=== PATIENT | female | born 1960 | race Caucasian/White ===

== ENCOUNTER 2018-09-11 18:48 | Emergency (ER) | payer MEDICARE, MEDICAID ==
[2018-09-11] MEDS ORDERED: Diphtheria,Pertussis(Acell),Tetanus Vaccine 0.5 ML Syringe IM ONE (19:03)
[2018-09-11] MEDS ORDERED: Bacitracin Oint 1 GM U/D Packet TOP ONE (19:03)
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
[2018-09-11 23:57] VITALS: BP 154/78
== END 2018-09-11 21:56 | disposition home or self-care (01) ==
LOC: MW.ED 18:48
DX: S61.512A Laceration without foreign body of left wrist, initial encounter (principal); F32.9 Major depressive disorder, single episode, unspecified; E03.9 Hypothyroidism, unspecified; E66.9 Obesity, unspecified; K21.9 Gastro-esophageal reflux disease without esophagitis; F99 Mental disorder, not otherwise specified; Z79.899 Other long term (current) drug therapy; Z88.8 Allergy status to other drugs, medicaments and biological substances; Z99.81 Dependence on supplemental oxygen; X78.0XXA Intentional self-harm by sharp glass, initial encounter; Z23 Encounter for immunization
CPT/HCPCS: 12005; 90471; 90715; 99283; J2001

== ENCOUNTER 2018-09-15 20:16 | Inpatient (IN) | payer MEDICARE, MEDICAID ==
[2018-09-15] MEDS ORDERED: Albuterol/Ipratropium 3.0-0.5 MG/3 ML Neb Soln NEB ONE (20:36)
--- NOTE | 2018-09-15 20:39 | EDM.PDOC ---
ED HPI GENERAL MEDICAL PROBLEM - General Chief Complaint: Respiratory Problem Stated Complaint: TROUBLE BREATHING Time Seen by Provider: 09/15/18 20:25 Source of Information: Reports: Patient, Other (GLOVE CUTTER) History Limitations: Reports: Other (poor historian) - History of Present Illness INITIAL COMMENTS - FREE TEXT/NARRATIVE: HISTORY AND PHYSICAL: History of present illness: Patient is a 58-year-old female presents to the ED today with the GLOVE CUTTER from the [facility] with concern of shortness of breath that it started this morning. Patient was seen in the ED recently after she had cut her wrist following a behavioral outburst. Since then, patient has been placed on Ativan daily and GLOVE CUTTER is worried that the Ativan could be causing her feeling short of breath. GLOVE CUTTER states that starting yesterday and today she has noticed that patient's color seems to be a little bit more pale and she seems more tired than usual. Patient states she started feeling short of breath this morning but she is not really able to explain what she means by this. GLOVE CUTTER states patient vomited last night and today 1 time. Patient states she does not smoke, drink, or use any other substances. Patient denies fever, chills, chest pain, or cough. Denies headache, neck stiff ness, change in vision, syncope, or near syncope. Denies nausea, vomiting, abdominal pain, diarrhea, constipation, or dysuria. Has not noted any blood in urine or stool. Patient has been eating and drinking appropriately. Review of systems: As per history of present illness and below otherwise all systems reviewed and negative. Past medical history: As per history of present illness and as reviewed below otherwise noncontributory. Surgical history: As per history of present illness and as reviewed below otherwise noncontributory. Social history: See social history for further information Family history: As per history of present illness and as reviewed below otherwise noncontributory. Physical exam: General: Patient is alert, oriented, and in no acute distress. Patient sitting comfortably on exam table. HEENT: Atraumatic, normocephalic, pupils equal and reactive bilaterally, negative for conjunctival pallor or scleral icterus, mucous membranes moist, TMs normal bilaterally, throat clear, neck supple, nontender, trachea midline. No drooling or trismus noted. No meningeal signs. No hot potato voice noted. Lungs: Clear to auscultation, breath sounds equal bilaterally, chest nontender. Heart: S1S2, regular rate and rhythm without overt murmur Abdomen: Soft, nondistended, nontender. Negative for masses or hepatosplenomegaly. Negative for costovertebral tenderness. Pelvis: Stable nontender. Genitourinary: Deferred. Rectal: Deferred. Skin: Intact, warm, dry. No lesions or rashes noted. Extremities: Atraumatic, negative for cords or calf pain. Neurovascular unremarkable. Neuro: Awake, alert, oriented. Cranial nerves II through XII unremarkable. Cerebellum unremarkable. Motor and sensory unremarkable throughout. Exam nonfocal. Notes: Dr. Wright directly involved in patient care. Dr. Teixeira consulted on patient and will admit to observation Voices understanding and is agreeable to plan of care. Denies any further questions or concerns at this time. Diagnostics: CBC, CMP, EKG, UA, d-dimer, troponin, lactate, blood cultures x 2, CTA Therapeutics: DuoNeb, Pyridium, Rocephin Impression: Urinary tract infection Dyspnea Plan: 1. Admit to observation to Dr. Teixeira Definitive disposition and diagnosis as appropriate pending reevaluation and review of above. - Related Data Allergies Allergy/AdvReac Type Severity Reaction Status Date / Time divalproex sodium Allergy Lethargy Verified 09/16/18 23:14 [From Depakote] Home Meds: Home Meds Calcium Carbonate/Vitamin D3 [Calcium 250+D] 2 tab PO BID 06/30/13 [History] Gemfibrozil 600 mg PO BID 06/30/13 [History] Levothyroxine 75 mcg PO DAILY 06/30/13 [History] Multivitamin [Multi-Vitamin Daily] 1 each PO DAILY 06/30/13 [History] Venlafaxine [Effexor XR] 150 mg PO DAILY 06/30/13 [History] Cyanocobalamin/Folic Acid [Vitamin P83-Hetzz Acid] 1,000 mg PO DAILY 07/06/14 [ History] Iron Polysaccharide Complex [Poly-Iron] 150 mg PO BID 07/06/14 [History] Aspirin [Halfprin] 81 mg PO DAILY 07/08/15 [History] Dexlansoprazole [Dexilant] 60 mg PO DAILY 07/08/15 [History] Docusate Sodium [Colace] 100 mg PO BID PRN 07/08/15 [History] Haloperidol [Haldol] 10 mg PO BID 07/08/15 [History] Venlafaxine [Effexor XR] 75 mg PO DAILY 07/08/15 [History] Calcium Polycarbophil [Fiber Laxative] 625 mg PO BID 07/15/15 [History] Albuterol Sulfate 2.5 mg INH Q4H PRN 11/04/17 [History] Escitalopram [Lexapro] 20 mg PO DAILY 11/04/17 [History] Estrogens, Conjugated [Premarin Vaginal Crm] 1 applic VAG Q48H 11/04/17 [History ] Lurasidone HCl [Latuda] 120 mg PO WITHDINNER 11/04/17 [History] Diclofenac Sodium [Voltaren] 75 mg PO BID 09/11/18 [History] LORazepam 1 tab PO ASDIRECTED PRN 09/15/18 [History] Ertapenem [INVanz] 1 gm IM DAILY #13 vial 09/19/18 [Rx] Past Medical History HEENT History: Reports: Hard of Hearing, Impaired Vision, Other (See Below) Other HEENT History: Bilateral exotropia Cardiovascular History: Reports: None Respiratory History: Reports: Other (See Below) Other Respiratory History: 3L O2 use at bedtime Gastrointestinal History: Reports: Chronic Constipation, GERD Genitourinary History: Reports: None [employer]AT BRUSHER History: Reports: Musculoskeletal History: Reports: Fracture Neurological History: Reports: None Psychiatric History: Reports: Depression, Psychosis, Other (See Below) Other Psychiatric History: Self Harm Endocrine/Metabolic History: Reports: Hypothyroidism, Obesity/BMI 30+ Hematologic History: Reports: None Immunologic History: Reports: None Oncologic (Cancer) History: Reports: None Dermatologic History: Reports: Other (See Below) Other Dermatologic History: varicose veins with edema - Infectious Disease History Infectious Disease History: Reports: None Other Infectious Disease History: Unable to verify any other illnesses. - Past Surgical History Female Surgical History: Reports: Section, Tubal Ligation Musculoskeletal Surgical History: Reports: Other (See Below) Social & Family History - Family History Family Medical History: Unobtainable - Living Situation & Occupation Living situation: Reports: Assisted Living, Other Occupation: Disabled ED ROS GENERAL - Review of Systems Review Of Systems: ROS reveals no pertinent complaints other than HPI. ED EXAM, GENERAL - Physical Exam Exam: See Below (see dictation) Course - Vital Signs Last Recorded V/S: Last Vital Signs Temp 36.9 C 09/19/18 04:00 Pulse 77 09/19/18 04:00 Resp 20 09/19/18 04:00 BP 141/70 H 09/19/18 04:00 Pulse Ox 91 L 09/19/18 04:00 - Orders/Labs/Meds Orders: Medication Orders Acetaminophen (Tylenol) 650 mg PO Q6H PRN PRN Reason: Pain Albuterol (Proventil Neb Soln) 2.5 mg INH Q4H PRN PRN Reason: Wheezing Albuterol/Ipratropium (Duoneb 3.0-0.5 Mg/3 Ml) 3 ml NEB Q6HRRT [facility] Last Admin: 09/19/18 06:02 Dose: 3 ml Admin: 09/18/18 23:48 Dose: 3 ml Admin: 09/18/18 18:28 Dose: 3 ml Admin: 09/18/18 12:29 Dose: 3 ml Admin: 09/18/18 06:41 Dose: 3 ml Admin: 09/17/18 23:41 Dose: 3 ml Admin: 09/17/18 17:16 Dose: 3 ml Admin: 09/17/18 12:03 Dose: 3 ml Aspirin (Halfprin) 81 mg PO DAILY [facility] Last Admin: 09/19/18 09:56 Dose: 81 mg Admin: 09/18/18 09:03 Dose: 81 mg Admin: 09/17/18 08:13 Dose: 81 mg Admin: 09/16/18 10:47 Dose: 81 mg Diclofenac Sodium (Voltaren) 75 mg PO BID [facility] Last Admin: 09/19/18 09:56 Dose: 75 mg Admin: 09/18/18 20:46 Dose: 75 mg Admin: 09/18/18 09:02 Dose: 75 mg Admin: 09/17/18 23:40 Dose: 75 mg Admin: 09/17/18 08:13 Dose: 75 mg Admin: 09/16/18 21:23 Dose: 75 mg Admin: 09/16/18 10:49 Dose: 75 mg Docusate Sodium (Colace) 100 mg PO BID PRN PRN Reason: Constipation Escitalopram Oxalate (Lexapro) 20 mg PO DAILY [facility] Last Admin: 09/19/18 09:55 Dose: 20 mg Admin: 09/18/18 09:04 Dose: 20 mg Admin: 09/17/18 08:13 Dose: 20 mg Admin: 09/16/18 10:45 Dose: 20 mg Gemfibrozil (Lopid) 600 mg PO BID [facility] Last Admin: 09/19/18 09:55 Dose: 600 mg Admin: 09/18/18 20:46 Dose: 600 mg Admin: 09/18/18 09:04 Dose: 600 mg Admin: 09/17/18 23:40 Dose: 600 mg Admin: 09/17/18 08:13 Dose: 600 mg Admin: 09/16/18 21:22 Dose: 600 mg Admin: 09/16/18 10:48 Dose: 600 mg Haloperidol (Haldol) 10 mg PO BID [facility] Last Admin: 09/19/18 09:56 Dose: 10 mg Admin: 09/18/18 20:46 Dose: 10 mg Admin: 09/18/18 10:01 Dose: 10 mg Admin: 09/17/18 23:40 Dose: 10 mg Admin: 09/17/18 08:14 Dose: 10 mg Admin: 09/16/18 21:23 Dose: 10 mg Admin: 09/16/18 10:48 Dose: 10 mg Heparin Sodium (Porcine) (Heparin Sodium) 5,000 units SUBCUT Q8H [facility] Last Admin: 09/19/18 09:53 Dose: 5,000 units Admin: 09/18/18 23:48 Dose: 5,000 units Admin: 09/18/18 15:48 Dose: 5,000 units Admin: 09/18/18 09:30 Dose: 5,000 units Admin: 09/17/18 23:41 Dose: 5,000 units Admin: 09/17/18 16:39 Dose: 5,000 units Admin: 09/17/18 08:14 Dose: 5,000 units Admin: 09/16/18 23:37 Dose: 5,000 units Admin: 09/16/18 16:07 Dose: 5,000 units Admin: 09/16/18 10:42 Dose: 5,000 units Meropenem 1 gm/ Sodium (Chloride) 100 mls @ 200 mls/hr IV Q12H [facility] Last Admin: 09/19/18 08:37 Dose: 200 mls/hr Infusion: 09/18/18 22:00 Dose: 200 mls/hr Admin: 09/18/18 21:30 Dose: 200 mls/hr Infusion: 09/18/18 09:09 Dose: 200 mls/hr Admin: 09/18/18 08:39 Dose: 200 mls/hr Infusion: 09/18/18 00:10 Dose: 200 mls/hr Admin: 09/17/18 23:40 Dose: 200 mls/hr Infusion: 09/17/18 09:58 Dose: 200 mls/hr Admin: 09/17/18 09:28 Dose: 200 mls/hr Levothyroxine Sodium (Levothyroxine) 75 mcg PO ACBREAKFAST [facility] Last Admin: 09/19/18 08:31 Dose: 75 mcg Admin: 09/18/18 07:49 Dose: 75 mcg Admin: 09/17/18 06:30 Dose: 75 mcg Admin: 09/16/18 10:47 Dose: 75 mcg Lorazepam (Ativan) 2 mg PO DAILY PRN PRN Reason: Anxiety Methylprednisolone Sodium Succinate (Solu-Medrol) 60 mg IVPUSH Q12H [facility] Omeprazole (Omeprazole) 20 mg PO ACBREAKFAST [facility] Last Admin: 09/19/18 08:30 Dose: 20 mg Admin: 09/18/18 07:49 Dose: 20 mg Admin: 09/17/18 06:30 Dose: 20 mg Admin: 09/16/18 10:47 Dose: 20 mg Lurasidone Hcl [ (Latuda] 120 Mg) 1 each PO WITHDINNER [facility] Last Admin: 09/18/18 17:49 Dose: 1 each Admin: 09/17/18 17:32 Dose: 1 each Admin: 09/16/18 18:15 Dose: Not Given Venlafaxine HCl (Effexor Xr) 225 mg PO DAILY [facility] Last Admin: 09/19/18 09:55 Dose: 225 mg Admin: 09/18/18 09:03 Dose: 225 mg Admin: 09/17/18 08:12 Dose: 225 mg Admin: 09/16/18 10:43 Dose: 225 mg Labs: Laboratory Tests 09/15/18 09/15/18 09/15/18 Range/Units 20:40 20:58 20:58 WBC 11.58 H (4.0-11.0) K/uL RBC 3.19 L (4.30-5.90) M/uL Hgb 9.8 L (12.0-16.0) g/dL Hct 29.9 L (36.0-46.0) % MCV 93.7 (80.0-98.0) fL MCH 30.7 (27.0-32.0) pg MCHC 32.8 (31.0-37.0) g/dL RDW Std Deviation 45.6 (28.0-62.0) fl RDW Coeff of Amaris 13 (11.0-15.0) % Plt Count 186 (150-400) K/uL MPV 10.70 (7.40-12.00) fL Neut % (Auto) 80.1 H (48.0-80.0) % Lymph % (Auto) 7.2 L (16.0-40.0) % [place] % (Auto) 12.0 (0.0-15.0) % Eos % (Auto) 0.5 (0.0-7.0) % Baso % (Auto) 0.2 (0.0-1.5) % Neut # (Auto) 9.3 H (1.4-5.7) K/uL Lymph # (Auto) 0.8 (0.6-2.4) K/uL [place] # (Auto) 1.4 H (0.0-0.8) K/uL Eos # (Auto) 0.1 (0.0-0.7) K/uL Baso # (Auto) 0.0 (0.0-0.1) K/uL Nucleated RBC % 0.0 /100WBC Nucleated RBCs # 0 K/uL D-Dimer, Quantitative (0.0-0.50) mg/L FEU Lactate (0.20-2.00) mmol/L Sodium 132 L (136-145) mmol/L Potassium 3.5 (3.5-5.1) mmol/L Chloride 98 (98-107) mmol/L Carbon Dioxide 24.1 (21.0-32.0) mmol/L BUN 37 H (7.0-18.0) mg/dL Creatinine 1.8 H (0.6-1.0) mg/dL Est Cr Clr Drug Dosing TNP Estimated GFR (MDRD) 29.0 ml/min Glucose 148 H (74-106) mg/dL POC Glucose (60-110) mg/dL Calcium 8.4 L (8.5-10.1) mg/dL Total Bilirubin 0.3 (0.2-1.0) mg/dL AST 19 (15-37) IU/L ALT 18 (14-63) IU/L Alkaline Phosphatase 149 H (46-116) U/L Troponin I 0.451 H* (0.000-0.056) ng/mL Total Protein 6.5 (6.4-8.2) g/dL Albumin 2.5 L (3.4-5.0) g/dL Globulin 4.0 (2.6-4.0) g/dL Albumin/Globulin Ratio 0.6 L (0.9-1.6) Urine Color YELLOW Urine Appearance CLEAR Urine pH 5.5 (5.0-8.0) Ur Specific [place] 1.015 (1.001-1.035) Urine Protein 30 H (NEGATIVE) mg/dL Urine Glucose (UA) NEGATIVE (NEGATIVE) mg/dL Urine Ketones NEGATIVE (NEGATIVE) mg/dL Urine Occult Blood MODERATE H (NEGATIVE) Urine Nitrite POSITIVE H (NEGATIVE) Urine Bilirubin NEGATIVE (NEGATIVE) Urine Urobilinogen 0.2 (<2.0) EU/dL Ur Leukocyte Esterase LARGE H (NEGATIVE) Urine RBC 1-3 (0-2/HPF) Urine WBC 20-25 (0-5/HPF) Ur Epithelial Cells FEW (NONE-FEW) Urine Bacteria 3+ H (NEGATIVE) 09/15/18 09/15/18 09/15/18 Range/Units 20:58 21:30 22:44 WBC (4.0-11.0) K/uL RBC (4.30-5.90) M/uL Hgb (12.0-16.0) g/dL Hct (36.0-46.0) % MCV (80.0-98.0) fL MCH (27.0-32.0) pg MCHC (31.0-37.0) g/dL RDW Std Deviation (28.0-62.0) fl RDW Coeff of Amaris (11.0-15.0) % Plt Count (150-400) K/uL MPV (7.40-12.00) fL Neut % (Auto) (48.0-80.0) % Lymph % (Auto) (16.0-40.0) % [place] % (Auto) (0.0-15.0) % Eos % (Auto) (0.0-7.0) % Baso % (Auto) (0.0-1.5) % Neut # (Auto) (1.4-5.7) K/uL Lymph # (Auto) (0.6-2.4) K/uL [place] # (Auto) (0.0-0.8) K/uL Eos # (Auto) (0.0-0.7) K/uL Baso # (Auto) (0.0-0.1) K/uL Nucleated RBC % /100WBC Nucleated RBCs # K/uL D-Dimer, Quantitative 2.13 H (0.0-0.50) mg/L FEU Lactate 1.2 (0.20-2.00) mmol/L Sodium (136-145) mmol/L Potassium (3.5-5.1) mmol/L Chloride (98-107) mmol/L Carbon Dioxide (21.0-32.0) mmol/L BUN (7.0-18.0) mg/dL Creatinine (0.6-1.0) mg/dL Est Cr Clr Drug Dosing Estimated GFR (MDRD) ml/min Glucose (74-106) mg/dL POC Glucose 145 H (60-110) mg/dL Calcium (8.5-10.1) mg/dL Total Bilirubin (0.2-1.0) mg/dL AST (15-37) IU/L ALT (14-63) IU/L Alkaline Phosphatase (46-116) U/L Troponin I (0.000-0.056) ng/mL Total Protein (6.4-8.2) g/dL Albumin (3.4-5.0) g/dL Globulin (2.6-4.0) g/dL Albumin/Globulin Ratio (0.9-1.6) Urine Color Urine Appearance Urine pH (5.0-8.0) Ur Specific [place] (1.001-1.035) Urine Protein (NEGATIVE) mg/dL Urine Glucose (UA) (NEGATIVE) mg/dL Urine Ketones (NEGATIVE) mg/dL Urine Occult Blood (NEGATIVE) Urine Nitrite (NEGATIVE) Urine Bilirubin (NEGATIVE) Urine Urobilinogen (<2.0) EU/dL Ur Leukocyte Esterase (NEGATIVE) Urine RBC (0-2/HPF) Urine WBC (0-5/HPF) Ur Epithelial Cells (NONE-FEW) Urine Bacteria (NEGATIVE) 09/16/18 09/16/18 Range/Units 03:05 03:05 WBC 8.81 (4.0-11.0) K/uL RBC 3.06 L (4.30-5.90) M/uL Hgb 9.4 L (12.0-16.0) g/dL Hct 28.7 L (36.0-46.0) % MCV 93.8 (80.0-98.0) fL MCH 30.7 (27.0-32.0) pg MCHC 32.8 (31.0-37.0) g/dL RDW Std Deviation 45.4 (28.0-62.0) fl RDW Coeff of Amaris 13 (11.0-15.0) % Plt Count 173 (150-400) K/uL MPV 10.30 (7.40-12.00) fL Neut % (Auto) 80.5 H (48.0-80.0) % Lymph % (Auto) 8.9 L (16.0-40.0) % [place] % (Auto) 9.8 (0.0-15.0) % Eos % (Auto) 0.7 (0.0-7.0) % Baso % (Auto) 0.1 (0.0-1.5) % Neut # (Auto) 7.1 H (1.4-5.7) K/uL Lymph # (Auto) 0.8 (0.6-2.4) K/uL [place] # (Auto) 0.9 H (0.0-0.8) K/uL Eos # (Auto) 0.1 (0.0-0.7) K/uL Baso # (Auto) 0.0 (0.0-0.1) K/uL Nucleated RBC % 0.0 /100WBC Nucleated RBCs # 0 K/uL D-Dimer, Quantitative (0.0-0.50) mg/L FEU Lactate (0.20-2.00) mmol/L Sodium 135 L (136-145) mmol/L Potassium 3.4 L (3.5-5.1) mmol/L Chloride 101 (98-107) mmol/L Carbon Dioxide 26.4 (21.0-32.0) mmol/L BUN 35 H (7.0-18.0) mg/dL Creatinine 1.8 H (0.6-1.0) mg/dL Est Cr Clr Drug Dosing TNP Estimated GFR (MDRD) 29.0 ml/min Glucose 111 H (74-106) mg/dL POC Glucose (60-110) mg/dL Calcium 8.1 L (8.5-10.1) mg/dL Total Bilirubin (0.2-1.0) mg/dL AST (15-37) IU/L ALT (14-63) IU/L Alkaline Phosphatase (46-116) U/L Troponin I 0.337 H* (0.000-0.056) ng/mL Total Protein (6.4-8.2) g/dL Albumin (3.4-5.0) g/dL Globulin (2.6-4.0) g/dL Albumin/Globulin Ratio (0.9-1.6) Urine Color Urine Appearance Urine pH (5.0-8.0) Ur Specific [place] (1.001-1.035) Urine Protein (NEGATIVE) mg/dL Urine Glucose (UA) (NEGATIVE) mg/dL Urine Ketones (NEGATIVE) mg/dL Urine Occult Blood (NEGATIVE) Urine Nitrite (NEGATIVE) Urine Bilirubin (NEGATIVE) Urine Urobilinogen (<2.0) EU/dL Ur Leukocyte Esterase (NEGATIVE) Urine RBC (0-2/HPF) Urine WBC (0-5/HPF) Ur Epithelial Cells (NONE-FEW) Urine Bacteria (NEGATIVE) Meds: Medications Generic Name Dose Route Start Last Admin Trade Name Freq PRN Reason Stop Dose Admin Acetaminophen 650 mg 09/15/18 23:12 Tylenol PO Q6H PRN Pain Albuterol 2.5 mg 09/16/18 08:12 Proventil Neb Soln INH Q4H PRN Wheezing Albuterol/Ipratropium 3 ml 09/17/18 12:00 09/19/18 06:02 Duoneb 3.0-0.5 Mg/3 Ml NEB 3 ml Q6HRRT [facility] Administration Aspirin 81 mg 09/16/18 09:00 09/19/18 09:56 Halfprin PO 81 mg DAILY [facility] Administration Diclofenac Sodium 75 mg 09/16/18 09:00 09/19/18 09:56 Voltaren PO 75 mg BID [facility] Administration Docusate Sodium 100 mg 09/16/18 08:12 Colace PO BID PRN Constipation Escitalopram Oxalate 20 mg 09/16/18 09:00 09/19/18 09:55 Lexapro PO 20 mg DAILY [facility] Administration Gemfibrozil 600 mg 09/16/18 09:00 09/19/18 09:55 Lopid PO 600 mg BID [facility] Administration Haloperidol 10 mg 09/16/18 09:00 09/19/18 09:56 Haldol PO 10 mg BID [facility] Administration Heparin Sodium (Porcine) 5,000 units 09/16/18 08:15 09/19/18 09:53 Heparin Sodium SUBCUT 5,000 units Q8H [facility] Administration Meropenem 1 gm/ Sodium 100 mls @ 200 mls/hr 09/17/18 08:30 09/19/18 08:37 Chloride IV 200 mls/hr Q12H [facility] Administration Levothyroxine Sodium 75 mcg 09/16/18 09:00 09/19/18 08:31 Levothyroxine PO 75 mcg ACBREAKFAST [facility] Administration Lorazepam 2 mg 09/16/18 08:12 Ativan PO DAILY PRN Anxiety Methylprednisolone Sodium Succinate 60 mg 09/19/18 09:10 Solu-Medrol IVPUSH Q12H [facility] Omeprazole 20 mg 09/16/18 09:00 09/19/18 08:30 Omeprazole PO 20 mg ACBREAKFAST [facility] Administration Lurasidone Hcl [ 1 each 09/16/18 17:30 09/18/18 17:49 Latuda] 120 Mg PO 1 each WITHDINNER [facility] Administration Venlafaxine HCl 225 mg 09/16/18 09:00 09/19/18 09:55 Effexor Xr PO 225 mg DAILY [facility] Administration Discontinued Medications Generic Name Dose Route Start Last Admin Trade Name Freq PRN Reason Stop Dose Admin Albuterol/Ipratropium 3 ml 09/15/18 20:36 09/15/18 20:54 Duoneb 3.0-0.5 Mg/3 Ml NEB 09/15/18 20:37 3 ml ONETIME ONE Administration Albuterol/Ipratropium 3 ml 09/15/18 23:12 06/18/19 15:52 Duoneb 3.0-0.5 Mg/3 Ml NEB 3 ml Q4HRRT PRN Administration Wheezing Enoxaparin Sodium 120 mg 09/15/18 21:51 09/15/18 22:01 Lovenox SUBCUT 09/15/18 21:52 120 mg ONETIME ONE Administration Ceftriaxone Sodium/Dextrose 1 50 mls @ 100 mls/hr 09/15/18 21:09 09/15/18 21: 39 gm/ Premix IV 09/15/18 21:38 100 mls/hr ONETIME ONE Administration Sodium Chloride 1,000 mls @ 999 mls/hr 09/15/18 21:09 09/15/18 21:39 Normal Saline IV 09/15/18 22:09 999 mls/hr STAT ONE Administration Ceftriaxone Sodium/Dextrose 1 50 mls @ 100 mls/hr 09/16/18 21:00 09/16/18 21: 22 gm/ Premix IV 100 mls/hr Q24H [facility] Administration Sodium Chloride 1,000 mls @ 75 mls/hr 09/15/18 23:15 09/18/18 06:41 Normal Saline IV 75 mls/hr ASDIRECTED [facility] Administration Premarin Vaginal 1 applic 09/16/18 21:00 09/16/18 21:23 Cream VAG Not Given Q2D@2100 [facility] Oxycodone HCl 5 mg 09/15/18 23:13 09/15/18 23:49 Oxycodone PO 5 mg Q4H PRN Administration Pain Phenazopyridine HCl 200 mg 09/15/18 20:55 09/15/18 21:06 Pyridium PO 09/15/18 20:56 200 mg ONETIME ONE Administration Departure - Departure Time of Disposition: 21:33 Disposition: Refer to Observation Clinical Impression: Urinary tract infection Qualifiers: Urinary tract infection type: acute cystitis Hematuria presence: with hematuria Qualified Code(s): N30.01 - Acute cystitis with hematuria Dyspnea Qualifiers: Dyspnea type: unspecified Qualified Code(s): R06.00 - Dyspnea, unspecified - Discharge Information
[2018-09-15] MEDS ORDERED: Phenazopyridine 200 MG Tab PO ONE (20:55)
[2018-09-15] MEDS ORDERED: cefTRIAXone 1 GM in Premix Bag 1 BAG IV ONE (21:09)
[2018-09-15] MEDS ORDERED: Sodium Chloride 0.9% 1,000 ML IV ONE (21:09)
[2018-09-15 21:40] LABS: CHLORIDE,CL 98 mmol/L (98-107); SODIUM,NA 132 mmol/L (136-145)
[2018-09-15] MEDS ORDERED: Enoxaparin 150 MG/1 ML Syringe SUBCUT ONE (21:51)
[2018-09-15] MEDS ORDERED: Acetaminophen 325 MG Tab PO PRN (23:12)
[2018-09-15] MEDS ORDERED: oxyCODONE 5 MG Tab PO PRN (23:13)
[2018-09-15] MEDS: Sodium Chloride 0.9% 1,000 ML IV SCH (23:49)
[2018-09-15] MEDS: Albuterol/Ipratropium 3.0-0.5 MG/3 ML Neb Soln NEB PRN (23:51)
[2018-09-16 03:48] LABS: CHLORIDE,CL 101 mmol/L (98-107); SODIUM,NA 135 mmol/L (136-145)
[2018-09-16] MEDS: Sodium Chloride 0.9% 1,000 ML IV SCH (07:48)
[2018-09-16] MEDS ORDERED: LORazepam 1 MG Tab PO PRN (08:12)
[2018-09-16] MEDS ORDERED: Docusate Sodium 100 MG Cap PO PRN (08:12)
[2018-09-16] MEDS ORDERED: Albuterol 0.083% 2.5 MG/3 ML Neb Soln INH PRN (08:12)
--- NOTE | 2018-09-16 08:18 | PCM.HP ---
H&P History of Present Illness - General Date of Service: 09/16/18 Admit Problem/Dx: Admission Diagnosis/Problem Admission Diagnosis/Problem Urinary tract infection Source of Information: Patient, Old Records History Limitations: Reports: Altered Mental Status - History of Present Illness Initial Comments - Free Text/Narative: The patient is a 58-year-old lady who had presented to the emergency department from [facility] out of concern for shortness of breath. The patient is living in a long-term. The patient is developmentally delayed and is somewhat of a poor historian. Family members are not available. Information has been taken from her previous charting. The patient has been reported to have had nausea and vomiting. The patient also has denied any pain. Onset of Symptoms: Reports: Unknown/Unsure Duration of Symptoms: Reports: Day(s): Location: Reports: Abdomen Severity: Mild Improves with: Reports: None, Medication Associated Symptoms: Reports: No Other Symptoms - Related Data Allergies/Adverse Reactions: Allergies Allergy/AdvReac Type Severity Reaction Status Date / Time divalproex sodium Allergy Lethargy Verified 09/15/18 20:37 [[facility] Home Medications: Home Meds Calcium Carbonate/Vitamin D3 [Calcium 250+D] 2 tab PO BID 06/30/13 [History] Gemfibrozil 600 mg PO BID 06/30/13 [History] Levothyroxine 75 mcg PO DAILY 06/30/13 [History] Multivitamin [Multi-Vitamin Daily] 1 each PO DAILY 06/30/13 [History] Venlafaxine [Effexor XR] 150 mg PO DAILY 06/30/13 [History] Cyanocobalamin/Folic Acid [Vitamin T09-Nkphe Acid] 1,000 mg PO DAILY 07/06/14 [ History] Iron Polysaccharide Complex [Poly-Iron] 150 mg PO BID 07/06/14 [History] Aspirin [Halfprin] 81 mg PO DAILY 07/08/15 [History] Dexlansoprazole [Dexilant] 60 mg PO DAILY 07/08/15 [History] Docusate Sodium [Colace] 100 mg PO BID PRN 07/08/15 [History] Haloperidol [Haldol] 10 mg PO BID 07/08/15 [History] Venlafaxine [Effexor XR] 75 mg PO DAILY 07/08/15 [History] Calcium Polycarbophil [Fiber Laxative] 625 mg PO BID 07/15/15 [History] Albuterol Sulfate 2.5 mg INH Q4H PRN 11/04/17 [History] Escitalopram [Lexapro] 20 mg PO DAILY 11/04/17 [History] Estrogens, Conjugated [Premarin Vaginal Crm] 1 applic VAG Q48H 11/04/17 [History ] Lurasidone HCl [Latuda] 120 mg PO WITHDINNER 11/04/17 [History] Diclofenac Sodium [Voltaren] 75 mg PO BID 09/11/18 [History] Iron Polysaccharide Complex [Poly-Iron] 1 cap PO BID 09/11/18 [History] LORazepam 1 tab PO ASDIRECTED PRN 09/15/18 [History] Past Medical History HEENT History: Reports: Hard of Hearing, Impaired Vision, Other (See Below) Other HEENT History: Bilateral exotropia Cardiovascular History: Reports: None Respiratory History: Reports: Other (See Below) Other Respiratory History: 3L O2 use at bedtime Gastrointestinal History: Reports: Chronic Constipation, GERD Genitourinary History: Reports: Urinary Incontinence [employer] History: Reports: Musculoskeletal History: Reports: Fracture Neurological History: Reports: None Psychiatric History: Reports: Aggressive/Hostile Behaviors, Depression, Developmental Delay, Emotional Problems, Learning Disability, Mood Swings, Psychosis, Suicide Attempt, Other (See Below) Other Psychiatric History: Self Harm Endocrine/Metabolic History: Reports: Hypothyroidism, Obesity/BMI 30+ Hematologic History: Reports: None Immunologic History: Reports: None Oncologic (Cancer) History: Reports: None Dermatologic History: Reports: Other (See Below) Other Dermatologic History: varicose veins with edema - Infectious Disease History Infectious Disease History: Reports: None Other Infectious Disease History: Unable to verify any other illnesses. - Past Surgical History Female Surgical History: Reports: Section, Tubal Ligation Musculoskeletal Surgical History: Reports: Other (See Below) Social & Family History - Family History Family Medical History: Unobtainable - Tobacco Use Smoking Status *Q: Never Smoker Second Hand Smoke Exposure: No - Recreational Drug Use Recreational Drug Use: No - Living Situation & Occupation Living situation: Reports: Single, Assisted Living, Other Occupation: Disabled H&P Review of Systems - Review of Systems: Review Of Systems: Unable To Obtain Exam - Exam Exam: See Below - Vital Signs Vital Signs: Last Vital Signs Temp 36.4 C 09/16/18 08:00 Pulse 84 09/16/18 08:00 Resp 14 09/16/18 08:00 BP 106/60 09/16/18 08:00 Pulse Ox 95 09/16/18 08:00 Weight: 106.957 kg - Exam Quality Assessment: No: Supplemental Oxygen General: Alert, Oriented, Cooperative, Other (Appears older, mask like) HEENT: Conjunctiva Clear, EACs Clear, EOMI, Nares Patent. No: Mucosa Moist & [place] Neck: Supple, Trachea Midline Lungs: Clear to Auscultation, Normal Respiratory Effort Cardiovascular: Regular Rate, Regular Rhythm GI/Abdominal Exam: Normal Bowel Sounds, Soft, Non-Tender, No Distention Back Exam: Normal Inspection, Full Range of Motion Extremities: Normal Inspection Skin: Warm, Dry, Intact Neurological: Cranial Nerves Intact Neuro Extensive - Mental Status: Slow Response to Commands Psychiatric: Alert, Normal Mood. No: Normal Affect (Flat) - Patient Data Lab Results Last 24 hrs: Laboratory Results - last 24 hr 09/15/18 09/15/18 09/15/18 Range/Units 20:40 20:58 20:58 WBC 11.58 H (4.0-11.0) K/uL RBC 3.19 L (4.30-5.90) M/uL Hgb 9.8 L (12.0-16.0) g/dL Hct 29.9 L (36.0-46.0) % MCV 93.7 (80.0-98.0) fL MCH 30.7 (27.0-32.0) pg MCHC 32.8 (31.0-37.0) g/dL RDW Std Deviation 45.6 (28.0-62.0) fl RDW Coeff of [place] 13 (11.0-15.0) % Plt Count 186 (150-400) K/uL MPV 10.70 (7.40-12.00) fL Neut % (Auto) 80.1 H (48.0-80.0) % Lymph % (Auto) 7.2 L (16.0-40.0) % [place] % (Auto) 12.0 (0.0-15.0) % Eos % (Auto) 0.5 (0.0-7.0) % Baso % (Auto) 0.2 (0.0-1.5) % Neut # (Auto) 9.3 H (1.4-5.7) K/uL Lymph # (Auto) 0.8 (0.6-2.4) K/uL [place] # (Auto) 1.4 H (0.0-0.8) K/uL Eos # (Auto) 0.1 (0.0-0.7) K/uL Baso # (Auto) 0.0 (0.0-0.1) K/uL Nucleated RBC % 0.0 /100WBC Nucleated RBCs # 0 K/uL D-Dimer, Quantitative (0.0-0.50) mg/L FEU Lactate (0.20-2.00) mmol/L Sodium 132 L (136-145) mmol/L Potassium 3.5 (3.5-5.1) mmol/L Chloride 98 (98-107) mmol/L Carbon Dioxide 24.1 (21.0-32.0) mmol/L BUN 37 H (7.0-18.0) mg/dL Creatinine 1.8 H (0.6-1.0) mg/dL Est Cr Clr Drug Dosing TNP Estimated GFR (MDRD) 29.0 ml/min Glucose 148 H (74-106) mg/dL POC Glucose (60-110) mg/dL Calcium 8.4 L (8.5-10.1) mg/dL Total Bilirubin 0.3 (0.2-1.0) mg/dL AST 19 (15-37) IU/L ALT 18 (14-63) IU/L Alkaline Phosphatase 149 H (46-116) U/L Troponin I 0.451 H* (0.000-0.056) ng/mL Total Protein 6.5 (6.4-8.2) g/dL Albumin 2.5 L (3.4-5.0) g/dL Globulin 4.0 (2.6-4.0) g/dL Albumin/Globulin Ratio 0.6 L (0.9-1.6) Urine Color YELLOW Urine Appearance CLEAR Urine pH 5.5 (5.0-8.0) Ur Specific [place] 1.015 (1.001-1.035) Urine Protein 30 H (NEGATIVE) mg/dL Urine Glucose (UA) NEGATIVE (NEGATIVE) mg/dL Urine Ketones NEGATIVE (NEGATIVE) mg/dL Urine Occult Blood MODERATE H (NEGATIVE) Urine Nitrite POSITIVE H (NEGATIVE) Urine Bilirubin NEGATIVE (NEGATIVE) Urine Urobilinogen 0.2 (<2.0) EU/dL Ur Leukocyte Esterase LARGE H (NEGATIVE) Urine RBC 1-3 (0-2/HPF) Urine WBC 20-25 (0-5/HPF) Ur Epithelial Cells FEW (NONE-FEW) Urine Bacteria 3+ H (NEGATIVE) 09/15/18 09/15/18 09/15/18 Range/Units 20:58 21:30 22:44 WBC (4.0-11.0) K/uL RBC (4.30-5.90) M/uL Hgb (12.0-16.0) g/dL Hct (36.0-46.0) % MCV (80.0-98.0) fL MCH (27.0-32.0) pg MCHC (31.0-37.0) g/dL RDW Std Deviation (28.0-62.0) fl RDW Coeff of [place]aris (11.0-15.0) % Plt Count (150-400) K/uL MPV (7.40-12.00) fL Neut % (Auto) (48.0-80.0) % Lymph % (Auto) (16.0-40.0) % [place] % (Auto) (0.0-15.0) % Eos % (Auto) (0.0-7.0) % Baso % (Auto) (0.0-1.5) % Neut # (Auto) (1.4-5.7) K/uL Lymph # (Auto) (0.6-2.4) K/uL [place] # (Auto) (0.0-0.8) K/uL Eos # (Auto) (0.0-0.7) K/uL Baso # (Auto) (0.0-0.1) K/uL Nucleated RBC % /100WBC Nucleated RBCs # K/uL D-Dimer, Quantitative 2.13 H (0.0-0.50) mg/L FEU Lactate 1.2 (0.20-2.00) mmol/L Sodium (136-145) mmol/L Potassium (3.5-5.1) mmol/L Chloride (98-107) mmol/L Carbon Dioxide (21.0-32.0) mmol/L BUN (7.0-18.0) mg/dL Creatinine (0.6-1.0) mg/dL Est Cr Clr Drug Dosing Estimated GFR (MDRD) ml/min Glucose (74-106) mg/dL POC Glucose 145 H (60-110) mg/dL Calcium (8.5-10.1) mg/dL Total Bilirubin (0.2-1.0) mg/dL AST (15-37) IU/L ALT (14-63) IU/L Alkaline Phosphatase (46-116) U/L Troponin I (0.000-0.056) ng/mL Total Protein (6.4-8.2) g/dL Albumin (3.4-5.0) g/dL Globulin (2.6-4.0) g/dL Albumin/Globulin Ratio (0.9-1.6) Urine Color Urine Appearance Urine pH (5.0-8.0) Ur Specific [place] (1.001-1.035) Urine Protein (NEGATIVE) mg/dL Urine Glucose (UA) (NEGATIVE) mg/dL Urine Ketones (NEGATIVE) mg/dL Urine Occult Blood (NEGATIVE) Urine Nitrite (NEGATIVE) Urine Bilirubin (NEGATIVE) Urine Urobilinogen (<2.0) EU/dL Ur Leukocyte Esterase (NEGATIVE) Urine RBC (0-2/HPF) Urine WBC (0-5/HPF) Ur Epithelial Cells (NONE-FEW) Urine Bacteria (NEGATIVE) 09/16/18 09/16/18 Range/Units 03:05 03:05 WBC 8.81 (4.0-11.0) K/uL RBC 3.06 L (4.30-5.90) M/uL Hgb 9.4 L (12.0-16.0) g/dL Hct 28.7 L (36.0-46.0) % MCV 93.8 (80.0-98.0) fL MCH 30.7 (27.0-32.0) pg MCHC 32.8 (31.0-37.0) g/dL RDW Std Deviation 45.4 (28.0-62.0) fl RDW Coeff of Amaris 13 (11.0-15.0) % Plt Count 173 (150-400) K/uL MPV 10.30 (7.40-12.00) fL Neut % (Auto) 80.5 H (48.0-80.0) % Lymph % (Auto) 8.9 L (16.0-40.0) % [place] % (Auto) 9.8 (0.0-15.0) % Eos % (Auto) 0.7 (0.0-7.0) % Baso % (Auto) 0.1 (0.0-1.5) % Neut # (Auto) 7.1 H (1.4-5.7) K/uL Lymph # (Auto) 0.8 (0.6-2.4) K/uL [place] # (Auto) 0.9 H (0.0-0.8) K/uL Eos # (Auto) 0.1 (0.0-0.7) K/uL Baso # (Auto) 0.0 (0.0-0.1) K/uL Nucleated RBC % 0.0 /100WBC Nucleated RBCs # 0 K/uL D-Dimer, Quantitative (0.0-0.50) mg/L FEU Lactate (0.20-2.00) mmol/L Sodium 135 L (136-145) mmol/L Potassium 3.4 L (3.5-5.1) mmol/L Chloride 101 (98-107) mmol/L Carbon Dioxide 26.4 (21.0-32.0) mmol/L BUN 35 H (7.0-18.0) mg/dL Creatinine 1.8 H (0.6-1.0) mg/dL Est Cr Clr Drug Dosing TNP Estimated GFR (MDRD) 29.0 ml/min Glucose 111 H (74-106) mg/dL POC Glucose (60-110) mg/dL Calcium 8.1 L (8.5-10.1) mg/dL Total Bilirubin (0.2-1.0) mg/dL AST (15-37) IU/L ALT (14-63) IU/L Alkaline Phosphatase (46-116) U/L Troponin I 0.337 H* (0.000-0.056) ng/mL Total Protein (6.4-8.2) g/dL Albumin (3.4-5.0) g/dL Globulin (2.6-4.0) g/dL Albumin/Globulin Ratio (0.9-1.6) Urine Color Urine Appearance Urine pH (5.0-8.0) Ur Specific [place] (1.001-1.035) Urine Protein (NEGATIVE) mg/dL Urine Glucose (UA) (NEGATIVE) mg/dL Urine Ketones (NEGATIVE) mg/dL Urine Occult Blood (NEGATIVE) Urine Nitrite (NEGATIVE) Urine Bilirubin (NEGATIVE) Urine Urobilinogen (<2.0) EU/dL Ur Leukocyte Esterase (NEGATIVE) Urine RBC (0-2/HPF) Urine WBC (0-5/HPF) Ur Epithelial Cells (NONE-FEW) Urine Bacteria (NEGATIVE) Result Diagrams: 09/16/18 03:05 09/16/18 03:05 - Problem List (1) Urinary tract infection SNOMED Code(s): 00722503 ICD Code: N39.0 - URINARY TRACT INFECTION, SITE NOT SPECIFIED Status: Acute Priority: High Current Visit: Yes Qualifiers: Urinary tract infection type: acute cystitis Hematuria presence: with hematuria Qualified Code(s): N30.01 - Acute cystitis with hematuria (2) Gram-negative bacteremia SNOMED Code(s): 919931401785 ICD Code: R78.81 - BACTEREMIA Status: Acute Priority: High Current Visit: Yes (3) Bipolar disorder SNOMED Code(s): 38963385 ICD Code: F31.9 - BIPOLAR DISORDER, UNSPECIFIED Status: Chronic Priority : High Current Visit: Yes (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) SNOMED Code(s): 71848079 ICD Code: F70 - MILD INTELLECTUAL DISABILITIES Status: Chronic Priority: Medium Current Visit: Yes Problem List Initiated/Reviewed/Updated: Yes Orders Last 24hrs: Active Orders 24 hr Category Date Time Status Admission Status [Patient Status] [ADT] Routine ADT 09/16/18 07:30 Active Oxygen Therapy [RC] PRN Care 09/16/18 08:14 Active RT Aerosol Therapy [RC] ASDIRECTED Care 09/15/18 23:12 Active Up With Assistance [RC] ASDIRECTED Care 09/16/18 08:14 Active VTE/DVT Education [RC] PER UNIT ROUTINE Care 09/16/18 08:14 Active Vital Signs [RC] Q4H Care 09/16/18 08:14 Active Regular Diet [DIET] Diet 09/16/18 Breakfast Active CULTURE BLOOD [BC] Stat Lab 09/15/18 21:18 Received CULTURE BLOOD [BC] Stat Lab 09/15/18 21:30 Received CULTURE URINE [RM] Routine Lab 09/15/18 20:40 Received TROPONIN I [CHEM] Routine Lab 09/16/18 09:00 Ordered Acetaminophen [Tylenol] Med 09/15/18 23:12 Active 650 mg PO Q6H PRN Albuterol [Proventil Neb Soln] Med 09/16/18 08:12 Active 2.5 mg INH Q4H PRN Albuterol/Ipratropium [DuoNeb 3.0-0.5 MG/3 ML] Med 09/15/18 23:12 Active 3 ml NEB Q4HRRT PRN Aspirin [Halfprin] Med 09/16/18 09:00 Active 81 mg PO DAILY Cyanocobalamin/Folic Acid [Vitamin Q22-[place] Acid] Med 09/16/18 09:00 Ordered 1,000 mg PO DAILY Dexlansoprazole [Dexilant] Med 09/16/18 09:00 Ordered 60 mg PO DAILY Diclofenac Sodium [Voltaren] Med 09/16/18 09:00 Active 75 mg PO BID Docusate Sodium [Colace] Med 09/16/18 08:12 Active 100 mg PO BID PRN Escitalopram [Lexapro] Med 09/16/18 09:00 Active 20 mg PO DAILY Estrogens, Conjugated Med 09/16/18 08:15 Ordered 1 applic VAG Q48H Gemfibrozil [Lopid] Med 09/16/18 09:00 Active 600 mg PO BID Haloperidol [Haldol] Med 09/16/18 09:00 Active 10 mg PO BID Heparin Sodium Med 09/16/18 08:15 Active 5,000 units SUBCUT Q8H LORazepam [LORazepam] Med 09/16/18 08:12 Ordered 1 tab PO ASDIRECTED PRN Levothyroxine Med 09/16/18 09:00 Active 75 mcg PO ACBREAKFAST Lurasidone HCl [Latuda] Med 09/16/18 17:30 Ordered 120 mg PO WITHDINNER Sodium Chloride 0.9% [Normal Saline] 1,000 ml Med 09/15/18 23:15 Active IV ASDIRECTED Venlafaxine Med 09/16/18 09:00 Ordered 150 mg PO DAILY Venlafaxine [Effexor XR] Med 09/16/18 09:00 Ordered 75 mg PO DAILY cefTRIAXone [Rocephin in Dextrose,Iso-Osm 1 GM/50 ML] 1 Med 09/16/18 21:00 Active gm Premix Bag 1 bag IV Q24H oxyCODONE Med 09/15/18 23:13 Active 5 mg PO Q4H PRN Blood Culture x2 Reflex Set [OM.PC] Stat Oth 09/15/18 21:12 Ordered Resuscitation Status Routine Resus Stat 09/16/18 08:14 Ordered Medication Orders Acetaminophen (Tylenol) 650 mg PO Q6H PRN PRN Reason: Pain Albuterol (Proventil Neb Soln) 2.5 mg INH Q4H PRN PRN Reason: Wheezing Albuterol/Ipratropium (Duoneb 3.0-0.5 Mg/3 Ml) 3 ml NEB Q4HRRT PRN PRN Reason: Wheezing Last Admin: 09/15/18 23:51 Dose: 3 ml Aspirin (Halfprin) 81 mg PO DAILY [facility] Diclofenac Sodium (Voltaren) 75 mg PO BID [facility] Docusate Sodium (Colace) 100 mg PO BID PRN PRN Reason: Constipation Escitalopram Oxalate (Lexapro) 20 mg PO DAILY [facility] Gemfibrozil (Lopid) 600 mg PO BID [facility] Haloperidol (Haldol) 10 mg PO BID [facility] Heparin Sodium (Porcine) (Heparin Sodium) 5,000 units SUBCUT Q8H [facility] Ceftriaxone Sodium/Dextrose 1 (gm/ Premix) 50 mls @ 100 mls/hr IV Q24H [facility] Sodium Chloride (Normal Saline) 1,000 mls @ 75 mls/hr IV ASDIRECTED [facility] Last Admin: 09/16/18 07:48 Dose: 75 mls/hr Infusion: 09/16/18 07:48 Dose: 75 mls/hr Admin: 09/15/18 23:49 Dose: 75 mls/hr Levothyroxine Sodium (Levothyroxine) 75 mcg PO ACBREAKFAST [facility] Non-Formulary Medication (Cyanocobalamin/Folic Acid [Vitamin E49-Nmtfi Acid]) 1 ,000 mg PO DAILY [facility] Non-Formulary Medication (Dexlansoprazole [Dexilant]) 60 mg PO DAILY [facility] Non-Formulary Medication (Estrogens, Conjugated) 1 applic VAG Q48H [facility] Non-Formulary Medication (Lorazepam [Lorazepam]) 1 tab PO ASDIRECTED PRN PRN Reason: Anxiety Non-Formulary Medication (Lurasidone Hcl [Latuda]) 120 mg PO WITHDINNER [facility] Non-Formulary Medication (Venlafaxine) 150 mg PO DAILY [facility] Oxycodone HCl (Oxycodone) 5 mg PO Q4H PRN PRN Reason: Pain Last Admin: 09/15/18 23:49 Dose: 5 mg Venlafaxine HCl (Effexor Xr) 75 mg PO DAILY [facility] Assessment/Plan Comment:: The patient is a 58-year-old lady who is developmentally delayed and has been admitted out of concern for obligated urinary tract infection. She also has a history of Parkinson's as well. The patient will be kept on ceftriaxone. Received a call from the laboratory with regards to gram-negative rods in blood cultures. We'll also continue the patient on IV fluids. This will be consisting of normal saline at 125 mL per hour. The patient has a history of chronic kidney disease stage III and also elevations of her troponins which are currently trending down. The patient has had a previous EKG which is essentially within normal limits and she has no complaints of chest pain. The patient also be kept on DVT prophylaxis with the use of heparin. She'll be kept on her regular diet as tolerated. Depending upon the results of the cultures patient should be appropriate to return to long-term in 1-2 days. I've also ordered repeat laboratory studies for the morning.
[2018-09-16] MEDS ORDERED: VENLAFAXINE 150 MG PO SCH (09:00)
[2018-09-16] MEDS: Heparin Sodium 5,000 Units/ML Vial SUBCUT SCH ×3 (10:42→23:37)
[2018-09-16] MEDS: Venlafaxine 75 MG Cap.ER PO SCH (10:43)
[2018-09-16] MEDS: Escitalopram 10 MG Tab PO SCH (10:45)
[2018-09-16] MEDS: Aspirin 81 MG Tab.EC PO SCH (10:47)
[2018-09-16] MEDS: Levothyroxine 75 MCG Tab PO SCH (10:47)
[2018-09-16] MEDS: Omeprazole 20 MG Cap.CR PO SCH (10:47)
[2018-09-16] MEDS: Gemfibrozil 600 MG Tab PO SCH ×2 (10:48→21:22)
[2018-09-16] MEDS: Haloperidol 5 MG Tab PO SCH ×2 (10:48→21:23)
[2018-09-16] MEDS: Diclofenac Sodium 75 MG Tab.EC PO SCH ×2 (10:49→21:23)
[2018-09-16] MEDS: Albuterol/Ipratropium 3.0-0.5 MG/3 ML Neb Soln NEB PRN (15:52)
[2018-09-16] MEDS: Lurasidone Hcl [Latuda] 120 MG PO SCH (18:15)
[2018-09-16] MEDS ORDERED: cefTRIAXone 1 GM in Premix Bag 1 BAG IV SCH (21:00)
[2018-09-16] MEDS ORDERED: PREMARIN VAGINAL CREAM VAG SCH (21:00)
[2018-09-17] MEDS: Sodium Chloride 0.9% 1,000 ML IV SCH ×2 (02:06→16:11)
[2018-09-17 05:55] LABS: CHLORIDE,CL 102 mmol/L (98-107); SODIUM,NA 137 mmol/L (136-145)
[2018-09-17] MEDS: Omeprazole 20 MG Cap.CR PO SCH (06:30)
[2018-09-17] MEDS: Levothyroxine 75 MCG Tab PO SCH (06:30)
[2018-09-17] MEDS: Venlafaxine 75 MG Cap.ER PO SCH (08:12)
[2018-09-17] MEDS: Aspirin 81 MG Tab.EC PO SCH (08:13)
[2018-09-17] MEDS: Gemfibrozil 600 MG Tab PO SCH ×2 (08:13→23:40)
[2018-09-17] MEDS: Escitalopram 10 MG Tab PO SCH (08:13)
[2018-09-17] MEDS: Diclofenac Sodium 75 MG Tab.EC PO SCH ×2 (08:13→23:40)
[2018-09-17] MEDS: Haloperidol 5 MG Tab PO SCH ×2 (08:14→23:40)
[2018-09-17] MEDS: Heparin Sodium 5,000 Units/ML Vial SUBCUT SCH ×3 (08:14→23:41)
--- NOTE | 2018-09-17 08:23 | PCM.PN ---
<Nicci Martin M - Last Filed: 09/17/18 10:05> - General Info Date of Service: 09/17/18 Admission Dx/Problem (Free Text): Admission Diagnosis/Problem Admission Diagnosis/Problem Urinary tract infection Subjective Update: Unable to have conversation, appears slightly lethargic this morning. When asked about pain, she says no. - Patient Data Vitals - Most Recent: Last Vital Signs Temp 97.9 F 09/17/18 07:55 Pulse 75 09/17/18 07:55 Resp 15 09/17/18 07:55 BP 150/67 H 09/17/18 07:55 Pulse Ox 94 L 09/17/18 07:55 Weight - Most Recent: 106.957 kg I&O - Last 24 Hours: Intake & Output 09/16/18 09/17/18 09/17/18 22:59 06:59 14:59 Intake Total 1755 1228 Output Total 880 Balance 1755 348 Lab Results Last 24 Hours: Laboratory Results - last 24 hr 09/16/18 09/17/18 09/17/18 Range/Units 09:05 05:05 05:05 WBC 6.17 (4.0-11.0) K/uL RBC 3.00 L (4.30-5.90) M/uL Hgb 9.3 L (12.0-16.0) g/dL Hct 28.6 L (36.0-46.0) % MCV 95.3 (80.0-98.0) fL MCH 31.0 (27.0-32.0) pg MCHC 32.5 (31.0-37.0) g/dL RDW Std Deviation 47.1 (28.0-62.0) fl RDW Coeff of Amaris 14 (11.0-15.0) % Plt Count 184 (150-400) K/uL MPV 10.60 (7.40-12.00) fL Add Manual Diff YES Neutrophils % (Manual) 44 L (48.0-80.0) % Band Neutrophils % 33 % Lymphocytes % (Manual) 13 L (16.0-40.0) % Monocytes % (Manual) 8 (0.0-15.0) % Eosinophils % (Manual) 2 (0.0-7.0) % Nucleated RBC % 0.0 /100WBC Absolute Seg Neuts 2.7 (1.4-5.7) Band Neutrophils # 2.0 Lymphocytes # (Manual) 0.8 (0.6-2.4) Monocytes # (Manual) 0.5 (0.0-0.8) Eosinophils # (Manual) 0.1 (0.0-0.7) Nucleated RBCs # 0 K/uL Sodium 137 (136-145) mmol/L Potassium 3.6 (3.5-5.1) mmol/L Chloride 102 (98-107) mmol/L Carbon Dioxide 25.2 (21.0-32.0) mmol/L BUN 23 H (7.0-18.0) mg/dL Creatinine 1.3 H (0.6-1.0) mg/dL Est Cr Clr Drug Dosing TNP Estimated GFR (MDRD) 42.2 ml/min Glucose 98 (74-106) mg/dL Calcium 8.5 (8.5-10.1) mg/dL Troponin I 0.262 H* (0.000-0.056) ng/mL Jus Results Last 24 Hours: Microbiology 09/15/18 20:40 Urine Culture - Final Urine, Clean Catch Escherichia Coli 09/15/18 21:30 Aerobic Blood Culture - Preliminary Blood - Venous - Lab Draw NO GROWTH AFTER 1 DAY Anaerobic Blood Culture - Preliminary 09/15/18 21:18 Aerobic Blood Culture - Preliminary Blood - Venous NO GROWTH AFTER 1 DAY Anaerobic Blood Culture - Preliminary Med Orders - Current: Current Medications Acetaminophen (Tylenol) 650 mg PO Q6H PRN PRN Reason: Pain Albuterol (Proventil Neb Soln) 2.5 mg INH Q4H PRN PRN Reason: Wheezing Albuterol/Ipratropium (Duoneb 3.0-0.5 Mg/3 Ml) 3 ml NEB Q4HRRT PRN PRN Reason: Wheezing Last Admin: 09/16/18 15:52 Dose: 3 ml Aspirin (Halfprin) 81 mg PO DAILY [facility] Last Admin: 09/17/18 08:13 Dose: 81 mg Diclofenac Sodium (Voltaren) 75 mg PO BID [facility] Last Admin: 09/17/18 08:13 Dose: 75 mg Docusate Sodium (Colace) 100 mg PO BID PRN PRN Reason: Constipation Escitalopram Oxalate (Lexapro) 20 mg PO DAILY [facility] Last Admin: 09/17/18 08:13 Dose: 20 mg Gemfibrozil (Lopid) 600 mg PO BID [facility] Last Admin: 09/17/18 08:13 Dose: 600 mg Haloperidol (Haldol) 10 mg PO BID [facility] Last Admin: 09/17/18 08:14 Dose: 10 mg Heparin Sodium (Porcine) (Heparin Sodium) 5,000 units SUBCUT Q8H [facility] Last Admin: 09/17/18 08:14 Dose: 5,000 units Sodium Chloride (Normal Saline) 1,000 mls @ 75 mls/hr IV ASDIRECTED [facility] Last Admin: 09/17/18 02:06 Dose: 75 mls/hr Meropenem 1 gm/ Sodium (Chloride) 100 mls @ 200 mls/hr IV Q12H [facility] Levothyroxine Sodium (Levothyroxine) 75 mcg PO ACBREAKFAST [facility] Last Admin: 09/17/18 06:30 Dose: 75 mcg Premarin Vaginal (Cream) 1 applic VAG Q2D@2100 [facility] Last Admin: 09/16/18 21:23 Dose: Not Given Non-Formulary Medication (Lorazepam [Lorazepam]) 1 tab PO ASDIRECTED PRN PRN Reason: Anxiety Omeprazole (Omeprazole) 20 mg PO ACBREAKFAST [facility] Last Admin: 09/17/18 06:30 Dose: 20 mg Oxycodone HCl (Oxycodone) 5 mg PO Q4H PRN PRN Reason: Pain Last Admin: 09/15/18 23:49 Dose: 5 mg Lurasidone Hcl [ (Latuda] 120 Mg) 1 each PO WITHDINNER [facility] Last Admin: 09/16/18 18:15 Dose: Not Given Venlafaxine HCl (Effexor Xr) 225 mg PO DAILY [facility] Last Admin: 09/17/18 08:12 Dose: 225 mg Discontinued Medications Albuterol/Ipratropium (Duoneb 3.0-0.5 Mg/3 Ml) 3 ml NEB ONETIME ONE Stop: 09/15/18 20:37 Last Admin: 09/15/18 20:54 Dose: 3 ml Enoxaparin Sodium (Lovenox) 120 mg SUBCUT ONETIME ONE Stop: 09/15/18 21:52 Last Admin: 09/15/18 22:01 Dose: 120 mg Ceftriaxone Sodium/Dextrose 1 (gm/ Premix) 50 mls @ 100 mls/hr IV ONETIME ONE Stop: 09/15/18 21:38 Last Admin: 09/15/18 21:39 Dose: 100 mls/hr Sodium Chloride (Normal Saline) 1,000 mls @ 999 mls/hr IV STAT ONE Stop: 09/15/18 22:09 Last Admin: 09/15/18 21:39 Dose: 999 mls/hr Ceftriaxone Sodium/Dextrose 1 (gm/ Premix) 50 mls @ 100 mls/hr IV Q24H [facility] Last Admin: 09/16/18 21:22 Dose: 100 mls/hr Phenazopyridine HCl (Pyridium) 200 mg PO ONETIME ONE Stop: 09/15/18 20:56 Last Admin: 09/15/18 21:06 Dose: 200 mg - Exam General: Alert, Cooperative, No Acute Distress, Lethargic (easily falls asleep.) . No: Oriented Lungs: Decreased Breath Sounds (bibasilar), Wheezing Cardiovascular: Regular Rate, Regular Rhythm GI/Abdominal Exam: Normal Bowel Sounds, Soft, Non-Tender, Other (obese abdomen makes assessment difficult.) Extremities: Normal Inspection, Normal Range of Motion, Non-Tender, Pedal Edema (+1 non pitting edema) Neurological: No New Focal Deficit Psy/Mental Status: Alert - Problem List & Annotations (1) ESBL (extended spectrum beta-lactamase) producing bacteria infection SNOMED Code(s): 746581657 Code(s): A49.9 - BACTERIAL INFECTION, UNSPECIFIED; Z16.12 - EXTENDED SPECTRUM BETA LACTAMASE (ESBL) RESISTANCE Status: Acute Current Visit: Yes (2) Gram-negative bacteremia SNOMED Code(s): 386578272513 Code(s): R78.81 - BACTEREMIA Status: Acute Priority: High Current Visit : Yes (3) Urinary tract infection SNOMED Code(s): 65206494 Code(s): N39.0 - URINARY TRACT INFECTION, SITE NOT SPECIFIED Status: Acute Priority: High Current Visit: Yes Qualifiers: Urinary tract infection type: acute cystitis Hematuria presence: with hematuria Qualified Code(s): N30.01 - Acute cystitis with hematuria (4) Dyspnea SNOMED Code(s): 995179995 Code(s): R06.00 - DYSPNEA, UNSPECIFIED Status: Acute Current Visit: Yes Qualifiers: Dyspnea type: unspecified Qualified Code(s): R06.00 - Dyspnea, unspecified (5) RAUL (acute kidney injury) SNOMED Code(s): 15879291, 15658954 Code(s): N17.9 - ACUTE KIDNEY FAILURE, UNSPECIFIED Status: Acute Current Visit: Yes (6) Bipolar disorder SNOMED Code(s): 10475983 Code(s): F31.9 - BIPOLAR DISORDER, UNSPECIFIED Status: Chronic Priority: High Current Visit: Yes (7) History of mental disorder SNOMED Code(s): 788288767 Code(s): Z86.59 - PERSONAL HISTORY OF OTHER MENTAL AND BEHAVIORAL DISORDERS Status: Chronic Current Visit: No (8) Parkinsonism SNOMED Code(s): 34380084 Code(s): G20 - PARKINSON'S DISEASE Status: Chronic Current Visit: No (9) GERD (gastroesophageal reflux disease) SNOMED Code(s): 390973933 Code(s): K21.9 - GASTRO-ESOPHAGEAL REFLUX DISEASE WITHOUT ESOPHAGITIS Status: Chronic Current Visit: No Qualifiers: Esophagitis presence: esophagitis presence not specified Qualified Code(s) : K21.9 - Gastro-esophageal reflux disease without esophagitis (10) Hypothyroidism SNOMED Code(s): 94608814 Code(s): E03.9 - HYPOTHYROIDISM, UNSPECIFIED Status: Chronic Current Visit: No Qualifiers: Hypothyroidism type: unspecified Qualified Code(s): E03.9 - Hypothyroidism , unspecified (11) RAMESH (obstructive sleep apnea) SNOMED Code(s): 73630142 Code(s): G47.33 - OBSTRUCTIVE SLEEP APNEA (ADULT) (PEDIATRIC) Status: Chronic Current Visit: No - Problem List Review Problem List Initiated/Reviewed/Updated: Yes - My Orders Last 24 Hours: My Active Orders 09/17/18 08:30 Meropenem [Merrem] 1 gm Sodium Chloride 0.9% [Normal Saline] 100 ml IV Q12H - Plan Plan:: This 58 year old female admitted with UTI and dyspnea 1. Gram negative bacteremia: Suspect ESBL E coli, which was revealed in UC today. Start Meropenem 1 g every 12 hrs IV. Monitor. Will repeat BC tomorrow morning, after 24 hours of Meropenem treatment to ensure clearing. 2. UTI: ESBL E coli. Place on precautions. Stop Rocephin. Start Meropenem. 3. Dyspnea: Improved with antibiotic therapy. on 2 L NC for now. mild Wheezing noted, will schedule duonebs and monitor improvement. 4. RAUL: Renal function continues to improved with hydration. Continue gentle IVF. some CKD noted, likely cause of elevated troponins. 5. Bipolar: Continue Effexor, Haldol and Zyprexa. 6. RAMESH: Uses oxygen for sleep at night. VTE prophylaxis: Heparin. Dispo: 2-3 days pending improvement and clearing of BC. <Jonathan Teixeira - Last Filed: 09/17/18 10:24> - General Info Admission Dx/Problem (Free Text): I have seen and examined to patient independently of Nicci Martin CNP. I have discussed the case for care of this patient with her. I have reviewed and approve of the plan of care as outlined by her. Please see orders. Noted with EBSL E coli. - Patient Data Vitals - Most Recent: Last Vital Signs Temp 36.6 C 09/17/18 07:55 Pulse 75 09/17/18 07:55 Resp 15 09/17/18 07:55 BP 150/67 H 09/17/18 07:55 Pulse Ox 94 L 09/17/18 08:14 I&O - Last 24 Hours: Intake & Output 09/16/18 09/17/18 09/17/18 22:59 06:59 14:59 Intake Total 1755 1228 Output Total 880 Balance 1755 348 Lab Results Last 24 Hours: Laboratory Results - last 24 hr 09/17/18 09/17/18 Range/Units 05:05 05:05 WBC 6.17 (4.0-11.0) K/uL RBC 3.00 L (4.30-5.90) M/uL Hgb 9.3 L (12.0-16.0) g/dL Hct 28.6 L (36.0-46.0) % MCV 95.3 (80.0-98.0) fL MCH 31.0 (27.0-32.0) pg MCHC 32.5 (31.0-37.0) g/dL RDW Std Deviation 47.1 (28.0-62.0) fl RDW Coeff of Amaris 14 (11.0-15.0) % Plt Count 184 (150-400) K/uL MPV 10.60 (7.40-12.00) fL Add Manual Diff YES Neutrophils % (Manual) 44 L (48.0-80.0) % Band Neutrophils % 33 % Lymphocytes % (Manual) 13 L (16.0-40.0) % Monocytes % (Manual) 8 (0.0-15.0) % Eosinophils % (Manual) 2 (0.0-7.0) % Nucleated RBC % 0.0 /100WBC Absolute Seg Neuts 2.7 (1.4-5.7) Band Neutrophils # 2.0 Lymphocytes # (Manual) 0.8 (0.6-2.4) Monocytes # (Manual) 0.5 (0.0-0.8) Eosinophils # (Manual) 0.1 (0.0-0.7) Nucleated RBCs # 0 K/uL Sodium 137 (136-145) mmol/L Potassium 3.6 (3.5-5.1) mmol/L Chloride 102 (98-107) mmol/L Carbon Dioxide 25.2 (21.0-32.0) mmol/L BUN 23 H (7.0-18.0) mg/dL Creatinine 1.3 H (0.6-1.0) mg/dL Est Cr Clr Drug Dosing TNP Estimated GFR (MDRD) 42.2 ml/min Glucose 98 (74-106) mg/dL Calcium 8.5 (8.5-10.1) mg/dL Jus Results Last 24 Hours: Microbiology 09/15/18 21:30 Aerobic Blood Culture - Preliminary Blood - Venous - Lab Draw Anaerobic Blood Culture - Preliminary 09/15/18 21:18 Aerobic Blood Culture - Preliminary Blood - Venous NO GROWTH AFTER 1 DAY Anaerobic Blood Culture - Preliminary 09/15/18 20:40 Urine Culture - Final Urine, Clean Catch Escherichia Coli Med Orders - Current: Current Medications Acetaminophen (Tylenol) 650 mg PO Q6H PRN PRN Reason: Pain Albuterol (Proventil Neb Soln) 2.5 mg INH Q4H PRN PRN Reason: Wheezing Albuterol/Ipratropium (Duoneb 3.0-0.5 Mg/3 Ml) 3 ml NEB Q6HRRT [facility] Aspirin (Halfprin) 81 mg PO DAILY [facility] Last Admin: 09/17/18 08:13 Dose: 81 mg Diclofenac Sodium (Voltaren) 75 mg PO BID [facility] Last Admin: 09/17/18 08:13 Dose: 75 mg Docusate Sodium (Colace) 100 mg PO BID PRN PRN Reason: Constipation Escitalopram Oxalate (Lexapro) 20 mg PO DAILY [facility] Last Admin: 09/17/18 08:13 Dose: 20 mg Gemfibrozil (Lopid) 600 mg PO BID [facility] Last Admin: 09/17/18 08:13 Dose: 600 mg Haloperidol (Haldol) 10 mg PO BID [facility] Last Admin: 09/17/18 08:14 Dose: 10 mg Heparin Sodium (Porcine) (Heparin Sodium) 5,000 units SUBCUT Q8H [facility] Last Admin: 09/17/18 08:14 Dose: 5,000 units Sodium Chloride (Normal Saline) 1,000 mls @ 75 mls/hr IV ASDIRECTED [facility] Last Admin: 09/17/18 02:06 Dose: 75 mls/hr Meropenem 1 gm/ Sodium (Chloride) 100 mls @ 200 mls/hr IV Q12H [facility] Last Admin: 09/17/18 09:28 Dose: 200 mls/hr Levothyroxine Sodium (Levothyroxine) 75 mcg PO ACBREAKFAST [facility] Last Admin: 09/17/18 06:30 Dose: 75 mcg Lorazepam (Ativan) 2 mg PO DAILY PRN PRN Reason: Anxiety Omeprazole (Omeprazole) 20 mg PO ACBREAKFAST [facility] Last Admin: 09/17/18 06:30 Dose: 20 mg Lurasidone Hcl [ (Latuda] 120 Mg) 1 each PO WITHDINNER [facility] Last Admin: 09/16/18 18:15 Dose: Not Given Venlafaxine HCl (Effexor Xr) 225 mg PO DAILY [facility] Last Admin: 09/17/18 08:12 Dose: 225 mg Discontinued Medications Albuterol/Ipratropium (Duoneb 3.0-0.5 Mg/3 Ml) 3 ml NEB ONETIME ONE Stop: 09/15/18 20:37 Last Admin: 09/15/18 20:54 Dose: 3 ml Albuterol/Ipratropium (Duoneb 3.0-0.5 Mg/3 Ml) 3 ml NEB Q4HRRT PRN PRN Reason: Wheezing Last Admin: 09/16/18 15:52 Dose: 3 ml Enoxaparin Sodium (Lovenox) 120 mg SUBCUT ONETIME ONE Stop: 09/15/18 21:52 Last Admin: 09/15/18 22:01 Dose: 120 mg Ceftriaxone Sodium/Dextrose 1 (gm/ Premix) 50 mls @ 100 mls/hr IV ONETIME ONE Stop: 09/15/18 21:38 Last Admin: 09/15/18 21:39 Dose: 100 mls/hr Sodium Chloride (Normal Saline) 1,000 mls @ 999 mls/hr IV STAT ONE Stop: 09/15/18 22:09 Last Admin: 09/15/18 21:39 Dose: 999 mls/hr Ceftriaxone Sodium/Dextrose 1 (gm/ Premix) 50 mls @ 100 mls/hr IV Q24H [facility] Last Admin: 09/16/18 21:22 Dose: 100 mls/hr Premarin Vaginal (Cream) 1 applic VAG Q2D@2100 [facility] Last Admin: 09/16/18 21:23 Dose: Not Given Oxycodone HCl (Oxycodone) 5 mg PO Q4H PRN PRN Reason: Pain Last Admin: 09/15/18 23:49 Dose: 5 mg Phenazopyridine HCl (Pyridium) 200 mg PO ONETIME ONE Stop: 09/15/18 20:56 Last Admin: 09/15/18 21:06 Dose: 200 mg - Problem List & Annotations (1) Urinary tract infection SNOMED Code(s): 65595432 Code(s): N39.0 - URINARY TRACT INFECTION, SITE NOT SPECIFIED Status: Acute Priority: High Current Visit: Yes Qualifiers: Urinary tract infection type: acute cystitis Hematuria presence: with hematuria Qualified Code(s): N30.01 - Acute cystitis with hematuria (2) Gram-negative bacteremia SNOMED Code(s): 577834582874 Code(s): R78.81 - BACTEREMIA Status: Acute Priority: High Current Visit : Yes (3) Bipolar disorder SNOMED Code(s): 27850218 Code(s): F31.9 - BIPOLAR DISORDER, UNSPECIFIED Status: Chronic Priority: High Current Visit: Yes (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
[2018-09-17] MEDS: Meropenem 1 GM in Sodium Chloride 0.9% 100 ML IV SCH ×2 (09:28→23:40)
[2018-09-17] MEDS: Albuterol/Ipratropium 3.0-0.5 MG/3 ML Neb Soln NEB SCH ×3 (12:03→23:41)
[2018-09-17] MEDS: Lurasidone Hcl [Latuda] 120 MG PO SCH (17:32)
[2018-09-18] MEDS: Sodium Chloride 0.9% 1,000 ML IV SCH (06:41)
[2018-09-18] MEDS: Albuterol/Ipratropium 3.0-0.5 MG/3 ML Neb Soln NEB SCH ×4 (06:41→23:48)
[2018-09-18 07:01] LABS: CHLORIDE,CL 107 mmol/L (98-107); SODIUM,NA 141 mmol/L (136-145)
[2018-09-18] MEDS: Levothyroxine 75 MCG Tab PO SCH (07:49)
[2018-09-18] MEDS: Omeprazole 20 MG Cap.CR PO SCH (07:49)
[2018-09-18] MEDS: Meropenem 1 GM in Sodium Chloride 0.9% 100 ML IV SCH ×2 (08:39→21:30)
[2018-09-18] MEDS: Diclofenac Sodium 75 MG Tab.EC PO SCH ×2 (09:02→20:46)
[2018-09-18] MEDS: Aspirin 81 MG Tab.EC PO SCH (09:03)
[2018-09-18] MEDS: Venlafaxine 75 MG Cap.ER PO SCH (09:03)
[2018-09-18] MEDS: Gemfibrozil 600 MG Tab PO SCH ×2 (09:04→20:46)
[2018-09-18] MEDS: Escitalopram 10 MG Tab PO SCH (09:04)
[2018-09-18] MEDS: Heparin Sodium 5,000 Units/ML Vial SUBCUT SCH ×3 (09:30→23:48)
--- NOTE | 2018-09-18 09:48 | PCM.PN ---
<Nicci Martin M - Last Filed: 09/18/18 09:45> - General Info Date of Service: 09/18/18 Admission Dx/Problem (Free Text): UTI and bacteremia Subjective Update: Reports she still doesn't feel well today, sleepy in the chair. Ate breakfast. No complaints of abdominal pain, no chest pain or SOB. Functional Status: Reports: Pain Controlled, Tolerating Diet, Ambulating, Urinating - Review of Systems General: Reports: Weakness, Malaise HEENT: Reports: No Symptoms. Denies: Headaches, Visual Changes Pulmonary: Reports: No Symptoms. Denies: Shortness of Breath, Cough, Sputum Cardiovascular: Reports: No Symptoms. Denies: Chest Pain, Edema Gastrointestinal: Reports: No Symptoms. Denies: Abdominal Pain, Nausea, Vomiting Genitourinary: Reports: No Symptoms Neurological: Reports: No Symptoms Psychiatric: Reports: No Symptoms - Patient Data Vitals - Most Recent: Last Vital Signs Temp 98.1 F 09/18/18 07:52 Pulse 78 09/18/18 07:52 Resp 16 09/18/18 07:52 BP 143/84 H 09/18/18 07:52 Pulse Ox 91 L 09/18/18 07:52 Weight - Most Recent: 106.957 kg I&O - Last 24 Hours: Intake & Output 09/17/18 09/18/18 09/18/18 22:59 06:59 14:59 Intake Total 1374 1669 Output Total 800 Balance 574 1669 Lab Results Last 24 Hours: Laboratory Results - last 24 hr 09/15/18 09/18/18 09/18/18 Range/Units 21:30 06:37 06:43 WBC 6.12 (4.0-11.0) K/uL RBC 3.01 L (4.30-5.90) M/uL Hgb 9.2 L (12.0-16.0) g/dL Hct 28.7 L (36.0-46.0) % MCV 95.3 (80.0-98.0) fL MCH 30.6 (27.0-32.0) pg MCHC 32.1 (31.0-37.0) g/dL RDW Std Deviation 47.7 (28.0-62.0) fl RDW Coeff of Amaris 14 (11.0-15.0) % Plt Count 198 (150-400) K/uL MPV 10.00 (7.40-12.00) fL Add Manual Diff YES Neutrophils % (Manual) 40 L (48.0-80.0) % Band Neutrophils % 19 % Lymphocytes % (Manual) 29 (16.0-40.0) % Monocytes % (Manual) 9 (0.0-15.0) % Eosinophils % (Manual) 1 (0.0-7.0) % Metamyelocytes % 2 % Nucleated RBC % 0.0 /100WBC Absolute Seg Neuts 2.4 (1.4-5.7) Band Neutrophils # 1.2 Lymphocytes # (Manual) 1.8 (0.6-2.4) Monocytes # (Manual) 0.6 (0.0-0.8) Eosinophils # (Manual) 0.1 (0.0-0.7) Absolute Metamyelocyte 0.1 Nucleated RBCs # 0 K/uL Lactate 1.2 (0.20-2.00) mmol/L Sodium 141 (136-145) mmol/L Potassium 4.0 (3.5-5.1) mmol/L Chloride 107 (98-107) mmol/L Carbon Dioxide 26.1 (21.0-32.0) mmol/L BUN 19 H (7.0-18.0) mg/dL Creatinine 1.1 H (0.6-1.0) mg/dL Est Cr Clr Drug Dosing TNP Estimated GFR (MDRD) 51.2 ml/min Glucose 97 (74-106) mg/dL Calcium 8.7 (8.5-10.1) mg/dL Jus Results Last 24 Hours: Microbiology 09/15/18 21:30 Aerobic Blood Culture - Final Blood - Venous - Lab Draw Anaerobic Blood Culture - Final 09/15/18 21:18 Aerobic Blood Culture - Preliminary Blood - Venous NO GROWTH AFTER 2 DAYS Anaerobic Blood Culture - Final Escherichia Coli 09/15/18 20:40 Urine Culture - Final Urine, Clean Catch Escherichia Coli Med Orders - Current: Current Medications Acetaminophen (Tylenol) 650 mg PO Q6H PRN PRN Reason: Pain Albuterol (Proventil Neb Soln) 2.5 mg INH Q4H PRN PRN Reason: Wheezing Albuterol/Ipratropium (Duoneb 3.0-0.5 Mg/3 Ml) 3 ml NEB Q6HRRT [facility] Last Admin: 09/18/18 06:41 Dose: 3 ml Aspirin (Halfprin) 81 mg PO DAILY [facility] Last Admin: 09/18/18 09:03 Dose: 81 mg Diclofenac Sodium (Voltaren) 75 mg PO BID [facility] Last Admin: 09/18/18 09:02 Dose: 75 mg Docusate Sodium (Colace) 100 mg PO BID PRN PRN Reason: Constipation Escitalopram Oxalate (Lexapro) 20 mg PO DAILY [facility] Last Admin: 09/18/18 09:04 Dose: 20 mg Gemfibrozil (Lopid) 600 mg PO BID [facility] Last Admin: 09/18/18 09:04 Dose: 600 mg Haloperidol (Haldol) 10 mg PO BID [facility] Last Admin: 09/17/18 23:40 Dose: 10 mg Heparin Sodium (Porcine) (Heparin Sodium) 5,000 units SUBCUT Q8H [facility] Last Admin: 09/17/18 23:41 Dose: 5,000 units Meropenem 1 gm/ Sodium (Chloride) 100 mls @ 200 mls/hr IV Q12H [facility] Last Admin: 09/18/18 08:39 Dose: 200 mls/hr Levothyroxine Sodium (Levothyroxine) 75 mcg PO ACBREAKFAST [facility] Last Admin: 09/18/18 07:49 Dose: 75 mcg Lorazepam (Ativan) 2 mg PO DAILY PRN PRN Reason: Anxiety Omeprazole (Omeprazole) 20 mg PO ACBREAKFAST [facility] Last Admin: 09/18/18 07:49 Dose: 20 mg Lurasidone Hcl [ (Latuda] 120 Mg) 1 each PO WITHDINNER [facility] Last Admin: 09/17/18 17:32 Dose: 1 each Venlafaxine HCl (Effexor Xr) 225 mg PO DAILY [facility] Last Admin: 09/18/18 09:03 Dose: 225 mg Discontinued Medications Albuterol/Ipratropium (Duoneb 3.0-0.5 Mg/3 Ml) 3 ml NEB ONETIME ONE Stop: 09/15/18 20:37 Last Admin: 09/15/18 20:54 Dose: 3 ml Albuterol/Ipratropium (Duoneb 3.0-0.5 Mg/3 Ml) 3 ml NEB Q4HRRT PRN PRN Reason: Wheezing Last Admin: 09/16/18 15:52 Dose: 3 ml Enoxaparin Sodium (Lovenox) 120 mg SUBCUT ONETIME ONE Stop: 09/15/18 21:52 Last Admin: 09/15/18 22:01 Dose: 120 mg Ceftriaxone Sodium/Dextrose 1 (gm/ Premix) 50 mls @ 100 mls/hr IV ONETIME ONE Stop: 09/15/18 21:38 Last Admin: 09/15/18 21:39 Dose: 100 mls/hr Sodium Chloride (Normal Saline) 1,000 mls @ 999 mls/hr IV STAT ONE Stop: 09/15/18 22:09 Last Admin: 09/15/18 21:39 Dose: 999 mls/hr Ceftriaxone Sodium/Dextrose 1 (gm/ Premix) 50 mls @ 100 mls/hr IV Q24H [facility] Last Admin: 09/16/18 21:22 Dose: 100 mls/hr Sodium Chloride (Normal Saline) 1,000 mls @ 75 mls/hr IV ASDIRECTED [facility] Last Admin: 09/18/18 06:41 Dose: 75 mls/hr Premarin Vaginal (Cream) 1 applic VAG Q2D@2100 [facility] Last Admin: 09/16/18 21:23 Dose: Not Given Oxycodone HCl (Oxycodone) 5 mg PO Q4H PRN PRN Reason: Pain Last Admin: 09/15/18 23:49 Dose: 5 mg Phenazopyridine HCl (Pyridium) 200 mg PO ONETIME ONE Stop: 09/15/18 20:56 Last Admin: 09/15/18 21:06 Dose: 200 mg - Exam General: Alert, Oriented, Cooperative (easily falls asleep in chair) Lungs: Normal Respiratory Effort, Decreased Breath Sounds (bibasilar), Wheezing Cardiovascular: Regular Rate, Regular Rhythm GI/Abdominal Exam: Normal Bowel Sounds, Soft, Non-Tender, No Organomegaly Back Exam: Normal Inspection, Full Range of Motion Extremities: Normal Inspection, Normal Range of Motion, Non-Tender, No Pedal Edema Neurological: No New Focal Deficit Psy/Mental Status: Alert, Normal Affect, Normal Mood - Problem List & Annotations (1) ESBL (extended spectrum beta-lactamase) producing bacteria infection SNOMED Code(s): 890472955 Code(s): A49.9 - BACTERIAL INFECTION, UNSPECIFIED; Z16.12 - EXTENDED SPECTRUM BETA LACTAMASE (ESBL) RESISTANCE Status: Acute Current Visit: Yes (2) Gram-negative bacteremia SNOMED Code(s): 613764780996 Code(s): R78.81 - BACTEREMIA Status: Acute Priority: High Current Visit : Yes (3) Urinary tract infection SNOMED Code(s): 47521389 Code(s): N39.0 - URINARY TRACT INFECTION, SITE NOT SPECIFIED Status: Acute Priority: High Current Visit: Yes Qualifiers: Urinary tract infection type: acute cystitis Hematuria presence: with hematuria Qualified Code(s): N30.01 - Acute cystitis with hematuria (4) Dyspnea SNOMED Code(s): 919718035 Code(s): R06.00 - DYSPNEA, UNSPECIFIED Status: Acute Current Visit: Yes Qualifiers: Dyspnea type: unspecified Qualified Code(s): R06.00 - Dyspnea, unspecified (5) RAUL (acute kidney injury) SNOMED Code(s): 15626536, 61438905 Code(s): N17.9 - ACUTE KIDNEY FAILURE, UNSPECIFIED Status: Acute Current Visit: Yes (6) Bipolar disorder SNOMED Code(s): 03416910 Code(s): F31.9 - BIPOLAR DISORDER, UNSPECIFIED Status: Chronic Priority: High Current Visit: Yes (7) History of mental disorder SNOMED Code(s): 205178007 Code(s): Z86.59 - PERSONAL HISTORY OF OTHER MENTAL AND BEHAVIORAL DISORDERS Status: Chronic Current Visit: No (8) Parkinsonism SNOMED Code(s): 02662615 Code(s): G20 - PARKINSON'S DISEASE Status: Chronic Current Visit: No (9) GERD (gastroesophageal reflux disease) SNOMED Code(s): 731958684 Code(s): K21.9 - GASTRO-ESOPHAGEAL REFLUX DISEASE WITHOUT ESOPHAGITIS Status: Chronic Current Visit: No Qualifiers: Esophagitis presence: esophagitis presence not specified Qualified Code(s) : K21.9 - Gastro-esophageal reflux disease without esophagitis (10) Hypothyroidism SNOMED Code(s): 82254162 Code(s): E03.9 - HYPOTHYROIDISM, UNSPECIFIED Status: Chronic Current Visit: No Qualifiers: Hypothyroidism type: unspecified Qualified Code(s): E03.9 - Hypothyroidism , unspecified (11) RAMESH (obstructive sleep apnea) SNOMED Code(s): 41631275 Code(s): G47.33 - OBSTRUCTIVE SLEEP APNEA (ADULT) (PEDIATRIC) Status: Chronic Current Visit: No - Problem List Review Problem List Initiated/Reviewed/Updated: Yes - My Orders Last 24 Hours: My Active Orders 09/17/18 12:00 Albuterol/Ipratropium [DuoNeb 3.0-0.5 MG/3 ML] 3 ml NEB Q6HRRT 09/18/18 05:00 Blood Culture x2 Reflex Set [OM.PC] ONETIME 09/18/18 06:37 CULTURE BLOOD [BC] Routine 09/18/18 06:43 CULTURE BLOOD [BC] Routine 09/19/18 05:11 BASIC METABOLIC PANEL,BMP [CHEM] AM CBC WITH AUTO DIFF [HEME] AM 09/20/18 05:11 BASIC METABOLIC PANEL,BMP [CHEM] AM CBC WITH AUTO DIFF [HEME] AM - Plan Plan:: This 58 year old female admitted with UTI and dyspnea 1. ESBL E coli bacteremia: Continue Meropenem 1 g every 12 hrs IV. Repeat BC this morning. Bandemia improving. 2. UTI: ESBL E coli. Place on precautions. Continue Meropenem. 3. Dyspnea: Improved with antibiotic therapy. on 2 L NC for now. mild Wheezing noted, Continue Duonebs and monitor improvement. 4. RAUL: Renal function continues to improve. DC IVF. some CKD noted, likely cause of elevated troponins. 5. Bipolar: Continue Effexor, Haldol and Zyprexa. 6. RAMESH: Uses oxygen for sleep at night. VTE prophylaxis: Heparin. Dispo: 2-3 days pending improvement and clearing of BC. <Jonathan Teixeira - Last Filed: 09/18/18 12:18> - General Info Admission Dx/Problem (Free Text): I have seen and examined to patient independently of Nicci Martin CNP. I have discussed the case for care of this patient with her. I have reviewed and approve of the plan of care as outlined by her. Please see orders. - Patient Data Vitals - Most Recent: Last Vital Signs Temp 36.5 C 09/18/18 11:38 Pulse 72 09/18/18 11:38 Resp 16 09/18/18 11:38 BP 140/80 09/18/18 11:38 Pulse Ox 91 L 09/18/18 07:52 I&O - Last 24 Hours: Intake & Output 09/17/18 09/18/18 09/18/18 22:59 06:59 14:59 Intake Total 1374 1669 Output Total 800 Balance 574 1669 Lab Results Last 24 Hours: Laboratory Results - last 24 hr 09/15/18 09/18/18 09/18/18 Range/Units 21:30 06:37 06:43 WBC 6.12 (4.0-11.0) K/uL RBC 3.01 L (4.30-5.90) M/uL Hgb 9.2 L (12.0-16.0) g/dL Hct 28.7 L (36.0-46.0) % MCV 95.3 (80.0-98.0) fL MCH 30.6 (27.0-32.0) pg MCHC 32.1 (31.0-37.0) g/dL RDW Std Deviation 47.7 (28.0-62.0) fl RDW Coeff of Amaris 14 (11.0-15.0) % Plt Count 198 (150-400) K/uL MPV 10.00 (7.40-12.00) fL Add Manual Diff YES Neutrophils % (Manual) 40 L (48.0-80.0) % Band Neutrophils % 19 % Lymphocytes % (Manual) 29 (16.0-40.0) % Monocytes % (Manual) 9 (0.0-15.0) % Eosinophils % (Manual) 1 (0.0-7.0) % Metamyelocytes % 2 % Nucleated RBC % 0.0 /100WBC Absolute Seg Neuts 2.4 (1.4-5.7) Band Neutrophils # 1.2 Lymphocytes # (Manual) 1.8 (0.6-2.4) Monocytes # (Manual) 0.6 (0.0-0.8) Eosinophils # (Manual) 0.1 (0.0-0.7) Absolute Metamyelocyte 0.1 Nucleated RBCs # 0 K/uL Lactate 1.2 (0.20-2.00) mmol/L Sodium 141 (136-145) mmol/L Potassium 4.0 (3.5-5.1) mmol/L Chloride 107 (98-107) mmol/L Carbon Dioxide 26.1 (21.0-32.0) mmol/L BUN 19 H (7.0-18.0) mg/dL Creatinine 1.1 H (0.6-1.0) mg/dL Est Cr Clr Drug Dosing TNP Estimated GFR (MDRD) 51.2 ml/min Glucose 97 (74-106) mg/dL Calcium 8.7 (8.5-10.1) mg/dL Jus Results Last 24 Hours: Microbiology 09/15/18 21:30 Aerobic Blood Culture - Final Blood - Venous - Lab Draw Anaerobic Blood Culture - Final 09/15/18 21:18 Aerobic Blood Culture - Preliminary Blood - Venous NO GROWTH AFTER 2 DAYS Anaerobic Blood Culture - Final Escherichia Coli 09/15/18 20:40 Urine Culture - Final Urine, Clean Catch Escherichia Coli Med Orders - Current: Current Medications Acetaminophen (Tylenol) 650 mg PO Q6H PRN PRN Reason: Pain Albuterol (Proventil Neb Soln) 2.5 mg INH Q4H PRN PRN Reason: Wheezing Albuterol/Ipratropium (Duoneb 3.0-0.5 Mg/3 Ml) 3 ml NEB Q6HRRT [facility] Last Admin: 09/18/18 06:41 Dose: 3 ml Aspirin (Halfprin) 81 mg PO DAILY [facility] Last Admin: 09/18/18 09:03 Dose: 81 mg Diclofenac Sodium (Voltaren) 75 mg PO BID [facility] Last Admin: 09/18/18 09:02 Dose: 75 mg Docusate Sodium (Colace) 100 mg PO BID PRN PRN Reason: Constipation Escitalopram Oxalate (Lexapro) 20 mg PO DAILY [facility] Last Admin: 09/18/18 09:04 Dose: 20 mg Gemfibrozil (Lopid) 600 mg PO BID [facility] Last Admin: 09/18/18 09:04 Dose: 600 mg Haloperidol (Haldol) 10 mg PO BID [facility] Last Admin: 09/18/18 10:01 Dose: 10 mg Heparin Sodium (Porcine) (Heparin Sodium) 5,000 units SUBCUT Q8H [facility] Last Admin: 09/18/18 09:30 Dose: 5,000 units Meropenem 1 gm/ Sodium (Chloride) 100 mls @ 200 mls/hr IV Q12H [facility] Last Admin: 09/18/18 08:39 Dose: 200 mls/hr Levothyroxine Sodium (Levothyroxine) 75 mcg PO ACBREAKFAST [facility] Last Admin: 09/18/18 07:49 Dose: 75 mcg Lorazepam (Ativan) 2 mg PO DAILY PRN PRN Reason: Anxiety Omeprazole (Omeprazole) 20 mg PO ACBREAKFAST [facility] Last Admin: 09/18/18 07:49 Dose: 20 mg Lurasidone Hcl [ (Latuda] 120 Mg) 1 each PO WITHDINNER [facility] Last Admin: 09/17/18 17:32 Dose: 1 each Venlafaxine HCl (Effexor Xr) 225 mg PO DAILY [facility] Last Admin: 09/18/18 09:03 Dose: 225 mg Discontinued Medications Albuterol/Ipratropium (Duoneb 3.0-0.5 Mg/3 Ml) 3 ml NEB ONETIME ONE Stop: 09/15/18 20:37 Last Admin: 09/15/18 20:54 Dose: 3 ml Albuterol/Ipratropium (Duoneb 3.0-0.5 Mg/3 Ml) 3 ml NEB Q4HRRT PRN PRN Reason: Wheezing Last Admin: 09/16/18 15:52 Dose: 3 ml Enoxaparin Sodium (Lovenox) 120 mg SUBCUT ONETIME ONE Stop: 09/15/18 21:52 Last Admin: 09/15/18 22:01 Dose: 120 mg Ceftriaxone Sodium/Dextrose 1 (gm/ Premix) 50 mls @ 100 mls/hr IV ONETIME ONE Stop: 09/15/18 21:38 Last Admin: 09/15/18 21:39 Dose: 100 mls/hr Sodium Chloride (Normal Saline) 1,000 mls @ 999 mls/hr IV STAT ONE Stop: 09/15/18 22:09 Last Admin: 09/15/18 21:39 Dose: 999 mls/hr Ceftriaxone Sodium/Dextrose 1 (gm/ Premix) 50 mls @ 100 mls/hr IV Q24H [facility] Last Admin: 09/16/18 21:22 Dose: 100 mls/hr Sodium Chloride (Normal Saline) 1,000 mls @ 75 mls/hr IV ASDIRECTED [facility] Last Admin: 09/18/18 06:41 Dose: 75 mls/hr Premarin Vaginal (Cream) 1 applic VAG Q2D@2100 [facility] Last Admin: 09/16/18 21:23 Dose: Not Given Oxycodone HCl (Oxycodone) 5 mg PO Q4H PRN PRN Reason: Pain Last Admin: 09/15/18 23:49 Dose: 5 mg Phenazopyridine HCl (Pyridium) 200 mg PO ONETIME ONE Stop: 09/15/18 20:56 Last Admin: 09/15/18 21:06 Dose: 200 mg - Problem List & Annotations (1) Urinary tract infection SNOMED Code(s): 56767405 Code(s): N39.0 - URINARY TRACT INFECTION, SITE NOT SPECIFIED Status: Acute Priority: High Current Visit: Yes Qualifiers: Urinary tract infection type: acute cystitis Hematuria presence: with hematuria Qualified Code(s): N30.01 - Acute cystitis with hematuria (2) Gram-negative bacteremia SNOMED Code(s): 045117434544 Code(s): R78.81 - BACTEREMIA Status: Acute Priority: High Current Visit : Yes (3) Bipolar disorder SNOMED Code(s): 73211776 Code(s): F31.9 - BIPOLAR DISORDER, UNSPECIFIED Status: Chronic Priority: High Current Visit: Yes (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
[2018-09-18] MEDS: Haloperidol 5 MG Tab PO SCH ×2 (10:01→20:46)
[2018-09-18] MEDS: Lurasidone Hcl [Latuda] 120 MG PO SCH (17:49)
[2018-09-19] MEDS: Albuterol/Ipratropium 3.0-0.5 MG/3 ML Neb Soln NEB SCH ×3 (06:02→17:59)
[2018-09-19 06:25] LABS: CHLORIDE,CL 105 mmol/L (98-107); SODIUM,NA 139 mmol/L (136-145)
[2018-09-19] MEDS: Omeprazole 20 MG Cap.CR PO SCH (08:30)
[2018-09-19] MEDS: Levothyroxine 75 MCG Tab PO SCH (08:31)
[2018-09-19] MEDS: Meropenem 1 GM in Sodium Chloride 0.9% 100 ML IV SCH (08:37)
--- NOTE | 2018-09-19 08:49 | PCM.PN ---
<Nicci Martin M - Last Filed: 09/19/18 08:42> - General Info Date of Service: 09/19/18 Admission Dx/Problem (Free Text): ESBL E coli UTI and bacteremia Subjective Update: Reports still not feeling well today. Shortness of breath is better. mild abdominal pain. No other complaints at this time. Spoke with Yordan, director at [facility]. [place] maybe one more day then discharge in am. We discussed the need for IM/IV antibiotic upon discharge and she feels they would be able to get her to the Hospital daily to have medication administered. Functional Status: Reports: Pain Controlled, Tolerating Diet, Ambulating, Urinating - Review of Systems HEENT: Reports: No Symptoms. Denies: Headaches, Visual Changes Pulmonary: Reports: Shortness of Breath (improving). Denies: Cough, Sputum Cardiovascular: Reports: No Symptoms. Denies: Chest Pain, Palpitations, Edema Gastrointestinal: Reports: Abdominal Pain (discomfort). Denies: Nausea, Vomiting Genitourinary: Reports: No Symptoms. Denies: Dysuria, Frequency, Burning Musculoskeletal: Reports: No Symptoms Neurological: Reports: No Symptoms Psychiatric: Reports: No Symptoms - Patient Data Vitals - Most Recent: Last Vital Signs Temp 98.4 F 09/19/18 04:00 Pulse 77 09/19/18 04:00 Resp 20 09/19/18 04:00 BP 141/70 H 09/19/18 04:00 Pulse Ox 91 L 09/19/18 04:00 Weight - Most Recent: 106.957 kg I&O - Last 24 Hours: Intake & Output 09/18/18 09/19/18 09/19/18 22:59 06:59 14:59 Intake Total 1592 1300 Output Total 642 900 Balance 950 400 Lab Results Last 24 Hours: Laboratory Results - last 24 hr 09/19/18 09/19/18 Range/Units 05:50 05:50 WBC 8.23 (4.0-11.0) K/uL RBC 3.27 L (4.30-5.90) M/uL Hgb 9.8 L (12.0-16.0) g/dL Hct 31.0 L (36.0-46.0) % MCV 94.8 (80.0-98.0) fL MCH 30.0 (27.0-32.0) pg MCHC 31.6 (31.0-37.0) g/dL RDW Std Deviation 47.3 (28.0-62.0) fl RDW Coeff of Amaris 14 (11.0-15.0) % Plt Count 226 (150-400) K/uL MPV 9.90 (7.40-12.00) fL Add Manual Diff YES Neutrophils % (Manual) 39 L (48.0-80.0) % Band Neutrophils % 19 % Lymphocytes % (Manual) 23 (16.0-40.0) % Monocytes % (Manual) 14 (0.0-15.0) % Eosinophils % (Manual) 4 (0.0-7.0) % Metamyelocytes % 1 % Nucleated RBC % 0.0 /100WBC Absolute Seg Neuts 3.2 (1.4-5.7) Band Neutrophils # 1.6 Lymphocytes # (Manual) 1.9 (0.6-2.4) Monocytes # (Manual) 1.2 H (0.0-0.8) Eosinophils # (Manual) 0.3 (0.0-0.7) Absolute Metamyelocyte 0.1 Nucleated RBCs # 0 K/uL Sodium 139 (136-145) mmol/L Potassium 4.0 (3.5-5.1) mmol/L Chloride 105 (98-107) mmol/L Carbon Dioxide 27.2 (21.0-32.0) mmol/L BUN 15 (7.0-18.0) mg/dL Creatinine 0.9 (0.6-1.0) mg/dL Est Cr Clr Drug Dosing TNP Estimated GFR (MDRD) > 60.0 ml/min Glucose 92 (74-106) mg/dL Calcium 9.2 (8.5-10.1) mg/dL Jus Results Last 24 Hours: Microbiology 09/18/18 06:43 Aerobic Blood Culture - Preliminary Blood - Venous - Lab Draw NO GROWTH AFTER 1 DAY Anaerobic Blood Culture - Preliminary NO GROWTH AFTER 1 DAY 09/18/18 06:37 Aerobic Blood Culture - Preliminary Blood - Venous NO GROWTH AFTER 1 DAY Anaerobic Blood Culture - Preliminary NO GROWTH AFTER 1 DAY 09/15/18 21:18 Aerobic Blood Culture - Preliminary Blood - Venous Anaerobic Blood Culture - Final Escherichia Coli 09/15/18 21:30 Aerobic Blood Culture - Final Blood - Venous - Lab Draw Anaerobic Blood Culture - Final Med Orders - Current: Current Medications Acetaminophen (Tylenol) 650 mg PO Q6H PRN PRN Reason: Pain Albuterol (Proventil Neb Soln) 2.5 mg INH Q4H PRN PRN Reason: Wheezing Albuterol/Ipratropium (Duoneb 3.0-0.5 Mg/3 Ml) 3 ml NEB Q6HRRT [facility] Last Admin: 09/19/18 06:02 Dose: 3 ml Aspirin (Halfprin) 81 mg PO DAILY [facility] Last Admin: 09/18/18 09:03 Dose: 81 mg Diclofenac Sodium (Voltaren) 75 mg PO BID [facility] Last Admin: 09/18/18 20:46 Dose: 75 mg Docusate Sodium (Colace) 100 mg PO BID PRN PRN Reason: Constipation Escitalopram Oxalate (Lexapro) 20 mg PO DAILY [facility] Last Admin: 09/18/18 09:04 Dose: 20 mg Gemfibrozil (Lopid) 600 mg PO BID [facility] Last Admin: 09/18/18 20:46 Dose: 600 mg Haloperidol (Haldol) 10 mg PO BID [facility] Last Admin: 09/18/18 20:46 Dose: 10 mg Heparin Sodium (Porcine) (Heparin Sodium) 5,000 units SUBCUT Q8H [facility] Last Admin: 09/18/18 23:48 Dose: 5,000 units Meropenem 1 gm/ Sodium (Chloride) 100 mls @ 200 mls/hr IV Q12H [facility] Last Admin: 09/19/18 08:37 Dose: 200 mls/hr Levothyroxine Sodium (Levothyroxine) 75 mcg PO ACBREAKFAST [facility] Last Admin: 09/19/18 08:31 Dose: 75 mcg Lorazepam (Ativan) 2 mg PO DAILY PRN PRN Reason: Anxiety Omeprazole (Omeprazole) 20 mg PO ACBREAKFAST [facility] Last Admin: 09/19/18 08:30 Dose: 20 mg Lurasidone Hcl [ (Latuda] 120 Mg) 1 each PO WITHDINNER [facility] Last Admin: 09/18/18 17:49 Dose: 1 each Venlafaxine HCl (Effexor Xr) 225 mg PO DAILY [facility] Last Admin: 09/18/18 09:03 Dose: 225 mg Discontinued Medications Albuterol/Ipratropium (Duoneb 3.0-0.5 Mg/3 Ml) 3 ml NEB ONETIME ONE Stop: 09/15/18 20:37 Last Admin: 09/15/18 20:54 Dose: 3 ml Albuterol/Ipratropium (Duoneb 3.0-0.5 Mg/3 Ml) 3 ml NEB Q4HRRT PRN PRN Reason: Wheezing Last Admin: 09/16/18 15:52 Dose: 3 ml Enoxaparin Sodium (Lovenox) 120 mg SUBCUT ONETIME ONE Stop: 09/15/18 21:52 Last Admin: 09/15/18 22:01 Dose: 120 mg Ceftriaxone Sodium/Dextrose 1 (gm/ Premix) 50 mls @ 100 mls/hr IV ONETIME ONE Stop: 09/15/18 21:38 Last Admin: 09/15/18 21:39 Dose: 100 mls/hr Sodium Chloride (Normal Saline) 1,000 mls @ 999 mls/hr IV STAT ONE Stop: 09/15/18 22:09 Last Admin: 09/15/18 21:39 Dose: 999 mls/hr Ceftriaxone Sodium/Dextrose 1 (gm/ Premix) 50 mls @ 100 mls/hr IV Q24H [facility] Last Admin: 09/16/18 21:22 Dose: 100 mls/hr Sodium Chloride (Normal Saline) 1,000 mls @ 75 mls/hr IV ASDIRECTED [facility] Last Admin: 09/18/18 06:41 Dose: 75 mls/hr Premarin Vaginal (Cream) 1 applic VAG Q2D@2100 [facility] Last Admin: 09/16/18 21:23 Dose: Not Given Oxycodone HCl (Oxycodone) 5 mg PO Q4H PRN PRN Reason: Pain Last Admin: 09/15/18 23:49 Dose: 5 mg Phenazopyridine HCl (Pyridium) 200 mg PO ONETIME ONE Stop: 09/15/18 20:56 Last Admin: 09/15/18 21:06 Dose: 200 mg - Exam General: Alert, Oriented, Cooperative, No Acute Distress Lungs: Normal Respiratory Effort, Wheezing Cardiovascular: Regular Rate, Regular Rhythm Extremities: Normal Inspection, Normal Range of Motion, Non-Tender Wound/Incisions: Healing Well Neurological: No New Focal Deficit Psy/Mental Status: Alert, Normal Affect, Normal Mood - Problem List & Annotations (1) ESBL (extended spectrum beta-lactamase) producing bacteria infection SNOMED Code(s): 405643937 Code(s): A49.9 - BACTERIAL INFECTION, UNSPECIFIED; Z16.12 - EXTENDED SPECTRUM BETA LACTAMASE (ESBL) RESISTANCE Status: Acute Current Visit: Yes (2) Gram-negative bacteremia SNOMED Code(s): 354787559413 Code(s): R78.81 - BACTEREMIA Status: Acute Priority: High Current Visit : Yes (3) Urinary tract infection SNOMED Code(s): 47935154 Code(s): N39.0 - URINARY TRACT INFECTION, SITE NOT SPECIFIED Status: Acute Priority: High Current Visit: Yes Qualifiers: Urinary tract infection type: acute cystitis Hematuria presence: with hematuria Qualified Code(s): N30.01 - Acute cystitis with hematuria (4) Dyspnea SNOMED Code(s): 901033941 Code(s): R06.00 - DYSPNEA, UNSPECIFIED Status: Acute Current Visit: Yes Qualifiers: Dyspnea type: unspecified Qualified Code(s): R06.00 - Dyspnea, unspecified (5) RAUL (acute kidney injury) SNOMED Code(s): 83354839, 15366945 Code(s): N17.9 - ACUTE KIDNEY FAILURE, UNSPECIFIED Status: Acute Current Visit: Yes (6) Bipolar disorder SNOMED Code(s): 35630378 Code(s): F31.9 - BIPOLAR DISORDER, UNSPECIFIED Status: Chronic Priority: High Current Visit: Yes (7) History of mental disorder SNOMED Code(s): 745370611 Code(s): Z86.59 - PERSONAL HISTORY OF OTHER MENTAL AND BEHAVIORAL DISORDERS Status: Chronic Current Visit: No (8) Parkinsonism SNOMED Code(s): 36670334 Code(s): G20 - PARKINSON'S DISEASE Status: Chronic Current Visit: No (9) GERD (gastroesophageal reflux disease) SNOMED Code(s): 938553693 Code(s): K21.9 - GASTRO-ESOPHAGEAL REFLUX DISEASE WITHOUT ESOPHAGITIS Status: Chronic Current Visit: No Qualifiers: Esophagitis presence: esophagitis presence not specified Qualified Code(s) : K21.9 - Gastro-esophageal reflux disease without esophagitis (10) Hypothyroidism SNOMED Code(s): 17209272 Code(s): E03.9 - HYPOTHYROIDISM, UNSPECIFIED Status: Chronic Current Visit: No Qualifiers: Hypothyroidism type: unspecified Qualified Code(s): E03.9 - Hypothyroidism , unspecified (11) RAMESH (obstructive sleep apnea) SNOMED Code(s): 73195695 Code(s): G47.33 - OBSTRUCTIVE SLEEP APNEA (ADULT) (PEDIATRIC) Status: Chronic Current Visit: No - Problem List Review Problem List Initiated/Reviewed/Updated: Yes - My Orders Last 24 Hours: My Active Orders 09/20/18 05:11 BASIC METABOLIC PANEL,BMP [CHEM] AM CBC WITH AUTO DIFF [HEME] AM - Plan Plan:: This 58 year old female admitted with UTI and dyspnea 1. ESBL E coli bacteremia: Repeat BC negative. No radiology available to place PICC line. Will change to Ertapenem, she will need to have daily IM injections of this for 13 more days to complete treatment course. 2. UTI: ESBL E coli. Place on precautions. Continue Ertapenem. 3. Dyspnea: Improved and oxygen demand decreasing. Wheezing still noted, Continue Duonebs add low dose Solumedrol and monitor. 4. RAUL:resolved. 5. Bipolar: Continue Effexor, Haldol and Zyprexa. 6. RAMESH: Uses oxygen for sleep at night. VTE prophylaxis: Heparin. Dispo: likely discharge in am. Will get outpatient IM antibiotics set up. <Jonathan Teixeira - Last Filed: 09/19/18 09:08> - General Info Admission Dx/Problem (Free Text): I have seen and examined to patient independently of Nicci Martin CNP. I have discussed the case for care of this patient with her. I have reviewed and approve of the plan of care as outlined by her. Please see orders. - Patient Data Vitals - Most Recent: Last Vital Signs Temp 36.9 C 09/19/18 04:00 Pulse 77 09/19/18 04:00 Resp 20 09/19/18 04:00 BP 141/70 H 09/19/18 04:00 Pulse Ox 91 L 09/19/18 04:00 I&O - Last 24 Hours: Intake & Output 09/18/18 09/19/18 09/19/18 22:59 06:59 14:59 Intake Total 1592 1300 Output Total 642 900 Balance 950 400 Lab Results Last 24 Hours: Laboratory Results - last 24 hr 09/19/18 09/19/18 Range/Units 05:50 05:50 WBC 8.23 (4.0-11.0) K/uL RBC 3.27 L (4.30-5.90) M/uL Hgb 9.8 L (12.0-16.0) g/dL Hct 31.0 L (36.0-46.0) % MCV 94.8 (80.0-98.0) fL MCH 30.0 (27.0-32.0) pg MCHC 31.6 (31.0-37.0) g/dL RDW Std Deviation 47.3 (28.0-62.0) fl RDW Coeff of Amaris 14 (11.0-15.0) % Plt Count 226 (150-400) K/uL MPV 9.90 (7.40-12.00) fL Add Manual Diff YES Neutrophils % (Manual) 39 L (48.0-80.0) % Band Neutrophils % 19 % Lymphocytes % (Manual) 23 (16.0-40.0) % Monocytes % (Manual) 14 (0.0-15.0) % Eosinophils % (Manual) 4 (0.0-7.0) % Metamyelocytes % 1 % Nucleated RBC % 0.0 /100WBC Absolute Seg Neuts 3.2 (1.4-5.7) Band Neutrophils # 1.6 Lymphocytes # (Manual) 1.9 (0.6-2.4) Monocytes # (Manual) 1.2 H (0.0-0.8) Eosinophils # (Manual) 0.3 (0.0-0.7) Absolute Metamyelocyte 0.1 Nucleated RBCs # 0 K/uL Sodium 139 (136-145) mmol/L Potassium 4.0 (3.5-5.1) mmol/L Chloride 105 (98-107) mmol/L Carbon Dioxide 27.2 (21.0-32.0) mmol/L BUN 15 (7.0-18.0) mg/dL Creatinine 0.9 (0.6-1.0) mg/dL Est Cr Clr Drug Dosing TNP Estimated GFR (MDRD) > 60.0 ml/min Glucose 92 (74-106) mg/dL Calcium 9.2 (8.5-10.1) mg/dL Jus Results Last 24 Hours: Microbiology 09/15/18 21:18 Aerobic Blood Culture - Final Blood - Venous Anaerobic Blood Culture - Final Escherichia Coli 09/18/18 06:43 Aerobic Blood Culture - Preliminary Blood - Venous - Lab Draw NO GROWTH AFTER 1 DAY Anaerobic Blood Culture - Preliminary NO GROWTH AFTER 1 DAY 09/18/18 06:37 Aerobic Blood Culture - Preliminary Blood - Venous NO GROWTH AFTER 1 DAY Anaerobic Blood Culture - Preliminary NO GROWTH AFTER 1 DAY 09/15/18 21:30 Aerobic Blood Culture - Final Blood - Venous - Lab Draw Anaerobic Blood Culture - Final Med Orders - Current: Current Medications Acetaminophen (Tylenol) 650 mg PO Q6H PRN PRN Reason: Pain Albuterol (Proventil Neb Soln) 2.5 mg INH Q4H PRN PRN Reason: Wheezing Albuterol/Ipratropium (Duoneb 3.0-0.5 Mg/3 Ml) 3 ml NEB Q6HRRT [facility] Last Admin: 09/19/18 06:02 Dose: 3 ml Aspirin (Halfprin) 81 mg PO DAILY [facility] Last Admin: 09/18/18 09:03 Dose: 81 mg Diclofenac Sodium (Voltaren) 75 mg PO BID [facility] Last Admin: 09/18/18 20:46 Dose: 75 mg Docusate Sodium (Colace) 100 mg PO BID PRN PRN Reason: Constipation Escitalopram Oxalate (Lexapro) 20 mg PO DAILY [facility] Last Admin: 09/18/18 09:04 Dose: 20 mg Gemfibrozil (Lopid) 600 mg PO BID [facility] Last Admin: 09/18/18 20:46 Dose: 600 mg Haloperidol (Haldol) 10 mg PO BID [facility] Last Admin: 09/18/18 20:46 Dose: 10 mg Heparin Sodium (Porcine) (Heparin Sodium) 5,000 units SUBCUT Q8H [facility] Last Admin: 09/18/18 23:48 Dose: 5,000 units Meropenem 1 gm/ Sodium (Chloride) 100 mls @ 200 mls/hr IV Q12H [facility] Last Admin: 09/19/18 08:37 Dose: 200 mls/hr Levothyroxine Sodium (Levothyroxine) 75 mcg PO ACBREAKFAST [facility] Last Admin: 09/19/18 08:31 Dose: 75 mcg Lorazepam (Ativan) 2 mg PO DAILY PRN PRN Reason: Anxiety Methylprednisolone Sodium Succinate (Solu-Medrol) 60 mg IVPUSH Q12H [facility] Omeprazole (Omeprazole) 20 mg PO ACBREAKFAST [facility] Last Admin: 09/19/18 08:30 Dose: 20 mg Lurasidone Hcl [ (Latuda] 120 Mg) 1 each PO WITHDINNER [facility] Last Admin: 09/18/18 17:49 Dose: 1 each Venlafaxine HCl (Effexor Xr) 225 mg PO DAILY [facility] Last Admin: 09/18/18 09:03 Dose: 225 mg Discontinued Medications Albuterol/Ipratropium (Duoneb 3.0-0.5 Mg/3 Ml) 3 ml NEB ONETIME ONE Stop: 09/15/18 20:37 Last Admin: 09/15/18 20:54 Dose: 3 ml Albuterol/Ipratropium (Duoneb 3.0-0.5 Mg/3 Ml) 3 ml NEB Q4HRRT PRN PRN Reason: Wheezing Last Admin: 09/16/18 15:52 Dose: 3 ml Enoxaparin Sodium (Lovenox) 120 mg SUBCUT ONETIME ONE Stop: 09/15/18 21:52 Last Admin: 09/15/18 22:01 Dose: 120 mg Ceftriaxone Sodium/Dextrose 1 (gm/ Premix) 50 mls @ 100 mls/hr IV ONETIME ONE Stop: 09/15/18 21:38 Last Admin: 09/15/18 21:39 Dose: 100 mls/hr Sodium Chloride (Normal Saline) 1,000 mls @ 999 mls/hr IV STAT ONE Stop: 09/15/18 22:09 Last Admin: 09/15/18 21:39 Dose: 999 mls/hr Ceftriaxone Sodium/Dextrose 1 (gm/ Premix) 50 mls @ 100 mls/hr IV Q24H [facility] Last Admin: 09/16/18 21:22 Dose: 100 mls/hr Sodium Chloride (Normal Saline) 1,000 mls @ 75 mls/hr IV ASDIRECTED [facility] Last Admin: 09/18/18 06:41 Dose: 75 mls/hr Premarin Vaginal (Cream) 1 applic VAG Q2D@2100 [facility] Last Admin: 09/16/18 21:23 Dose: Not Given Oxycodone HCl (Oxycodone) 5 mg PO Q4H PRN PRN Reason: Pain Last Admin: 09/15/18 23:49 Dose: 5 mg Phenazopyridine HCl (Pyridium) 200 mg PO ONETIME ONE Stop: 09/15/18 20:56 Last Admin: 09/15/18 21:06 Dose: 200 mg - Problem List & Annotations (1) Urinary tract infection SNOMED Code(s): 57829179 Code(s): N39.0 - URINARY TRACT INFECTION, SITE NOT SPECIFIED Status: Acute Priority: High Current Visit: Yes Qualifiers: Urinary tract infection type: acute cystitis Hematuria presence: with hematuria Qualified Code(s): N30.01 - Acute cystitis with hematuria (2) Gram-negative bacteremia SNOMED Code(s): 299908268011 Code(s): R78.81 - BACTEREMIA Status: Acute Priority: High Current Visit : Yes (3) Bipolar disorder SNOMED Code(s): 75027865 Code(s): F31.9 - BIPOLAR DISORDER, UNSPECIFIED Status: Chronic Priority: High Current Visit: Yes (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
[2018-09-19] MEDS: Heparin Sodium 5,000 Units/ML Vial SUBCUT SCH ×2 (09:53→16:55)
[2018-09-19] MEDS: Escitalopram 10 MG Tab PO SCH (09:55)
[2018-09-19] MEDS: Venlafaxine 75 MG Cap.ER PO SCH (09:55)
[2018-09-19] MEDS: Gemfibrozil 600 MG Tab PO SCH ×2 (09:55→22:00)
[2018-09-19] MEDS: Haloperidol 5 MG Tab PO SCH ×2 (09:56→22:00)
[2018-09-19] MEDS: Aspirin 81 MG Tab.EC PO SCH (09:56)
[2018-09-19] MEDS: Diclofenac Sodium 75 MG Tab.EC PO SCH ×2 (09:56→22:00)
[2018-09-19] MEDS: methylPREDNISolone Sodium Succinate 40 MG/1 ML SDV IVPUSH SCH ×2 (10:31→22:00)
[2018-09-19] MEDS: Mupirocin Oint 22 GM Tube TOP SCH (11:00)
--- NOTE | 2018-09-19 11:27 | PCM.SN ---
<Nicci Martin M - Last Filed: 09/19/18 11:26> - Free Text/Narrative Note: Suture removal preformed to L forearm laceration. Patient tolerated well. Steri strips placed. Nursing to change dressing daily with application of bacitracin. <Jonathan Teixeira M - Last Filed: 09/20/18 13:00> - Free Text/Narrative Note: I have seen and examined to patient independently of Nicci Martin CNP. I have discussed the case for care of this patient with her. I have reviewed and approve of the plan of care as outlined by her. Please see orders.
[2018-09-19] MEDS ORDERED: Ertapenem 1 GM in Sodium Chloride 0.9% 50 ML IV SCH (13:00)
[2018-09-19] MEDS: Lurasidone Hcl [Latuda] 120 MG PO SCH (16:52)
[2018-09-20] MEDS: Heparin Sodium 5,000 Units/ML Vial SUBCUT SCH ×2 (00:30→09:38)
[2018-09-20] MEDS: Albuterol/Ipratropium 3.0-0.5 MG/3 ML Neb Soln NEB SCH ×3 (00:30→11:36)
[2018-09-20] MEDS: Levothyroxine 75 MCG Tab PO SCH (06:31)
[2018-09-20] MEDS: Omeprazole 20 MG Cap.CR PO SCH (06:32)
[2018-09-20 06:35] LABS: CHLORIDE,CL 103 mmol/L (98-107); SODIUM,NA 139 mmol/L (136-145)
--- NOTE | 2018-09-20 07:26 | PCM.PN ---
- Patient Data Vitals - Most Recent: Last Vital Signs Temp 36.4 C 09/20/18 04:26 Pulse 80 09/20/18 04:26 Resp 20 09/20/18 04:26 BP 152/96 H 09/20/18 04:26 Pulse Ox 92 L 09/20/18 04:26 Weight - Most Recent: 106.957 kg I&O - Last 24 Hours: Intake & Output 09/19/18 09/20/18 09/20/18 22:59 06:59 14:59 Intake Total 1050 400 Output Total 500 552 Balance 550 -152 Lab Results Last 24 Hours: Laboratory Results - last 24 hr 09/20/18 09/20/18 Range/Units 06:05 06:05 WBC 8.56 (4.0-11.0) K/uL RBC 3.59 L (4.30-5.90) M/uL Hgb 10.8 L (12.0-16.0) g/dL Hct 34.2 L (36.0-46.0) % MCV 95.3 (80.0-98.0) fL MCH 30.1 (27.0-32.0) pg MCHC 31.6 (31.0-37.0) g/dL RDW Std Deviation 46.2 (28.0-62.0) fl RDW Coeff of Amaris 13 (11.0-15.0) % Plt Count 288 (150-400) K/uL MPV 10.20 (7.40-12.00) fL Add Manual Diff YES Neutrophils % (Manual) 61 (48.0-80.0) % Band Neutrophils % 7 % Lymphocytes % (Manual) 20 (16.0-40.0) % Monocytes % (Manual) 10 (0.0-15.0) % Metamyelocytes % 2 % Nucleated RBC % 0.0 /100WBC Absolute Seg Neuts 5.2 (1.4-5.7) Band Neutrophils # 0.6 Lymphocytes # (Manual) 1.7 (0.6-2.4) Monocytes # (Manual) 0.9 H (0.0-0.8) Absolute Metamyelocyte 0.2 Nucleated RBCs # 0 K/uL Sodium 139 (136-145) mmol/L Potassium 4.5 (3.5-5.1) mmol/L Chloride 103 (98-107) mmol/L Carbon Dioxide 31.7 (21.0-32.0) mmol/L BUN 21 H (7.0-18.0) mg/dL Creatinine 0.9 (0.6-1.0) mg/dL Est Cr Clr Drug Dosing TNP Estimated GFR (MDRD) > 60.0 ml/min Glucose 202 H (74-106) mg/dL Calcium 9.4 (8.5-10.1) mg/dL Jus Results Last 24 Hours: Microbiology 09/18/18 06:43 Aerobic Blood Culture - Preliminary Blood - Venous - Lab Draw NO GROWTH AFTER 2 DAYS Anaerobic Blood Culture - Preliminary NO GROWTH AFTER 2 DAYS 09/18/18 06:37 Aerobic Blood Culture - Preliminary Blood - Venous NO GROWTH AFTER 2 DAYS Anaerobic Blood Culture - Preliminary NO GROWTH AFTER 2 DAYS 09/15/18 21:18 Aerobic Blood Culture - Final Blood - Venous Anaerobic Blood Culture - Final Escherichia Coli Med Orders - Current: Current Medications Acetaminophen (Tylenol) 650 mg PO Q6H PRN PRN Reason: Pain Albuterol (Proventil Neb Soln) 2.5 mg INH Q4H PRN PRN Reason: Wheezing Albuterol/Ipratropium (Duoneb 3.0-0.5 Mg/3 Ml) 3 ml NEB Q6HRRT [facility] Last Admin: 09/20/18 06:32 Dose: 3 ml Aspirin (Halfprin) 81 mg PO DAILY [facility] Last Admin: 09/19/18 09:56 Dose: 81 mg Diclofenac Sodium (Voltaren) 75 mg PO BID [facility] Last Admin: 09/19/18 22:00 Dose: 75 mg Docusate Sodium (Colace) 100 mg PO BID PRN PRN Reason: Constipation Escitalopram Oxalate (Lexapro) 20 mg PO DAILY [facility] Last Admin: 09/19/18 09:55 Dose: 20 mg Gemfibrozil (Lopid) 600 mg PO BID [facility] Last Admin: 09/19/18 22:00 Dose: 600 mg Haloperidol (Haldol) 10 mg PO BID [facility] Last Admin: 09/19/18 22:00 Dose: 10 mg Heparin Sodium (Porcine) (Heparin Sodium) 5,000 units SUBCUT Q8H [facility] Last Admin: 09/20/18 00:30 Dose: 5,000 units Ertapenem 1 gm/ Sodium (Chloride) 50 mls @ 100 mls/hr IV Q24H [facility] Last Admin: 09/19/18 14:27 Dose: 100 mls/hr Levothyroxine Sodium (Levothyroxine) 75 mcg PO ACBREAKFAST [facility] Last Admin: 09/20/18 06:31 Dose: 75 mcg Lorazepam (Ativan) 2 mg PO DAILY PRN PRN Reason: Anxiety Methylprednisolone Sodium Succinate (Solu-Medrol) 60 mg IVPUSH Q12H [facility] Last Admin: 09/19/18 22:00 Dose: 60 mg Mupirocin (Bactroban Oint) 1 gm TOP DAILY [facility] Last Admin: 09/19/18 11:00 Dose: 1 applic Omeprazole (Omeprazole) 20 mg PO ACBREAKFAST [facility] Last Admin: 09/20/18 06:32 Dose: 20 mg Lurasidone Hcl [ (Latuda] 120 Mg) 1 each PO WITHDINNER [facility] Last Admin: 09/19/18 16:52 Dose: 1 each Venlafaxine HCl (Effexor Xr) 225 mg PO DAILY [facility] Last Admin: 09/19/18 09:55 Dose: 225 mg Discontinued Medications Albuterol/Ipratropium (Duoneb 3.0-0.5 Mg/3 Ml) 3 ml NEB ONETIME ONE Stop: 09/15/18 20:37 Last Admin: 09/15/18 20:54 Dose: 3 ml Albuterol/Ipratropium (Duoneb 3.0-0.5 Mg/3 Ml) 3 ml NEB Q4HRRT PRN PRN Reason: Wheezing Last Admin: 09/16/18 15:52 Dose: 3 ml Enoxaparin Sodium (Lovenox) 120 mg SUBCUT ONETIME ONE Stop: 09/15/18 21:52 Last Admin: 09/15/18 22:01 Dose: 120 mg Ceftriaxone Sodium/Dextrose 1 (gm/ Premix) 50 mls @ 100 mls/hr IV ONETIME ONE Stop: 09/15/18 21:38 Last Admin: 09/15/18 21:39 Dose: 100 mls/hr Sodium Chloride (Normal Saline) 1,000 mls @ 999 mls/hr IV STAT ONE Stop: 09/15/18 22:09 Last Admin: 09/15/18 21:39 Dose: 999 mls/hr Ceftriaxone Sodium/Dextrose 1 (gm/ Premix) 50 mls @ 100 mls/hr IV Q24H [facility] Last Admin: 09/16/18 21:22 Dose: 100 mls/hr Sodium Chloride (Normal Saline) 1,000 mls @ 75 mls/hr IV ASDIRECTED [facility] Last Admin: 09/18/18 06:41 Dose: 75 mls/hr Meropenem 1 gm/ Sodium (Chloride) 100 mls @ 200 mls/hr IV Q12H [facility] Last Admin: 09/19/18 08:37 Dose: 200 mls/hr Premarin Vaginal (Cream) 1 applic VAG Q2D@2100 [facility] Last Admin: 09/16/18 21:23 Dose: Not Given Oxycodone HCl (Oxycodone) 5 mg PO Q4H PRN PRN Reason: Pain Last Admin: 09/15/18 23:49 Dose: 5 mg Phenazopyridine HCl (Pyridium) 200 mg PO ONETIME ONE Stop: 09/15/18 20:56 Last Admin: 09/15/18 21:06 Dose: 200 mg - Problem List & Annotations (1) Urinary tract infection SNOMED Code(s): 52887886 Code(s): N39.0 - URINARY TRACT INFECTION, SITE NOT SPECIFIED Status: Acute Priority: High Current Visit: Yes Qualifiers: Urinary tract infection type: acute cystitis Hematuria presence: with hematuria Qualified Code(s): N30.01 - Acute cystitis with hematuria (2) Gram-negative bacteremia SNOMED Code(s): 900787834061 Code(s): R78.81 - BACTEREMIA Status: Acute Priority: High Current Visit : Yes (3) Bipolar disorder SNOMED Code(s): 02516997 Code(s): F31.9 - BIPOLAR DISORDER, UNSPECIFIED Status: Chronic Priority: High Current Visit: Yes (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 ESBL E coli bacteremia: Repeat BC negative. No radiology available to place PICC line. Will change to Ertapenem, she will need to have daily IM injections of this for 13 more days to complete treatment course. 2. UTI: ESBL E coli. Place on precautions. Continue Ertapenem. 3. Dyspnea: Improved and oxygen demand decreasing. Wheezing still noted, Continue Duonebs add low dose Solumedrol and monitor. 4. RAUL:resolved. 5. Bipolar: Continue Effexor, Haldol and Zyprexa. 6. RAMESH: Uses oxygen for sleep at night. VTE prophylaxis: Heparin. Dispo: likely discharge in am. Will get outpatient IM antibiotics set up.
--- NOTE | 2018-09-20 09:33 | PCM.DCSUM1 ---
Discharge Summary - Hospital Course HPI Initial Comments: Admitted secondary to urinary tract infection Diagnosis: Stroke: No - Discharge Data Discharge Date: 09/20/18 Discharge Disposition: DC/Tfer to [facility] Condition: Fair - Discharge Diagnosis/Problem(s) (1) Urinary tract infection SNOMED Code(s): 07692610 ICD Code: N39.0 - URINARY TRACT INFECTION, SITE NOT SPECIFIED Status: Resolved Priority: High Current Visit: Yes Qualifiers: Urinary tract infection type: acute cystitis Hematuria presence: with hematuria Qualified Code(s): N30.01 - Acute cystitis with hematuria (2) Gram-negative bacteremia SNOMED Code(s): 788736090924 ICD Code: R78.81 - BACTEREMIA Status: Acute Priority: High Current Visit: Yes (3) Bipolar disorder SNOMED Code(s): 49364323 ICD Code: F31.9 - BIPOLAR DISORDER, UNSPECIFIED Status: Chronic Priority : High Current Visit: Yes (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 The patient is living in a jail associated with [facility]. She is developmentally delay and her history was somewhat confused. The patient was noted to have a urinary tract infection. The patient had been positive for blood cultures for Escherichia coli ESBL. The patient initially had been placed on ceftriaxone and she had tolerated this well. With the results of cultures the patient was placed on IV ertapenem for the treatment of her UTI and subsequent bacteremia. Upon initial admission the patient was noted to have an elevated white blood cell count at 11 ,000 and this had improved over time. The patient's temperature over time had never been febrile. The patient today says that she is feeling better. Her shortness of breath had improved. By day of discharge the patient's vital signs have been stable. She had been started on all of her home medications. The patient did have some nonspecific anemia with a hemoglobin of 10.8 g/dL however this had remained stable during her hospitalization. The patient's initial troponins had been elevated at 0.262, 0.337 and 0.45. The patient also had been noted to have chronic kidney disease and this was thought to be contributing to this. The patient did not have any symptoms that would be associated with coronary artery disease and EKG was obtained on September 15, 2018 which did not show any signs of ischemia and was otherwise interpreted as a normal EKG. The patient should follow up with her primary care physician with regards to this. After fluid hydration the patient's EGFR improved as her BUN/creatinine were 21 and 0.9. Cultures obtained did show ESBL Escherichia coli that was sensitive to ertapenem. Arrangements were made for the patient to have IM ertapenem 1 g daily. This was done as the patient has in the past had a tendency to pull out IV access and PICC line would not be appropriate for her in this case. The patient has been recommended to continue with her diet as tolerated. The patient is also to have activity as tolerated. The patient otherwise has been hemodynamically stable and she has been recommended for discharge with the above recommendations. Also, the patient had sutures removed from her previously self-inflicted wound to her left forearm. - Patient Instructions Diet: Regular Diet as Tolerated Activity: As Tolerated Showering/Bathing: May Shower Notify Provider of: Fever, Increased Pain, Swelling and Redness, Drainage, Nausea and/or Vomiting Other/Special Instructions: Will need to come to hospital daily at the same time to receive antibiotic, last day of therapy to be September 30. - Discharge Plan *PRESCRIPTION DRUG MONITORING PROGRAM REVIEWED*: Not Applicable *COPY OF PRESCRIPTION DRUG MONITORING REPORT IN PATIENT RAYSA: Not Applicable Prescriptions/Med Rec: Ertapenem [INVanz] 1 gm IM DAILY #13 vial Home Medications: Home Meds Calcium Carbonate/Vitamin D3 [Calcium 250+D] 2 tab PO BID 06/30/13 [History] Gemfibrozil 600 mg PO BID 06/30/13 [History] Levothyroxine 75 mcg PO DAILY 06/30/13 [History] Multivitamin [Multi-Vitamin Daily] 1 each PO DAILY 06/30/13 [History] Venlafaxine [Effexor XR] 150 mg PO DAILY 06/30/13 [History] Cyanocobalamin/Folic Acid [Vitamin B99-Vqdvl Acid] 1,000 mg PO DAILY 07/06/14 [ History] Iron Polysaccharide Complex [Poly-Iron] 150 mg PO BID 07/06/14 [History] Aspirin [Halfprin] 81 mg PO DAILY 07/08/15 [History] Dexlansoprazole [Dexilant] 60 mg PO DAILY 07/08/15 [History] Docusate Sodium [Colace] 100 mg PO BID PRN 07/08/15 [History] Haloperidol [Haldol] 10 mg PO BID 07/08/15 [History] Venlafaxine [Effexor XR] 75 mg PO DAILY 07/08/15 [History] Calcium Polycarbophil [Fiber Laxative] 625 mg PO BID 07/15/15 [History] Albuterol Sulfate 2.5 mg INH Q4H PRN 11/04/17 [History] Escitalopram [Lexapro] 20 mg PO DAILY 11/04/17 [History] Estrogens, Conjugated [Premarin Vaginal Crm] 1 applic VAG Q48H 11/04/17 [History ] Lurasidone HCl [Latuda] 120 mg PO WITHDINNER 11/04/17 [History] Diclofenac Sodium [Voltaren] 75 mg PO BID 09/11/18 [History] LORazepam 1 tab PO ASDIRECTED PRN 09/15/18 [History] Ertapenem [INVanz] 1 gm IM DAILY #13 vial 09/19/18 [Rx] Oxygen Therapy Mode: Room Air Patient Handouts: Ertapenem injection, Urinary Tract Infection, Adult, Easy-to- Read Referrals: [facility] [Outside] Kemi Mead MD [Ordering Only Provider] - 10/01/18 10:15 am - Discharge Summary/Plan Comment DC Time >30 min.: Yes - General Info Date of Service: 09/20/18 Admission Dx/Problem (Free Text: The patient was admitted secondary to urinary tract infection and has proven ESBL Escherichia coli bacteremia. Subjective Update: Doing better today. Denies any pain. No nausea or vomiting. She wants to go home. Functional Status: Reports: Pain Controlled - Review of Systems General: Reports: No Symptoms HEENT: Reports: No Symptoms Pulmonary: Reports: No Symptoms Cardiovascular: Reports: No Symptoms Gastrointestinal: Reports: No Symptoms Genitourinary: Reports: No Symptoms Musculoskeletal: Reports: No Symptoms Skin: Reports: No Symptoms Neurological: Reports: No Symptoms Psychiatric: Reports: No Symptoms - Patient Data Vitals - Most Recent: Last Vital Signs Temp 36.4 C 09/20/18 04:26 Pulse 80 09/20/18 04:26 Resp 20 09/20/18 04:26 BP 152/96 H 09/20/18 04:26 Pulse Ox 92 L 09/20/18 04:26 Weight - Most Recent: 106.957 kg I&O - Last 24 hours: Intake & Output 09/19/18 09/20/18 09/20/18 22:59 06:59 14:59 Intake Total 1050 400 Output Total 500 552 Balance 550 -152 Lab Results - Last 24 hrs: Laboratory Results - last 24 hr 09/20/18 09/20/18 Range/Units 06:05 06:05 WBC 8.56 (4.0-11.0) K/uL RBC 3.59 L (4.30-5.90) M/uL Hgb 10.8 L (12.0-16.0) g/dL Hct 34.2 L (36.0-46.0) % MCV 95.3 (80.0-98.0) fL MCH 30.1 (27.0-32.0) pg MCHC 31.6 (31.0-37.0) g/dL RDW Std Deviation 46.2 (28.0-62.0) fl RDW Coeff of Amaris 13 (11.0-15.0) % Plt Count 288 (150-400) K/uL MPV 10.20 (7.40-12.00) fL Add Manual Diff YES Neutrophils % (Manual) 61 (48.0-80.0) % Band Neutrophils % 7 % Lymphocytes % (Manual) 20 (16.0-40.0) % Monocytes % (Manual) 10 (0.0-15.0) % Metamyelocytes % 2 % Nucleated RBC % 0.0 /100WBC Absolute Seg Neuts 5.2 (1.4-5.7) Band Neutrophils # 0.6 Lymphocytes # (Manual) 1.7 (0.6-2.4) Monocytes # (Manual) 0.9 H (0.0-0.8) Absolute Metamyelocyte 0.2 Nucleated RBCs # 0 K/uL Sodium 139 (136-145) mmol/L Potassium 4.5 (3.5-5.1) mmol/L Chloride 103 (98-107) mmol/L Carbon Dioxide 31.7 (21.0-32.0) mmol/L BUN 21 H (7.0-18.0) mg/dL Creatinine 0.9 (0.6-1.0) mg/dL Est Cr Clr Drug Dosing TNP Estimated GFR (MDRD) > 60.0 ml/min Glucose 202 H (74-106) mg/dL Calcium 9.4 (8.5-10.1) mg/dL MARY Results - Last 24 hrs: Microbiology 09/18/18 06:43 Aerobic Blood Culture - Preliminary Blood - Venous - Lab Draw NO GROWTH AFTER 2 DAYS Anaerobic Blood Culture - Preliminary NO GROWTH AFTER 2 DAYS 09/18/18 06:37 Aerobic Blood Culture - Preliminary Blood - Venous NO GROWTH AFTER 2 DAYS Anaerobic Blood Culture - Preliminary NO GROWTH AFTER 2 DAYS 09/15/18 21:18 Aerobic Blood Culture - Final Blood - Venous Anaerobic Blood Culture - Final Escherichia Coli Med Orders - Current: Current Medications Acetaminophen (Tylenol) 650 mg PO Q6H PRN PRN Reason: Pain Albuterol (Proventil Neb Soln) 2.5 mg INH Q4H PRN PRN Reason: Wheezing Albuterol/Ipratropium (Duoneb 3.0-0.5 Mg/3 Ml) 3 ml NEB Q6HRRT [facility] Last Admin: 09/20/18 06:32 Dose: 3 ml Aspirin (Halfprin) 81 mg PO DAILY [facility] Last Admin: 09/19/18 09:56 Dose: 81 mg Diclofenac Sodium (Voltaren) 75 mg PO BID [facility] Last Admin: 09/19/18 22:00 Dose: 75 mg Docusate Sodium (Colace) 100 mg PO BID PRN PRN Reason: Constipation Escitalopram Oxalate (Lexapro) 20 mg PO DAILY [facility] Last Admin: 09/19/18 09:55 Dose: 20 mg Gemfibrozil (Lopid) 600 mg PO BID [facility] Last Admin: 09/19/18 22:00 Dose: 600 mg Haloperidol (Haldol) 10 mg PO BID [facility] Last Admin: 09/19/18 22:00 Dose: 10 mg Heparin Sodium (Porcine) (Heparin Sodium) 5,000 units SUBCUT Q8H [facility] Last Admin: 09/20/18 00:30 Dose: 5,000 units Ertapenem 1 gm/ Sodium (Chloride) 50 mls @ 100 mls/hr IV Q24H [facility] Last Admin: 09/19/18 14:27 Dose: 100 mls/hr Levothyroxine Sodium (Levothyroxine) 75 mcg PO ACBREAKFAST [facility] Last Admin: 09/20/18 06:31 Dose: 75 mcg Lorazepam (Ativan) 2 mg PO DAILY PRN PRN Reason: Anxiety Methylprednisolone Sodium Succinate (Solu-Medrol) 60 mg IVPUSH Q12H [facility] Last Admin: 09/19/18 22:00 Dose: 60 mg Mupirocin (Bactroban Oint) 1 gm TOP DAILY [facility] Last Admin: 09/19/18 11:00 Dose: 1 applic Omeprazole (Omeprazole) 20 mg PO ACBREAKFAST [facility] Last Admin: 09/20/18 06:32 Dose: 20 mg Lurasidone Hcl [ (Latuda] 120 Mg) 1 each PO WITHDINNER [facility] Last Admin: 09/19/18 16:52 Dose: 1 each Venlafaxine HCl (Effexor Xr) 225 mg PO DAILY [facility] Last Admin: 09/19/18 09:55 Dose: 225 mg Discontinued Medications Albuterol/Ipratropium (Duoneb 3.0-0.5 Mg/3 Ml) 3 ml NEB ONETIME ONE Stop: 09/15/18 20:37 Last Admin: 09/15/18 20:54 Dose: 3 ml Albuterol/Ipratropium (Duoneb 3.0-0.5 Mg/3 Ml) 3 ml NEB Q4HRRT PRN PRN Reason: Wheezing Last Admin: 09/16/18 15:52 Dose: 3 ml Enoxaparin Sodium (Lovenox) 120 mg SUBCUT ONETIME ONE Stop: 09/15/18 21:52 Last Admin: 09/15/18 22:01 Dose: 120 mg Ceftriaxone Sodium/Dextrose 1 (gm/ Premix) 50 mls @ 100 mls/hr IV ONETIME ONE Stop: 09/15/18 21:38 Last Admin: 09/15/18 21:39 Dose: 100 mls/hr Sodium Chloride (Normal Saline) 1,000 mls @ 999 mls/hr IV STAT ONE Stop: 09/15/18 22:09 Last Admin: 09/15/18 21:39 Dose: 999 mls/hr Ceftriaxone Sodium/Dextrose 1 (gm/ Premix) 50 mls @ 100 mls/hr IV Q24H [facility] Last Admin: 09/16/18 21:22 Dose: 100 mls/hr Sodium Chloride (Normal Saline) 1,000 mls @ 75 mls/hr IV ASDIRECTED [facility] Last Admin: 09/18/18 06:41 Dose: 75 mls/hr Meropenem 1 gm/ Sodium (Chloride) 100 mls @ 200 mls/hr IV Q12H [facility] Last Admin: 09/19/18 08:37 Dose: 200 mls/hr Premarin Vaginal (Cream) 1 applic VAG Q2D@2100 [facility] Last Admin: 09/16/18 21:23 Dose: Not Given Oxycodone HCl (Oxycodone) 5 mg PO Q4H PRN PRN Reason: Pain Last Admin: 09/15/18 23:49 Dose: 5 mg Phenazopyridine HCl (Pyridium) 200 mg PO ONETIME ONE Stop: 09/15/18 20:56 Last Admin: 09/15/18 21:06 Dose: 200 mg - Exam Quality Assessment: Denies: Supplemental Oxygen General: Reports: Alert, Oriented, Cooperative, No Acute Distress HEENT: Reports: Pupils Equal, Pupils Reactive, EOMI, Mucous Membr. Moist/[place] Neck: Reports: Supple, Trachea Midline Lungs: Reports: Clear to Auscultation, Normal Respiratory Effort Cardiovascular: Reports: Regular Rate, Regular Rhythm GI/Abdominal Exam: Normal Bowel Sounds, Soft, No Distention Back Exam: Reports: Normal Inspection, Full Range of Motion Extremities: Normal Inspection, No Pedal Edema Skin: Reports: Warm, Dry, Intact Neurological: Reports: No New Focal Deficit Psy/Mental Status: Reports: Alert, Depressed. Denies: Normal Affect (Flat)
[2018-09-20] MEDS: Haloperidol 5 MG Tab PO SCH (09:35)
[2018-09-20] MEDS: Diclofenac Sodium 75 MG Tab.EC PO SCH (09:35)
[2018-09-20] MEDS: Aspirin 81 MG Tab.EC PO SCH (09:35)
[2018-09-20] MEDS: Venlafaxine 75 MG Cap.ER PO SCH (09:36)
[2018-09-20] MEDS: Gemfibrozil 600 MG Tab PO SCH (09:36)
[2018-09-20] MEDS: Escitalopram 10 MG Tab PO SCH (09:37)
[2018-09-20] MEDS: Mupirocin Oint 22 GM Tube TOP SCH (09:40)
[2018-09-20] MEDS: methylPREDNISolone Sodium Succinate 40 MG/1 ML SDV IVPUSH SCH (09:40)
[2018-09-20 11:59] VITALS: BP 143/82
[2018-09-20] MEDS ORDERED: ERTAPENEM IM SCH (12:45)
[2018-09-20] MEDS ORDERED: LIDOCAINE 1% IM SCH (12:45)
[2018-09-20] MEDS ORDERED: Ertapenem 1 GM in Lidocaine 1% 3.2 ML IM SCH (12:45)
== END 2018-09-20 13:00 | DRG 690 ==
LOC: MW.ED 20:16 → MW.MS 21:47 → OBSVTOIN 09-16 07:30
PROVIDERS: ADMIT Internal Medicine; ATTEND Internal Medicine
DX: N30.01 Acute cystitis with hematuria (principal); N17.9 Acute kidney failure, unspecified; R78.81 Bacteremia; B96.20 Unspecified Escherichia coli [E. coli] as the cause of diseases classified elsewhere; R06.00 Dyspnea, unspecified; Z88.8 Allergy status to other drugs, medicaments and biological substances; Z79.82 Long term (current) use of aspirin; K59.09 Other constipation; Z79.890 Hormone replacement therapy; Z79.899 Other long term (current) drug therapy; H54.7 Unspecified visual loss; R62.50 Unspecified lack of expected normal physiological development in childhood; F70 Mild intellectual disabilities; G20 Parkinson's disease; N18.3 Chronic kidney disease, stage 3 (moderate); D64.9 Anemia, unspecified; S51.812D Laceration without foreign body of left forearm, subsequent encounter; Z98.51 Tubal ligation status; H91.90 Unspecified hearing loss, unspecified ear; Z99.81 Dependence on supplemental oxygen; K21.9 Gastro-esophageal reflux disease without esophagitis; K59.00 Constipation, unspecified; F32.9 Major depressive disorder, single episode, unspecified; E03.9 Hypothyroidism, unspecified; E66.9 Obesity, unspecified
CPT/HCPCS: 36415 ×2; 80048; 80053; 81001; 82962; 83605; 84484 ×2; 85025 ×2; 85379; 87040 ×2; 87077; 87086; 87088; 87186 ×2; 93005; 94640; 96365; 96372; 99285; A4217; A9270 ×2; J0696; J1650; J7040 ×2; J1335; J1644; J2001; J2185; J2920; J7030; J7050; J7620-GY

== ENCOUNTER 2019-06-08 15:16 | Emergency (ER) | payer MEDICARE, MEDICAID ==
--- NOTE | 2019-06-08 15:38 | EDM.PDOC ---
ED HPI GENERAL MEDICAL PROBLEM - General Chief Complaint: Lower Extremity Injury/Pain Stated Complaint: ANKLE INJURY Time Seen by Provider: 06/08/19 15:30 Source of Information: Reports: Patient, EMS History Limitations: Reports: Other - History of Present Illness INITIAL COMMENTS - FREE TEXT/NARRATIVE: 59-year-old female presents with right ankle and leg pain status post fall at home. Patient reports being in the shower and suffering a fall from slipping. Did not feel weak when she fell. She denies any head trauma. There is been no nausea or vomiting since the symptom. She says her pain is moderate and worse with movement. She has not bared weight on her right leg since the accident. Patient denies : General: No fevers or chills. No malaise or fatigue. No recent change in weight. No thirst. Heent: No change in vision, no earache, sore throat or sinus congestion. Neck: No pain or stiffness. Cardiovascular: No chest pain or pressure. No palpitations. Pulmonary: No shortness of breath, cough or wheeze. Gastrointestinal: No abdominal pain, nausea, vomiting or diarrhea, melena or bright red blood per rectum. Genitourinary: No urinary frequency, urgency, hesitancy or dysuria. Muskuloskeletal: Other than her complaint today, no joint or muscle pain, no back pain, no recent trauma. Dermatologic: No rash, no itching, no lesions. Neuro: No headache, seizures, numbness, tingling or weakness. Psych: No depressive symptoms. Right Ankle Pain Score (Numeric/FACES): 7 - Related Data Allergies Allergy/AdvReac Type Severity Reaction Status Date / Time divalproex sodium Allergy Lethargy Verified 06/08/19 15:33 [facility] Home Meds: Home Meds Calcium Carbonate/Vitamin D3 [Calcium 250+D] 2 tab PO BID 06/30/13 [History] Gemfibrozil 600 mg PO BID 06/30/13 [History] Levothyroxine 75 mcg PO DAILY 06/30/13 [History] Multivitamin [Multi-Vitamin Daily] 1 each PO DAILY 06/30/13 [History] Venlafaxine [Effexor XR] 150 mg PO DAILY 06/30/13 [History] Cyanocobalamin/Folic Acid [Vitamin M16-Anjog Acid] 1,000 mg PO DAILY 07/06/14 [ History] Iron Polysaccharide Complex [Poly-Iron] 150 mg PO BID 07/06/14 [History] Aspirin [Halfprin] 81 mg PO DAILY 07/08/15 [History] Dexlansoprazole [Dexilant] 60 mg PO DAILY 07/08/15 [History] Docusate Sodium [Colace] 100 mg PO BID PRN 07/08/15 [History] Haloperidol [Haldol] 10 mg PO BID 07/08/15 [History] Venlafaxine [Effexor XR] 75 mg PO DAILY 07/08/15 [History] Calcium Polycarbophil [Fiber Laxative] 625 mg PO BID 07/15/15 [History] Albuterol Sulfate 2.5 mg INH Q4H PRN 11/04/17 [History] Escitalopram [Lexapro] 20 mg PO DAILY 11/04/17 [History] Estrogens, Conjugated [Premarin Vaginal Crm] 1 applic VAG Q48H 11/04/17 [History ] Lurasidone HCl [Latuda] 120 mg PO WITHDINNER 11/04/17 [History] Diclofenac Sodium [Voltaren] 75 mg PO BID 09/11/18 [History] LORazepam 1 tab PO ASDIRECTED PRN 09/15/18 [History] Ertapenem [INVanz] 1 gm IM DAILY #13 vial 09/19/18 [Rx] Past Medical History HEENT History: Reports: Hard of Hearing, Impaired Vision, Other (See Below) Other HEENT History: Bilateral exotropia Cardiovascular History: Reports: None Respiratory History: Reports: Other (See Below) Other Respiratory History: 3L O2 use at bedtime Gastrointestinal History: Reports: Chronic Constipation, GERD Genitourinary History: Reports: None [employer]ER History: Reports: Musculoskeletal History: Reports: Fracture Neurological History: Reports: None Psychiatric History: Reports: Depression, Psychosis, Other (See Below) Other Psychiatric History: Self Harm Endocrine/Metabolic History: Reports: Hypothyroidism, Obesity/BMI 30+ Hematologic History: Reports: None Immunologic History: Reports: None Oncologic (Cancer) History: Reports: None Dermatologic History: Reports: Other (See Below) Other Dermatologic History: varicose veins with edema - Infectious Disease History Infectious Disease History: Reports: None Other Infectious Disease History: Unable to verify any other illnesses. - Past Surgical History Female Surgical History: Reports: Section, Tubal Ligation Musculoskeletal Surgical History: Reports: Other (See Below) Social & Family History - Family History Family Medical History: Unobtainable - Living Situation & Occupation Living situation: Reports: Assisted Living, Other Occupation: Disabled Review of Systems - Review of Systems Review Of Systems: Comprehensive ROS is negative, except as noted in HPI. ED EXAM, GENERAL - Physical Exam Exam: See Below Free Text/Narrative:: Trauma Physical ExamPrimary: Airway: Airway patent. Pt phonating normally. Breathing: Good bilateral chest rise/fall with good air excursion. Normal BSs bilaterally. Circulation: General: No acute distress. Blood pressures not hypotensive. Disability: Pt can move all four extremities. Pupils 3 mm and reactive. Expose/Environment: Exposed giorgi of the body were inspected for injury. Secondary: Skull: Atraumatic. Normocephalic. Eyes: Pupils as above, PERRL. EOMI. Neg proptosis. LEft deviation left eye ( chronic) Face: Midface stable. No abrasions or lacerations. OPA: Normal. Dentition stable, no changes from prior per pt. Uvula midline. No intraoral lacerations appreciated. Neck: Negative JVD. No step-offs. NTTP cervical spine. No lacerations or echymosis. Negative Bruits. Chest: NTTP to AP and lateral compression. No wounds, ecchymosis or contusion. S1/S2 heard. No murmurs appreciated. Lungs: As above under primary. Exam was unchanged. Back: No meaningful contusion, eccymoses or lacderation. Thoracic and lumbar spine NTT hammer percussion. No step-offs. Abdomen: The patient had bowel sounds present, nontender, nondistended, soft. No ecchymosis or laceration. Neuro: Pt alert and oriented. PERRL. EOMI. Upper Extremities: ---Left: Strength maintained in intrinsic hand mms, at shoulder, bicep, tricep, wrist. Good twister doffer strength. ---Right: Strength maintained in intrinsic hand mms, at shoulder, bicep, tricep , wrist. Good twister doffer strength. Normal power hip flexion. Lower Extremities: ---Left: Strength maintained in quads, nl power in dorsi and plantarflexion feet. Normal power hip flexion and AB and ADduction. ---Right: Strength maintained in quads, nl power in dorsi and plantarflexion feet. Normal power hip flexion. Skin (in addition to comments under the 'extremities'): Exposed areas appeared normally perfused, warm, normal color with no meaningful rashes or lesions. Extremities: RUE: No contusions, lacerations or ecchymosis. Shoulders, elbows and wrist range smoothly FROM without pain. LUE: No contusions, lacerations or ecchymosis. Shoulders, elbows and wrist range smoothly FROM without pain. RLE: Tenderness range in the right ankle. Tenderness of the anterior tibial region mid lower leg. Peripheral examination revealed no pedal edema. Pulses were 2+ at the DP and PT sites. Hips, knees and ankles range smoothly FROM without pain. LLE: No contusions, lacerations or ecchymosis. Peripheral examination revealed no pedal edema. Pulses were 2+ at the DP and PT sites. Hips, knees and ankles range smoothly FROM without pain. Course - Vital Signs Text/Narrative:: Patient with mechanical fall in shower. No external signs of trauma anywhere else. The patient is at her baseline neurologically. Her vital signs are normal. There is no clear indication to search for other occult trauma. The patient will be nonweightbearing right lower extremity. We will take advice from her caregiver who is here about whether she can function well with crutches. If not we will make the patient nonweightbearing entirely and be in either the bed chair or wheelchair until seen by orthopedics. She will return with any worsening with any vomiting, change in mental status, vision changes, new confusion, or low blood pressure which might suggest occult trauma. This is highly unlikely given her exam and her mechanism. Last Recorded V/S: Last Vital Signs Temp 36.4 C 06/08/19 15:43 Pulse 78 06/08/19 17:15 Resp 19 06/08/19 17:15 BP 130/68 06/08/19 17:15 Pulse Ox 96 06/08/19 17:15 - Orders/Labs/Meds Orders: Active Orders 24 hr Category Date Time Status Splinting [RC] ASDIRECTED Care 06/08/19 16:56 Active Meds: Medications Discontinued Medications Generic Name Dose Route Start Last Admin Trade Name Freq PRN Reason Stop Dose Admin Acetaminophen 650 mg 06/08/19 15:39 06/08/19 16:33 Tylenol PO 06/08/19 15:40 650 mg NOW ONE Administration - Re-Assessments/Exams Free Text/Narrative Re-Assessment/Exam: Of note, the original blood pressure was likely inaccurate. The patient's arm was very high. Repeat blood pressure was taken frequently which the systolic was in the 120s. The patient feels well is mentating Pritikin is not diaphoretic. She is not at all likely to be hypertensive and in fact her concurrent and subsequent blood pressures taken frequently after the initial low blood pressure were all normal. 06/08/19 17:16 Departure - Departure Time of Disposition: 17:15 Disposition: Home, Self-Care 01 Clinical Impression: Tibia fracture, Metatarsal fracture, Fracture of malleolus of right ankle - Discharge Information Forms: ED Department Discharge Additional Instructions: You have several broken bones. Your ankle is broken. Also your lower leg is broken. There is also a couple of broken bones in your foot. You should not bear weight on your right leg until seen by a bone doctor. Follow up with: [facility] [address], [address] [place] [address] The following information is given to patients seen in the emergency department who are being discharged to home. This information is to outline your options for follow-up care. We provide all patients seen in our emergency department with a follow-up referral. The need for follow-up, as well as the timing and circumstances, are variable depending upon the specifics of your emergency department visit. If you don't have a primary care physician on staff, we will provide you with a referral. We always advise you to contact your personal physician following an emergency department visit to inform them of the circumstance of the visit and for follow-up with them and/or the need for any referrals to a consulting specialist. The emergency department will also refer you to a specialist when appropriate. This referral assures that you have the opportunity for follow-up care with a specialist. All of these measure are taken in an effort to provide you with optimal care, which includes your follow-up. Under all circumstances we always encourage you to contact your private physician who remains a resource for coordinating your care. When calling for follow-up care, please make the office aware that this follow-up is from your recent emergency room visit. If for any reason you are refused follow-up, please contact the [facility] Emergency Department at and asked to speak to the emergency department charge nurse. Sepsis Event Note - Focused Exam Vital Signs: Vital Signs Temp Pulse Resp BP Pulse Ox 06/08/19 17:15 78 19 130/68 96 06/08/19 16:30 74 20 137/77 95 06/08/19 15:43 36.4 C 20 70/34 L 91 L Date Exam was Performed: 06/08/19 Time Exam was Performed: 17:33 - My Orders Last 24 Hours: My Active Orders 06/08/19 16:56 Splinting [RC] ASDIRECTED - Assessment/Plan Last 24 Hours: My Active Orders 06/08/19 16:56 Splinting [RC] ASDIRECTED
[2019-06-08] MEDS ORDERED: Acetaminophen 325 MG Tab PO ONE (15:39)
--- NOTE | 2019-06-08 16:45 | CR ---
Right foot: 3 views of the right foot were obtained. Extra bony density is noted off the anterior tibia felt compatible with a displaced fracture. Prior surgery is noted within the MTP joint of the 2nd digit. Bony structures are osteoporotic. Slight cortical irregularity is seen at the base of the 2nd metatarsal and 4th metatarsal and difficult to exclude additional fracture. No other abnormality is appreciated. Impression: 1. Displaced fracture off the anterior tibia. 2. Equivocal nondisplaced fractures within the base of the 2nd and 4th metatarsals. 3. Osteoporosis. Diagnostic code #3 This report was dictated in [place] Standard Time
--- NOTE | 2019-06-08 16:45 | CR ---
Right tibia and fibula: 2 views of the right tibia and fibula were obtained. Fracture is identified through the medial malleolus and within the tip of the distal fibula. Degenerative change within the knee with joint space narrowing and osteophytes are seen. Bony structures are osteoporotic. Impression: 1. Fractures within the medial and lateral malleoli, degenerative change within the knee. 2. Osteoporosis. 3. No additional abnormality is identified. Diagnostic code #3 This report was dictated in [place] Standard Time
--- NOTE | 2019-06-08 16:45 | CR ---
Right ankle: 3 views of the right ankle were obtained. Comparison: Previous right ankle exam of 06/11/07. Previous surgery is noted within the 1st MTP joint. Fracture is noted off the tip of the distal fibula. This is acute. There is an additional old fracture noted more proximally within the lateral malleolus. Fracture is seen within the base of the medial malleolus as well as slightly displaced fracture involving the anterior aspect of the distal tibia. Deformity of the navicular bone is seen likely relating to old injury. Soft tissue swelling is noted. Impression: 1. Fracture within the tip of the lateral malleolus and at the base of the medial malleolus. 2. Mildly displaced fracture within the anterior tibia. Diagnostic code #3 This report was dictated in [place] Standard Time
[2019-06-08 17:21] VITALS: BP 130/68; PULSE 78
== END 2019-06-08 18:00 | disposition home or self-care (01) ==
LOC: MW.ED 15:16
DX: S82.61XA Displaced fracture of lateral malleolus of right fibula, initial encounter for closed fracture (principal); S82.51XA Displaced fracture of medial malleolus of right tibia, initial encounter for closed fracture; E03.9 Hypothyroidism, unspecified; E66.9 Obesity, unspecified; F32.9 Major depressive disorder, single episode, unspecified; Z99.81 Dependence on supplemental oxygen; Z68.41 Body mass index [BMI] 40.0-44.9, adult; Z88.8 Allergy status to other drugs, medicaments and biological substances; W01.0XXA Fall on same level from slipping, tripping and stumbling without subsequent striking against object, initial encounter; Y92.009 Unspecified place in unspecified non-institutional (private) residence as the place of occurrence of the external cause; Z79.899 Other long term (current) drug therapy
CPT/HCPCS: 29505; 73590; 73610; 73630; 99284; A9270; 29515; 99283

== ENCOUNTER 2019-09-14 11:07 | Emergency (ER) | payer MEDICARE, MEDICAID ==
[2019-09-14] MEDS ORDERED: Sodium Chloride 0.9% 10 ML Syringe FLUSH PRN (11:24)
[2019-09-14] MEDS ORDERED: Acetaminophen 500 MG Tab PO ONE (11:24)
[2019-09-14] MEDS ORDERED: Sodium Chloride 0.9% 2.5 ML Syringe FLUSH PRN (11:24)
--- NOTE | 2019-09-14 11:31 | EDM.PDOC ---
ED HPI GENERAL MEDICAL PROBLEM - General Chief Complaint: Lower Extremity Injury/Pain Stated Complaint: HURT FOOT Time Seen by Provider: 09/14/19 11:09 - History of Present Illness INITIAL COMMENTS - FREE TEXT/NARRATIVE: History of present illness: 59-year-old female brought by caregiver from her custodial for a possible foot injury. The patient has very limited mobility at baseline and had a prior right foot/lower leg injury for which she has a walking boot. Apparently staff members at the facility reported that while they were attempting to assist the patient she fell backwards onto her buttocks yesterday. They did not notice any twisting or injury to the foot or ankle. However this morning the patient had pain and swelling/bruising and redness in the left foot. They were concerned she may have injured it. She takes a daily aspirin. Review of systems: As per history of present illness and below otherwise all systems reviewed and negative. Past medical history: As per history of present illness and as reviewed below otherwise noncontributory. Surgical history: As per history of present illness and as reviewed below otherwise noncontributory. Social history: No reported history of drug or alcohol abuse. Family history: As per history of present illness and as reviewed below otherwise noncontributory. Physical exam: GEN: no acute distress, well appearing HEENT: Atraumatic, normocephalic, mucous membranes moist, Neck: supple, nontender, trachea midline. Lungs: No respiratory distress. Heart: RRR Abdomen: Soft, nondistended, nontender. Back: nontender Extremities: Walking boot on right lower extremity. After boot was removed, the foot appears normal though mildly edematous. It is nontender. Left lower extremity shows edema of the foot, similar in size to the right foot, but there is also ecchymosis and tenderness to touch, maximally over the dorsum of the foot. Distally neurovascularly intact. Neuro: Awake, alert, baseline mental status, very limited mobility, minimal speaking, requires significant assistance to transfer from wheelchair to stretcher, per caregiver this is all baseline. Neuro Exam nonfocal. Skin: warm, dry, ecchymosis and erythema over the dorsum of the left foot. Diagnostics: Foot/tib-fib extremities, ultrasound left leg. Therapeutics: [] MDM: Impression: [] Plan: [] Definitive disposition and diagnosis as appropriate pending reevaluation and review of above. - Related Data Allergies Allergy/AdvReac Type Severity Reaction Status Date / Time divalproex sodium Allergy Lethargy Verified 06/08/19 15:33 [From Depakote] Home Meds: Home Meds Calcium Carbonate/Vitamin D3 [Calcium 250+D] 2 tab PO BID 06/30/13 [History] Gemfibrozil 600 mg PO BIDAC 06/30/13 [History] Levothyroxine 75 mcg PO ACBREAKFAST 06/30/13 [History] Multivitamin [Multi-Vitamin Daily] 1 each PO DAILY 06/30/13 [History] Venlafaxine [Effexor XR] 150 mg PO QAM 06/30/13 [History] Cyanocobalamin/Folic Acid [Vitamin V08-Snbti Acid] 1,000 mg PO DAILY 07/06/14 [ History] Iron Polysaccharide Complex [Poly-Iron] 150 mg PO BID 07/06/14 [History] Aspirin [Halfprin] 81 mg PO DAILY 07/08/15 [History] Dexlansoprazole [Dexilant] 60 mg PO DAILY 07/08/15 [History] Docusate Sodium [Colace] mg PO BID 07/08/15 [History] Calcium Polycarbophil [Fiber Laxative] 625 mg PO BID 07/15/15 [History] Albuterol Sulfate 2.5 mg INH Q4H PRN 11/04/17 [History] Escitalopram [Lexapro] 20 mg PO QAM 11/04/17 [History] Diclofenac Sodium [Voltaren 1% Gel] 1 applic TOP QID PRN 06/09/19 [History] Benztropine [Cogentin] 0.5 mg PO DAILY 09/14/19 [History] LORazepam [Ativan] 1 mg PO ASDIRECTED PRN 09/14/19 [History] Lurasidone HCl [Latuda] 80 mg PO DAILY@17 09/14/19 [History] Magnesium Oxide 200 mg PO BID 09/14/19 [History] cloZAPine 100 mg PO DAILY 09/14/19 [History] cloZAPine 200 mg PO BEDTIME 09/14/19 [History] estradioL [Estrace 0.01% Vaginal Crm] 1 applic VAG ASDIRECTED 09/14/19 [History] Past Medical History HEENT History: Reports: Hard of Hearing, Impaired Vision, Other (See Below) Other HEENT History: Bilateral exotropia Cardiovascular History: Reports: None Respiratory History: Reports: Other (See Below) Other Respiratory History: 3L O2 use at bedtime Gastrointestinal History: Reports: Chronic Constipation, GERD Genitourinary History: Reports: None [employer] 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: Musculoskeletal History: Reports: Fracture Neurological History: Reports: None Psychiatric History: Reports: Depression, Psychosis, Other (See Below) Other Psychiatric History: Self Harm Endocrine/Metabolic History: Reports: Hypothyroidism, Obesity/BMI 30+ Hematologic History: Reports: None Immunologic History: Reports: None Oncologic (Cancer) History: Reports: None Dermatologic History: Reports: Other (See Below) Other Dermatologic History: varicose veins with edema - Infectious Disease History Infectious Disease History: Reports: None Other Infectious Disease History: Unable to verify any other illnesses. - Past Surgical History Female Surgical History: Reports: Section, Tubal Ligation Musculoskeletal Surgical History: Reports: Other (See Below) Social & Family History - Family History Family Medical History: Unobtainable - Caffeine Use Caffeine Use: Reports: Coffee, Soda - Living Situation & Occupation Living situation: Reports: Assisted Living, Other Occupation: Disabled Review of Systems - Review of Systems Review Of Systems: See Below (See dictation) ED EXAM, GENERAL - Physical Exam Exam: See Below (See dictation) Course - Vital Signs Last Recorded V/S: Last Vital Signs Temp 96.2 F L 09/14/19 11:17 Pulse 96 09/14/19 11:17 Resp 19 09/14/19 11:17 BP Pulse Ox 99 09/14/19 11:17 - Orders/Labs/Meds Orders: Active Orders 24 hr Category Date Time Status Sodium Chloride 0.9% [Saline Flush] Med 09/14/19 11:24 Active 10 ml FLUSH ASDIRECTED PRN Sodium Chloride 0.9% [Saline Flush] Med 09/14/19 11:24 Active 2.5 ml FLUSH ASDIRECTED PRN DME for Discharge [COMM] Stat Oth 09/14/19 13:13 Ordered Saline Lock Insert [OM.PC] Stat Oth 09/14/19 11:25 Ordered Medication Orders Sodium Chloride (Saline Flush) 10 ml FLUSH ASDIRECTED PRN PRN Reason: Keep Vein Open Sodium Chloride (Saline Flush) 2.5 ml FLUSH ASDIRECTED PRN PRN Reason: Keep Vein Open Labs: Laboratory Tests 09/14/19 09/14/19 Range/Units 12:32 12:32 WBC 8.62 (4.0-11.0) K/uL RBC 3.46 L (4.30-5.90) M/uL Hgb 10.3 L (12.0-16.0) g/dL Hct 33.8 L (36.0-46.0) % MCV 97.7 (80.0-98.0) fL MCH 29.8 (27.0-32.0) pg MCHC 30.5 L (31.0-37.0) g/dL RDW Std Deviation 50.5 (28.0-62.0) fl RDW Coeff of Amaris 14 (11.0-15.0) % Plt Count 319 (150-400) K/uL MPV 10.80 (7.40-12.00) fL Neut % (Auto) 71.1 (48.0-80.0) % Lymph % (Auto) 16.6 (16.0-40.0) % [place] % (Auto) 11.9 (0.0-15.0) % Eos % (Auto) 0.2 (0.0-7.0) % Baso % (Auto) 0.2 (0.0-1.5) % Neut # (Auto) 6.1 H (1.4-5.7) K/uL Lymph # (Auto) 1.4 (0.6-2.4) K/uL [place] # (Auto) 1.0 H (0.0-0.8) K/uL Eos # (Auto) 0.0 (0.0-0.7) K/uL Baso # (Auto) 0.0 (0.0-0.1) K/uL Nucleated RBC % 0.0 /100WBC Nucleated RBCs # 0 K/uL Sodium 139 (136-145) mmol/L Potassium 4.1 (3.5-5.1) mmol/L Chloride 99 (98-107) mmol/L Carbon Dioxide 31.9 (21.0-32.0) mmol/L BUN 18 (7.0-18.0) mg/dL Creatinine 0.8 (0.6-1.0) mg/dL Est Cr Clr Drug Dosing TNP Estimated GFR (MDRD) > 60.0 ml/min Glucose 119 H (74-106) mg/dL Calcium 9.9 (8.5-10.1) mg/dL Meds: Medications Generic Name Dose Route Start Last Admin Trade Name Freq PRN Reason Stop Dose Admin Sodium Chloride 10 ml 09/14/19 11:24 Saline Flush FLUSH ASDIRECTED PRN Keep Vein Open Sodium Chloride 2.5 ml 09/14/19 11:24 Saline Flush FLUSH ASDIRECTED PRN Keep Vein Open Discontinued Medications Generic Name Dose Route Start Last Admin Trade Name Freq PRN Reason Stop Dose Admin Acetaminophen 1,000 mg 09/14/19 11:24 09/14/19 11:34 Tylenol Extra Strength PO 09/14/19 11:25 1,000 mg ONETIME ONE Administration - Re-Assessments/Exams Free Text/Narrative Re-Assessment/Exam: 09/14/19 13:13 Patient has a Lisfranc injury per x-ray. No DVT seen on ultrasound. The case was discussed with the orthopedic foot and ankle surgeon in [place], as there is no orthopedic doctor alternative medicine practitioner here at this time. Dr. Alicea will review the images, but recommends to place an walking boot and see him in the office in 1 week. Does not need emergent transfer to the hospital in [place] at this time. He does not suspect this will need operative intervention. 09/14/19 13:23 I discussed findings with the patient and caregiver at the bedside. Discussed recommendations made by the orthopedic surgeon for walking boot on the left foot and follow-up in 1 week. They do report that she had previously been seen locally here by Dr. Mackay orthopedic surgeon, who had been seeing her for a fracture in the right foot, for which she has the walking boot on the right foot , and that she had previously been told the fracture was healed and she needed to take the foot boot off, however she felt safer keeping it on and the staff at the custodial allowed her to do so. We discussed plan/options. Given her extremely limited mobility and need for great assistance to even transfer from wheelchair to stretcher, and high risk of falls and as the orthopedic surgeon had advised them that she no longer needed the walking boot on the right foot, we did discuss recommendation for removing the right foot walker boot and using a left foot walker boot only given the acute fracture on the left side(she would likely have a more difficult time transferring /getting around with bilateral walker boots and greater risk of fall). They agree with this plan. Departure - Departure Time of Disposition: 13:25 Disposition: Home, Self-Care 01 Clinical Impression: Lisfranc fracture Lisfranc dislocation Qualifiers: Encounter type: initial encounter Laterality: left Qualified Code(s): S93.325A - Dislocation of tarsometatarsal joint of left foot, initial encounter - Discharge Information Instructions: How to Use a Wheelchair, Lisfranc Injury Referrals: Anila Dodge DO [Primary Care Provider] - Dada Alicea DPM [Ordering Only Provider] - 1 Week Jonathan Mackay DO [Physician] - 1 Week Forms: ED Department Discharge Additional Instructions: The following information is given to patients seen in the emergency department who are being discharged to home. This information is to outline your options for follow-up care. We provide all patients seen in our emergency department with a follow-up referral. The need for follow-up, as well as the timing and circumstances, are variable depending upon the specifics of your emergency department visit. If you don't have a primary care physician on staff, we will provide you with a referral. We always advise you to contact your personal physician following an emergency department visit to inform them of the circumstance of the visit and for follow-up with them and/or the need for any referrals to a consulting specialist. The emergency department will also refer you to a specialist when appropriate. This referral assures that you have the opportunity for follow-up care with a specialist. All of these measure are taken in an effort to provide you with optimal care, which includes your follow-up. Under all circumstances we always encourage you to contact your private physician who remains a resource for coordinating your care. When calling for follow-up care, please make the office aware that this follow-up is from your recent emergency room visit. If for any reason you are refused follow-up, please contact the [facility] Emergency Department at and asked to speak to the emergency department charge nurse. Sepsis Event Note (ED) - Evaluation Sepsis Screening Result: No Definite Risk - Focused Exam Vital Signs: Vital Signs Temp Pulse Resp Pulse Ox 09/14/19 11:17 96.2 F L 96 19 99 - My Orders Last 24 Hours: My Active Orders 09/14/19 11:24 Sodium Chloride 0.9% [Saline Flush] 10 ml FLUSH ASDIRECTED PRN Sodium Chloride 0.9% [Saline Flush] 2.5 ml FLUSH ASDIRECTED PRN 09/14/19 11:25 Saline Lock Insert [OM.PC] Stat 09/14/19 13:13 DME for Discharge [COMM] Stat - Assessment/Plan Last 24 Hours: My Active Orders 09/14/19 11:24 Sodium Chloride 0.9% [Saline Flush] 10 ml FLUSH ASDIRECTED PRN Sodium Chloride 0.9% [Saline Flush] 2.5 ml FLUSH ASDIRECTED PRN 09/14/19 11:25 Saline Lock Insert [OM.PC] Stat 09/14/19 13:13 DME for Discharge [COMM] Stat
--- NOTE | 2019-09-14 12:05 | CR ---
Left foot: 2 views of left foot were obtained. Comparison: No prior left foot exam is available. Findings: Fractures are noted at the base of the third through fifth metatarsals. Mild shifting of the tarsometatarsal joint of the first digit. This finding is felt compatible with Lisfranc injury. Soft tissue swelling is noted. Collapse of the navicular bone is seen which appears chronic. Degenerative change is noted within the midfoot. Plantar spur is noted. Impression: 1. Fractures as well as Lisfranc injury as noted above. 2. Soft tissue swelling and degenerative change. 3. Collapse of the navicular bone which appears chronic. Diagnostic code #3 This report was dictated in MDT
--- NOTE | 2019-09-14 12:06 | CR ---
Left tibia and fibula: AP and lateral views left tibia and fibula were obtained. Foot fractures are partially visualized as described on foot exam. Vascular calcification is seen. Severe joint space narrowing is noted within the medial joint with medial osteophytes. No discrete fracture within the tibia or fibula is seen. Impression: 1. Foot fractures as described on foot exam. 2. Degenerative change within the medial left knee. 3. No acute abnormality is appreciated within the left tibia or fibula. Diagnostic code #3 This report was dictated in MDT
--- NOTE | 2019-09-14 12:46 | US ---
Left lower extremity deep venous ultrasound: Duplex and color Doppler evaluation was obtained of the left common femoral, superficial femoral, popliteal and posterior tibial vein. Peroneal vein was not seen. Findings: Normal compression and Doppler blood flow is seen. Impression: 1. Left peroneal vein not visualized. 2. No evidence of deep venous thrombosis is otherwise seen within the left lower extremity. Diagnostic code #2 This report was dictated in MDT
[2019-09-14 12:54] LABS: BLOOD UREA NITROGEN,BUN 18 mg/dL (7.0-18.0); CARBON DIOXIDE,CO2 31.9 mmol/L (21.0-32.0); CHLORIDE,CL 99 mmol/L (98-107); GLUCOSE RANDOM 119 mg/dL (74-106); POTASSIUM,K 4.1 mmol/L (3.5-5.1); SODIUM,NA 139 mmol/L (136-145)
[2019-09-14 15:59] VITALS: BP 126/84; PULSE 84
== END 2019-09-14 13:41 | disposition home or self-care (01) ==
LOC: MW.ED 11:07
DX: S92.332A Displaced fracture of third metatarsal bone, left foot, initial encounter for closed fracture (principal); S92.342A Displaced fracture of fourth metatarsal bone, left foot, initial encounter for closed fracture; S92.352A Displaced fracture of fifth metatarsal bone, left foot, initial encounter for closed fracture; S90.31XA Contusion of right foot, initial encounter; F32.9 Major depressive disorder, single episode, unspecified; E03.9 Hypothyroidism, unspecified; E66.9 Obesity, unspecified; Z88.8 Allergy status to other drugs, medicaments and biological substances; Z79.899 Other long term (current) drug therapy; Z79.82 Long term (current) use of aspirin; W19.XXXA Unspecified fall, initial encounter
CPT/HCPCS: 36415; 73590; 73620; 80048; 85025; 93971; 99283; A9270

== ENCOUNTER 2019-09-19 21:43 | Observation (INO) | payer MEDICARE, MEDICAID ==
[2019-09-19] MEDS ORDERED: Lactated Ringers 1,000 ML IV ONE (22:26)
[2019-09-19] MEDS ORDERED: Sodium Chloride 0.9% 2.5 ML Syringe FLUSH PRN (22:26)
[2019-09-19] MEDS ORDERED: Pantoprazole 40 MG in Sodium Chloride 0.9% 10 ML IV ONE (22:26)
--- NOTE | 2019-09-19 22:31 | EDM.PDOC ---
ED HPI GENERAL MEDICAL PROBLEM - General Chief Complaint: Lower Extremity Injury/Pain Stated Complaint: lower extremity Time Seen by Provider: 09/19/19 21:50 Source of Information: Reports: Patient History Limitations: Reports: No Limitations - History of Present Illness INITIAL COMMENTS - FREE TEXT/NARRATIVE: 59-year-old female [facility] left foot redness and swelling. She was seen here on 09/14/19 and was diagnosed with Lisfranc fracture and was placed in a walking boot, Dr. Jonathan Mackay was consulted during her last ER visit and recommended follow-up in 1 week. Ultrasound was also performed to rule out DVT. Today the staff members at the jail noted increased redness, swelling, warmth to the left foot. When the staff was changing her, they also found that she had trace rectal bleeding with clots. History and review of systems limited secondary to clinical presentation. PHYSICAL EXAM General: No distress HEENT: dry mucous membrane Neck: supple, no meningismus, no Kernig or Brudzinski Cardiac: S1S2 RRR Respiratory: CTAB, no crackles or rales, no wheezing Abdomen: Soft, nontender, no rebound or guarding, nondistended, no pulsatile mass. Back: nontender Musculoskeletal: NVI distally, left foot and ankle erythematous, swollen, indurated, tender. Neuro: No focal deficits MEDICAL DECISION MAKING: I reviewed the patients past medical records, lab and radiographic findings. I discussed the case with family members. My differential diagnosis included: Cellulitis, osteomyelitis, septic arthritis, abscess. Onset: Today - Related Data Allergies Allergy/AdvReac Type Severity Reaction Status Date / Time divalproex sodium Allergy Lethargy Verified 09/19/19 22:07 [From Depakote] Home Meds: Home Meds Calcium Carbonate/Vitamin D3 [Calcium 250+D] 2 tab PO BID 06/30/13 [History] Gemfibrozil 600 mg PO BIDAC 06/30/13 [History] Levothyroxine 75 mcg PO ACBREAKFAST 06/30/13 [History] Multivitamin [Multi-Vitamin Daily] 1 each PO DAILY 06/30/13 [History] Venlafaxine [Effexor XR] 150 mg PO QAM 06/30/13 [History] Cyanocobalamin/Folic Acid [Vitamin R60-Ztals Acid] 1,000 mg PO DAILY 07/06/14 [History] Iron Polysaccharide Complex [Poly-Iron] 150 mg PO BID 07/06/14 [History] Aspirin [Halfprin] 81 mg PO DAILY 07/08/15 [History] Dexlansoprazole [Dexilant] 60 mg PO DAILY 07/08/15 [History] Docusate Sodium [Colace] 100 mg PO BID 07/08/15 [History] Calcium Polycarbophil [Fiber Laxative] 625 mg PO BID 07/15/15 [History] Albuterol Sulfate 2.5 mg INH Q4H PRN 11/04/17 [History] Escitalopram [Lexapro] 20 mg PO QAM 11/04/17 [History] Diclofenac Sodium [Voltaren 1% Gel] 1 applic TOP QID PRN 06/09/19 [History] Benztropine [Cogentin] 0.5 mg PO DAILY 09/14/19 [History] LORazepam [Ativan] 1 mg PO ASDIRECTED PRN 09/14/19 [History] Lurasidone HCl [Latuda] 80 mg PO DAILY@17 09/14/19 [History] Magnesium Oxide 200 mg PO BID 09/14/19 [History] cloZAPine 100 mg PO DAILY 09/14/19 [History] cloZAPine 200 mg PO BEDTIME 09/14/19 [History] estradioL [Estrace 0.01% Vaginal Crm] 1 applic VAG ASDIRECTED 09/14/19 [History] Past Medical History HEENT History: Reports: Hard of Hearing, Impaired Vision, Other (See Below) Other HEENT History: Bilateral exotropia Cardiovascular History: Reports: None Respiratory History: Reports: Other (See Below) Other Respiratory History: 3L O2 use at bedtime Gastrointestinal History: Reports: Chronic Constipation, GERD Genitourinary History: Reports: None [employer]P OPERATIONS History: Reports: Musculoskeletal History: Reports: Fracture Neurological History: Reports: None Psychiatric History: Reports: Depression, Psychosis, Other (See Below) Other Psychiatric History: Self Harm Endocrine/Metabolic History: Reports: Hypothyroidism, Obesity/BMI 30+ Hematologic History: Reports: None Immunologic History: Reports: None Oncologic (Cancer) History: Reports: None Dermatologic History: Reports: Other (See Below) Other Dermatologic History: varicose veins with edema - Infectious Disease History Infectious Disease History: Reports: None Other Infectious Disease History: Unable to verify any other illnesses. - Past Surgical History Female Surgical History: Reports: Section, Tubal Ligation Musculoskeletal Surgical History: Reports: Other (See Below) Social & Family History - Family History Family Medical History: Unobtainable - Tobacco Use Smoking Status *Q: Never Smoker Second Hand Smoke Exposure: No - Caffeine Use Caffeine Use: Reports: None - Recreational Drug Use Recreational Drug Use: No - Living Situation & Occupation Living situation: Reports: Assisted Living, Other Occupation: Disabled Review of Systems - Review of Systems Review Of Systems: Unable To Obtain Reason Not Obtained: mental retardation ED EXAM, GENERAL - Physical Exam Exam: See Below Exam Limited By: Other (mental retardation) Course - Vital Signs Last Recorded V/S: Last Vital Signs Temp 97.3 F 09/19/19 21:57 Pulse 81 09/19/19 21:57 Resp 18 09/19/19 21:57 BP 140/70 09/19/19 21:57 Pulse Ox 92 L 09/19/19 21:57 - Orders/Labs/Meds Orders: Active Orders 24 hr Category Date Time Status CULTURE BLOOD [BC] Stat Lab 09/19/19 22:49 Results CULTURE BLOOD [BC] Stat Lab 09/19/19 22:59 Results Sodium Chloride 0.9% [Saline Flush] Med 09/19/19 22:26 Active 2.5 ml FLUSH ASDIRECTED PRN Vancomycin 1.5 gm Med 09/20/19 00:45 Active Sodium Chloride 0.9% [Normal Saline] 500 ml IV Q24H Blood Culture x2 Reflex Set [OM.PC] Stat Oth 09/19/19 22:27 Ordered Saline Lock Insert [OM.PC] Stat Oth 09/19/19 22:26 Ordered Medication Orders Vancomycin HCl 1.5 gm/ Sodium (Chloride) 500 mls @ 333 mls/hr IV Q24H OSCAR Sodium Chloride (Saline Flush) 2.5 ml FLUSH ASDIRECTED PRN PRN Reason: Keep Vein Open Labs: Laboratory Tests 09/19/19 09/19/19 09/19/19 Range/Units 23:10 23:10 23:10 WBC 7.18 (4.0-11.0) K/uL RBC 3.12 L (4.30-5.90) M/uL Hgb 9.2 L (12.0-16.0) g/dL Hct 30.2 L (36.0-46.0) % MCV 96.8 (80.0-98.0) fL MCH 29.5 (27.0-32.0) pg MCHC 30.5 L (31.0-37.0) g/dL RDW Std Deviation 49.0 (28.0-62.0) fl RDW Coeff of Amaris 14 (11.0-15.0) % Plt Count 332 (150-400) K/uL MPV 10.40 (7.40-12.00) fL Neut % (Auto) 59.3 (48.0-80.0) % Lymph % (Auto) 28.1 (16.0-40.0) % [place] % (Auto) 10.3 (0.0-15.0) % Eos % (Auto) 2.2 (0.0-7.0) % Baso % (Auto) 0.1 (0.0-1.5) % Neut # (Auto) 4.3 (1.4-5.7) K/uL Lymph # (Auto) 2.0 (0.6-2.4) K/uL [place] # (Auto) 0.7 (0.0-0.8) K/uL Eos # (Auto) 0.2 (0.0-0.7) K/uL Baso # (Auto) 0.0 (0.0-0.1) K/uL Nucleated RBC % 0.0 /100WBC Nucleated RBCs # 0 K/uL INR 1.00 APTT 32.9 H (18.6-31.3) SEC Lactate (0.20-2.00) mmol/L Sodium 143 (136-145) mmol/L Potassium 3.4 L (3.5-5.1) mmol/L Chloride 103 (98-107) mmol/L Carbon Dioxide 31.3 (21.0-32.0) mmol/L BUN 14 (7.0-18.0) mg/dL Creatinine 0.8 (0.6-1.0) mg/dL Est Cr Clr Drug Dosing 82.89 mL/min Estimated GFR (MDRD) > 60.0 ml/min Glucose 116 H (74-106) mg/dL Calcium 8.4 L (8.5-10.1) mg/dL Total Bilirubin 0.3 (0.2-1.0) mg/dL AST 13 L (15-37) IU/L ALT 13 L (14-63) IU/L Alkaline Phosphatase 134 H (46-116) U/L C-Reactive Protein 5.80 H (0.00-0.90) mg/dL Total Protein 6.8 (6.4-8.2) g/dL Albumin 2.9 L (3.4-5.0) g/dL Globulin 3.9 (2.6-4.0) g/dL Albumin/Globulin Ratio 0.7 L (0.9-1.6) Lipase 74 (73-393) U/L 09/19/19 Range/Units 23:10 WBC (4.0-11.0) K/uL RBC (4.30-5.90) M/uL Hgb (12.0-16.0) g/dL Hct (36.0-46.0) % MCV (80.0-98.0) fL MCH (27.0-32.0) pg MCHC (31.0-37.0) g/dL RDW Std Deviation (28.0-62.0) fl RDW Coeff of Amaris (11.0-15.0) % Plt Count (150-400) K/uL MPV (7.40-12.00) fL Neut % (Auto) (48.0-80.0) % Lymph % (Auto) (16.0-40.0) % [place] % (Auto) (0.0-15.0) % Eos % (Auto) (0.0-7.0) % Baso % (Auto) (0.0-1.5) % Neut # (Auto) (1.4-5.7) K/uL Lymph # (Auto) (0.6-2.4) K/uL [place] # (Auto) (0.0-0.8) K/uL Eos # (Auto) (0.0-0.7) K/uL Baso # (Auto) (0.0-0.1) K/uL Nucleated RBC % /100WBC Nucleated RBCs # K/uL INR APTT (18.6-31.3) SEC Lactate 0.9 (0.20-2.00) mmol/L Sodium (136-145) mmol/L Potassium (3.5-5.1) mmol/L Chloride (98-107) mmol/L Carbon Dioxide (21.0-32.0) mmol/L BUN (7.0-18.0) mg/dL Creatinine (0.6-1.0) mg/dL Est Cr Clr Drug Dosing mL/min Estimated GFR (MDRD) ml/min Glucose (74-106) mg/dL Calcium (8.5-10.1) mg/dL Total Bilirubin (0.2-1.0) mg/dL AST (15-37) IU/L ALT (14-63) IU/L Alkaline Phosphatase (46-116) U/L C-Reactive Protein (0.00-0.90) mg/dL Total Protein (6.4-8.2) g/dL Albumin (3.4-5.0) g/dL Globulin (2.6-4.0) g/dL Albumin/Globulin Ratio (0.9-1.6) Lipase (73-393) U/L Meds: Medications Generic Name Dose Route Start Last Admin Trade Name Freq PRN Reason Stop Dose Admin Vancomycin HCl 1.5 gm/ Sodium 500 mls @ 333 mls/hr 09/20/19 00:45 Chloride IV Q24H OSCAR Sodium Chloride 2.5 ml 09/19/19 22:26 Saline Flush FLUSH ASDIRECTED PRN Keep Vein Open Discontinued Medications Generic Name Dose Route Start Last Admin Trade Name Freq PRN Reason Stop Dose Admin Lactated Ringer's 1,000 mls @ 999 mls/hr 09/19/19 22:26 09/19/19 23:08 Ringers, Lactated IV 09/19/19 23:26 999 mls/hr .BOLUS ONE Administration Pantoprazole Sodium 40 mg/ 10 mls @ 300 mls/hr 09/19/19 22:26 09/19/19 23:15 Sodium Chloride IV 09/19/19 22:27 300 mls/hr NOW ONE Administration - Re-Assessments/Exams Free Text/Narrative Re-Assessment/Exam: 09/20/19 01:[address] Miller, who agrees to assume care at this point. The hospitalist's documentation supersedes all other documentation on this patient with regard to any conflicts or discrepancies from this point forward. Any emergency conditions have been treated to the ability of the ED prior to admission. Departure - Departure Time of Disposition: 01:08 Disposition: Refer to Observation Condition: Good Clinical Impression: Cellulitis, Lisfranc fracture - Discharge Information *PRESCRIPTION DRUG MONITORING PROGRAM REVIEWED*: Not Applicable *COPY OF PRESCRIPTION DRUG MONITORING REPORT IN PATIENT RAYSA: Not Applicable Referrals: Anila Dodge DO [Primary Care Provider] - Forms: ED Department Discharge Sepsis Event Note (ED) - Evaluation Sepsis Screening Result: No Definite Risk - Focused Exam Vital Signs: Vital Signs Temp Pulse Resp BP Pulse Ox 09/19/19 21:57 97.3 F 81 18 140/70 92 L - My Orders Last 24 Hours: My Active Orders 09/19/19 22:26 Sodium Chloride 0.9% [Saline Flush] 2.5 ml FLUSH ASDIRECTED PRN Saline Lock Insert [OM.PC] Stat 09/19/19 22:27 Blood Culture x2 Reflex Set [OM.PC] Stat 09/19/19 22:49 CULTURE BLOOD [BC] Stat 09/19/19 22:59 CULTURE BLOOD [BC] Stat 09/20/19 00:45 Vancomycin 1.5 gm Sodium Chloride 0.9% [Normal Saline] 500 ml IV Q24H - Assessment/Plan Last 24 Hours: My Active Orders 09/19/19 22:26 Sodium Chloride 0.9% [Saline Flush] 2.5 ml FLUSH ASDIRECTED PRN Saline Lock Insert [OM.PC] Stat 09/19/19 22:27 Blood Culture x2 Reflex Set [OM.PC] Stat 09/19/19 22:49 CULTURE BLOOD [BC] Stat 09/19/19 22:59 CULTURE BLOOD [BC] Stat 09/20/19 00:45 Vancomycin 1.5 gm Sodium Chloride 0.9% [Normal Saline] 500 ml IV Q24H
--- NOTE | 2019-09-19 22:53 | CR ---
Chest: Portable view of the chest was obtained. Comparison: Prior chest x-ray of 07/16/15. Heart size and mediastinum are normal. Lungs are clear with no acute parenchymal change. Bony structures are grossly intact. Impression: 1. Nothing acute is seen on portable chest x-ray. Diagnostic code #1 Study was dictated in MDT
[2019-09-19 23:42] LABS: BLOOD UREA NITROGEN,BUN 14 mg/dL (7.0-18.0); CARBON DIOXIDE,CO2 31.3 mmol/L (21.0-32.0); CHLORIDE,CL 103 mmol/L (98-107); GLUCOSE RANDOM 116 mg/dL (74-106); LIPASE 74 U/L (73-393); POTASSIUM,K 3.4 mmol/L (3.5-5.1); SODIUM,NA 143 mmol/L (136-145)
[2019-09-20] MEDS ORDERED: Vancomycin 1.5 GM in Sodium Chloride 0.9% 500 ML IV SCH (00:45)
[2019-09-20] MEDS ORDERED: Albuterol/Ipratropium 3.0-0.5 MG/3 ML Neb Soln NEB PRN (02:37)
[2019-09-20] MEDS ORDERED: Acetaminophen 325 MG Tab PO PRN (02:38)
[2019-09-20] MEDS: Lactated Ringers 1,000 ML IV SCH ×3 (02:59→22:53)
[2019-09-20 06:37] LABS: BLOOD UREA NITROGEN,BUN 14 mg/dL (7.0-18.0); CARBON DIOXIDE,CO2 30.4 mmol/L (21.0-32.0); CHLORIDE,CL 106 mmol/L (98-107); GLUCOSE RANDOM 110 mg/dL (74-106); POTASSIUM,K 3.2 mmol/L (3.5-5.1); SODIUM,NA 143 mmol/L (136-145)
--- NOTE | 2019-09-20 09:43 | PCM.HP.2 ---
H&P History of Present Illness - General Date of Service: 09/20/19 Admit Problem/Dx: Admission Diagnosis/Problem Admission Diagnosis/Problem Cellulitis - History of Present Illness Initial Comments - Free Text/Narative: 59-year-old female with PMH of MR, behavioral problems, was brought in by caregivers from her half-way due to concern of left foot redness and swelling. Patient was seen in the ER on 09/14/19 and was diagnosed with Lisfranc fracture and was placed in a walking boot, ortho surgeon in [place] was consulted during her last ER visit and recommended follow-up in 1 week. Ultrasound was also performed to rule out DVT. Reportedly today the staff members at the half-way noted increased redness, swelling, warmth to the left foot when they were adjusting her walking boot. They also noticed she had trace rectal bleeding with clots. Patient received IV vancomycin in ER for cellulites. Rest of the labs were unremarkable, Hb was stable, no active bleeding. Vitals were stable. Blood cultures were obtained. Patient was admitted for further management of cellulitis. During my encounter patient was sleepy, opned her eyes upon prompting, but wasnt keen on talking and went back to sleep.stock taker at bedside states thats her baseline, she usually is sleepy unless forced to be up and do some activities. Partially due to the medications she is on for agitation. - Related Data Allergies/Adverse Reactions: Allergies Allergy/AdvReac Type Severity Reaction Status Date / Time divalproex sodium Allergy Lethargy Verified 09/20/19 02:29 [From Depakote] Home Medications: Home Meds Calcium Carbonate/Vitamin D3 [Calcium 250+D] 2 tab PO BID 06/30/13 [History] Gemfibrozil 600 mg PO BIDAC 06/30/13 [History] Levothyroxine 75 mcg PO ACBREAKFAST 06/30/13 [History] Multivitamin [Multi-Vitamin Daily] 1 each PO DAILY 06/30/13 [History] Venlafaxine [Effexor XR] 150 mg PO QAM 06/30/13 [History] Iron Polysaccharide Complex [Poly-Iron] 150 mg PO BID 07/06/14 [History] Aspirin [Halfprin] 81 mg PO DAILY 07/08/15 [History] Dexlansoprazole [Dexilant] 60 mg PO DAILY 07/08/15 [History] Docusate Sodium [Colace] 100 mg PO BID 07/08/15 [History] Calcium Polycarbophil [Fiber Laxative] 625 mg PO BID 07/15/15 [History] Albuterol Sulfate 2.5 mg INH Q4H PRN 11/04/17 [History] Escitalopram [Lexapro] 20 mg PO QAM 11/04/17 [History] Diclofenac Sodium [Voltaren 1% Gel] 1 applic TOP QID PRN 06/09/19 [History] Benztropine [Cogentin] 0.5 mg PO DAILY 09/14/19 [History] LORazepam [Ativan] 1 mg PO DAILY PRN 09/14/19 [History] Lurasidone HCl [Latuda] 80 mg PO DAILY@17 09/14/19 [History] Magnesium Oxide 200 mg PO BID 09/14/19 [History] cloZAPine 100 mg PO DAILY 09/14/19 [History] cloZAPine 200 mg PO BEDTIME 09/14/19 [History] estradioL [Estrace 0.01% Vaginal Crm] 1 applic VAG ASDIRECTED 09/14/19 [History] Cyanocobalamin (Vitamin B-12) [Vitamin B-12] 1,000 mcg PO DAILY 09/20/19 [History] Past Medical History HEENT History: Reports: Hard of Hearing, Impaired Vision, Other (See Below) Other HEENT History: Bilateral exotropia Cardiovascular History: Reports: None Respiratory History: Reports: Other (See Below) Other Respiratory History: 2L O2 use at bedtime Gastrointestinal History: Reports: Chronic Constipation, GERD Genitourinary History: Reports: None BELL PERSON History: Reports: Musculoskeletal History: Reports: Fracture Neurological History: Reports: None Psychiatric History: Reports: Depression, Psychosis, Other (See Below) Other Psychiatric History: Self Harm Endocrine/Metabolic History: Reports: Hypothyroidism, Obesity/BMI 30+ Hematologic History: Reports: None Immunologic History: Reports: None Oncologic (Cancer) History: Reports: None Dermatologic History: Reports: Other (See Below) Other Dermatologic History: varicose veins with edema - Infectious Disease History Infectious Disease History: Reports: None Other Infectious Disease History: Unable to verify any other illnesses. - Past Surgical History Female Surgical History: Reports: Section, Tubal Ligation Musculoskeletal Surgical History: Reports: Other (See Below) Social & Family History - Family History Family Medical History: Unobtainable - Tobacco Use Smoking Status *Q: Never Smoker Tobacco Use Comment: Unable to assess Second Hand Smoke Exposure: No - Caffeine Use Caffeine Use: Reports: None Caffeine Use Comment: unable to assess - Recreational Drug Use Recreational Drug Use: No - Living Situation & Occupation Living situation: Reports: Assisted Living, Other Occupation: Disabled H&P Review of Systems - Review of Systems: Review Of Systems: Unable To Obtain Reason Not Obtained: clinical condition, Exam - Exam Exam: See Below - Vital Signs Vital Signs: Last Vital Signs Temp 36.1 C 09/20/19 07:10 Pulse 75 09/20/19 07:10 Resp 17 09/20/19 07:10 BP 131/67 09/20/19 07:10 Pulse Ox 95 09/20/19 07:10 Weight: 111.992 kg - Exam Quality Assessment: Supplemental Oxygen General: Lethargic HEENT: Conjunctiva Clear Neck: Supple Lungs: Clear to Auscultation, Normal Respiratory Effort Cardiovascular: Regular Rate, Regular Rhythm, Normal S1, Normal S2 GI/Abdominal Exam: Normal Bowel Sounds, Soft, Non-Tender Extremities: Normal Inspection, Normal Range of Motion, Joint Swelling, Increased Warmth, Redness Peripheral Pulses: 3+: Dorsalis Pedis (L), Dorsalis Pedis (R) Skin: Warm - Patient Data Lab Results Last 24 hrs: Laboratory Results - last 24 hr 09/19/19 09/19/19 09/19/19 Range/Units 23:10 23:10 23:10 WBC 7.18 (4.0-11.0) K/uL RBC 3.12 L (4.30-5.90) M/uL Hgb 9.2 L (12.0-16.0) g/dL Hct 30.2 L (36.0-46.0) % MCV 96.8 (80.0-98.0) fL MCH 29.5 (27.0-32.0) pg MCHC 30.5 L (31.0-37.0) g/dL RDW Std Deviation 49.0 (28.0-62.0) fl RDW Coeff of Amaris 14 (11.0-15.0) % Plt Count 332 (150-400) K/uL MPV 10.40 (7.40-12.00) fL Neut % (Auto) 59.3 (48.0-80.0) % Lymph % (Auto) 28.1 (16.0-40.0) % [place] % (Auto) 10.3 (0.0-15.0) % Eos % (Auto) 2.2 (0.0-7.0) % Baso % (Auto) 0.1 (0.0-1.5) % Neut # (Auto) 4.3 (1.4-5.7) K/uL Lymph # (Auto) 2.0 (0.6-2.4) K/uL [place] # (Auto) 0.7 (0.0-0.8) K/uL Eos # (Auto) 0.2 (0.0-0.7) K/uL Baso # (Auto) 0.0 (0.0-0.1) K/uL Nucleated RBC % 0.0 /100WBC Nucleated RBCs # 0 K/uL INR 1.00 APTT 32.9 H (18.6-31.3) SEC Lactate (0.20-2.00) mmol/L Sodium 143 (136-145) mmol/L Potassium 3.4 L (3.5-5.1) mmol/L Chloride 103 (98-107) mmol/L Carbon Dioxide 31.3 (21.0-32.0) mmol/L BUN 14 (7.0-18.0) mg/dL Creatinine 0.8 (0.6-1.0) mg/dL Est Cr Clr Drug Dosing 82.89 mL/min Estimated GFR (MDRD) > 60.0 ml/min Glucose 116 H (74-106) mg/dL Calcium 8.4 L (8.5-10.1) mg/dL Total Bilirubin 0.3 (0.2-1.0) mg/dL AST 13 L (15-37) IU/L ALT 13 L (14-63) IU/L Alkaline Phosphatase 134 H (46-116) U/L C-Reactive Protein 5.80 H (0.00-0.90) mg/dL Total Protein 6.8 (6.4-8.2) g/dL Albumin 2.9 L (3.4-5.0) g/dL Globulin 3.9 (2.6-4.0) g/dL Albumin/Globulin Ratio 0.7 L (0.9-1.6) Lipase 74 (73-393) U/L 09/19/19 09/20/19 09/20/19 Range/Units 23:10 06:00 06:00 WBC 5.60 (4.0-11.0) K/uL RBC 2.84 L (4.30-5.90) M/uL Hgb 8.4 L (12.0-16.0) g/dL Hct 27.5 L (36.0-46.0) % MCV 96.8 (80.0-98.0) fL MCH 29.6 (27.0-32.0) pg MCHC 30.5 L (31.0-37.0) g/dL RDW Std Deviation 48.9 (28.0-62.0) fl RDW Coeff of Amaris 14 (11.0-15.0) % Plt Count 291 (150-400) K/uL MPV 10.10 (7.40-12.00) fL Neut % (Auto) 48.3 (48.0-80.0) % Lymph % (Auto) 37.1 (16.0-40.0) % [place] % (Auto) 10.7 (0.0-15.0) % Eos % (Auto) 3.4 (0.0-7.0) % Baso % (Auto) 0.5 (0.0-1.5) % Neut # (Auto) 2.7 (1.4-5.7) K/uL Lymph # (Auto) 2.1 (0.6-2.4) K/uL [place] # (Auto) 0.6 (0.0-0.8) K/uL Eos # (Auto) 0.2 (0.0-0.7) K/uL Baso # (Auto) 0.0 (0.0-0.1) K/uL Nucleated RBC % 0.0 /100WBC Nucleated RBCs # 0 K/uL INR APTT (18.6-31.3) SEC Lactate 0.9 (0.20-2.00) mmol/L Sodium 143 (136-145) mmol/L Potassium 3.2 L (3.5-5.1) mmol/L Chloride 106 (98-107) mmol/L Carbon Dioxide 30.4 (21.0-32.0) mmol/L BUN 14 (7.0-18.0) mg/dL Creatinine 0.8 (0.6-1.0) mg/dL Est Cr Clr Drug Dosing 82.89 mL/min Estimated GFR (MDRD) > 60.0 ml/min Glucose 110 H (74-106) mg/dL Calcium 8.0 L (8.5-10.1) mg/dL Total Bilirubin (0.2-1.0) mg/dL AST (15-37) IU/L ALT (14-63) IU/L Alkaline Phosphatase (46-116) U/L C-Reactive Protein (0.00-0.90) mg/dL Total Protein (6.4-8.2) g/dL Albumin (3.4-5.0) g/dL Globulin (2.6-4.0) g/dL Albumin/Globulin Ratio (0.9-1.6) Lipase (73-393) U/L Result Diagrams: 09/20/19 06:00 09/20/19 06:00 Jus Results Last 24 hrs: Microbiology 09/19/19 22:59 Anaerobic Blood Culture - Final Blood - Venous - Lab Draw 09/19/19 22:49 Anaerobic Blood Culture - Final Blood - Venous Sepsis Event Note - Evaluation Sepsis Screening Result: No Definite Risk - Focused Exam Vital Signs: Vital Signs Temp Pulse Resp BP BP Pulse Ox 09/20/19 07:10 36.1 C 75 17 131/67 95 09/20/19 04:00 36.9 C 79 17 106/57 L 94 L 09/20/19 01:45 36.9 C 74 18 118/68 98 09/20/19 01:30 80 116/74 09/20/19 00:30 74 18 117/75 97 09/19/19 21:57 36.3 C 81 18 140/70 92 L Date Exam was Performed: 09/20/19 Time Exam was Performed: 14:50 - Problem List (1) Cellulitis SNOMED Code(s): 339795318 ICD Code: L03.90 - CELLULITIS, UNSPECIFIED Status: Acute Current Visit: Yes (2) Lisfranc fracture SNOMED Code(s): 15858552, 869097193 ICD Code: KON0672 - Status: Acute Current Visit: Yes Problem List Initiated/Reviewed/Updated: Yes Orders Last 24hrs: Active Orders 24 hr Category Date Time Status Admission Status [Patient Status] [ADT] Stat ADT 09/20/19 01:03 Active Ambulate [RC] ASDIRECTED Care 09/20/19 02:39 Active Antiembolic Devices [RC] PER UNIT ROUTINE Care 09/20/19 02:39 Active RT Aerosol Therapy [RC] ASDIRECTED Care 09/20/19 02:38 Active Vital Signs [RC] Q4H Care 09/20/19 04:00 Active GI Soft Low Fiber [Soft Diet] [DIET] Diet 09/20/19 Breakfast Active CULTURE BLOOD [BC] Stat Lab 09/19/19 22:49 Results CULTURE BLOOD [BC] Stat Lab 09/19/19 22:59 Results VANCOMYCIN TROUGH [CHEM] Timed Lab 09/22/19 11:30 Ordered Acetaminophen [Tylenol] Med 09/20/19 02:38 Active 650 mg PO Q6H PRN Albuterol/Ipratropium [DuoNeb 3.0-0.5 MG/3 ML] Med 09/20/19 02:37 Active 3 ml NEB Q4HRRT PRN Lactated Ringers [Ringers, Lactated] 1,000 ml Med 09/20/19 02:45 Active IV ASDIRECTED Pharmacy to Dose - Vancomycin Med 09/20/19 02:45 Active 1 dose .XX ASDIRECTED Sodium Chloride 0.9% [Saline Flush] Med 09/19/19 22:26 Active 2.5 ml FLUSH ASDIRECTED PRN VANCOmycin/Water for INJ (PEG) [VANCOmycin 1.5 GM/300 Med 09/20/19 13:00 Active ML Premix] 300 ml IV Q12H Blood Culture x2 Reflex Set [OM.PC] Stat Oth 09/19/19 22:27 Ordered SCD [Sequential Compression Device] [OM.PC] Routine Oth 09/20/19 02:39 Ordered Saline Lock Insert [OM.PC] Stat Oth 09/19/19 22:26 Ordered Medication Orders Acetaminophen (Tylenol) 650 mg PO Q6H PRN PRN Reason: Pain Albuterol/Ipratropium (Duoneb 3.0-0.5 Mg/3 Ml) 3 ml NEB Q4HRRT PRN PRN Reason: Shortness of Breath Lactated Ringer's (Ringers, Lactated) 1,000 mls @ 100 mls/hr IV ASDIRECTED COUNT INCLUDES THE [facility] Last Admin: 09/20/19 02:59 Dose: 100 mls/hr Documented by: TRUDY Vancomycin HCl (Vancomycin 1.5 Gm/300 Ml Premix) 300 mls @ 200 mls/hr IV Q12H COUNT INCLUDES THE [facility] Sodium Chloride (Saline Flush) 2.5 ml FLUSH ASDIRECTED PRN PRN Reason: Keep Vein Open Vancomycin HCl (Pharmacy To Dose - Vancomycin) 1 dose .XX ASDIRECTED COUNT INCLUDES THE [facility] Assessment/Plan Comment:: 59 y/o F admitted for left foot cellulitis cont IV vancomycin, swelling has improved cont IV fluids start soft diet IV PPI BID due to concern of GI Bleed Hold ASA due to concern of bleeding Repeat Hb in evening, if further drop will transfuse cont home meds DuoNebs as needed Oxygen PRN Will contact ortho in AM to further recommendations about the fracture management SCD for DVT ppx
[2019-09-20] MEDS ORDERED: Diclofenac Sodium [Voltaren 1% Gel] TOP PRN (09:55)
[2019-09-20] MEDS ORDERED: Potassium Chloride Riders 40 MEQ in Premix Bag 1 BAG IV ONE (09:58)
[2019-09-20] MEDS ORDERED: cloZAPine 100 MG Tab PO SCH (10:30)
[2019-09-20] MEDS ORDERED: Dexlansoprazole [Dexilant] 60 MG PO SCH (10:30)
[2019-09-20] MEDS: Calcium Carbonate/Vitamin D3 1500 MG-400 Units Tab PO SCH ×2 (10:52→20:27)
[2019-09-20] MEDS: Calcium Polycarbophil 625 MG Tab PO SCH ×2 (10:52→20:31)
[2019-09-20] MEDS: Iron Polysaccharides Complex 150 MG Cap PO SCH ×2 (10:53→20:27)
[2019-09-20] MEDS: Docusate Sodium 100 MG Cap PO SCH ×2 (10:53→20:27)
[2019-09-20] MEDS: Escitalopram 10 MG Tab PO SCH (10:53)
[2019-09-20] MEDS: Benztropine 1 MG Tab PO SCH (10:55)
[2019-09-20] MEDS: Magnesium Oxide 400 MG Tab PO SCH ×2 (10:55→20:27)
[2019-09-20] MEDS: cloZAPine 100 MG Tab PO SCH ×2 (11:28→21:27)
[2019-09-20] MEDS: Pantoprazole 40 MG in Sodium Chloride 0.9% 10 ML IV SCH ×2 (15:22→20:26)
[2019-09-20] MEDS ORDERED: Lurasidone Hcl [Latuda] 80 MG PO SCH (17:00)
[2019-09-20] MEDS ORDERED: LURASIDONE HCL 80 MG PO SCH (17:00)
[2019-09-20] MEDS ORDERED: Gemfibrozil 600 MG Tab PO SCH (17:00)
[2019-09-20] MEDS ORDERED: LORazepam 1 MG Tab PO PRN (18:15)
[2019-09-21 07:18] LABS: BLOOD UREA NITROGEN,BUN 16 mg/dL (7.0-18.0); CARBON DIOXIDE,CO2 31.5 mmol/L (21.0-32.0); CHLORIDE,CL 105 mmol/L (98-107); GLUCOSE RANDOM 100 mg/dL (74-106); POTASSIUM,K 3.8 mmol/L (3.5-5.1); SODIUM,NA 145 mmol/L (136-145)
[2019-09-21] MEDS: Levothyroxine 75 MCG Tab PO SCH (07:35)
[2019-09-21] MEDS ORDERED: DEXLANSOPRAZOLE 60 MG PO SCH ×2 (09:00→21:00)
[2019-09-21] MEDS ORDERED: ESTRADIOL VAG SCH (09:00)
[2019-09-21] MEDS ORDERED: Cyanocobalamin (Vitamin B12) 500 MCG Tab PO SCH (09:00)
[2019-09-21] MEDS: Pantoprazole 40 MG in Sodium Chloride 0.9% 10 ML IV SCH ×2 (09:31→20:27)
[2019-09-21] MEDS: Multivitamin Tab PO SCH (09:33)
[2019-09-21] MEDS: Cyanocobalamin (Vitamin B12) 500 MCG Tab PO SCH (09:34)
[2019-09-21] MEDS: Iron Polysaccharides Complex 150 MG Cap PO SCH ×2 (09:34→20:34)
[2019-09-21] MEDS: Magnesium Oxide 400 MG Tab PO SCH (09:35)
[2019-09-21] MEDS: Escitalopram 10 MG Tab PO SCH (09:36)
[2019-09-21] MEDS: Venlafaxine 75 MG Cap.ER PO SCH (09:37)
[2019-09-21] MEDS: Benztropine 1 MG Tab PO SCH (09:37)
[2019-09-21] MEDS: Docusate Sodium 100 MG Cap PO SCH ×2 (09:37→20:33)
[2019-09-21] MEDS: Calcium Carbonate/Vitamin D3 1500 MG-400 Units Tab PO SCH ×2 (09:38→20:34)
[2019-09-21] MEDS: Calcium Polycarbophil 625 MG Tab PO SCH ×2 (09:40→20:37)
[2019-09-21] MEDS: cloZAPine 100 MG Tab PO SCH ×2 (09:41→20:38)
[2019-09-21] MEDS: GEMFIBROZIL 600 MG PO SCH ×2 (09:41→17:22)
[2019-09-21] MEDS: Lactated Ringers 1,000 ML IV SCH (10:23)
[2019-09-21] MEDS ORDERED: Magnesium Sulfate/Water 4 GM in Premix Bag 1 BAG IV ONE (11:57)
[2019-09-21] MEDS ORDERED: Furosemide 40 MG/4 ML VIAL IVPUSH ONE (12:04)
--- NOTE | 2019-09-21 12:43 | PCM.PN ---
<Wing Mackenzie - Last Filed: 09/21/19 13:20> - General Info Date of Service: 09/21/19 Subjective Update: Bedside: c.o left foot pain; no other acute distress brought up by patient Functional Status: Reports: Tolerating Diet - Review of Systems General: Reports: No Symptoms Pulmonary: Reports: No Symptoms Cardiovascular: Reports: No Symptoms Gastrointestinal: Reports: No Symptoms Genitourinary: Reports: No Symptoms Musculoskeletal: Reports: Foot Pain Neurological: Reports: Pre-Existing Deficit Psychiatric: Reports: Other (pre-existing defecit; behavioral issues ) - Patient Data Vitals - Most Recent: Last Vital Signs Temp 97.8 F 09/21/19 07:52 Pulse 77 09/21/19 07:52 Resp 18 09/21/19 07:52 BP 120/56 L 09/21/19 07:52 Pulse Ox 98 09/21/19 07:52 Weight - Most Recent: 111.992 kg I&O - Last 24 Hours: Intake & Output 09/20/19 09/21/19 09/21/19 22:59 06:59 14:59 Intake Total 1810 1944 Output Total 0 0 Balance [id number] Lab Results Last 24 Hours: Laboratory Results - last 24 hr 09/20/19 09/21/19 09/21/19 Range/Units 17:07 06:45 06:45 WBC 5.94 (4.0-11.0) K/uL RBC 2.82 L (4.30-5.90) M/uL Hgb 8.6 L 8.4 L (12.0-16.0) g/dL Hct 28.2 L 27.2 L (36.0-46.0) % MCV 96.5 (80.0-98.0) fL MCH 29.8 (27.0-32.0) pg MCHC 30.9 L (31.0-37.0) g/dL RDW Std Deviation 47.9 (28.0-62.0) fl RDW Coeff of Amaris 14 (11.0-15.0) % Plt Count 303 (150-400) K/uL MPV 10.00 (7.40-12.00) fL Neut % (Auto) 55.6 (48.0-80.0) % Lymph % (Auto) 30.1 (16.0-40.0) % [place] % (Auto) 10.1 (0.0-15.0) % Eos % (Auto) 3.5 (0.0-7.0) % Baso % (Auto) 0.7 (0.0-1.5) % Neut # (Auto) 3.3 (1.4-5.7) K/uL Lymph # (Auto) 1.8 (0.6-2.4) K/uL [place] # (Auto) 0.6 (0.0-0.8) K/uL Eos # (Auto) 0.2 (0.0-0.7) K/uL Baso # (Auto) 0.0 (0.0-0.1) K/uL Nucleated RBC % 0.0 /100WBC Nucleated RBCs # 0 K/uL Sodium 145 (136-145) mmol/L Potassium 3.8 (3.5-5.1) mmol/L Chloride 105 (98-107) mmol/L Carbon Dioxide 31.5 (21.0-32.0) mmol/L BUN 16 (7.0-18.0) mg/dL Creatinine 0.8 (0.6-1.0) mg/dL Est Cr Clr Drug Dosing 82.89 mL/min Estimated GFR (MDRD) > 60.0 ml/min Glucose 100 (74-106) mg/dL Calcium 8.7 (8.5-10.1) mg/dL Phosphorus 3.9 (2.6-4.7) mg/dL Magnesium 1.2 L (1.8-2.4) mg/dL Urine Color Urine Appearance Urine pH (5.0-8.0) Ur Specific [place] (1.001-1.035) Urine Protein (NEGATIVE) mg/dL Urine Glucose (UA) (NEGATIVE) mg/dL Urine Ketones (NEGATIVE) mg/dL Urine Occult Blood (NEGATIVE) Urine Nitrite (NEGATIVE) Urine Bilirubin (NEGATIVE) Urine Urobilinogen (<2.0) EU/dL Ur Leukocyte Esterase (NEGATIVE) Urine RBC (0-2/HPF) Urine WBC (0-5/HPF) Ur Epithelial Cells (NONE-FEW) Urine Bacteria (NEGATIVE) Urine Mucus (NONE-MOD) 09/21/19 Range/Units 09:13 WBC (4.0-11.0) K/uL RBC (4.30-5.90) M/uL Hgb (12.0-16.0) g/dL Hct (36.0-46.0) % MCV (80.0-98.0) fL MCH (27.0-32.0) pg MCHC (31.0-37.0) g/dL RDW Std Deviation (28.0-62.0) fl RDW Coeff of Amaris (11.0-15.0) % Plt Count (150-400) K/uL MPV (7.40-12.00) fL Neut % (Auto) (48.0-80.0) % Lymph % (Auto) (16.0-40.0) % [place] % (Auto) (0.0-15.0) % Eos % (Auto) (0.0-7.0) % Baso % (Auto) (0.0-1.5) % Neut # (Auto) (1.4-5.7) K/uL Lymph # (Auto) (0.6-2.4) K/uL [place] # (Auto) (0.0-0.8) K/uL Eos # (Auto) (0.0-0.7) K/uL Baso # (Auto) (0.0-0.1) K/uL Nucleated RBC % /100WBC Nucleated RBCs # K/uL Sodium (136-145) mmol/L Potassium (3.5-5.1) mmol/L Chloride (98-107) mmol/L Carbon Dioxide (21.0-32.0) mmol/L BUN (7.0-18.0) mg/dL Creatinine (0.6-1.0) mg/dL Est Cr Clr Drug Dosing mL/min Estimated GFR (MDRD) ml/min Glucose (74-106) mg/dL Calcium (8.5-10.1) mg/dL Phosphorus (2.6-4.7) mg/dL Magnesium (1.8-2.4) mg/dL Urine Color YELLOW Urine Appearance CLEAR Urine pH 5.5 (5.0-8.0) Ur Specific [place] 1.015 (1.001-1.035) Urine Protein NEGATIVE (NEGATIVE) mg/dL Urine Glucose (UA) NEGATIVE (NEGATIVE) mg/dL Urine Ketones NEGATIVE (NEGATIVE) mg/dL Urine Occult Blood NEGATIVE (NEGATIVE) Urine Nitrite NEGATIVE (NEGATIVE) Urine Bilirubin NEGATIVE (NEGATIVE) Urine Urobilinogen 0.2 (<2.0) EU/dL Ur Leukocyte Esterase NEGATIVE (NEGATIVE) Urine RBC NONE SEEN (0-2/HPF) Urine WBC 0-1 (0-5/HPF) Ur Epithelial Cells FEW (NONE-FEW) Urine Bacteria FEW (NEGATIVE) Urine Mucus LIGHT (NONE-MOD) Jus Results Last 24 Hours: Microbiology 09/19/19 22:59 Aerobic Blood Culture - Preliminary Blood - Venous - Lab Draw NO GROWTH AFTER 1 DAY Anaerobic Blood Culture - Final 09/19/19 22:49 Aerobic Blood Culture - Preliminary Blood - Venous NO GROWTH AFTER 1 DAY Anaerobic Blood Culture - Final 09/20/19 18:30 Stool Occult Blood (JUS) - Final Stool / Feces Med Orders - Current: Current Medications Acetaminophen (Tylenol) 650 mg PO Q6H PRN PRN Reason: Pain Albuterol/Ipratropium (Duoneb 3.0-0.5 Mg/3 Ml) 3 ml NEB Q4HRRT PRN PRN Reason: Shortness of Breath Benztropine Mesylate (Cogentin) 0.5 mg PO DAILY [facility] Last Admin: 09/21/19 09:37 Dose: 0.5 mg Documented by: Calcium Carbonate (Caltrate 600+D 1500 Mg-400 Units) 1 tab PO BID [facility] Last Admin: 09/21/19 09:38 Dose: 1 tab Documented by: Calcium Polycarbophil (Fibercon) 625 mg PO BID [facility] Last Admin: 09/21/19 09:40 Dose: 625 mg Documented by: Cyanocobalamin (Vitamin B12) 1,000 mcg PO DAILY [facility] Last Admin: 09/21/19 09:34 Dose: 1,000 mcg Documented by: Docusate Sodium (Colace) 100 mg PO BID [facility] Last Admin: 09/21/19 09:37 Dose: 100 mg Documented by: Escitalopram Oxalate (Lexapro) 20 mg PO QAM [facility] Last Admin: 09/21/19 09:36 Dose: 20 mg Documented by: Gemfibrozil (Lopid) 600 mg PO BIDAC [facility] Last Admin: 09/21/19 09:41 Dose: 600 mg Documented by: Lactated Ringer's (Ringers, Lactated) 1,000 mls @ 100 mls/hr IV ASDIRECTED [facility] Last Admin: 09/21/19 10:23 Dose: 100 mls/hr Documented by: Vancomycin HCl (Vancomycin 1.5 Gm/300 Ml Premix) 300 mls @ 200 mls/hr IV Q12H [facility] Last Admin: 09/21/19 00:23 Dose: 200 mls/hr Documented by: Pantoprazole Sodium 40 mg/ (Sodium Chloride) 10 mls @ 300 mls/hr IV BID [facility] Last Admin: 09/21/19 09:31 Dose: 300 mls/hr Documented by: Magnesium Sulfate 4 gm/ Premix 100 mls @ 50 mls/hr IV ONETIME ONE Stop: 09/21/19 13:56 Levothyroxine Sodium (Levothyroxine) 75 mcg PO ACBREAKFAST [facility] Last Admin: 09/21/19 07:35 Dose: 75 mcg Documented by: Lorazepam (Ativan) 1 mg PO DAILY PRN PRN Reason: aggression Multivitamins/Minerals/Vitamin C (Tab-A-Hermann) 1 tab PO DAILY [facility] Last Admin: 09/21/19 09:33 Dose: 1 tab Documented by: Clozapine 100 Mg Tab 2 each PO BEDTIME [facility] Last Admin: 09/20/19 21:27 Dose: 2 each Documented by: Diclofenac Sodium [ (Voltaren 1% Gel]) 1 each TOP QID PRN PRN Reason: Pain Estradiol [Estrace 0 (.01% Vaginal Crm]) 1 each VAG MoFr@0900 [facility] Last Admin: 09/21/19 09:43 Dose: Not Given Documented by: Clozapine 100 Mg Tab 1 each PO DAILY [facility] Last Admin: 09/21/19 09:41 Dose: 1 each Documented by: Lurasidone Hcl [ Latuda] 80 Mg Own Med 0 each PO DAILY@1700 [facility] Dexlansoprazole [ Dexilant] 60 MgOwn Med 1 each PO BEDTIME [facility] Polysaccharide Iron Complex (Ferrex 150) 150 mg PO BID [facility] Last Admin: 09/21/19 09:34 Dose: 150 mg Documented by: Sodium Chloride (Saline Flush) 2.5 ml FLUSH ASDIRECTED PRN PRN Reason: Keep Vein Open Vancomycin HCl (Pharmacy To Dose - Vancomycin) 1 dose .XX ASDIRECTED [facility] Venlafaxine HCl (Effexor Xr) 150 mg PO QAM [facility] Last Admin: 09/21/19 09:37 Dose: 150 mg Documented by: Discontinued Medications Clozapine (Clozapine) 100 mg PO DAILY [facility] Cyanocobalamin (Vitamin B12) 1,000 mcg PO DAILY [facility] Furosemide (Lasix) 40 mg IVPUSH NOW ONE Stop: 09/21/19 12:05 Gemfibrozil (Lopid) 600 mg PO BIDAC [facility] Last Admin: 09/20/19 17:48 Dose: 600 mg Documented by: Lactated Ringer's (Ringers, Lactated) 1,000 mls @ 999 mls/hr IV .BOLUS ONE Stop: 09/19/19 23:26 Last Admin: 09/19/19 23:08 Dose: 999 mls/hr Documented by: Pantoprazole Sodium 40 mg/ (Sodium Chloride) 10 mls @ 300 mls/hr IV NOW ONE Stop: 09/19/19 22:27 Last Admin: 09/19/19 23:15 Dose: 300 mls/hr Documented by: Vancomycin HCl 1.5 gm/ Sodium (Chloride) 500 mls @ 333 mls/hr IV Q24H [facility] Last Admin: 09/20/19 01:06 Dose: 333 mls/hr Documented by: Potassium Chloride 40 meq/ (Premix) 100 mls @ 25 mls/hr IV ONETIME ONE Stop: 09/20/19 13:57 Last Admin: 09/20/19 10:58 Dose: 25 mls/hr Documented by: Magnesium Oxide (Magnesium Oxide) 200 mg PO BID [facility] Last Admin: 09/21/19 09:35 Dose: 200 mg Documented by: Lurasidone Hcl [ Latuda] 80 Mg Own Med 0 each PO DAILY@1700 [facility] Last Admin: 09/20/19 19:45 Dose: 1 each Documented by: Dexlansoprazole [ (Dexilant] 60 Mg) 1 each PO DAILY [facility] Last Admin: 09/20/19 11:29 Dose: Not Given Documented by: Lurasidone Hcl [ (Latuda] 80 Mg) 1 each PO DAILY@1700 [facility] Last Admin: 09/21/19 07:32 Dose: Not Given Documented by: Dexlansoprazole [ Dexilant] 60 MgOwn Med 1 each PO DAILY [facility] Last Admin: 09/21/19 09:42 Dose: 1 each Documented by: - Exam Quality Assessment: No: Supplemental Oxygen General: Alert, No Acute Distress HEENT: EOMI (baseline left eye strabismus ) Neck: Supple Lungs: Other (mild crackles appreciated. minimal expiratory wheeze ) Cardiovascular: Regular Rate, Regular Rhythm GI/Abdominal Exam: Soft Extremities: Other (left foot edema; lymphaedema of left lower extremities; no redness and or point tendrness apprecaited ) Neurological: Other (did not check ambualtion secondary to left foot fracture ) Psy/Mental Status: Alert Sepsis Event Note - Evaluation Sepsis Screening Result: No Definite Risk - Focused Exam Vital Signs: Vital Signs Temp Pulse Resp BP Pulse Ox 09/21/19 07:52 97.8 F 77 18 120/56 L 98 09/21/19 04:00 97.3 F 81 17 132/60 99 Date Exam was Performed: 09/21/19 Time Exam was Performed: 13:20 - Problem List Review Problem List Initiated/Reviewed/Updated: Yes - Plan Plan:: 59 y/o F admitted for left foot cellulitis cont IV vancomycin, redness not appreciated this AM discontinue IV fluids; edema appreciated and with crackles on lung examination and numerous medications; will order a Echocardiogram for HF evaluation; and lower extremity u/s to r.o DVT for repeated falls and swelling will do a onetime dose of IV-lasix start soft diet Continue IV PPI BID due to concern of GI Bleed: will transfuse 1 unit of PRBC to help evaluate patients response. Hold ASA due to concern of bleeding cont home meds DuoNebs as needed Oxygen PRN Will contact ortho in AM to further recommendations about the fracture management: will repeat foot x-ray first before however SCD for DVT ppx Discussed patient status w. Cattle Driver ; Raya; states pt has been falling more recently and despite numerous psych medications has, at times, refused to get out of bed and soiled herself. This has been an ongoing issue. Mentions o2 was started in outpatient setting continuously (pt. is satting well w.o o2 here; still on PRN). Pt. otherwise does have weekly blood draws (possibly for her clozapine); information relayed to me from staff analyst from [facility] [employer]. <Mis Miller - Last Filed: 09/23/19 19:35> - Patient Data Vitals - Most Recent: Last Vital Signs Temp 36.6 C 09/22/19 10:00 Pulse 75 09/22/19 10:00 Resp 18 09/22/19 10:00 BP 115/58 L 09/22/19 10:00 Pulse Ox 90 L 09/22/19 10:00 Jus Results Last 24 Hours: Microbiology 09/19/19 22:59 Aerobic Blood Culture - Preliminary Blood - Venous - Lab Draw NO GROWTH AFTER 3 DAYS Anaerobic Blood Culture - Final 09/19/19 22:49 Aerobic Blood Culture - Preliminary Blood - Venous NO GROWTH AFTER 3 DAYS Anaerobic Blood Culture - Final Med Orders - Current: Current Medications Discontinued Medications Acetaminophen (Tylenol) 650 mg PO Q6H PRN PRN Reason: Pain Albuterol/Ipratropium (Duoneb 3.0-0.5 Mg/3 Ml) 3 ml NEB Q4HRRT PRN PRN Reason: Shortness of Breath Benztropine Mesylate (Cogentin) 0.5 mg PO DAILY [facility] Last Admin: 09/22/19 10:46 Dose: 0.5 mg Documented by: Calcium Carbonate (Caltrate 600+D 1500 Mg-400 Units) 1 tab PO BID [facility] Last Admin: 09/22/19 10:45 Dose: 1 tab Documented by: Calcium Polycarbophil (Fibercon) 625 mg PO BID [facility] Last Admin: 09/22/19 10:48 Dose: 625 mg Documented by: Clozapine (Clozapine) 100 mg PO DAILY [facility] Cyanocobalamin (Vitamin B12) 1,000 mcg PO DAILY [facility] Last Admin: 09/22/19 10:47 Dose: 1,000 mcg Documented by: Cyanocobalamin (Vitamin B12) 1,000 mcg PO DAILY [facility] Docusate Sodium (Colace) 100 mg PO BID [facility] Last Admin: 09/22/19 10:45 Dose: 100 mg Documented by: Escitalopram Oxalate (Lexapro) 20 mg PO QAM [facility] Last Admin: 09/22/19 10:47 Dose: 20 mg Documented by: Furosemide (Lasix) 40 mg IVPUSH NOW ONE Stop: 09/21/19 12:05 Last Admin: 09/21/19 13:04 Dose: 40 mg Documented by: Gemfibrozil (Lopid) 600 mg PO BIDAC [facility] Last Admin: 09/20/19 17:48 Dose: 600 mg Documented by: Gemfibrozil (Lopid) 600 mg PO BIDAC [facility] Last Admin: 09/22/19 10:49 Dose: 600 mg Documented by: Lactated Ringer's (Ringers, Lactated) 1,000 mls @ 999 mls/hr IV .BOLUS ONE Stop: 09/19/19 23:26 Last Admin: 09/19/19 23:08 Dose: 999 mls/hr Documented by: Pantoprazole Sodium 40 mg/ (Sodium Chloride) 10 mls @ 300 mls/hr IV NOW ONE Stop: 09/19/19 22:27 Last Admin: 09/19/19 23:15 Dose: 300 mls/hr Documented by: Vancomycin HCl 1.5 gm/ Sodium (Chloride) 500 mls @ 333 mls/hr IV Q24H [facility] Last Admin: 09/20/19 01:06 Dose: 333 mls/hr Documented by: Lactated Ringer's (Ringers, Lactated) 1,000 mls @ 100 mls/hr IV ASDIRECTED [facility] Last Admin: 09/21/19 10:23 Dose: 100 mls/hr Documented by: Vancomycin HCl (Vancomycin 1.5 Gm/300 Ml Premix) 300 mls @ 200 mls/hr IV Q12H [facility] Last Admin: 09/21/19 13:51 Dose: Not Given Documented by: Potassium Chloride 40 meq/ (Premix) 100 mls @ 25 mls/hr IV ONETIME ONE Stop: 09/20/19 13:57 Last Admin: 09/20/19 10:58 Dose: 25 mls/hr Documented by: Pantoprazole Sodium 40 mg/ (Sodium Chloride) 10 mls @ 300 mls/hr IV BID [facility] Last Admin: 09/22/19 10:43 Dose: 300 mls/hr Documented by: Magnesium Sulfate 4 gm/ Premix 100 mls @ 50 mls/hr IV ONETIME ONE Stop: 09/21/19 13:56 Last Admin: 09/21/19 13:09 Dose: 50 mls/hr Documented by: Vancomycin HCl (Vancomycin 1.5 Gm/300 Ml Premix) 300 mls @ 200 mls/hr IV Q24H [facility] Last Admin: 09/21/19 20:48 Dose: 200 mls/hr Documented by: Levothyroxine Sodium (Levothyroxine) 75 mcg PO ACBREAKFAST [facility] Last Admin: 09/22/19 10:44 Dose: 75 mcg Documented by: Lorazepam (Ativan) 1 mg PO DAILY PRN PRN Reason: aggression Magnesium Oxide (Magnesium Oxide) 200 mg PO BID [facility] Last Admin: 09/21/19 09:35 Dose: 200 mg Documented by: Multivitamins/Minerals/Vitamin C (Tab-A-Hermann) 1 tab PO DAILY [facility] Last Admin: 09/22/19 10:44 Dose: 1 tab Documented by: Lurasidone Hcl [ Latuda] 80 Mg Own Med 0 each PO DAILY@1700 [facility] Last Admin: 09/20/19 19:45 Dose: 1 each Documented by: Clozapine 100 Mg Tab 2 each PO BEDTIME [facility] Last Admin: 09/21/19 20:38 Dose: 2 each Documented by: Dexlansoprazole [ (Dexilant] 60 Mg) 1 each PO DAILY [facility] Last Admin: 09/20/19 11:29 Dose: Not Given Documented by: Diclofenac Sodium [ (Voltaren 1% Gel]) 1 each TOP QID PRN PRN Reason: Pain Estradiol [Estrace 0 (.01% Vaginal Crm]) 1 each VAG MoFr@0900 [facility] Last Admin: 09/21/19 09:43 Dose: Not Given Documented by: Lurasidone Hcl [ (Latuda] 80 Mg) 1 each PO DAILY@1700 [facility] Last Admin: 09/21/19 07:32 Dose: Not Given Documented by: Clozapine 100 Mg Tab 1 each PO DAILY [facility] Last Admin: 09/22/19 10:50 Dose: 1 each Documented by: Dexlansoprazole [ Dexilant] 60 MgOwn Med 1 each PO DAILY [facility] Last Admin: 09/21/19 09:42 Dose: 1 each Documented by: Lurasidone Hcl [ Latuda] 80 Mg Own Med 0 each PO DAILY@1700 [facility] Last Admin: 09/22/19 07:46 Dose: Not Given Documented by: Dexlansoprazole [ Dexilant] 60 MgOwn Med 1 each PO BEDTIME [facility] Last Admin: 09/21/19 20:41 Dose: 1 each Documented by: Polysaccharide Iron Complex (Ferrex 150) 150 mg PO BID [facility] Last Admin: 09/22/19 10:45 Dose: 150 mg Documented by: Sodium Chloride (Saline Flush) 2.5 ml FLUSH ASDIRECTED PRN PRN Reason: Keep Vein Open Vancomycin HCl (Pharmacy To Dose - Vancomycin) 1 dose .XX ASDIRECTED [facility] Venlafaxine HCl (Effexor Xr) 150 mg PO QAM [facility] Last Admin: 09/22/19 10:48 Dose: 150 mg Documented by: Sepsis Event Note - Focused Exam Date Exam was Performed: 09/23/19 Time Exam was Performed: 19:35 - Problem List & Annotations (1) Cellulitis SNOMED Code(s): 766300731 Code(s): L03.90 - CELLULITIS, UNSPECIFIED Status: Acute (2) Lisfranc fracture SNOMED Code(s): 20432949, 698086320 Code(s): OSE3415 - Status: Acute - Plan Plan:: I have seen and evaluated the patient and agree with the residents note unless specified in my note
--- NOTE | 2019-09-21 13:33 | CR ---
Left foot: 2 views of the left foot were obtained. Comparison: Previous left foot exam of 09/14/19. Findings: Lisfranc injury is noted within the 1st tarsometatarsal joint with slight lateral subluxation. Fractures are identified within the base of the 3rd through 5th metatarsals. Alignment is stable from previous exam. Plantar spur is noted. Mild compression deformity within the navicular bone is seen which appears chronic. No bridging callus is seen. Diffuse soft tissue swelling remains. Impression: 1. Stable fractures as noted above. 2. Slight subluxation at the tarsometatarsal joint of the 1st digit compatible with Lisfranc injury. 3. No bridging callus is seen. Diagnostic code #3 This report was dictated in MDT
--- NOTE | 2019-09-21 16:49 | US ---
Bilateral lower extremity deep venous ultrasound: Duplex and color Doppler evaluation of the right and left common femoral, superficial femoral, popliteal and posterior tibial veins. Findings: Normal compression and Doppler blood flow is seen. Impression: 1. No evidence of deep venous thrombosis within the right or left lower extremities. Diagnostic code #1 This report was dictated in MDT
[2019-09-21] MEDS ORDERED: LURASIDONE HCL 80 MG PO SCH (17:00)
[2019-09-22 06:42] LABS: BLOOD UREA NITROGEN,BUN 18 mg/dL (7.0-18.0); CARBON DIOXIDE,CO2 32.9 mmol/L (21.0-32.0); CHLORIDE,CL 103 mmol/L (98-107); GLUCOSE RANDOM 115 mg/dL (74-106); POTASSIUM,K 3.7 mmol/L (3.5-5.1); SODIUM,NA 142 mmol/L (136-145)
[2019-09-22] MEDS: Pantoprazole 40 MG in Sodium Chloride 0.9% 10 ML IV SCH (10:43)
[2019-09-22] MEDS: Multivitamin Tab PO SCH (10:44)
[2019-09-22] MEDS: Levothyroxine 75 MCG Tab PO SCH (10:44)
[2019-09-22] MEDS: Iron Polysaccharides Complex 150 MG Cap PO SCH (10:45)
[2019-09-22] MEDS: Calcium Carbonate/Vitamin D3 1500 MG-400 Units Tab PO SCH (10:45)
[2019-09-22] MEDS: Docusate Sodium 100 MG Cap PO SCH (10:45)
[2019-09-22] MEDS: Benztropine 1 MG Tab PO SCH (10:46)
[2019-09-22] MEDS: Escitalopram 10 MG Tab PO SCH (10:47)
[2019-09-22] MEDS: Cyanocobalamin (Vitamin B12) 500 MCG Tab PO SCH (10:47)
[2019-09-22] MEDS: Calcium Polycarbophil 625 MG Tab PO SCH (10:48)
[2019-09-22] MEDS: Venlafaxine 75 MG Cap.ER PO SCH (10:48)
[2019-09-22] MEDS: GEMFIBROZIL 600 MG PO SCH (10:49)
[2019-09-22] MEDS: cloZAPine 100 MG Tab PO SCH (10:50)
--- NOTE | 2019-09-22 11:07 | PCM.DCSUM1 ---
<Wing Mackenzie - Last Filed: 09/22/19 16:58> Discharge Summary - Hospital Course Free Text/Narrative:: 59-year-old female with PMH of MR, behavioral problems, was brought in by caregivers [facility] due to concern of left foot redness and swelling. Patient was seen in the ER on 09/14/19 and was diagnosed with Lisfranc fracture and was placed in a walking boot, ortho surgeon in [place] was consulted during her last ER visit and recommended follow-up in 1 week. Ultrasound was also performed to rule out DVT. Reportedly the staff members at the prison noted increased redness, swelling, warmth to the left foot when they were adjusting her walking boot. They also noticed she had trace rectal bleeding with clots. Patient received IV vancomycin in ER for cellulites. Rest of the labs were unremarkable, Hb was stable, no active bleeding. Vitals were stable. Blood cultures were obtained. Patient was admitted for further management of cellulitis. Hospital course: pt. continued on Vancomycin for suspicions for cellulitis. Bcx x 1-2 days negative. pt otherwise afebrile. Labs unremarkable. Concerns for GI bleed brought up by prison ; provided 1 unit of PRBC; repeat labs following day appropriate. Negative fecal occult. Vitals stable. Leg swelling concerns for heart failure/DVT ; US of lower extremities negative. one time dose of lasix given; mild response to medication. Echocardiogram results pending. Day of discharge patient was given rx of Bactrim x 5 days. Discussed case w. orthopedics here; recommended follow up with podiatry. Podiatry referral place. ADvised to use walker when ambulating. Advised to return if redness, swelling and or if fevers, chills or body aches develop. pt. discharged in stable condition. - Discharge Data Discharge Date: 09/22/19 Discharge Disposition: Home, Self-Care 01 Condition: Stable - Referral to Home Health Primary Care Physician: Anila Dodge, DO - Patient Instructions Diet: Regular Diet as Tolerated Notify Provider of: Fever, Increased Pain, Swelling and Redness - Discharge Plan *PRESCRIPTION DRUG MONITORING PROGRAM REVIEWED*: Not Applicable *COPY OF PRESCRIPTION DRUG MONITORING REPORT IN PATIENT RAYSA: Not Applicable Prescriptions/Med Rec: Sulfamethoxazole/Trimethoprim [Bactrim Ds Tablet] 1 each PO BID 5 Days #10 tablet Home Medications: Home Meds Calcium Carbonate/Vitamin D3 [Calcium 250+D] 2 tab PO BID 06/30/13 [History] Gemfibrozil 600 mg PO BIDAC 06/30/13 [History] Levothyroxine 75 mcg PO ACBREAKFAST 06/30/13 [History] Multivitamin [Multi-Vitamin Daily] 1 each PO DAILY 06/30/13 [History] Venlafaxine [Effexor XR] 150 mg PO QAM 06/30/13 [History] Iron Polysaccharide Complex [Poly-Iron] 150 mg PO BID 07/06/14 [History] Aspirin [Halfprin] 81 mg PO DAILY 07/08/15 [History] Dexlansoprazole [Dexilant] 60 mg PO DAILY 07/08/15 [History] Docusate Sodium [Colace] 100 mg PO BID 07/08/15 [History] Calcium Polycarbophil [Fiber Laxative] 625 mg PO BID 07/15/15 [History] Albuterol Sulfate 2.5 mg INH Q4H PRN 11/04/17 [History] Escitalopram [Lexapro] 20 mg PO QAM 11/04/17 [History] Diclofenac Sodium [Voltaren 1% Gel] 1 applic TOP QID PRN 06/09/19 [History] Benztropine [Cogentin] 0.5 mg PO DAILY 09/14/19 [History] LORazepam [Ativan] 1 mg PO DAILY PRN 09/14/19 [History] Lurasidone HCl [Latuda] 80 mg PO DAILY@17 09/14/19 [History] Magnesium Oxide 200 mg PO BID 09/14/19 [History] cloZAPine 100 mg PO DAILY 09/14/19 [History] cloZAPine 200 mg PO BEDTIME 09/14/19 [History] estradioL [Estrace 0.01% Vaginal Crm] 1 applic VAG ASDIRECTED 09/14/19 [History] Cyanocobalamin (Vitamin B-12) [Vitamin B-12] 1,000 mcg PO DAILY 09/20/19 [History] Sulfamethoxazole/Trimethoprim [Bactrim Ds Tablet] 1 each PO BID 5 Days #10 tablet 09/22/19 [Rx] Oxygen Therapy Mode: Nasal Cannula Patient Handouts: Cellulitis, Adult, [id number], Sulfamethoxazole; Trimethoprim, [id number] tablets Referrals: [facility] [Outside] Anila Dodge DO [Primary Care Provider] - 09/29/19 10:45 am (Arrive 15 minutes early with a photo ID, insurance card, discharge paperwork, and a mask if you have one. ) Tomas Summers DPM [Physician] - 10/01/19 4:00 pm (Please arrive 15 minutes early with a photo ID, insurance card, and a mask.) - Discharge Summary/Plan Comment DC Time >30 min.: No - Patient Data Vitals - Most Recent: Last Vital Signs Temp 97.0 F 09/22/19 06:32 Pulse 81 09/22/19 06:32 Resp 18 09/22/19 06:32 BP 99/56 L 09/22/19 06:32 Pulse Ox 91 L 09/22/19 06:32 Weight - Most Recent: 111.992 kg I&O - Last 24 hours: Intake & Output 09/21/19 09/22/19 09/22/19 22:59 06:59 14:59 Intake Total 1743 1300 Output Total 1350 Balance 393 1300 Lab Results - Last 24 hrs: Laboratory Results - last 24 hr 09/21/19 09/21/19 09/22/19 Range/Units 12:20 12:20 06:10 WBC 5.78 (4.0-11.0) K/uL RBC 3.27 L (4.30-5.90) M/uL Hgb 9.7 L (12.0-16.0) g/dL Hct 30.9 L (36.0-46.0) % MCV 94.5 (80.0-98.0) fL MCH 29.7 (27.0-32.0) pg MCHC 31.4 (31.0-37.0) g/dL RDW Std Deviation 48.4 (28.0-62.0) fl RDW Coeff of Amaris 14 (11.0-15.0) % Plt Count 320 (150-400) K/uL MPV 9.60 (7.40-12.00) fL Neut % (Auto) 49.9 (48.0-80.0) % Lymph % (Auto) 35.6 (16.0-40.0) % [place] % (Auto) 10.4 (0.0-15.0) % Eos % (Auto) 3.8 (0.0-7.0) % Baso % (Auto) 0.3 (0.0-1.5) % Neut # (Auto) 2.9 (1.4-5.7) K/uL Lymph # (Auto) 2.1 (0.6-2.4) K/uL [place] # (Auto) 0.6 (0.0-0.8) K/uL Eos # (Auto) 0.2 (0.0-0.7) K/uL Baso # (Auto) 0.0 (0.0-0.1) K/uL Nucleated RBC % 0.0 /100WBC Nucleated RBCs # 0 K/uL Sodium (136-145) mmol/L Potassium (3.5-5.1) mmol/L Chloride (98-107) mmol/L Carbon Dioxide (21.0-32.0) mmol/L BUN (7.0-18.0) mg/dL Creatinine (0.6-1.0) mg/dL Est Cr Clr Drug Dosing mL/min Estimated GFR (MDRD) ml/min Glucose (74-106) mg/dL Calcium (8.5-10.1) mg/dL Total Bilirubin (0.2-1.0) mg/dL AST (15-37) IU/L ALT (14-63) IU/L Alkaline Phosphatase (46-116) U/L Total Protein (6.4-8.2) g/dL Albumin (3.4-5.0) g/dL Globulin (2.6-4.0) g/dL Albumin/Globulin Ratio (0.9-1.6) Vancomycin Trough 19.8 H (5.0-10.0) ug/mL Blood Type A POSITIVE Antibody Screen NEGATIVE Crossmatch See Detail 09/22/19 Range/Units 06:10 WBC (4.0-11.0) K/uL RBC (4.30-5.90) M/uL Hgb (12.0-16.0) g/dL Hct (36.0-46.0) % MCV (80.0-98.0) fL MCH (27.0-32.0) pg MCHC (31.0-37.0) g/dL RDW Std Deviation (28.0-62.0) fl RDW Coeff of Amaris (11.0-15.0) % Plt Count (150-400) K/uL MPV (7.40-12.00) fL Neut % (Auto) (48.0-80.0) % Lymph % (Auto) (16.0-40.0) % [place] % (Auto) (0.0-15.0) % Eos % (Auto) (0.0-7.0) % Baso % (Auto) (0.0-1.5) % Neut # (Auto) (1.4-5.7) K/uL Lymph # (Auto) (0.6-2.4) K/uL P[place] # (Auto) (0.0-0.8) K/uL Eos # (Auto) (0.0-0.7) K/uL Baso # (Auto) (0.0-0.1) K/uL Nucleated RBC % /100WBC Nucleated RBCs # K/uL Sodium 142 (136-145) mmol/L Potassium 3.7 (3.5-5.1) mmol/L Chloride 103 (98-107) mmol/L Carbon Dioxide 32.9 H (21.0-32.0) mmol/L BUN 18 (7.0-18.0) mg/dL Creatinine 0.9 (0.6-1.0) mg/dL Est Cr Clr Drug Dosing 73.68 mL/min Estimated GFR (MDRD) > 60.0 ml/min Glucose 115 H (74-106) mg/dL Calcium 8.6 (8.5-10.1) mg/dL Total Bilirubin 0.3 (0.2-1.0) mg/dL AST 13 L (15-37) IU/L ALT 14 (14-63) IU/L Alkaline Phosphatase 118 H (46-116) U/L Total Protein 6.1 L (6.4-8.2) g/dL Albumin 2.7 L (3.4-5.0) g/dL Globulin 3.4 (2.6-4.0) g/dL Albumin/Globulin Ratio 0.8 L (0.9-1.6) Vancomycin Trough (5.0-10.0) ug/mL Blood Type Antibody Screen Crossmatch MARY Results - Last 24 hrs: Microbiology 09/19/19 22:59 Aerobic Blood Culture - Preliminary Blood - Venous - Lab Draw NO GROWTH AFTER 2 DAYS Anaerobic Blood Culture - Final 09/19/19 22:49 Aerobic Blood Culture - Preliminary Blood - Venous NO GROWTH AFTER 2 DAYS Anaerobic Blood Culture - Final Med Orders - Current: Current Medications Acetaminophen (Tylenol) 650 mg PO Q6H PRN PRN Reason: Pain Albuterol/Ipratropium (Duoneb 3.0-0.5 Mg/3 Ml) 3 ml NEB Q4HRRT PRN PRN Reason: Shortness of Breath Benztropine Mesylate (Cogentin) 0.5 mg PO DAILY [facility] Last Admin: 09/22/19 10:46 Dose: 0.5 mg Documented by: Calcium Carbonate (Caltrate 600+D 1500 Mg-400 Units) 1 tab PO BID [facility] Last Admin: 09/22/19 10:45 Dose: 1 tab Documented by: Calcium Polycarbophil (Fibercon) 625 mg PO BID [facility] Last Admin: 09/22/19 10:48 Dose: 625 mg Documented by: Cyanocobalamin (Vitamin B12) 1,000 mcg PO DAILY [facility] Last Admin: 09/22/19 10:47 Dose: 1,000 mcg Documented by: Docusate Sodium (Colace) 100 mg PO BID [facility] Last Admin: 09/22/19 10:45 Dose: 100 mg Documented by: Escitalopram Oxalate (Lexapro) 20 mg PO QAM [facility] Last Admin: 09/22/19 10:47 Dose: 20 mg Documented by: Gemfibrozil (Lopid) 600 mg PO BIDAC [facility] Last Admin: 09/22/19 10:49 Dose: 600 mg Documented by: Pantoprazole Sodium 40 mg/ (Sodium Chloride) 10 mls @ 300 mls/hr IV BID [facility] Last Admin: 09/22/19 10:43 Dose: 300 mls/hr Documented by: Vancomycin HCl (Vancomycin 1.5 Gm/300 Ml Premix) 300 mls @ 200 mls/hr IV Q24H [facility] Last Admin: 09/21/19 20:48 Dose: 200 mls/hr Documented by: Levothyroxine Sodium (Levothyroxine) 75 mcg PO ACBREAKFAST [facility] Last Admin: 09/22/19 10:44 Dose: 75 mcg Documented by: Lorazepam (Ativan) 1 mg PO DAILY PRN PRN Reason: aggression Multivitamins/Minerals/Vitamin C (Tab-A-Hermann) 1 tab PO DAILY [facility] Last Admin: 09/22/19 10:44 Dose: 1 tab Documented by: Clozapine 100 Mg Tab 2 each PO BEDTIME [facility] Last Admin: 09/21/19 20:38 Dose: 2 each Documented by: Diclofenac Sodium [ (Voltaren 1% Gel]) 1 each TOP QID PRN PRN Reason: Pain Estradiol [Estrace 0 (.01% Vaginal Crm]) 1 each VAG MoFr@0900 [facility] Last Admin: 09/21/19 09:43 Dose: Not Given Documented by: Clozapine 100 Mg Tab 1 each PO DAILY [facility] Last Admin: 09/22/19 10:50 Dose: 1 each Documented by: Lurasidone Hcl [ Latuda] 80 Mg Own Med 0 each PO DAILY@1700 [facility] Last Admin: 09/22/19 07:46 Dose: Not Given Documented by: Dexlansoprazole [ Dexilant] 60 MgOwn Med 1 each PO BEDTIME [facility] Last Admin: 09/21/19 20:41 Dose: 1 each Documented by: Polysaccharide Iron Complex (Ferrex 150) 150 mg PO BID [facility] Last Admin: 09/22/19 10:45 Dose: 150 mg Documented by: Sodium Chloride (Saline Flush) 2.5 ml FLUSH ASDIRECTED PRN PRN Reason: Keep Vein Open Vancomycin HCl (Pharmacy To Dose - Vancomycin) 1 dose .XX ASDIRECTED [facility] Venlafaxine HCl (Effexor Xr) 150 mg PO QAM [facility] Last Admin: 09/22/19 10:48 Dose: 150 mg Documented by: Discontinued Medications Clozapine (Clozapine) 100 mg PO DAILY [facility] Cyanocobalamin (Vitamin B12) 1,000 mcg PO DAILY [facility] Furosemide (Lasix) 40 mg IVPUSH NOW ONE Stop: 09/21/19 12:05 Last Admin: 09/21/19 13:04 Dose: 40 mg Documented by: Gemfibrozil (Lopid) 600 mg PO BIDAC [facility] Last Admin: 09/20/19 17:48 Dose: 600 mg Documented by: Lactated Ringer's (Ringers, Lactated) 1,000 mls @ 999 mls/hr IV .BOLUS ONE Stop: 09/19/19 23:26 Last Admin: 09/19/19 23:08 Dose: 999 mls/hr Documented by: Pantoprazole Sodium 40 mg/ (Sodium Chloride) 10 mls @ 300 mls/hr IV NOW ONE Stop: 09/19/19 22:27 Last Admin: 09/19/19 23:15 Dose: 300 mls/hr Documented by: Vancomycin HCl 1.5 gm/ Sodium (Chloride) 500 mls @ 333 mls/hr IV Q24H [facility] Last Admin: 09/20/19 01:06 Dose: 333 mls/hr Documented by: Lactated Ringer's (Ringers, Lactated) 1,000 mls @ 100 mls/hr IV ASDIRECTED [facility] Last Admin: 09/21/19 10:23 Dose: 100 mls/hr Documented by: Vancomycin HCl (Vancomycin 1.5 Gm/300 Ml Premix) 300 mls @ 200 mls/hr IV Q12H [facility] Last Admin: 09/21/19 13:51 Dose: Not Given Documented by: Potassium Chloride 40 meq/ (Premix) 100 mls @ 25 mls/hr IV ONETIME ONE Stop: 09/20/19 13:57 Last Admin: 09/20/19 10:58 Dose: 25 mls/hr Documented by: Magnesium Sulfate 4 gm/ Premix 100 mls @ 50 mls/hr IV ONETIME ONE Stop: 09/21/19 13:56 Last Admin: 09/21/19 13:09 Dose: 50 mls/hr Documented by: Magnesium Oxide (Magnesium Oxide) 200 mg PO BID [facility] Last Admin: 09/21/19 09:35 Dose: 200 mg Documented by: Lurasidone Hcl [ Latuda] 80 Mg Own Med 0 each PO DAILY@1700 [facility] Last Admin: 09/20/19 19:45 Dose: 1 each Documented by: Dexlansoprazole [ (Dexilant] 60 Mg) 1 each PO DAILY [facility] Last Admin: 09/20/19 11:29 Dose: Not Given Documented by: Lurasidone Hcl [ (Latuda] 80 Mg) 1 each PO DAILY@1700 [facility] Last Admin: 09/21/19 07:32 Dose: Not Given Documented by: Dexlansoprazole [ Dexilant] 60 MgOwn Med 1 each PO DAILY [facility] Last Admin: 09/21/19 09:42 Dose: 1 each Documented by: <Tan Valencia J - Last Filed: 09/25/19 21:31> Discharge Summary - Referral to Home Health Primary Care Physician: Anila Dodge DO - Patient Data Vitals - Most Recent: Last Vital Signs Temp 36.6 C 09/22/19 10:00 Pulse 75 09/22/19 10:00 Resp 18 09/22/19 10:00 BP 115/58 L 09/22/19 10:00 Pulse Ox 90 L 09/22/19 10:00 MARY Results - Last 24 hrs: Microbiology 09/19/19 22:59 Aerobic Blood Culture - Final Blood - Venous - Lab Draw NO GROWTH AFTER 5 DAYS Anaerobic Blood Culture - Final 09/19/19 22:49 Aerobic Blood Culture - Final Blood - Venous NO GROWTH AFTER 5 DAYS Anaerobic Blood Culture - Final Med Orders - Current: Current Medications Discontinued Medications Acetaminophen (Tylenol) 650 mg PO Q6H PRN PRN Reason: Pain Albuterol/Ipratropium (Duoneb 3.0-0.5 Mg/3 Ml) 3 ml NEB Q4HRRT PRN PRN Reason: Shortness of Breath Benztropine Mesylate (Cogentin) 0.5 mg PO DAILY [facility] Last Admin: 09/22/19 10:46 Dose: 0.5 mg Documented by: Calcium Carbonate (Caltrate 600+D 1500 Mg-400 Units) 1 tab PO BID [facility] Last Admin: 09/22/19 10:45 Dose: 1 tab Documented by: Calcium Polycarbophil (Fibercon) 625 mg PO BID [facility] Last Admin: 09/22/19 10:48 Dose: 625 mg Documented by: Clozapine (Clozapine) 100 mg PO DAILY [facility] Cyanocobalamin (Vitamin B12) 1,000 mcg PO DAILY [facility] Last Admin: 09/22/19 10:47 Dose: 1,000 mcg Documented by: Cyanocobalamin (Vitamin B12) 1,000 mcg PO DAILY [facility] Docusate Sodium (Colace) 100 mg PO BID [facility] Last Admin: 09/22/19 10:45 Dose: 100 mg Documented by: Escitalopram Oxalate (Lexapro) 20 mg PO QAM [facility] Last Admin: 09/22/19 10:47 Dose: 20 mg Documented by: Furosemide (Lasix) 40 mg IVPUSH NOW ONE Stop: 09/21/19 12:05 Last Admin: 09/21/19 13:04 Dose: 40 mg Documented by: Gemfibrozil (Lopid) 600 mg PO BIDAC [facility] Last Admin: 09/20/19 17:48 Dose: 600 mg Documented by: Gemfibrozil (Lopid) 600 mg PO BIDAC [facility] Last Admin: 09/22/19 10:49 Dose: 600 mg Documented by: Lactated Ringer's (Ringers, Lactated) 1,000 mls @ 999 mls/hr IV .BOLUS ONE Stop: 09/19/19 23:26 Last Admin: 09/19/19 23:08 Dose: 999 mls/hr Documented by: Pantoprazole Sodium 40 mg/ (Sodium Chloride) 10 mls @ 300 mls/hr IV NOW ONE Stop: 09/19/19 22:27 Last Admin: 09/19/19 23:15 Dose: 300 mls/hr Documented by: Vancomycin HCl 1.5 gm/ Sodium (Chloride) 500 mls @ 333 mls/hr IV Q24H [facility] Last Admin: 09/20/19 01:06 Dose: 333 mls/hr Documented by: Lactated Ringer's (Ringers, Lactated) 1,000 mls @ 100 mls/hr IV ASDIRECTED [facility] Last Admin: 09/21/19 10:23 Dose: 100 mls/hr Documented by: Vancomycin HCl (Vancomycin 1.5 Gm/300 Ml Premix) 300 mls @ 200 mls/hr IV Q12H [facility] Last Admin: 09/21/19 13:51 Dose: Not Given Documented by: Potassium Chloride 40 meq/ (Premix) 100 mls @ 25 mls/hr IV ONETIME ONE Stop: 09/20/19 13:57 Last Admin: 09/20/19 10:58 Dose: 25 mls/hr Documented by: Pantoprazole Sodium 40 mg/ (Sodium Chloride) 10 mls @ 300 mls/hr IV BID [facility] Last Admin: 09/22/19 10:43 Dose: 300 mls/hr Documented by: Magnesium Sulfate 4 gm/ Premix 100 mls @ 50 mls/hr IV ONETIME ONE Stop: 09/21/19 13:56 Last Admin: 09/21/19 13:09 Dose: 50 mls/hr Documented by: Vancomycin HCl (Vancomycin 1.5 Gm/300 Ml Premix) 300 mls @ 200 mls/hr IV Q24H [facility] Last Admin: 09/21/19 20:48 Dose: 200 mls/hr Documented by: Levothyroxine Sodium (Levothyroxine) 75 mcg PO ACBREAKFAST [facility] Last Admin: 09/22/19 10:44 Dose: 75 mcg Documented by: Lorazepam (Ativan) 1 mg PO DAILY PRN PRN Reason: aggression Magnesium Oxide (Magnesium Oxide) 200 mg PO BID [facility] Last Admin: 09/21/19 09:35 Dose: 200 mg Documented by: Multivitamins/Minerals/Vitamin C (Tab-A-Hermann) 1 tab PO DAILY [facility] Last Admin: 09/22/19 10:44 Dose: 1 tab Documented by: Lurasidone Hcl [ Latuda] 80 Mg Own Med 0 each PO DAILY@1700 [facility] Last Admin: 09/20/19 19:45 Dose: 1 each Documented by: Clozapine 100 Mg Tab 2 each PO BEDTIME [facility] Last Admin: 09/21/19 20:38 Dose: 2 each Documented by: Dexlansoprazole [ (Dexilant] 60 Mg) 1 each PO DAILY [facility] Last Admin: 09/20/19 11:29 Dose: Not Given Documented by: Diclofenac Sodium [ (Voltaren 1% Gel]) 1 each TOP QID PRN PRN Reason: Pain Estradiol [Estrace 0 (.01% Vaginal Crm]) 1 each VAG MoFr@0900 [facility] Last Admin: 09/21/19 09:43 Dose: Not Given Documented by: Lurasidone Hcl [ (Latuda] 80 Mg) 1 each PO DAILY@1700 [facility] Last Admin: 09/21/19 07:32 Dose: Not Given Documented by: Clozapine 100 Mg Tab 1 each PO DAILY [facility] Last Admin: 09/22/19 10:50 Dose: 1 each Documented by: Dexlansoprazole [ Dexilant] 60 MgOwn Med 1 each PO DAILY [facility] Last Admin: 09/21/19 09:42 Dose: 1 each Documented by: Lurasidone Hcl [ Latuda] 80 Mg Own Med 0 each PO DAILY@1700 [facility] Last Admin: 09/22/19 07:46 Dose: Not Given Documented by: Dexlansoprazole [ Dexilant] 60 MgOwn Med 1 each PO BEDTIME [facility] Last Admin: 09/21/19 20:41 Dose: 1 each Documented by: Polysaccharide Iron Complex (Ferrex 150) 150 mg PO BID [facility] Last Admin: 09/22/19 10:45 Dose: 150 mg Documented by: Sodium Chloride (Saline Flush) 2.5 ml FLUSH ASDIRECTED PRN PRN Reason: Keep Vein Open Vancomycin HCl (Pharmacy To Dose - Vancomycin) 1 dose .XX ASDIRECTED [facility] Venlafaxine HCl (Effexor Xr) 150 mg PO QAM [facility] Last Admin: 09/22/19 10:48 Dose: 150 mg Documented by: - Free Text/Narrative Note: I have seen and evaluated the patient with the resident. I have discussed findings and treatment plan with resident. I agree with the assessment and plan as outlined in the following note.
[2019-09-22 11:08] VITALS: BP 115/58; PULSE 75
--- NOTE | 2019-09-28 12:50 | ECHO ---
EXAM DATE: 09/20/19 PATIENT'S AGE: 59 The ECHO report has been scanned into [employer] and can be seen in this patient's EMR (Electronic Medical Record) under the REPORTS section. The report has also been scanned into PACS. [facility]
== END 2019-09-22 12:45 | disposition home or self-care (01) ==
LOC: MW.ED 21:43 → MW.MS 09-20 01:03
PROVIDERS: ADMIT Student in an Organized Health Care Education/Training Program; ATTEND Student in an Organized Health Care Education/Training Program
DX: L03.116 Cellulitis of left lower limb (principal); S92.812D Other fracture of left foot, subsequent encounter for fracture with routine healing; K21.9 Gastro-esophageal reflux disease without esophagitis; E03.9 Hypothyroidism, unspecified; E66.9 Obesity, unspecified; F32.9 Major depressive disorder, single episode, unspecified; Z88.8 Allergy status to other drugs, medicaments and biological substances; Z79.890 Hormone replacement therapy; Z79.899 Other long term (current) drug therapy; Z68.33 Body mass index [BMI] 33.0-33.9, adult
CPT/HCPCS: 36415; 36430; 71045; 73620; 80048; 80053; 80202; 81001; 82272; 83605; 83690; 83735; 84100; 85014; 85018; 85025; 85610; 85730; 86140; 86850; 86900; 86901; 86920; 86921; 86922; 87040; 93306; 93970; 96361; 96365; 96366; 96367; 96375; 96376; 99284; A9270; C9113; G0378; J1940; J3370; J3475; J3480; J7040; J7050; J7120; P9016; 99283

== ENCOUNTER 2019-10-13 15:02 | Emergency (ER) | payer MEDICARE, MEDICAID ==
--- NOTE | 2019-10-13 15:51 | EDM.PDOC ---
ED HPI GENERAL MEDICAL PROBLEM - General Chief Complaint: Cardiovascular Problem Stated Complaint: HIGH BP Time Seen by Provider: 10/13/19 15:10 - History of Present Illness INITIAL COMMENTS - FREE TEXT/NARRATIVE: 59-year-old female with known Lisfranc fracture and a history of developmental delay who is presenting with no symptoms after an initial visit by home health and yielded a measured high blood pressure of 200s over 100s. Patient's caregiver at bedside reports that she was in a significant amount of pain in her left foot at that time. She was given 1 g of Tylenol. However the home health nurse waited only 20 minutes prior to repeating the blood pressure and it was still elevated and so they were referred to the emergency room. The patient feels well at this time no chest pain shortness of breath nausea vomiting dizziness back pain headache or neck pain. She did not have any of these symptoms earlier in the day either. No exacerbating or alleviating factors radiation or other associated symptoms. - Related Data Allergies Allergy/AdvReac Type Severity Reaction Status Date / Time divalproex sodium Allergy Lethargy Verified 10/13/19 15:14 [[facility] Home Meds: Home Meds Calcium Carbonate/Vitamin D3 [Calcium 250+D] 2 tab PO BID 06/30/13 [History] Gemfibrozil 600 mg PO BIDAC 06/30/13 [History] Levothyroxine 75 mcg PO ACBREAKFAST 06/30/13 [History] Multivitamin [Multi-Vitamin Daily] 1 each PO DAILY 06/30/13 [History] Venlafaxine [Effexor XR] 150 mg PO QAM 06/30/13 [History] Iron Polysaccharide Complex [Poly-Iron] 150 mg PO BID 07/06/14 [History] Aspirin [Halfprin] 81 mg PO DAILY 07/08/15 [History] Dexlansoprazole [Dexilant] 60 mg PO DAILY 07/08/15 [History] Docusate Sodium [Colace] 100 mg PO BID 07/08/15 [History] Calcium Polycarbophil [Fiber Laxative] 625 mg PO BID 07/15/15 [History] Albuterol Sulfate 2.5 mg INH Q4H PRN 11/04/17 [History] Escitalopram [Lexapro] 20 mg PO QAM 11/04/17 [History] Diclofenac Sodium [Voltaren 1% Gel] 1 applic TOP QID PRN 06/09/19 [History] Benztropine [Cogentin] 0.5 mg PO DAILY 09/14/19 [History] LORazepam [Ativan] 1 mg PO DAILY PRN 09/14/19 [History] Lurasidone HCl [Latuda] 80 mg PO DAILY@17 09/14/19 [History] Magnesium Oxide 200 mg PO BID 09/14/19 [History] cloZAPine 100 mg PO DAILY 09/14/19 [History] cloZAPine 200 mg PO BEDTIME 09/14/19 [History] estradioL [Estrace 0.01% Vaginal Crm] 1 applic VAG ASDIRECTED 09/14/19 [History] Cyanocobalamin (Vitamin B-12) [Vitamin B-12] 1,000 mcg PO DAILY 09/20/19 [History] Sulfamethoxazole/Trimethoprim [Bactrim Ds Tablet] 1 each PO BID 5 Days #10 tablet 09/22/19 [Rx] Past Medical History HEENT History: Reports: Hard of Hearing, Impaired Vision, Other (See Below) Other HEENT History: Bilateral exotropia Cardiovascular History: Reports: None Respiratory History: Reports: Other (See Below) Other Respiratory History: 2L O2 use at bedtime Gastrointestinal History: Reports: Chronic Constipation, GERD Genitourinary History: Reports: None 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: Musculoskeletal History: Reports: Fracture Neurological History: Reports: None Psychiatric History: Reports: Depression, Psychosis, Other (See Below) Other Psychiatric History: Self Harm Endocrine/Metabolic History: Reports: Hypothyroidism, Obesity/BMI 30+ Hematologic History: Reports: None Immunologic History: Reports: None Oncologic (Cancer) History: Reports: None Dermatologic History: Reports: Other (See Below) Other Dermatologic History: varicose veins with edema - Infectious Disease History Infectious Disease History: Reports: None Other Infectious Disease History: Unable to verify any other illnesses. - Past Surgical History Female Surgical History: Reports: Section, Tubal Ligation Musculoskeletal Surgical History: Reports: Other (See Below) Social & Family History - Family History Family Medical History: Unobtainable - Tobacco Use Smoking Status *Q: Never Smoker - Caffeine Use Caffeine Use: Reports: None Caffeine Use Comment: unable to assess - Recreational Drug Use Recreational Drug Use: No - Living Situation & Occupation Living situation: Reports: Assisted Living, Other Occupation: Disabled ED ROS GENERAL - Review of Systems Review Of Systems: See Below Free Text/Narrative/Comment: General: No fever. Skin: No rash. Eyes: No vision problems. ENT: No sore throat. Neck: No neck stiffness. Respiratory: No shortness of breath. Cardiac: No chest pain. Gastrointestinal: No nausea, vomiting or abdominal pain. Urinary: No dysuria. Musculoskeletal: Left foot pain secondary to known foot fracture Neurologic: No headache. ED EXAM, GENERAL - Physical Exam Exam: See Below Free Text/Narrative:: General Appearance: No acute distress, appears comfortable Skin: No rash HEENT: Normocephalic/atraumatic, sclera anicteric, mucous membranes moist Neck: Normal range of motion Chest and Lungs: Bilateral breath sounds, clear to auscultation Cardiovascular: Regular rate and rhythm, no murmur Abdomen: Soft, non-tender Back: Normal Musculoskeletal: No edema or tenderness, left foot in walking boot Neurologic: Awake, alert, no obvious deficits, moving all extremities Psychiatric: Appropriate, cooperative Course - Vital Signs Last Recorded V/S: Last Vital Signs Temp 97.2 F 10/13/19 15:10 Pulse 92 10/13/19 15:10 Resp 22 H 10/13/19 15:10 BP 128/68 10/13/19 15:10 Pulse Ox 95 10/13/19 15:10 Departure - Departure Time of Disposition: 15:49 Disposition: Home, Self-Care 01 Condition: Good Clinical Impression: Normal blood pressure Instructions: Hypertension, Adult, [id number] Forms: ED Department Discharge Additional Instructions: Your blood pressure today was normal and did not show any signs of hypertension. For the next few days I recommend that you take your blood pressure once a day. You can do this in the morning or in the afternoon but it is important that you pick a consistent time each day. It is also important that you have been sitting or laying down and that you are not in any pain and completely relaxed for 20 to 30 minutes prior to taking your blood pressure. Keep a record of the numbers you obtain and discuss these with your primary care doctor to see if you need any type of blood pressure medication. The following information is given to patients seen in the emergency department who are being discharged to home. This information is to outline your options for follow-up care. We provide all patients seen in our emergency department with a follow-up referral. The need for follow-up, as well as the timing and circumstances, are variable depending upon the specifics of your emergency department visit. If you don't have a primary care physician on staff, we will provide you with a referral. We always advise you to contact your personal physician following an emergency department visit to inform them of the circumstance of the visit and for follow-up with them and/or the need for any referrals to a consulting specialist. The emergency department will also refer you to a specialist when appropriate. This referral assures that you have the opportunity for follow-up care with a specialist. All of these measure are taken in an effort to provide you with optimal care, which includes your follow-up. Under all circumstances we always encourage you to contact your private physician who remains a resource for coordinating your care. When calling for follow-up care, please make the office aware that this follow-up is from your recent emergency room visit. If for any reason you are refused follow-up, please contact the [facility] Emergency Department at and asked to speak to the emergency department charge nurse. Sepsis Event Note (ED) - Evaluation Sepsis Screening Result: No Definite Risk - Focused Exam Vital Signs: Vital Signs Temp Pulse Resp BP Pulse Ox 10/13/19 15:10 97.2 F 92 22 H 128/68 95 - Assessment/Plan Assessment:: 59-year-old female presenting with normal blood pressure and no symptoms. Patient's measured elevated blood pressure earlier was likely secondary to pain the pain is now resolved and her blood pressure has normalized. We discussed that they will take her blood pressure once daily while she is relaxed for the next few days record the numbers and discuss with her primary care provider. No symptoms and again normal vital signs here. No signs of acute medical process.
[2019-10-13 15:56] VITALS: BP 115/88; PULSE 91
== END 2019-10-13 15:57 | disposition home or self-care (01) ==
LOC: MW.ED 15:02
DX: Z01.30 Encounter for examination of blood pressure without abnormal findings (principal); E66.9 Obesity, unspecified; K21.9 Gastro-esophageal reflux disease without esophagitis; F32.9 Major depressive disorder, single episode, unspecified; Z68.41 Body mass index [BMI] 40.0-44.9, adult; Z88.8 Allergy status to other drugs, medicaments and biological substances; Z79.82 Long term (current) use of aspirin; Z79.899 Other long term (current) drug therapy
CPT/HCPCS: 99283

== ENCOUNTER 2019-11-28 20:18 | Emergency (ER) | payer MEDICARE, MEDICAID, OTHER ==
--- NOTE | 2019-11-28 20:50 | EDM.PDOC ---
ED HPI GENERAL MEDICAL PROBLEM - General Chief Complaint: Fever Stated Complaint: COVID EXPOSURE FEVER OVER 100 Time Seen by Provider: 11/28/19 20:33 Source of Information: Reports: Patient History Limitations: Reports: No Limitations - History of Present Illness INITIAL COMMENTS - FREE TEXT/NARRATIVE: 59-year-old female with history of mental retardation, aggressive behavior, bipolar disorder, parkinsonian, obstructive sleep apnea, pneumonia, was brought here from [facility] after being tested positive for COVID-19. She wears 2L oxygen normally. Caregivers states that she has been having fever, 3 episodes of nonbloody vomiting, dry cough, sore throat, diffuse myalgia, generalized malaise for 3 days. She also notes epigastric abdominal pain for 1 day. She has had decreased appetite since noon. HPI and review of systems limited secondary to mental retardation. Past medical history: No additional pertinent history Past Surgical history: No additional pertinent history Social history: No additional pertinent history Family history: No additional pertinent history PHYSICAL EXAM 97% on 2L NC; interpretation = normal General: AOx2, GCS = 15, No distress HEENT: dry mucous membrane Neck: supple, no meningismus, no Kernig or Brudzinski Cardiac: S1S2 RRR Respiratory: CTAB, no crackles or rales, no wheezing Abdomen: Soft, epigastric tender, no rebound or guarding, nondistended, no pulsatile mass. Back: nontender Musculoskeletal: NVI distally, no deformity, left lower extremity postop shoe in place. Neuro: No focal deficits - Related Data Allergies Allergy/AdvReac Type Severity Reaction Status Date / Time divalproex sodium Allergy Lethargy Verified 11/28/19 20:49 [From Depakote] Home Meds: Home Meds Calcium Carbonate/Vitamin D3 [Calcium 250+D] 2 tab PO BID 06/30/13 [History] Gemfibrozil 600 mg PO BIDAC 06/30/13 [History] Levothyroxine 75 mcg PO ACBREAKFAST 06/30/13 [History] Multivitamin [Multi-Vitamin Daily] 1 each PO DAILY 06/30/13 [History] Venlafaxine [Effexor XR] 150 mg PO QAM 06/30/13 [History] Iron Polysaccharide Complex [Poly-Iron] 150 mg PO BID 07/06/14 [History] Aspirin [Halfprin] 81 mg PO DAILY 07/08/15 [History] Dexlansoprazole [Dexilant] 60 mg PO DAILY 07/08/15 [History] Docusate Sodium [Colace] 100 mg PO BID 07/08/15 [History] Calcium Polycarbophil [Fiber Laxative] 625 mg PO BID 07/15/15 [History] Escitalopram [Lexapro] 20 mg PO QAM 11/04/17 [History] Diclofenac Sodium [Voltaren 1% Gel] 1 applic TOP QID PRN 06/09/19 [History] Benztropine [Cogentin] 0.5 mg PO DAILY 09/14/19 [History] LORazepam [Ativan] 1 mg PO DAILY PRN 09/14/19 [History] Lurasidone HCl [Latuda] 80 mg PO DAILY@17 09/14/19 [History] Magnesium Oxide 200 mg PO BID 09/14/19 [History] cloZAPine 100 mg PO DAILY 09/14/19 [History] cloZAPine 200 mg PO BEDTIME 09/14/19 [History] estradioL [Estrace 0.01% Vaginal Crm] 1 applic VAG ASDIRECTED 09/14/19 [History] Cyanocobalamin (Vitamin B-12) [Vitamin B-12] 1,000 mcg PO DAILY 09/20/19 [History] Past Medical History HEENT History: Reports: Hard of Hearing, Impaired Vision, Other (See Below) Other HEENT History: Bilateral exotropia Cardiovascular History: Reports: None Respiratory History: Reports: Other (See Below) Other Respiratory History: 2L O2 use at bedtime Gastrointestinal History: Reports: Chronic Constipation, GERD Genitourinary History: Reports: None 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: Musculoskeletal History: Reports: Fracture Neurological History: Reports: None Psychiatric History: Reports: Depression, Psychosis, Other (See Below) Other Psychiatric History: Self Harm Endocrine/Metabolic History: Reports: Hypothyroidism, Obesity/BMI 30+ Hematologic History: Reports: None Immunologic History: Reports: None Oncologic (Cancer) History: Reports: None Dermatologic History: Reports: Other (See Below) Other Dermatologic History: varicose veins with edema - Infectious Disease History Infectious Disease History: Reports: None Other Infectious Disease History: Unable to verify any other illnesses. - Past Surgical History Female Surgical History: Reports: Section, Tubal Ligation Musculoskeletal Surgical History: Reports: Other (See Below) Social & Family History - Family History Family Medical History: Unobtainable - Caffeine Use Caffeine Use: Reports: None Caffeine Use Comment: unable to assess - Living Situation & Occupation Living situation: Reports: Assisted Living, Other Occupation: Disabled ED ROS GENERAL - Review of Systems Review Of Systems: Comprehensive ROS is negative, except as noted in HPI. ED EXAM, GENERAL - Physical Exam Exam: See Below (see dictation) EKG INTERPRETATION EKG Interpretation Comments: [] bpm, NSR, normal QRS interval, no STEMI. EKG and rhythm strip interpreted by me at [] Course - Vital Signs Last Recorded V/S: Last Vital Signs Temp 98.1 F 11/28/19 20:41 Pulse 86 11/28/19 22:58 Resp 20 11/28/19 20:41 BP 113/60 11/28/19 22:58 Pulse Ox 95 11/28/19 22:58 - Orders/Labs/Meds Orders: Active Orders 24 hr Category Date Time Status Cardiac Monitoring [RC] . DIRECTED Care 11/28/19 20:50 Active EKG Documentation Completion [RC] STAT Care 11/28/19 20:52 Active PROCALCITONIN [REF] Stat Lab 11/28/19 21:46 Received Isolation [COMM] Stat Oth 11/28/19 20:51 Active Labs: Laboratory Tests 11/28/19 11/28/19 11/28/19 Range/Units 20:50 21:46 21:46 WBC (4.0-11.0) K/uL RBC (4.30-5.90) M/uL Hgb (12.0-16.0) g/dL Hct (36.0-46.0) % MCV (80.0-98.0) fL MCH (27.0-32.0) pg MCHC (31.0-37.0) g/dL RDW Std Deviation (28.0-62.0) fl RDW Coeff of Amaris (11.0-15.0) % Plt Count (150-400) K/uL MPV (7.40-12.00) fL Neut % (Auto) (48.0-80.0) % Lymph % (Auto) (16.0-40.0) % [place] % (Auto) (0.0-15.0) % Eos % (Auto) (0.0-7.0) % Baso % (Auto) (0.0-1.5) % Neut # (Auto) (1.4-5.7) K/uL Lymph # (Auto) (0.6-2.4) K/uL [place] # (Auto) (0.0-0.8) K/uL Eos # (Auto) (0.0-0.7) K/uL Baso # (Auto) (0.0-0.1) K/uL Nucleated RBC % /100WBC Nucleated RBCs # K/uL INR 1.06 D-Dimer, Quantitative (0.0-0.50) mg/L FEU Lactate (0.20-2.00) mmol/L Ferritin (8-252) ng/mL Lactate Dehydrogenase 228 (81-234) U/L Troponin I (0.000-0.056) ng/mL C-Reactive Protein 5.10 H (0.00-0.90) mg/dL Lipase (73-393) U/L COVID-19 (ANALILIA) POSITIVE H (NEGATIVE) 11/28/19 11/28/19 11/28/19 Range/Units 21:46 21:46 21:46 WBC 9.49 (4.0-11.0) K/uL RBC 4.03 L (4.30-5.90) M/uL Hgb 11.5 L (12.0-16.0) g/dL Hct 37.5 (36.0-46.0) % MCV 93.1 (80.0-98.0) fL MCH 28.5 (27.0-32.0) pg MCHC 30.7 L (31.0-37.0) g/dL RDW Std Deviation 49.5 (28.0-62.0) fl RDW Coeff of Amaris 15 (11.0-15.0) % Plt Count 257 (150-400) K/uL MPV 11.00 (7.40-12.00) fL Neut % (Auto) 76.9 (48.0-80.0) % Lymph % (Auto) 15.4 L (16.0-40.0) % [place] % (Auto) 6.1 (0.0-15.0) % Eos % (Auto) 1.4 (0.0-7.0) % Baso % (Auto) 0.2 (0.0-1.5) % Neut # (Auto) 7.3 H (1.4-5.7) K/uL Lymph # (Auto) 1.5 (0.6-2.4) K/uL [place] # (Auto) 0.6 (0.0-0.8) K/uL Eos # (Auto) 0.1 (0.0-0.7) K/uL Baso # (Auto) 0.0 (0.0-0.1) K/uL Nucleated RBC % 0.0 /100WBC Nucleated RBCs # 0 K/uL INR D-Dimer, Quantitative 0.48 (0.0-0.50) mg/L FEU Lactate (0.20-2.00) mmol/L Ferritin 74 (8-252) ng/mL Lactate Dehydrogenase (81-234) U/L Troponin I (0.000-0.056) ng/mL C-Reactive Protein (0.00-0.90) mg/dL Lipase (73-393) U/L COVID-19 (ANALILIA) (NEGATIVE) 11/28/19 11/28/19 Range/Units 21:46 21:46 WBC (4.0-11.0) K/uL RBC (4.30-5.90) M/uL Hgb (12.0-16.0) g/dL Hct (36.0-46.0) % MCV (80.0-98.0) fL MCH (27.0-32.0) pg MCHC (31.0-37.0) g/dL RDW Std Deviation (28.0-62.0) fl RDW Coeff of Amaris (11.0-15.0) % Plt Count (150-400) K/uL MPV (7.40-12.00) fL Neut % (Auto) (48.0-80.0) % Lymph % (Auto) (16.0-40.0) % [place] % (Auto) (0.0-15.0) % Eos % (Auto) (0.0-7.0) % Baso % (Auto) (0.0-1.5) % Neut # (Auto) (1.4-5.7) K/uL Lymph # (Auto) (0.6-2.4) K/uL [place] # (Auto) (0.0-0.8) K/uL Eos # (Auto) (0.0-0.7) K/uL Baso # (Auto) (0.0-0.1) K/uL Nucleated RBC % /100WBC Nucleated RBCs # K/uL INR D-Dimer, Quantitative (0.0-0.50) mg/L FEU Lactate 1.9 (0.20-2.00) mmol/L Ferritin (8-252) ng/mL Lactate Dehydrogenase (81-234) U/L Troponin I < 0.050 (0.000-0.056) ng/mL C-Reactive Protein (0.00-0.90) mg/dL Lipase 69 L (73-393) U/L COVID-19 (ANALILIA) (NEGATIVE) - Re-Assessments/Exams Free Text/Narrative Re-Assessment/Exam: 11/28/19 23:26 After prolong observation in the ER, the patient is currently stable for discharge. I performed a repeat exam and did not appreciate new abnormal findings. Patient exhibits normal vital signs, he is satting 94% on 2L NC, which she is normally on 2L. I advised the patient to return to the ER for reevaluation if symptoms worsened, including fever, worsening pain, or any other worrisome symptoms. I instructed the patient to follow up with their PCP within 2-3 days. MEDICAL DECISION MAKING: I reviewed the patients past medical records, lab and radiographic findings. I discussed the case with the patient. My differential diagnosis included: COVID, pneumonia, constipation. Chest x-ray did not reveal pneumonia, oxygen saturation was normal on room air, patient was not in respiratory distress. Patient's EKG and troponin were unremarkable, I do not suspect atypical chest pain. Patient demonstrates no leukocytosis, her abdominal exam is soft and only minimally tender to epigastrium, I do not suspect need for CT imaging studies. I personally reviewed KUB x-ray. I do not suspect SBO or LBO or volvulus. This patient was evaluated for the symptoms described in the history of present illness. They were evaluated in the context of the global COVID-19 pandemic, which necessitated consideration that the patie nt might be at risk for infection with the SARS-CoV-2 virus that causes COVID- 19. Institutional protocols and algorithms that pertain to the evaluation of patients at risk for COVID-19 are in a state of rapid change based on information released by regulatory bodies including the CDC and federal and state organizations. These policies and algorithms were followed during the patient's care. I wore full PPE, N95, face shield, gown and gloves throughout my evaluation and care of this patient. She normally uses 2 L nasal cannula, and she is satting 97% on 2 L nasal cannula. Departure - Departure Time of Disposition: 23:29 Disposition: Home, Self-Care 01 Condition: Good Clinical Impression: COVID-19 - Discharge Information *PRESCRIPTION DRUG MONITORING PROGRAM REVIEWED*: Not Applicable *COPY OF PRESCRIPTION DRUG MONITORING REPORT IN PATIENT RAYSA: Not Applicable Instructions: COVID-19 Frequently Asked Questions, COVID-19, COVID-19: How to Protect Yourself and Others - CDC, Prevent the Spread of COVID-19 if You Are Sick - CDC Referrals: PCP,None [Primary Care Provider] - 2 Days Forms: ED Department Discharge Additional Instructions: The need for follow-up, as well as the timing and circumstances, are variable depending upon the specifics of your emergency department visit. If you don't have a primary care physician on staff, we will provide you with a referral. We always advise you to contact your personal physician following an emergency department visit to inform them of the circumstance of the visit and for follow-up with them and/or the need for any referrals to a consulting specialist. The emergency department will also refer you to a specialist when appropriate. This referral assures that you have the opportunity for follow-up care with a specialist. All of these measure are taken in an effort to provide you with optimal care, which includes your follow-up. Under all circumstances we always encourage you to contact your private physician who remains a resource for coordinating your care. When calling for follow-up care, please make the office aware that this follow-up is from your recent emergency room visit. If for any reason you are refused follow-up, please contact the [facility] Emergency Department at and asked to speak to the emergency department charge nurse. If you do not have a primary care doctor, please follow up with the clinics below within 3-5 days. [facility] - Primary Care [address] [place] [id number] [facility] [address] [place] [id number] Sepsis Event Note (ED) - Evaluation Sepsis Screening Result: No Definite Risk - Focused Exam Vital Signs: Vital Signs Temp Pulse Resp BP Pulse Ox 11/28/19 22:58 86 113/60 95 11/28/19 21:08 97 11/28/19 20:41 98.1 F 78 20 135/78 87 L - My Orders Last 24 Hours: My Active Orders 11/28/19 20:50 Cardiac Monitoring [RC] . DIRECTED 11/28/19 20:51 Isolation [COMM] Stat 11/28/19 20:52 EKG Documentation Completion [RC] STAT 11/28/19 21:46 PROCALCITONIN [REF] Stat - Assessment/Plan Last 24 Hours: My Active Orders 11/28/19 20:50 Cardiac Monitoring [RC] . DIRECTED 11/28/19 20:51 Isolation [COMM] Stat 11/28/19 20:52 EKG Documentation Completion [RC] STAT 11/28/19 21:46 PROCALCITONIN [REF] Stat
[2019-11-28 22:35] LABS: LIPASE 69 U/L (73-393)
--- NOTE | 2019-11-28 22:39 | CR ---
HISTORY: Respiratory failure. Positive COVID. COMPARISON: 09/19/2019 FINDINGS: A portable erect AP view of the chest was obtained at 21 52 hours. The lungs remain clear despite shallow inspiration. No focal or diffuse infiltrates are present. The heart remains normal in size. The mediastinum is normal in appearance. The osseous structures are normal in appearance for the patient`s age. IMPRESSION: Normal portable chest single view. No infiltrate suggestive of COVID-19 infection. Dictated by Lopez Griffin MD @ Nov 28 2019 10:35PM Signed by Dr. Lopez Griffin @ Nov 28 2019 10:37PM
--- NOTE | 2019-11-28 22:49 | CR ---
INDICATION: Epigastric pain TECHNIQUE: Abdomen 1 view. COMPARISON: None FINDINGS: Bowel: Air distended small bowel loops in the upper abdomen. Soft tissues: No sign of free air. No sign of soft tissue mass. No suspicious calcifications. Bones: Unremarkable for age. IMPRESSION: Nonspecific air distended small bowel loops in the upper abdomen. Dictated by Travis Horn MD @ 11/28/2019 10:48:19 PM Dictated by: Travis Horn MD @ 11/28/2019 22:48:55 (Electronically Signed)
[2019-11-29 07:42] VITALS: BP 124/64; PULSE 79
== END 2019-11-28 23:40 | disposition home or self-care (01) ==
LOC: MW.ED 20:18
DX: U07.1 COVID-19 (principal); K21.9 Gastro-esophageal reflux disease without esophagitis; F79 Unspecified intellectual disabilities; G20 Parkinson's disease; F32.9 Major depressive disorder, single episode, unspecified; E03.9 Hypothyroidism, unspecified; E66.9 Obesity, unspecified; Z79.899 Other long term (current) drug therapy; Z68.35 Body mass index [BMI] 35.0-35.9, adult; Z88.8 Allergy status to other drugs, medicaments and biological substances
CPT/HCPCS: 36415; 71045; 74018; 82728; 83605; 83615; 83690; 84145; 84484; 85025; 85379; 85610; 86140; 93005; 99284; U0002

== ENCOUNTER 2019-12-01 16:19 | Emergency (ER) | payer MEDICARE, MEDICAID, OTHER ==
--- NOTE | 2019-12-01 16:30 | EDM.PDOC ---
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 Presents from the [facility]. Normally is on 2 L of oxygen at all times. She [facility] to the emergency department with [facility] caregiver staff. Staff states that she was diagnosed with COVID-19 on 11/28/2019. Since then she has intermittently had body aches and chills and fatigue. Apparently the patient is on oxygen at the [facility] and her oxygen was taken off at some point. Staff members took her pulse oximetry readings off of oxygen and it was 85%, so they brought her to the emergency department but did not attempt to take a pulse oximetry reading back on her oxygen. Here, the [facility] staff member states that she seems to be at her baseline. Does not seem to be complaining of any shortness of breath but is essentially limited to simple one-word answers at baseline. Staff member denies any complaints of shortness of breath at any point earlier today. Accompanying staff member has no concerns at this time. Past medical history: Reviewed, no additional pertinent history. Surgical history: Reviewed in system, no additional pertinent history. Social history: Reviewed in system, no additional pertinent history. Family history: Reviewed in system, no additional pertinent history. Limited physical examination was performed due to COVID pandemic, distanced physical examination to prevent physician exposure and to preserve PPE. Vital signs reviewed. Nursing notes reviewed. Constitutional: Awake, alert, non-distressed. Head: Normocephalic, atraumatic. Eyes: No scleral icterus. Pulmonary: normal work of breathing, no accessory muscle use. Speaking in one- word sentences (which is baseline), handling secretions well. Symmetric chest rise. Abdomen/GI: nondistended Musculoskeletal: No deformities. Integumentary: Appropriate color for ethnicity, warm, dry, no pallor or jaundice, no rash. Neurologic: Alert, no facial droop, moving all extremities well. One word responses. Psychiatric: Withdrawn. This patient was seen and evaluated during the 2019 SARS-CoV-2 novel coronavirus pandemic period. - Related Data Allergies Allergy/AdvReac Type Severity Reaction Status Date / Time divalproex sodium Allergy Lethargy Verified 12/01/19 17:02 [From Depakote] Home Meds: Home Meds Calcium Carbonate/Vitamin D3 [Calcium 250+D] 2 tab PO BID 06/30/13 [History] Gemfibrozil 600 mg PO BIDAC 06/30/13 [History] Levothyroxine 75 mcg PO ACBREAKFAST 06/30/13 [History] Multivitamin [Multi-Vitamin Daily] 1 each PO DAILY 06/30/13 [History] Venlafaxine [Effexor XR] 150 mg PO QAM 06/30/13 [History] Iron Polysaccharide Complex [Poly-Iron] 150 mg PO BID 07/06/14 [History] Aspirin [Halfprin] 81 mg PO DAILY 07/08/15 [History] Dexlansoprazole [Dexilant] 60 mg PO DAILY 07/08/15 [History] Docusate Sodium [Colace] 100 mg PO BID 07/08/15 [History] Calcium Polycarbophil [Fiber Laxative] 625 mg PO BID 07/15/15 [History] Escitalopram [Lexapro] 20 mg PO QAM 11/04/17 [History] Diclofenac Sodium [Voltaren 1% Gel] 1 applic TOP QID PRN 06/09/19 [History] Benztropine [Cogentin] 0.5 mg PO DAILY 09/14/19 [History] LORazepam [Ativan] 1 mg PO DAILY PRN 09/14/19 [History] Lurasidone HCl [Latuda] 80 mg PO DAILY@17 09/14/19 [History] Magnesium Oxide 200 mg PO BID 09/14/19 [History] cloZAPine 100 mg PO DAILY 09/14/19 [History] cloZAPine 200 mg PO BEDTIME 09/14/19 [History] estradioL [Estrace 0.01% Vaginal Crm] 1 applic VAG ASDIRECTED 09/14/19 [History] Cyanocobalamin (Vitamin B-12) [Vitamin B-12] 1,000 mcg PO DAILY 09/20/19 [History] Past Medical History HEENT History: Reports: Hard of Hearing, Impaired Vision, Other (See Below) Other HEENT History: Bilateral exotropia Cardiovascular History: Reports: None Respiratory History: Reports: Other (See Below) Other Respiratory History: 2L O2 use at bedtime Gastrointestinal History: Reports: Chronic Constipation, GERD Genitourinary History: Reports: None ANESTHESIOLOGIST PHYSICIAN History: Reports: Musculoskeletal History: Reports: Fracture Neurological History: Reports: None Psychiatric History: Reports: Depression, Psychosis, Other (See Below) Other Psychiatric History: Self Harm Endocrine/Metabolic History: Reports: Hypothyroidism, Obesity/BMI 30+ Hematologic History: Reports: None Immunologic History: Reports: None Oncologic (Cancer) History: Reports: None Dermatologic History: Reports: Other (See Below) Other Dermatologic History: varicose veins with edema - Infectious Disease History Infectious Disease History: Reports: None Other Infectious Disease History: Unable to verify any other illnesses. - Past Surgical History Female Surgical History: Reports: Section, Tubal Ligation Musculoskeletal Surgical History: Reports: Other (See Below) Social & Family History - Family History Family Medical History: Unobtainable - Caffeine Use Caffeine Use: Reports: None Caffeine Use Comment: unable to assess - Living Situation & Occupation Living situation: Reports: Assisted Living, Other Occupation: Disabled ED ROS GENERAL - Review of Systems Review Of Systems: See Below ED EXAM, GENERAL - Physical Exam Exam: See Below Course - Vital Signs Text/Narrative:: 59-year-old female sent to the ER due to hypoxia off of her normal oxygen by nasal cannula. She was placed back on her usual oxygen settings here with low flow nasal cannula and oximetry readings are 95 to 96%. Caregiver has no complaints and states that she seems to be at her baseline. At no point did the patient seem to exhibit respiratory distress or complaints of any trouble breathing. Caregiver has no other complaints or concerns at this time. Patient appears nondistressed and is resting in her wheelchair. No evidence of tachypnea, accessory muscle use, etc. to suggest respiratory compromise. No increase in oxygen requirements. Given the patient is back to baseline since being placed back on her oxygen, I did not feel that additional work-up such as x-rays or laboratory studies are warranted. She appears as expected given her previously diagnosed COVID-19 infection. Stable to [facility] to [facility]. Recommended primary care follow-up as needed if not doing better in the next 5 to 7 days. Plan: Patient is stable to discharge home with outpatient primary care clinic follow-up. Strict emergency department return precautions were provided, [facility] staff indicated understanding. All questions were answered prior to departure. Discharged in good condition. Last Recorded V/S: Last Vital Signs Temp 36.2 C 12/01/19 17:02 Pulse 80 12/01/19 17:02 Resp 18 12/01/19 17:02 BP 104/54 L 12/01/19 17:02 Pulse Ox 96 12/01/19 17:02 Departure - Departure Time of Disposition: 17:04 Disposition: Home, [facility] 06 Condition: Good Clinical Impression: COVID-19 virus infection, Oxygen dependent - Discharge Information *PRESCRIPTION DRUG MONITORING PROGRAM REVIEWED*: Not Applicable *COPY OF PRESCRIPTION DRUG MONITORING REPORT IN PATIENT RAYSA: Not Applicable Instructions: COVID-19 Frequently Asked Questions, COVID-19, COVID-19: How to Protect Yourself and Others - CDC Referrals: PCP,None [Primary Care Provider] - Forms: ED Department Discharge Additional Instructions: The patient seems to be back at her baseline after talking with [facility] staff. Please maintain her normal oxygen treatment guidelines as prescribed by her primary doctor. Warning signs to come back to the ER include oxygen levels lower than 94% while on oxygen, complaints of trouble breathing, repeated vomiting or diarrhea, severe weakness, or any other new or concerning symptoms. I do recommend that she follow-up with her primary doctor in the next 5 to 7 days for reevaluation if she is not doing better. Thank you for choosing the [facility] emergency department in [facility] for your medical needs today. It was a pleasure caring for you. The following information is given to patients seen in the emergency department who are being discharged. This information is to outline your options for follow-up care. We provide all patients seen in our emergency department with a follow-up referral. The need for follow-up, as well as the timing and circumstances, are variable depending upon the specifics of your emergency department visit. If you don't have a primary care physician on staff, we will provide you with a referral. We always advise you to contact your personal physician following an emergency department visit to inform them of the circumstance of the visit and for follow-up with them and/or the need for any referrals to a consulting specialist. The emergency department will also refer you to a specialist when appropriate. This referral assures that you have the opportunity for follow-up care with a specialist. All of these measure are taken in an effort to provide you with optimal care, which includes your follow-up. Under all circumstances we always encourage you to contact your private physician who remains a resource for coordinating your care. When calling for follow-up care, please make the office aware that this follow-up is from your recent emergency room visit. If for any reason you are refused follow-up, please contact the [facility] Emergency Department at and asked to speak to the emergency department charge nurse. If you do not have a primary care physician that is caring for you, you can contact these clinics below to set up an appointment to establish care: [facility] - Primary Care [address] [place] [id number] [facility] [address] [place] [id number] Sepsis Event Note (ED) - Focused Exam Vital Signs: Vital Signs Temp Pulse Resp BP Pulse Ox 12/01/19 17:02 36.2 C 80 18 104/54 L 96
[2019-12-01 17:06] VITALS: BP 104/54
[2019-12-01 17:51] VITALS: PULSE 76
== END 2019-12-01 17:20 | disposition home health service (06) ==
LOC: MW.ED 16:19
DX: U07.1 COVID-19 (principal); G20 Parkinson's disease; E03.9 Hypothyroidism, unspecified; K21.9 Gastro-esophageal reflux disease without esophagitis; F31.9 Bipolar disorder, unspecified; E66.9 Obesity, unspecified; Z99.81 Dependence on supplemental oxygen; Z88.8 Allergy status to other drugs, medicaments and biological substances; Z79.899 Other long term (current) drug therapy; Z68.35 Body mass index [BMI] 35.0-35.9, adult; Z79.82 Long term (current) use of aspirin
CPT/HCPCS: 99282; 99283

== ENCOUNTER 2019-12-10 09:02 | Inpatient (IN) | payer MEDICARE, MEDICAID, OTHER ==
--- NOTE | 2019-12-10 09:29 | EDM.PDOC ---
ED HPI GENERAL MEDICAL PROBLEM - General Stated Complaint: LETHARGIC COVID Time Seen by Provider: 12/10/19 09:27 - History of Present Illness INITIAL COMMENTS - FREE TEXT/NARRATIVE: History of present illness: []HPI -the patient is sent from an extended care facility because of lethargy this morning. She is documented COVID-19 positive. She does not have any cough. The patient herself does not offer any complaint making a review of systems impossible. Diagnosed COVID-19 positive on 11/28/2019 and was seen here 12/01/2019 for possible deterioration but considered safe to return to her group living facility. Review of systems: As per history of present illness and below otherwise all systems reviewed and negative. Past medical history: As per history of present illness and as reviewed below otherwise noncontributory. Surgical history: As per history of present illness and as reviewed below otherwise noncontributory. Social history: No reported history of drug or alcohol abuse. Family history: As per history of present illness and as reviewed below otherwise noncontributory. Physical exam: Constitutional - well developed, well-nourished and in no acute distress HEENT - normocephalic, no evidence of trauma - external nose and mouth normal - no mass in neck and no JVD - mucosae moist EYES - full EOM, PERRL, no icterus - no evidence of inflammation, injection, or drainage Respiratory - no respiratory distress, equal bilateral expansion, lungs clear to auscultation except for rales in the right base Cardiovascular - Regular Rhythm with S1 and S2 appreciated and no murmur, gallop or rub. GI - abdomen soft without distension or organomegaly - normal bowel sounds - no guard or rebound Musculoskeletal no gross deformity of long bones or joints - no tenderness, swelling or edema Neurologic - Alert and opens her eyes and follows commands but does not speak. - CN II-XII grossly intact - motor sensory and coordination symmetrically weak and the patient is slow to respond. Psychiatric -unable to assess. Patient is cooperative. Hematologic - No petechiae or purpura - mucosa appropriate color and sclera not pale - normal nail bed color and refill Integument - no rash or evidence of trauma - normal turgor Diagnostics: [] Therapeutics: [] Impression: [] Plan: [] Definitive disposition and diagnosis as appropriate pending reevaluation and review of above. - Related Data Allergies Allergy/AdvReac Type Severity Reaction Status Date / Time divalproex sodium Allergy Lethargy Verified 12/10/19 09:37 [From Depakote] Home Meds: Home Meds Calcium Carbonate/Vitamin D3 [Calcium 250+D] 2 tab PO BID 06/30/13 [History] Gemfibrozil 600 mg PO BIDAC 06/30/13 [History] Levothyroxine 75 mcg PO ACBREAKFAST 06/30/13 [History] Multivitamin [Multi-Vitamin Daily] 1 each PO DAILY 06/30/13 [History] Venlafaxine [Effexor XR] 150 mg PO QAM 06/30/13 [History] Iron Polysaccharide Complex [Poly-Iron] 150 mg PO BID 07/06/14 [History] Aspirin [Halfprin] 81 mg PO DAILY 07/08/15 [History] Dexlansoprazole [Dexilant] 60 mg PO DAILY 07/08/15 [History] Docusate Sodium [Colace] 100 mg PO BID 07/08/15 [History] Calcium Polycarbophil [Fiber Laxative] 625 mg PO BID 07/15/15 [History] Escitalopram [Lexapro] 20 mg PO QAM 11/04/17 [History] Diclofenac Sodium [Voltaren 1% Gel] 1 applic TOP QID PRN 06/09/19 [History] Benztropine [Cogentin] 0.5 mg PO DAILY 09/14/19 [History] LORazepam [Ativan] 1 mg PO DAILY PRN 09/14/19 [History] Lurasidone HCl [Latuda] 80 mg PO DAILY@17 09/14/19 [History] Magnesium Oxide 200 mg PO BID 09/14/19 [History] cloZAPine 100 mg PO DAILY 09/14/19 [History] cloZAPine 200 mg PO BEDTIME 09/14/19 [History] estradioL [Estrace 0.01% Vaginal Crm] 1 applic VAG ASDIRECTED 09/14/19 [History] Cyanocobalamin (Vitamin B-12) [Vitamin B-12] 1,000 mcg PO DAILY 09/20/19 [History] Albuterol [Proventil Neb Soln] 2.5 mg INH Q4H PRN 12/10/19 [History] Past Medical History HEENT History: Reports: Hard of Hearing, Impaired Vision, Other (See Below) Other HEENT History: Bilateral exotropia Cardiovascular History: Reports: None Respiratory History: Reports: Other (See Below) Other Respiratory History: 2L O2 use at bedtime Gastrointestinal History: Reports: Chronic Constipation, GERD Genitourinary History: Reports: None TARIFF CLERK History: Reports: Musculoskeletal History: Reports: Fracture Neurological History: Reports: None Psychiatric History: Reports: Depression, Psychosis, Other (See Below) Other Psychiatric History: Self Harm Endocrine/Metabolic History: Reports: Hypothyroidism, Obesity/BMI 30+ Hematologic History: Reports: None Immunologic History: Reports: None Oncologic (Cancer) History: Reports: None Dermatologic History: Reports: Other (See Below) Other Dermatologic History: varicose veins with edema - Infectious Disease History Infectious Disease History: Reports: None Other Infectious Disease History: Unable to verify any other illnesses. - Past Surgical History Female Surgical History: Reports: Section, Tubal Ligation Musculoskeletal Surgical History: Reports: Other (See Below) Social & Family History - Family History Family Medical History: Unobtainable - Caffeine Use Caffeine Use: Reports: None Caffeine Use Comment: unable to assess - Living Situation & Occupation Living situation: Reports: Assisted Living, Other Occupation: Disabled ED ROS GENERAL - Review of Systems Review Of Systems: Unable To Obtain Reason Not Obtained: Nonverbal ED EXAM, GENERAL - Physical Exam Exam: See Below Free Text/Narrative:: Physical exam as in the [facility] EKG INTERPRETATION EKG Date: 12/10/19 Rhythm: NSR Rate (Beats/Min): 85 QRS: Other (After prominent R wave in V2 the rest of the precordium goes back to prominent S.) Comparison: No Change (Compared to 11/28/2019) Course - Vital Signs Text/Narrative:: The patient was stable and essentially unchanged in the emergency department. Case was discussed with her machinist linotype who said she is usually verbal but wheelchair-bound. The patient is a full code and has a machinist linotype who is legally responsible for decision making. She also has unable minded brother who would be the next of kin and second in line for decision-making. Case discussed with Dr. Merchant's resident and the patient admitted. Last Recorded V/S: Last Vital Signs Temp 97.5 F 12/10/19 09:33 Pulse 76 12/10/19 11:30 Resp 16 12/10/19 11:30 BP 101/50 L 12/10/19 11:30 Pulse Ox 97 12/10/19 11:30 - Orders/Labs/Meds Orders: Active Orders 24 hr Category Date Time Status Admission Status [Patient Status] [ADT] Stat ADT 12/10/19 12:22 Ordered Cardiac Monitoring [RC] . DIRECTED Care 12/10/19 09:33 Active EKG Documentation Completion [RC] AM Care 12/10/19 09:33 Active Pulse Oximetry [RC] ASDIRECTED Care 12/10/19 09:33 Active CULTURE BLOOD [BC] Stat Lab 12/10/19 09:15 Received CULTURE BLOOD [BC] Stat Lab 12/10/19 09:30 Received Potassium Chloride Riders [KCL 40 MEQ in Water 100 ML] Med 12/10/19 12:21 Ordered 40 meq Premix Bag 1 bag IV ONETIME Sodium Chloride 0.9% [Saline Flush] Med 12/10/19 09:33 Active 10 ml FLUSH ASDIRECTED PRN Sodium Chloride 0.9% [Saline Flush] Med 12/10/19 09:33 Active 2.5 ml FLUSH ASDIRECTED PRN Blood Culture x2 Reflex Set [OM.PC] Stat Oth 12/10/19 09:34 Ordered Saline Lock Insert [OM.PC] Stat Oth 12/10/19 09:33 Ordered Medication Orders Potassium Chloride 40 meq/ (Premix) 100 mls @ 25 mls/hr IV ONETIME ONE Stop: 12/10/19 16:20 Sodium Chloride (Saline Flush) 10 ml FLUSH ASDIRECTED PRN PRN Reason: Keep Vein Open Last Admin: 12/10/19 10:15 Dose: 10 ml Documented by: [id number] Sodium Chloride (Saline Flush) 2.5 ml FLUSH ASDIRECTED PRN PRN Reason: Keep Vein Open Last Admin: 12/10/19 10:15 Dose: 2.5 ml Documented by: [id number] Labs: Laboratory Tests 12/10/19 12/10/19 12/10/19 Range/Units 09:15 09:15 09:15 WBC 11.07 H (4.0-11.0) K/uL RBC 4.26 L (4.30-5.90) M/uL Hgb 12.0 (12.0-16.0) g/dL Hct 38.5 (36.0-46.0) % MCV 90.4 (80.0-98.0) fL MCH 28.2 (27.0-32.0) pg MCHC 31.2 (31.0-37.0) g/dL RDW Std Deviation 48.7 (28.0-62.0) fl RDW Coeff of Amaris 15 (11.0-15.0) % Plt Count 350 (150-400) K/uL MPV 10.60 (7.40-12.00) fL Neut % (Auto) 68.5 (48.0-80.0) % Lymph % (Auto) 18.7 (16.0-40.0) % Gray % (Auto) 11.3 (0.0-15.0) % Eos % (Auto) 1.3 (0.0-7.0) % Baso % (Auto) 0.2 (0.0-1.5) % Neut # (Auto) 7.6 H (1.4-5.7) K/uL Lymph # (Auto) 2.1 (0.6-2.4) K/uL Gray # (Auto) 1.3 H (0.0-0.8) K/uL Eos # (Auto) 0.1 (0.0-0.7) K/uL Baso # (Auto) 0.0 (0.0-0.1) K/uL Nucleated RBC % 0.0 /100WBC Nucleated RBCs # 0 K/uL INR 1.21 ABG pH (7.35-7.45) ABG pCO2 (35-45) mmHG ABG pO2 (75-100) mmHG ABG HCO3 (22-26) mEq/L ABG Total CO2 ABG Base Excess (-2.0-2.0) Lactate (0.20-2.00) mmol/L Sodium 142 (136-145) mmol/L Potassium 2.7 L (3.5-5.1) mmol/L Chloride 98 (98-107) mmol/L Carbon Dioxide 33.8 H (21.0-32.0) mmol/L BUN 18 (7.0-18.0) mg/dL Creatinine 0.9 (0.6-1.0) mg/dL Est Cr Clr Drug Dosing 68.73 mL/min Estimated GFR (MDRD) > 60.0 ml/min Glucose 97 (74-106) mg/dL Calcium 8.0 L (8.5-10.1) mg/dL Total Bilirubin 0.9 (0.2-1.0) mg/dL AST 21 (15-37) IU/L ALT 17 (14-63) IU/L Alkaline Phosphatase 101 (46-116) U/L Troponin I < 0.050 (0.000-0.056) ng/mL Total Protein 7.3 (6.4-8.2) g/dL Albumin 3.1 L (3.4-5.0) g/dL Globulin 4.2 H (2.6-4.0) g/dL Albumin/Globulin Ratio 0.7 L (0.9-1.6) Lipase 48 L (73-393) U/L Urine Color Urine Appearance Urine pH (5.0-8.0) Ur Specific [place] (1.001-1.035) Urine Protein (NEGATIVE) mg/dL Urine Glucose (UA) (NEGATIVE) mg/dL Urine Ketones (NEGATIVE) mg/dL Urine Occult Blood (NEGATIVE) Urine Nitrite (NEGATIVE) Urine Bilirubin (NEGATIVE) Urine Ictotest Urine Urobilinogen (<2.0) EU/dL Ur Leukocyte Esterase (NEGATIVE) Urine RBC (0-2/HPF) Urine WBC (0-5/HPF) Ur Epithelial Cells (NONE-FEW) Urine Bacteria (NEGATIVE) 12/10/19 12/10/19 12/10/19 Range/Units 09:15 09:20 10:45 WBC (4.0-11.0) K/uL RBC (4.30-5.90) M/uL Hgb (12.0-16.0) g/dL Hct (36.0-46.0) % MCV (80.0-98.0) fL MCH (27.0-32.0) pg MCHC (31.0-37.0) g/dL RDW Std Deviation (28.0-62.0) fl RDW Coeff of [place]aris (11.0-15.0) % Plt Count (150-400) K/uL MPV (7.40-12.00) fL Neut % (Auto) (48.0-80.0) % Lymph % (Auto) (16.0-40.0) % Gray % (Auto) (0.0-15.0) % Eos % (Auto) (0.0-7.0) % Baso % (Auto) (0.0-1.5) % Neut # (Auto) (1.4-5.7) K/uL Lymph # (Auto) (0.6-2.4) K/uL Gray # (Auto) (0.0-0.8) K/uL Eos # (Auto) (0.0-0.7) K/uL Baso # (Auto) (0.0-0.1) K/uL Nucleated RBC % /100WBC Nucleated RBCs # K/uL INR ABG pH 7.449 (7.35-7.45) ABG pCO2 47 H (35-45) mmHG ABG pO2 103 H (75-100) mmHG ABG HCO3 33 H (22-26) mEq/L ABG Total CO2 30.0 ABG Base Excess 7.6 H (-2.0-2.0) Lactate 0.9 (0.20-2.00) mmol/L Sodium (136-145) mmol/L Potassium (3.5-5.1) mmol/L Chloride (98-107) mmol/L Carbon Dioxide (21.0-32.0) mmol/L BUN (7.0-18.0) mg/dL Creatinine (0.6-1.0) mg/dL Est Cr Clr Drug Dosing mL/min Estimated GFR (MDRD) ml/min Glucose (74-106) mg/dL Calcium (8.5-10.1) mg/dL Total Bilirubin (0.2-1.0) mg/dL AST (15-37) IU/L ALT (14-63) IU/L Alkaline Phosphatase (46-116) U/L Troponin I (0.000-0.056) ng/mL Total Protein (6.4-8.2) g/dL Albumin (3.4-5.0) g/dL Globulin (2.6-4.0) g/dL Albumin/Globulin Ratio (0.9-1.6) Lipase (73-393) U/L Urine Color YELLOW Urine Appearance SLT CLOUDY Urine pH 7.0 (5.0-8.0) Ur Specific [place] 1.020 (1.001-1.035) Urine Protein 100 H (NEGATIVE) mg/dL Urine Glucose (UA) NEGATIVE (NEGATIVE) mg/dL Urine Ketones TRACE H (NEGATIVE) mg/dL Urine Occult Blood SMALL H (NEGATIVE) Urine Nitrite NEGATIVE (NEGATIVE) Urine Bilirubin SMALL H (NEGATIVE) Urine Ictotest NEGATIVE Urine Urobilinogen 1.0 (<2.0) EU/dL Ur Leukocyte Esterase LARGE H (NEGATIVE) Urine RBC 3-5 (0-2/HPF) Urine WBC 80-10 (0-5/HPF) Ur Epithelial Cells FEW (NONE-FEW) Urine Bacteria 4+ H (NEGATIVE) Meds: Medications Generic Name Dose Route Start Last Admin Trade Name Freq PRN Reason Stop Dose Admin Potassium Chloride 40 meq/ 100 mls @ 25 mls/hr 12/10/19 12:21 Premix IV 12/10/19 16:20 ONETIME ONE Sodium Chloride 10 ml 12/10/19 09:33 12/10/19 10:15 Saline Flush FLUSH 10 ml ASDIRECTED PRN Administration Keep Vein Open Sodium Chloride 2.5 ml 12/10/19 09:33 12/10/19 10:15 Saline Flush FLUSH 2.5 ml ASDIRECTED PRN Administration Keep Vein Open Discontinued Medications Generic Name Dose Route Start Last Admin Trade Name Freq PRN Reason Stop Dose Admin Piperacillin Sod/Tazobactam 100 mls @ 100 mls/hr 12/10/19 09:33 12/10/19 10:14 Sod 4.5 gm/ Sodium Chloride IV 12/10/19 10:32 100 mls/hr ONETIME ONE Administration Sodium Chloride 1,917 mls @ 999 mls/hr 12/10/19 09:36 12/10/19 10:15 Normal Saline IV 12/10/19 11:31 999 mls/hr NOW STA Administration Ceftriaxone Sodium/Dextrose 1 50 mls @ 100 mls/hr 12/10/19 11:04 12/10/19 11:50 gm/ Premix IV 12/10/19 11:33 100 mls/hr ONETIME ONE Administration Potassium Chloride 40 meq 12/10/19 12:06 Potassium Chloride PO 12/10/19 12:07 ONETIME ONE Departure - Departure Time of Disposition: 12:26 Disposition: Admitted As Inpatient 67 Condition: Fair Clinical Impression: COVID-19, Altered mental status, Urinary tract infection, Hypokalemia - Discharge Information Referrals: Anila Dodge DO [Primary Care Provider] - Sepsis Event Note (ED) - Focused Exam Vital Signs: Vital Signs Temp Pulse Resp BP Pulse Ox 12/10/19 11:30 76 16 101/50 L 97 12/10/19 11:00 78 18 102/53 L 97 12/10/19 10:00 82 21 H 98/60 96 12/10/19 09:33 97.5 F 86 20 96/61 96 12/10/19 09:30 84 21 H 97/61 97 - My Orders Last 24 Hours: My Active Orders 12/10/19 09:15 CULTURE BLOOD [BC] Stat 12/10/19 09:30 CULTURE BLOOD [BC] Stat 12/10/19 09:33 Cardiac Monitoring [RC] . DIRECTED EKG Documentation Completion [RC] AM Pulse Oximetry [RC] ASDIRECTED Sodium Chloride 0.9% [Saline Flush] 10 ml FLUSH ASDIRECTED PRN Sodium Chloride 0.9% [Saline Flush] 2.5 ml FLUSH ASDIRECTED PRN Saline Lock Insert [OM.PC] Stat 12/10/19 09:34 Blood Culture x2 Reflex Set [OM.PC] Stat 12/10/19 12:21 Potassium Chloride Riders [KCL 40 MEQ in Water 100 ML] 40 meq Premix Bag 1 bag IV ONETIME 12/10/19 12:22 Admission Status [Patient Status] [ADT] Stat - Assessment/Plan Last 24 Hours: My Active Orders 12/10/19 09:15 CULTURE BLOOD [BC] Stat 12/10/19 09:30 CULTURE BLOOD [BC] Stat 12/10/19 09:33 Cardiac Monitoring [RC] . DIRECTED EKG Documentation Completion [RC] AM Pulse Oximetry [RC] ASDIRECTED Sodium Chloride 0.9% [Saline Flush] 10 ml FLUSH ASDIRECTED PRN Sodium Chloride 0.9% [Saline Flush] 2.5 ml FLUSH ASDIRECTED PRN Saline Lock Insert [OM.PC] Stat 12/10/19 09:34 Blood Culture x2 Reflex Set [OM.PC] Stat 12/10/19 12:21 Potassium Chloride Riders [KCL 40 MEQ in Water 100 ML] 40 meq Premix Bag 1 bag IV ONETIME 12/10/19 12:22 Admission Status [Patient Status] [ADT] Stat
[2019-12-10] MEDS ORDERED: Sodium Chloride 0.9% 2.5 ML Syringe FLUSH PRN (09:33)
[2019-12-10] MEDS ORDERED: Piperacillin/Tazobactam 4.5 GM in Sodium Chloride 0.9% 100 ML IV ONE (09:33)
[2019-12-10] MEDS ORDERED: Sodium Chloride 0.9% 10 ML Syringe FLUSH PRN (09:33)
[2019-12-10 09:57] LABS: BLOOD UREA NITROGEN,BUN 18 mg/dL (7.0-18.0); CARBON DIOXIDE,CO2 33.8 mmol/L (21.0-32.0); CHLORIDE,CL 98 mmol/L (98-107); GLUCOSE RANDOM 97 mg/dL (74-106); LIPASE 48 U/L (73-393); POTASSIUM,K 2.7 mmol/L (3.5-5.1); SODIUM,NA 142 mmol/L (136-145)
--- NOTE | 2019-12-10 10:55 | CR ---
Chest: Portable view of the chest was obtained. Comparison: Prior chest x-ray of 11/28/19. Heart size and mediastinum are within normal limits. Lungs are clear with no acute parenchymal change. Degenerative change is scattered within the spine with minimal scoliosis. Old fracture appears to be present with the proximal right humerus. Impression: 1. Findings as noted above. 2. Nothing acute is appreciated on portable chest x-ray. Diagnostic code #2 This report was dictated in MDT
[2019-12-10] MEDS ORDERED: cefTRIAXone 1 GM in Premix Bag 1 BAG IV ONE (11:04)
[2019-12-10] MEDS ORDERED: Potassium Chloride 10% 20 MEQ/15 ML Soln 30 ML UD Cup PO ONE (12:06)
[2019-12-10] MEDS ORDERED: Potassium Chloride Riders 40 MEQ in Premix Bag 1 BAG IV ONE ×3 (12:21→19:10)
[2019-12-10] MEDS ORDERED: Sodium Chloride 0.9% 500 ML IV ONE (13:10)
[2019-12-10] MEDS ORDERED: Acetaminophen 325 MG Tab PO PRN (14:21)
[2019-12-10] MEDS ORDERED: Meropenem Premix 1 GM in Premix Bag 1 BAG IV SCH (14:30)
[2019-12-10] MEDS ORDERED: Enoxaparin 40 MG/0.4 ML Syringe SUBCUT SCH ×2 (14:30→17:15)
[2019-12-10] MEDS ORDERED: Lactated Ringers 1,000 ML IV SCH ×2 (14:30→17:45)
[2019-12-10] MEDS ORDERED: Sodium Chloride 0.9% 1,000 ML IV SCH (17:00)
[2019-12-10] MEDS: Gemfibrozil 600 MG Tab PO SCH (17:13)
[2019-12-10] MEDS: Lurasidone Hcl [Latuda] 80 MG PO SCH (17:13)
[2019-12-10] MEDS: Meropenem Premix 1 GM in Premix Bag 1 BAG IV SCH (17:13)
[2019-12-10 17:37] LABS: BLOOD UREA NITROGEN,BUN 16 mg/dL (7.0-18.0); CHLORIDE,CL 103 mmol/L (98-107); GLUCOSE RANDOM 81 mg/dL (74-106); POTASSIUM,K 3.3 mmol/L (3.5-5.1); SODIUM,NA 144 mmol/L (136-145)
[2019-12-10] MEDS ORDERED: Sodium Chloride 0.9% 1,000 ML IV ONE (17:45)
--- NOTE | 2019-12-10 18:21 | PCM.HP.2 ---
<Micheal Blankenship - Last Filed: 12/10/19 18:43> H&P History of Present Illness - General Date of Service: 12/10/19 Admit Problem/Dx: Admission Diagnosis/Problem Admission Diagnosis/Problem Altered mental status - History of Present Illness Initial Comments - Free Text/Narative: 59 year old female admitted to the medical floor for UTI, altered mental status and hypokalemia. Patient has a significant mental history including depression and psychosis. Patient is a resident at the [facility] and was noted to be lethargic this morning per facility staff. Patient has a positive COVID test from 11-28-2019. Patient was seen in the ED on 12-01-2019 but returned back to the facility. Unable to obtain ROS, history from patient as patient does not communicate. Patients UA was positive for Leukocyte esterase and Urine bacteria 4+. On admission patients K+ was 2.7 - Related Data Allergies/Adverse Reactions: Allergies Allergy/AdvReac Type Severity Reaction Status Date / Time divalproex sodium Allergy Lethargy Verified 12/10/19 17:37 [From Depakote] Home Medications: Home Meds Calcium Carbonate/Vitamin D3 [Calcium 250+D] 2 tab PO BID 06/30/13 [History] Gemfibrozil 600 mg PO BIDAC 06/30/13 [History] Levothyroxine 75 mcg PO ACBREAKFAST 06/30/13 [History] Multivitamin [Multi-Vitamin Daily] 1 each PO DAILY 06/30/13 [History] Venlafaxine [Effexor XR] 150 mg PO QAM 06/30/13 [History] Iron Polysaccharide Complex [Poly-Iron] 150 mg PO BID 07/06/14 [History] Aspirin [Halfprin] 81 mg PO DAILY 07/08/15 [History] Dexlansoprazole [Dexilant] 60 mg PO DAILY 07/08/15 [History] Docusate Sodium [Colace] 100 mg PO BID 07/08/15 [History] Calcium Polycarbophil [Fiber Laxative] 625 mg PO BID 07/15/15 [History] Escitalopram [Lexapro] 20 mg PO QAM 11/04/17 [History] Diclofenac Sodium [Voltaren 1% Gel] 1 applic TOP QID PRN 06/09/19 [History] Benztropine [Cogentin] 0.5 mg PO DAILY 09/14/19 [History] LORazepam [Ativan] 1 mg PO DAILY PRN 09/14/19 [History] Lurasidone HCl [Latuda] 80 mg PO DAILY@17 09/14/19 [History] Magnesium Oxide 200 mg PO BID 09/14/19 [History] cloZAPine 100 mg PO DAILY 09/14/19 [History] cloZAPine 200 mg PO BEDTIME 09/14/19 [History] estradioL [Estrace 0.01% Vaginal Crm] 1 applic VAG ASDIRECTED 09/14/19 [History] Cyanocobalamin (Vitamin B-12) [Vitamin B-12] 1,000 mcg PO DAILY 09/20/19 [History] Albuterol [Proventil Neb Soln] 2.5 mg INH Q4H PRN 12/10/19 [History] Nitrofurantoin Monohyd/M-Cryst [Macrobid 100 mg Capsule] 100 mg PO BID 5 Days #10 capsule 12/15/19 [Rx] cephALEXin [Keflex] 500 mg PO BID 5 Days #10 cap 12/15/19 [Rx] dexAMETHasone [Dexamethasone] 6 mg PO DAILY 5 Days #5 tablet 12/15/19 [Rx] Past Medical History HEENT History: Reports: Hard of Hearing, Impaired Vision, Other (See Below) Other HEENT History: Bilateral exotropia Cardiovascular History: Reports: None Respiratory History: Reports: Other (See Below) Other Respiratory History: 2L O2 use at bedtime Gastrointestinal History: Reports: Chronic Constipation, GERD Genitourinary History: Reports: None [employer] History: Reports: Musculoskeletal History: Reports: Fracture Neurological History: Reports: None Psychiatric History: Reports: Depression, Psychosis, Other (See Below) Other Psychiatric History: Self Harm Endocrine/Metabolic History: Reports: Hypothyroidism, Obesity/BMI 30+ Hematologic History: Reports: None Immunologic History: Reports: None Oncologic (Cancer) History: Reports: None Dermatologic History: Reports: Other (See Below) Other Dermatologic History: varicose veins with edema - Infectious Disease History Infectious Disease History: Reports: None Other Infectious Disease History: Unable to verify any other illnesses. - Past Surgical History Female Surgical History: Reports: Section, Tubal Ligation Musculoskeletal Surgical History: Reports: Other (See Below) Social & Family History - Family History Family Medical History: Unobtainable - Tobacco Use Smoking Status *Q: Unknown Ever Smoked Tobacco Use Comment: Unable to assess if patient subject to secondhand smoke Second Hand Smoke Exposure: No - Caffeine Use Caffeine Use: Reports: None Caffeine Use Comment: unable to assess - Living Situation & Occupation Living situation: Reports: Assisted Living, Other Occupation: Disabled H&P Review of Systems - Review of Systems: Review Of Systems: Unable To Obtain Reason Not Obtained: Patient was not verbal General: Denies: Fever Exam - Exam Exam: See Below - Vital Signs Vital Signs: Last Vital Signs Temp 98.4 F 12/10/19 17:26 Pulse 82 12/10/19 17:26 Resp 16 12/10/19 17:26 BP 130/72 12/10/19 17:26 Pulse Ox 98 12/10/19 17:26 Weight: 108.862 kg - Exam General: Alert HEENT: Mucosa Moist & [place] Lungs: Clear to Auscultation, Normal Respiratory Effort. No: Crackles, Wheezing Cardiovascular: Regular Rate, Regular Rhythm GI/Abdominal Exam: Soft, No Distention Extremities: Non-Tender, No Pedal Edema Skin: Warm, Dry Neuro Extensive - Mental Status: Alert, Opens Eyes to Commands. No: Oriented x3 Psychiatric: Agitated - Patient Data Lab Results Last 24 hrs: Laboratory Results - last 24 hr 12/10/19 12/10/19 12/10/19 Range/Units 09:15 09:15 09:15 WBC 11.07 H (4.0-11.0) K/uL RBC 4.26 L (4.30-5.90) M/uL Hgb 12.0 (12.0-16.0) g/dL Hct 38.5 (36.0-46.0) % MCV 90.4 (80.0-98.0) fL MCH 28.2 (27.0-32.0) pg MCHC 31.2 (31.0-37.0) g/dL RDW Std Deviation 48.7 (28.0-62.0) fl RDW Coeff of [place] 15 (11.0-15.0) % Plt Count 350 (150-400) K/uL MPV 10.60 (7.40-12.00) fL Neut % (Auto) 68.5 (48.0-80.0) % Lymph % (Auto) 18.7 (16.0-40.0) % [place] % (Auto) 11.3 (0.0-15.0) % Eos % (Auto) 1.3 (0.0-7.0) % Baso % (Auto) 0.2 (0.0-1.5) % Neut # (Auto) 7.6 H (1.4-5.7) K/uL Lymph # (Auto) 2.1 (0.6-2.4) K/uL [place] # (Auto) 1.3 H (0.0-0.8) K/uL Eos # (Auto) 0.1 (0.0-0.7) K/uL Baso # (Auto) 0.0 (0.0-0.1) K/uL Nucleated RBC % 0.0 /100WBC Nucleated RBCs # 0 K/uL INR 1.21 ABG pH (7.35-7.45) ABG pCO2 (35-45) mmHG ABG pO2 (75-100) mmHG ABG HCO3 (22-26) mEq/L ABG Total CO2 ABG Base Excess (-2.0-2.0) Lactate (0.20-2.00) mmol/L Sodium 142 (136-145) mmol/L Potassium 2.7 L (3.5-5.1) mmol/L Chloride 98 (98-107) mmol/L Carbon Dioxide 33.8 H (21.0-32.0) mmol/L BUN 18 (7.0-18.0) mg/dL Creatinine 0.9 (0.6-1.0) mg/dL Est Cr Clr Drug Dosing 68.73 mL/min Estimated GFR (MDRD) > 60.0 ml/min Glucose 97 (74-106) mg/dL Calcium 8.0 L (8.5-10.1) mg/dL Total Bilirubin 0.9 (0.2-1.0) mg/dL AST 21 (15-37) IU/L ALT 17 (14-63) IU/L Alkaline Phosphatase 101 (46-116) U/L Troponin I < 0.050 (0.000-0.056) ng/mL Total Protein 7.3 (6.4-8.2) g/dL Albumin 3.1 L (3.4-5.0) g/dL Globulin 4.2 H (2.6-4.0) g/dL Albumin/Globulin Ratio 0.7 L (0.9-1.6) Lipase 48 L (73-393) U/L Urine Color Urine Appearance Urine pH (5.0-8.0) Ur Specific [place] (1.001-1.035) Urine Protein (NEGATIVE) mg/dL Urine Glucose (UA) (NEGATIVE) mg/dL Urine Ketones (NEGATIVE) mg/dL Urine Occult Blood (NEGATIVE) Urine Nitrite (NEGATIVE) Urine Bilirubin (NEGATIVE) Urine Ictotest Urine Urobilinogen (<2.0) EU/dL Ur Leukocyte Esterase (NEGATIVE) Urine RBC (0-2/HPF) Urine WBC (0-5/HPF) Ur Epithelial Cells (NONE-FEW) Urine Bacteria (NEGATIVE) SARS Virus RNA (PCR) (NEGATIVE) 12/10/19 12/10/19 12/10/19 Range/Units 09:15 09:20 10:45 WBC (4.0-11.0) K/uL RBC (4.30-5.90) M/uL Hgb (12.0-16.0) g/dL Hct (36.0-46.0) % MCV (80.0-98.0) fL MCH (27.0-32.0) pg MCHC (31.0-37.0) g/dL RDW Std Deviation (28.0-62.0) fl RDW Coeff of [place] (11.0-15.0) % Plt Count (150-400) K/uL MPV (7.40-12.00) fL Neut % (Auto) (48.0-80.0) % Lymph % (Auto) (16.0-40.0) % [place] % (Auto) (0.0-15.0) % Eos % (Auto) (0.0-7.0) % Baso % (Auto) (0.0-1.5) % Neut # (Auto) (1.4-5.7) K/uL Lymph # (Auto) (0.6-2.4) K/uL [place] # (Auto) (0.0-0.8) K/uL Eos # (Auto) (0.0-0.7) K/uL Baso # (Auto) (0.0-0.1) K/uL Nucleated RBC % /100WBC Nucleated RBCs # K/uL INR ABG pH 7.449 (7.35-7.45) ABG pCO2 47 H (35-45) mmHG ABG pO2 103 H (75-100) mmHG ABG HCO3 33 H (22-26) mEq/L ABG Total CO2 30.0 ABG Base Excess 7.6 H (-2.0-2.0) Lactate 0.9 (0.20-2.00) mmol/L Sodium (136-145) mmol/L Potassium (3.5-5.1) mmol/L Chloride (98-107) mmol/L Carbon Dioxide (21.0-32.0) mmol/L BUN (7.0-18.0) mg/dL Creatinine (0.6-1.0) mg/dL Est Cr Clr Drug Dosing mL/min Estimated GFR (MDRD) ml/min Glucose (74-106) mg/dL Calcium (8.5-10.1) mg/dL Total Bilirubin (0.2-1.0) mg/dL AST (15-37) IU/L ALT (14-63) IU/L Alkaline Phosphatase (46-116) U/L Troponin I (0.000-0.056) ng/mL Total Protein (6.4-8.2) g/dL Albumin (3.4-5.0) g/dL Globulin (2.6-4.0) g/dL Albumin/Globulin Ratio (0.9-1.6) Lipase (73-393) U/L Urine Color YELLOW Urine Appearance SLT CLOUDY Urine pH 7.0 (5.0-8.0) Ur Specific [place] 1.020 (1.001-1.035) Urine Protein 100 H (NEGATIVE) mg/dL Urine Glucose (UA) NEGATIVE (NEGATIVE) mg/dL Urine Ketones TRACE H (NEGATIVE) mg/dL Urine Occult Blood SMALL H (NEGATIVE) Urine Nitrite NEGATIVE (NEGATIVE) Urine Bilirubin SMALL H (NEGATIVE) Urine Ictotest NEGATIVE Urine Urobilinogen 1.0 (<2.0) EU/dL Ur Leukocyte Esterase LARGE H (NEGATIVE) Urine RBC 3-5 (0-2/HPF) Urine WBC 80-10 (0-5/HPF) Ur Epithelial Cells FEW (NONE-FEW) Urine Bacteria 4+ H (NEGATIVE) SARS Virus RNA (PCR) (NEGATIVE) 12/10/19 12/10/19 12/10/19 Range/Units 13:02 16:59 16:59 WBC (4.0-11.0) K/uL RBC (4.30-5.90) M/uL Hgb (12.0-16.0) g/dL Hct (36.0-46.0) % MCV (80.0-98.0) fL MCH (27.0-32.0) pg MCHC (31.0-37.0) g/dL RDW Std Deviation (28.0-62.0) fl RDW Coeff of [place] (11.0-15.0) % Plt Count (150-400) K/uL MPV (7.40-12.00) fL Neut % (Auto) (48.0-80.0) % Lymph % (Auto) (16.0-40.0) % [place] % (Auto) (0.0-15.0) % Eos % (Auto) (0.0-7.0) % Baso % (Auto) (0.0-1.5) % Neut # (Auto) (1.4-5.7) K/uL Lymph # (Auto) (0.6-2.4) K/uL [place] # (Auto) (0.0-0.8) K/uL Eos # (Auto) (0.0-0.7) K/uL Baso # (Auto) (0.0-0.1) K/uL Nucleated RBC % /100WBC Nucleated RBCs # K/uL INR ABG pH (7.35-7.45) ABG pCO2 (35-45) mmHG ABG pO2 (75-100) mmHG ABG HCO3 (22-26) mEq/L ABG Total CO2 ABG Base Excess (-2.0-2.0) Lactate 1.1 (0.20-2.00) mmol/L Sodium 144 (136-145) mmol/L Potassium 3.3 L (3.5-5.1) mmol/L Chloride 103 (98-107) mmol/L Carbon Dioxide 27.0 (21.0-32.0) mmol/L BUN 16 (7.0-18.0) mg/dL Creatinine 0.8 (0.6-1.0) mg/dL Est Cr Clr Drug Dosing 77.32 mL/min Estimated GFR (MDRD) > 60.0 ml/min Glucose 81 (74-106) mg/dL Calcium 7.6 L (8.5-10.1) mg/dL Total Bilirubin (0.2-1.0) mg/dL AST (15-37) IU/L ALT (14-63) IU/L Alkaline Phosphatase (46-116) U/L Troponin I (0.000-0.056) ng/mL Total Protein (6.4-8.2) g/dL Albumin (3.4-5.0) g/dL Globulin (2.6-4.0) g/dL Albumin/Globulin Ratio (0.9-1.6) Lipase (73-393) U/L Urine Color Urine Appearance Urine pH (5.0-8.0) Ur Specific [place] (1.001-1.035) Urine Protein (NEGATIVE) mg/dL Urine Glucose (UA) (NEGATIVE) mg/dL Urine Ketones (NEGATIVE) mg/dL Urine Occult Blood (NEGATIVE) Urine Nitrite (NEGATIVE) Urine Bilirubin (NEGATIVE) Urine Ictotest Urine Urobilinogen (<2.0) EU/dL Ur Leukocyte Esterase (NEGATIVE) Urine RBC (0-2/HPF) Urine WBC (0-5/HPF) Ur Epithelial Cells (NONE-FEW) Urine Bacteria (NEGATIVE) SARS Virus RNA (PCR) POSITIVE H (NEGATIVE) Result Diagrams: 12/10/19 09:15 12/10/19 16:59 Sepsis Event Note - Evaluation Sepsis Screening Result: No Definite Risk - Focused Exam Vital Signs: Vital Signs Temp Pulse Resp BP Pulse Ox 12/10/19 17:26 98.4 F 82 16 130/72 98 12/10/19 16:00 96.6 F L 82 21 H 117/63 94 L 12/10/19 15:00 79 21 H 99/56 L 96 12/10/19 14:00 81 21 H 107/58 L 96 12/10/19 13:00 80 21 H 96 12/10/19 12:30 78 19 97/52 L 96 12/10/19 12:09 77 18 100/55 L 97 12/10/19 12:00 81 19 102/56 L 97 12/10/19 11:30 76 16 101/50 L 97 12/10/19 11:00 78 18 102/53 L 97 12/10/19 10:00 82 21 H 98/60 96 12/10/19 09:33 97.5 F 86 20 96/61 96 12/10/19 09:30 84 21 H 97/61 97 Problem List Initiated/Reviewed/Updated: Yes Orders Last 24hrs: Active Orders 24 hr Category Date Time Status Patient Status [ADT] Routine ADT 12/10/19 14:21 Active Cardiac Monitoring [RC] . DIRECTED Care 12/10/19 09:33 Active EKG Documentation Completion [RC] AM Care 12/10/19 09:33 Active Oxygen Therapy [RC] PRN Care 12/10/19 14:21 Active Pulse Oximetry [RC] ASDIRECTED Care 12/10/19 09:33 Active Telemetry Monitoring [Cardiac Monitoring] [RC] Q8H Care 12/10/19 13:53 Active VTE/DVT Education [RC] PER UNIT ROUTINE Care 12/10/19 14:21 Active Vital Signs [RC] Q4H Care 12/10/19 14:21 Active Regular Diet [DIET] Diet 12/10/19 Dinner Active BASIC METABOLIC PANEL,BMP [CHEM] AM Lab 12/11/19 05:11 Ordered CBC WITH AUTO DIFF [HEME] AM Lab 12/11/19 05:11 Ordered CORONAVIRUS COVID-19 PCR PHL Stat Lab 12/10/19 13:26 Ordered CULTURE BLOOD [BC] Stat Lab 12/10/19 09:15 Received CULTURE BLOOD [BC] Stat Lab 12/10/19 09:30 Received CULTURE URINE [RM] Routine Lab 12/10/19 09:20 Received Acetaminophen [TylenoL] Med 12/10/19 14:21 Active 650 mg PO Q4H PRN Aspirin [Halfprin] Med 12/11/19 09:00 Active 81 mg PO DAILY Benztropine [Cogentin] Med 12/11/19 09:00 Active 0.5 mg PO DAILY Docusate Sodium [Colace] Med 12/10/19 21:00 Active 100 mg PO BID Enoxaparin [Lovenox] Med 12/10/19 17:15 Active 40 mg SUBCUT Q24H Escitalopram [Lexapro] Med 12/11/19 09:00 Active 20 mg PO QAM Iron Polysaccharides Complex [Ferrex 150] Med 12/10/19 21:00 Active 150 mg PO BID Lactated Ringers [Ringers, Lactated] 1,000 ml Med 12/10/19 17:45 Active IV ASDIRECTED Levothyroxine Med 12/11/19 07:30 Active 75 mcg PO ACBREAKFAST Meropenem Premix [Meropenem] 1 gm Med 12/10/19 17:15 Active Premix Bag 1 bag IV Q8H Patient's Own Medication [Ptom] Med 12/11/19 09:00 Active 1 each PO DAILY Patient's Own Medication [Ptom] Med 12/11/19 09:00 Active 1 each PO DAILY Patient's Own Medication [Ptom] Med 12/10/19 17:00 Active 1 each PO DAILY@17 Patient's Own Medication [Ptom] Med 12/10/19 15:27 Active 1 each TOP QID PRN Patient's Own Medication [Ptom] Med 12/10/19 21:00 Active 2 each PO BEDTIME Remdesivir (Eua) [Remdesivir (EUA)] 100 mg Med 12/11/19 13:00 Active Sodium Chloride 0.9% [Normal Saline] 100 ml IV Q24H Sodium Chloride 0.9% [Normal Saline] 1,000 ml Med 12/10/19 17:45 Active IV ONETIME Sodium Chloride 0.9% [Saline Flush] Med 12/10/19 09:33 Active 10 ml FLUSH ASDIRECTED PRN Sodium Chloride 0.9% [Saline Flush] Med 12/10/19 09:33 Active 2.5 ml FLUSH ASDIRECTED PRN Venlafaxine [Effexor XR] Med 12/11/19 09:00 Active 150 mg PO QAM dexAMETHasone Med 12/10/19 17:30 Active 6 mg PO DAILY gemfibroziL [Lopid] Med 12/10/19 17:00 Active 600 mg PO BIDAC Blood Culture x2 Reflex Set [OM.PC] Stat Oth 12/10/19 09:34 Ordered Saline Lock Insert [OM.PC] Stat Oth 12/10/19 09:33 Ordered Code Status [Resuscitation Status] Routine Resus Stat 12/10/19 18:09 Ordered Medication Orders Acetaminophen (Tylenol) 650 mg PO Q4H PRN PRN Reason: Pain (Mild 1-3)/fever Aspirin (Halfprin) 81 mg PO DAILY [facility] Benztropine Mesylate (Cogentin) 0.5 mg PO DAILY [facility] Dexamethasone (Dexamethasone) 6 mg PO DAILY [facility] Docusate Sodium (Colace) 100 mg PO BID [facility] Enoxaparin Sodium (Lovenox) 40 mg SUBCUT Q24H [facility] Last Admin: 12/10/19 17:13 Dose: 40 mg Documented by: MAYUR Escitalopram Oxalate (Lexapro) 20 mg PO QAM [facility] Gemfibrozil (Lopid) 600 mg PO BIDAC [facility] Last Admin: 12/10/19 17:13 Dose: 600 mg Documented by: MAYUR Meropenem/Sodium Chloride 1 gm (/ Premix) 50 mls @ 100 mls/hr IV Q8H [facility] Last Admin: 12/10/19 17:13 Dose: 100 mls/hr Documented by: MAYUR Remdesivir 100 mg/ Sodium (Chloride) 100 mls @ 100 mls/hr IV Q24H [facility] Lactated Ringer's (Ringers, Lactated) 1,000 mls @ 125 mls/hr IV ASDIRECTED [facility] Sodium Chloride (Normal Saline) 1,000 mls @ 125 mls/hr IV ONETIME ONE Stop: 12/11/19 01:44 Levothyroxine Sodium (Levothyroxine) 75 mcg PO ACBREAKFAST [facility] Clozapine 100 Mg Tab 1 each PO DAILY [facility] Clozapine 100 Mg Tab 2 each PO BEDTIME [facility] Dexlansoprazole [ (Dexilant] 60 Mg) 1 each PO DAILY [facility] Diclofenac Sodium (Gel) 1 each TOP QID PRN PRN Reason: Pain Lurasidone Hcl [ (Latuda] 80 Mg) 1 each PO DAILY@17 [facility] Last Admin: 12/10/19 17:13 Dose: Not Given Documented by: MAYUR Polysaccharide Iron Complex (Ferrex 150) 150 mg PO BID [facility] Sodium Chloride (Saline Flush) 10 ml FLUSH ASDIRECTED PRN PRN Reason: Keep Vein Open Last Admin: 12/10/19 10:15 Dose: 10 ml Documented by: WILLIAM Sodium Chloride (Saline Flush) 2.5 ml FLUSH ASDIRECTED PRN PRN Reason: Keep Vein Open Last Admin: 12/10/19 10:15 Dose: 2.5 ml Documented by: WILLIAM Venlafaxine HCl (Effexor Xr) 150 mg PO QAM [facility] Assessment/Plan: UTI: IV fluids 125ml/hr LR, 1g Meropenem Q8HR, AM CBC Hypokalemia: 40MEQ IV K+. Repeat BMP, give another 40meq K+ if needed. AM BMP Altered Mental Status: Unable to establish baseline. Patient does have a history of mental health disorder. Patients AMS may be a combination of PMH and UTI infection. Will treat patient UTI and reassess mental status. COVID-19 Infection: Remdesivir 200mg Day 1, 100mg Days 2-5 (5 doses total), Dexamethasone 6mg PO , Combivent INH for dyspnea, Oxygen support (provide oxygen via NC to maintain O2 sats above 90%). Lovenox 40mg BID, Monitor CBC, CMP Patients POA Sasha Wallacedudley spoken to over the phone and permission was given to use remdevisir. Informed of potential side effects, including liver damage. POA understands and agrees to using remdevisir. All questions answered and concerns addressed. <Mis Miller - Last Filed: 12/17/19 13:36> H&P History of Present Illness - General Admit Problem/Dx: Admission Diagnosis/Problem Admission Diagnosis/Problem Altered mental status - History of Present Illness Initial Comments - Free Text/Narative: I performed a history and physical exam of the patient and discussed management with resident. I have reviewed the residents note and agree with documented findings and plan unless otherwise specified in my note. Exam - Vital Signs Vital Signs: Last Vital Signs Temp 36.3 C 12/15/19 11:57 Pulse 78 12/15/19 11:57 Resp 16 12/15/19 11:57 BP 120/56 L 12/15/19 11:57 Pulse Ox 95 12/15/19 11:57 - Patient Data Result Diagrams: 12/15/19 05:25 12/15/19 05:25
[2019-12-10] MEDS ORDERED: Albuterol/Ipratropium 4 GM Inhalation Spray INH PRN (18:37)
[2019-12-10] MEDS: Dexamethasone 4 MG Tab PO SCH (20:01)
[2019-12-10] MEDS: Docusate Sodium 100 MG Cap PO SCH (22:02)
[2019-12-10] MEDS: Iron Polysaccharides Complex 150 MG Cap PO SCH (22:02)
[2019-12-10] MEDS: cloZAPine 100 MG Tab PO SCH (22:03)
[2019-12-11] MEDS: Meropenem Premix 1 GM in Premix Bag 1 BAG IV SCH ×2 (00:15→13:43)
[2019-12-11] MEDS: Enoxaparin 40 MG/0.4 ML Syringe SUBCUT SCH ×2 (04:04→17:35)
[2019-12-11 06:33] LABS: BLOOD UREA NITROGEN,BUN 12 mg/dL (7.0-18.0); CARBON DIOXIDE,CO2 27.7 mmol/L (21.0-32.0); CHLORIDE,CL 108 mmol/L (98-107); GLUCOSE RANDOM 141 mg/dL (74-106); POTASSIUM,K 3.9 mmol/L (3.5-5.1); SODIUM,NA 147 mmol/L (136-145)
[2019-12-11] MEDS ORDERED: Aspirin 81 MG Tab.EC PO SCH (09:00)
[2019-12-11] MEDS: Ertapenem 1 GM in Sodium Chloride 0.9% 50 ML IV SCH (10:04)
--- NOTE | 2019-12-11 11:39 | PCM.PN ---
- General Info Date of Service: 12/11/19 Subjective Update: Per nursing no concerns overnight. This morning patient required sternal rub to awaken but patient was stable. Patient does not communicate. Patient does not appear to be in pain, no grimacing. No fever noted - Review of Systems General: Reports: Other (ROS unable to ascess. Patient does not communicate). Denies: Fever - Patient Data Vitals - Most Recent: Last Vital Signs Temp 97.1 F 12/11/19 09:00 Pulse 80 12/11/19 09:00 Resp 20 12/11/19 09:00 BP 112/64 12/11/19 09:00 Pulse Ox 96 12/11/19 09:00 Weight - Most Recent: 240 lb I&O - Last 24 Hours: Intake & Output 12/10/19 12/11/19 12/11/19 22:59 06:59 14:59 Intake Total 360 Balance 360 Lab Results Last 24 Hours: Laboratory Results - last 24 hr 12/10/19 12/10/19 12/10/19 Range/Units 13:02 16:59 16:59 WBC (4.0-11.0) K/uL RBC (4.30-5.90) M/uL Hgb (12.0-16.0) g/dL Hct (36.0-46.0) % MCV (80.0-98.0) fL MCH (27.0-32.0) pg MCHC (31.0-37.0) g/dL RDW Std Deviation (28.0-62.0) fl RDW Coeff of Amaris (11.0-15.0) % Plt Count (150-400) K/uL MPV (7.40-12.00) fL Neut % (Auto) (48.0-80.0) % Lymph % (Auto) (16.0-40.0) % [place] % (Auto) (0.0-15.0) % Eos % (Auto) (0.0-7.0) % Baso % (Auto) (0.0-1.5) % Neut # (Auto) (1.4-5.7) K/uL Lymph # (Auto) (0.6-2.4) K/uL [place] # (Auto) (0.0-0.8) K/uL Eos # (Auto) (0.0-0.7) K/uL Baso # (Auto) (0.0-0.1) K/uL Nucleated RBC % /100WBC Nucleated RBCs # K/uL Lactate 1.1 (0.20-2.00) mmol/L Sodium 144 (136-145) mmol/L Potassium 3.3 L (3.5-5.1) mmol/L Chloride 103 (98-107) mmol/L Carbon Dioxide 27.0 (21.0-32.0) mmol/L BUN 16 (7.0-18.0) mg/dL Creatinine 0.8 (0.6-1.0) mg/dL Est Cr Clr Drug Dosing 77.32 mL/min Estimated GFR (MDRD) > 60.0 ml/min Glucose 81 (74-106) mg/dL Calcium 7.6 L (8.5-10.1) mg/dL Total Bilirubin (0.2-1.0) mg/dL AST (15-37) IU/L ALT (14-63) IU/L Alkaline Phosphatase (46-116) U/L Total Protein (6.4-8.2) g/dL Albumin (3.4-5.0) g/dL Globulin (2.6-4.0) g/dL Albumin/Globulin Ratio (0.9-1.6) SARS Virus RNA (PCR) POSITIVE H (NEGATIVE) 12/11/19 12/11/19 Range/Units 05:30 05:30 WBC 6.67 (4.0-11.0) K/uL RBC 3.64 L (4.30-5.90) M/uL Hgb 10.2 L (12.0-16.0) g/dL Hct 33.6 L (36.0-46.0) % MCV 92.3 (80.0-98.0) fL MCH 28.0 (27.0-32.0) pg MCHC 30.4 L (31.0-37.0) g/dL RDW Std Deviation 50.8 (28.0-62.0) fl RDW Coeff of Amaris 15 (11.0-15.0) % Plt Count 342 (150-400) K/uL MPV 10.50 (7.40-12.00) fL Neut % (Auto) 84.0 H (48.0-80.0) % Lymph % (Auto) 10.8 L (16.0-40.0) % [place] % (Auto) 4.9 (0.0-15.0) % Eos % (Auto) 0.0 (0.0-7.0) % Baso % (Auto) 0.3 (0.0-1.5) % Neut # (Auto) 5.6 (1.4-5.7) K/uL Lymph # (Auto) 0.7 (0.6-2.4) K/uL [place] # (Auto) 0.3 (0.0-0.8) K/uL Eos # (Auto) 0.0 (0.0-0.7) K/uL Baso # (Auto) 0.0 (0.0-0.1) K/uL Nucleated RBC % 0.0 /100WBC Nucleated RBCs # 0 K/uL Lactate (0.20-2.00) mmol/L Sodium 147 H (136-145) mmol/L Potassium 3.9 (3.5-5.1) mmol/L Chloride 108 H (98-107) mmol/L Carbon Dioxide 27.7 (21.0-32.0) mmol/L BUN 12 (7.0-18.0) mg/dL Creatinine 0.6 (0.6-1.0) mg/dL Est Cr Clr Drug Dosing 103.10 mL/min Estimated GFR (MDRD) > 60.0 ml/min Glucose 141 H (74-106) mg/dL Calcium 7.2 L (8.5-10.1) mg/dL Total Bilirubin 0.4 (0.2-1.0) mg/dL AST 19 (15-37) IU/L ALT 14 (14-63) IU/L Alkaline Phosphatase 90 (46-116) U/L Total Protein 6.1 L (6.4-8.2) g/dL Albumin 2.8 L (3.4-5.0) g/dL Globulin 3.3 (2.6-4.0) g/dL Albumin/Globulin Ratio 0.9 (0.9-1.6) SARS Virus RNA (PCR) (NEGATIVE) Jus Results Last 24 Hours: Microbiology 12/10/19 09:30 Aerobic Blood Culture - Preliminary Blood - Venous - Lab Draw NO GROWTH AFTER 1 DAY Anaerobic Blood Culture - Preliminary NO GROWTH AFTER 1 DAY 12/10/19 09:15 Aerobic Blood Culture - Preliminary Blood - Venous NO GROWTH AFTER 1 DAY Anaerobic Blood Culture - Preliminary NO GROWTH AFTER 1 DAY Med Orders - Current: Current Medications Acetaminophen (Tylenol) 650 mg PO Q4H PRN PRN Reason: Pain (Mild 1-3)/fever Albuterol/Ipratropium (Combivent Respimat) 0 gm INH Q4H PRN PRN Reason: Dyspnea Benztropine Mesylate (Cogentin) 0.5 mg PO DAILY [facility] Dexamethasone (Dexamethasone) 6 mg PO DAILY [facility] Last Admin: 12/10/19 20:01 Dose: 6 mg Documented by: Docusate Sodium (Colace) 100 mg PO BID [facility] Last Admin: 12/10/19 22:02 Dose: 100 mg Documented by: Enoxaparin Sodium (Lovenox) 40 mg SUBCUT Q12H [facility] Last Admin: 12/11/19 04:04 Dose: 40 mg Documented by: Escitalopram Oxalate (Lexapro) 20 mg PO QAM [facility] Gemfibrozil (Lopid) 600 mg PO BIDAC [facility] Last Admin: 12/10/19 17:13 Dose: 600 mg Documented by: Remdesivir 100 mg/ Sodium (Chloride) 100 mls @ 100 mls/hr IV Q24H [facility] Ertapenem 1 gm/ Sodium (Chloride) 50 mls @ 100 mls/hr IV Q24H [facility] Last Admin: 12/11/19 10:04 Dose: 100 mls/hr Documented by: Levothyroxine Sodium (Levothyroxine) 75 mcg PO ACBREAKFAST [facility] Pantoprazole Sodium (Protonix) 40 mg PO ACBREAKFAST [facility] Clozapine 100 Mg Tab 1 each PO DAILY [facility] Clozapine 100 Mg Tab 2 each PO BEDTIME [facility] Last Admin: 12/10/19 22:03 Dose: 2 each Documented by: Dexlansoprazole [ (Dexilant] 60 Mg) 1 each PO DAILY [facility] Diclofenac Sodium (Gel) 1 each TOP QID PRN PRN Reason: Pain Lurasidone Hcl [ (Latuda] 80 Mg) 1 each PO DAILY@17 [facility] Last Admin: 12/10/19 17:13 Dose: Not Given Documented by: Polysaccharide Iron Complex (Ferrex 150) 150 mg PO BID [facility] Last Admin: 12/10/19 22:02 Dose: 150 mg Documented by: Sodium Chloride (Saline Flush) 10 ml FLUSH ASDIRECTED PRN PRN Reason: Keep Vein Open Last Admin: 12/10/19 10:15 Dose: 10 ml Documented by: Sodium Chloride (Saline Flush) 2.5 ml FLUSH ASDIRECTED PRN PRN Reason: Keep Vein Open Last Admin: 12/10/19 10:15 Dose: 2.5 ml Documented by: Venlafaxine HCl (Effexor Xr) 150 mg PO QAM [facility] Discontinued Medications Aspirin (Halfprin) 81 mg PO DAILY [facility] Enoxaparin Sodium (Lovenox) 40 mg SUBCUT Q24H [facility] Last Admin: 12/10/19 19:36 Dose: Not Given Documented by: Enoxaparin Sodium (Lovenox) 40 mg SUBCUT Q24H [facility] Last Admin: 12/10/19 17:13 Dose: 40 mg Documented by: Piperacillin Sod/Tazobactam (Sod 4.5 gm/ Sodium Chloride) 100 mls @ 100 mls/hr IV ONETIME ONE Stop: 12/10/19 10:32 Last Admin: 12/10/19 10:14 Dose: 100 mls/hr Documented by: Sodium Chloride (Normal Saline) 1,917 mls @ 999 mls/hr IV NOW STA Stop: 12/10/19 11:31 Last Admin: 12/10/19 10:15 Dose: 999 mls/hr Documented by: Ceftriaxone Sodium/Dextrose 1 (gm/ Premix) 50 mls @ 100 mls/hr IV ONETIME ONE Stop: 12/10/19 11:33 Last Admin: 12/10/19 11:50 Dose: 100 mls/hr Documented by: Potassium Chloride 40 meq/ (Premix) 100 mls @ 25 mls/hr IV ONETIME ONE Stop: 12/10/19 16:20 Last Admin: 12/10/19 13:30 Dose: 25 mls/hr Documented by: Sodium Chloride (Normal Saline) 500 mls @ 75 mls/hr IV .Bolus ONE Stop: 12/10/19 19:49 Last Admin: 12/10/19 13:30 Dose: 75 mls/hr Documented by: Potassium Chloride 40 meq/ (Premix) 100 mls @ 25 mls/hr IV ONETIME ONE Stop: 12/10/19 18:07 Last Admin: 12/10/19 15:31 Dose: Not Given Documented by: Meropenem/Sodium Chloride 1 gm (/ Premix) 50 mls @ 100 mls/hr IV Q8H [facility] Last Admin: 12/10/19 19:37 Dose: Not Given Documented by: Lactated Ringer's (Ringers, Lactated) 1,000 mls @ 125 mls/hr IV ASDIRECTED [facility] Sodium Chloride (Normal Saline) 1,000 mls @ 125 mls/hr IV ASDIRECTED [facility] Last Admin: 12/10/19 17:14 Dose: 125 mls/hr Documented by: Meropenem/Sodium Chloride 1 gm (/ Premix) 50 mls @ 100 mls/hr IV Q8H [facility] Last Admin: 12/11/19 00:15 Dose: 100 mls/hr Documented by: Remdesivir 200 mg/ Sodium (Chloride) 250 mls @ 250 mls/hr IV ONETIME ONE Stop: 12/10/19 17:28 Last Admin: 12/10/19 17:35 Dose: 250 mls/hr Documented by: Lactated Ringer's (Ringers, Lactated) 1,000 mls @ 125 mls/hr IV ASDIRECTED [facility] Sodium Chloride (Normal Saline) 1,000 mls @ 125 mls/hr IV ONETIME ONE Stop: 12/11/19 01:44 Last Admin: 12/10/19 17:30 Dose: 125 mls/hr Documented by: Potassium Chloride 40 meq/ (Premix) 100 mls @ 25 mls/hr IV ONETIME ONE Stop: 12/10/19 23:09 Last Admin: 12/10/19 20:02 Dose: 25 mls/hr Documented by: Potassium Chloride (Potassium Chloride) 40 meq PO ONETIME ONE Stop: 12/10/19 12:07 Last Admin: 12/10/19 13:31 Dose: Not Given Documented by: - Exam General: Alert Lungs: Clear to Auscultation, Normal Respiratory Effort Cardiovascular: Regular Rate, Regular Rhythm GI/Abdominal Exam: Soft, No Distention Extremities: Normal Inspection, No Pedal Edema Skin: Warm, Dry Neurological: No: Normal Speech Psy/Mental Status: No: Agitated Sepsis Event Note - Evaluation Sepsis Screening Result: No Definite Risk - Focused Exam Vital Signs: Vital Signs Temp Pulse Resp BP Pulse Ox 12/11/19 09:00 97.1 F 80 20 112/64 96 12/11/19 03:37 97.7 F 91 19 121/71 94 L - Problem List Review Problem List Initiated/Reviewed/Updated: Yes - My Orders Last 24 Hours: My Active Orders 12/10/19 14:21 Patient Status [ADT] Routine Oxygen Therapy [RC] PRN VTE/DVT Education [RC] PER UNIT ROUTINE Vital Signs [RC] Q4H Acetaminophen [TylenoL] 650 mg PO Q4H PRN 12/10/19 15:27 Patient's Own Medication [Ptom] 1 each TOP QID PRN 12/10/19 Dinner Regular Diet [DIET] 12/10/19 17:00 Patient's Own Medication [Ptom] 1 each PO DAILY@17 gemfibroziL [Lopid] 600 mg PO BIDAC 12/10/19 17:30 dexAMETHasone 6 mg PO DAILY 12/10/19 18:09 Code Status [Resuscitation Status] Routine 12/10/19 18:37 RT Post Treatment Assessment [RC] Click to Edit RT Pre-Treatment Assessment [RC] Click to Edit Albuterol/Ipratropium [Combivent Respimat] 0 gm INH Q4H PRN 12/10/19 21:00 Docusate Sodium [Colace] 100 mg PO BID Iron Polysaccharides Complex [Ferrex 150] 150 mg PO BID Patient's Own Medication [Ptom] 2 each PO BEDTIME 12/11/19 05:00 Enoxaparin [Lovenox] 40 mg SUBCUT Q12H 12/11/19 07:30 Levothyroxine 75 mcg PO ACBREAKFAST 12/11/19 09:00 Benztropine [Cogentin] 0.5 mg PO DAILY Escitalopram [Lexapro] 20 mg PO QAM Patient's Own Medication [Ptom] 1 each PO DAILY Patient's Own Medication [Ptom] 1 each PO DAILY Venlafaxine [Effexor XR] 150 mg PO QAM 12/11/19 13:00 Remdesivir (Eua) [Remdesivir (EUA)] 100 mg Sodium Chloride 0.9% [Normal Saline] 100 ml IV Q24H 12/12/19 05:11 CBC WITH AUTO DIFF [HEME] AM CMP [COMPREHENSIVE METABOLIC PN,CMP] [CHEM] AM - Plan Plan:: Assessment/Plan: UTI: 1g Ertapenem Q24HR, AM CBC Altered Mental Status: Unable to establish baseline. Patient does have a history of mental health disorder. Patients AMS may be a combination of PMH and UTI infection. Will treat patient UTI and reassess mental status. COVID-19 Infection: 100mg Days 2-5 (5 doses total), Dexamethasone 6mg PO , Combivent INH for dyspnea, Oxygen support (provide oxygen via NC to maintain O2 sats above 90%). Patient is on 3L O2, will attempt to wean to baseline which is 2L. Lovenox 40mg BID, 40mg PPI, Monitor CBC, CMP Patients POA Sasha Maloney spoken to over the phone and permission was given to use remdevisir. Informed of potential side effects, including liver damage. POA understands and agrees to using remdevisir. All questions answered and concerns addressed.
[2019-12-11] MEDS: Gemfibrozil 600 MG Tab PO SCH ×2 (12:17→17:35)
[2019-12-11] MEDS: Levothyroxine 75 MCG Tab PO SCH (12:17)
[2019-12-11] MEDS ORDERED: REMDESIVIR (EUA) 100 MG in Sodium Chloride 0.9% 100 ML IV SCH (13:00)
[2019-12-11] MEDS: REMDESIVIR (EUA) 100 MG in Sodium Chloride 0.9% 100 ML IV SCH (13:03)
[2019-12-11] MEDS: Benztropine 1 MG Tab PO SCH (13:09)
[2019-12-11] MEDS: Dexamethasone 4 MG Tab PO SCH (13:10)
[2019-12-11] MEDS: Venlafaxine 75 MG Cap.ER PO SCH (13:11)
[2019-12-11] MEDS: Escitalopram 10 MG Tab PO SCH (13:13)
[2019-12-11] MEDS: Iron Polysaccharides Complex 150 MG Cap PO SCH ×2 (13:14→20:46)
[2019-12-11] MEDS: cloZAPine 100 MG Tab PO SCH ×2 (13:14→20:50)
[2019-12-11] MEDS: Pantoprazole 40 MG Tab.CR PO SCH (13:15)
[2019-12-11] MEDS: Docusate Sodium 100 MG Cap PO SCH ×2 (13:16→20:46)
[2019-12-11] MEDS: Dexlansoprazole [Dexilant] 60 MG PO SCH (13:42)
[2019-12-11] MEDS: Lurasidone Hcl [Latuda] 80 MG PO SCH (17:36)
[2019-12-12] MEDS: Enoxaparin 40 MG/0.4 ML Syringe SUBCUT SCH ×2 (04:40→16:40)
[2019-12-12 06:52] LABS: BLOOD UREA NITROGEN,BUN 14 mg/dL (7.0-18.0); CARBON DIOXIDE,CO2 31.1 mmol/L (21.0-32.0); CHLORIDE,CL 109 mmol/L (98-107); GLUCOSE RANDOM 107 mg/dL (74-106); SODIUM,NA 147 mmol/L (136-145)
[2019-12-12] MEDS: Gemfibrozil 600 MG Tab PO SCH ×2 (06:54→16:40)
[2019-12-12] MEDS: Pantoprazole 40 MG Tab.CR PO SCH (06:54)
[2019-12-12] MEDS: Levothyroxine 75 MCG Tab PO SCH (06:54)
[2019-12-12] MEDS ORDERED: Potassium Chloride 20 MEQ Tab.ER PO ONE (08:15)
[2019-12-12] MEDS: Dexamethasone 4 MG Tab PO SCH (08:55)
[2019-12-12] MEDS: Docusate Sodium 100 MG Cap PO SCH ×2 (08:55→20:44)
[2019-12-12] MEDS: Escitalopram 10 MG Tab PO SCH (08:55)
[2019-12-12] MEDS: Benztropine 1 MG Tab PO SCH (08:57)
[2019-12-12] MEDS: Iron Polysaccharides Complex 150 MG Cap PO SCH ×2 (08:57→20:44)
[2019-12-12] MEDS: Venlafaxine 75 MG Cap.ER PO SCH (08:57)
[2019-12-12] MEDS: Ertapenem 1 GM in Sodium Chloride 0.9% 50 ML IV SCH (09:00)
[2019-12-12] MEDS: cloZAPine 100 MG Tab PO SCH ×2 (09:08→20:47)
[2019-12-12] MEDS: Dexlansoprazole [Dexilant] 60 MG PO SCH (09:09)
--- NOTE | 2019-12-12 12:27 | PCM.PN ---
- General Info Date of Service: 12/12/19 Subjective Update: Bedside: lethargic but responsive; no acute complaints from pt/ nursing staff Functional Status: Reports: Pain Controlled - Review of Systems General: Reports: Fatigue HEENT: Reports: No Symptoms Pulmonary: Reports: No Symptoms Cardiovascular: Reports: No Symptoms Gastrointestinal: Reports: No Symptoms Genitourinary: Reports: No Symptoms Musculoskeletal: Reports: No Symptoms Skin: Reports: No Symptoms Neurological: Reports: No Symptoms - Patient Data Vitals - Most Recent: Last Vital Signs Temp 96.8 F L 12/12/19 09:01 Pulse 71 12/12/19 09:01 Resp 14 12/12/19 09:01 BP 114/65 12/12/19 09:01 Pulse Ox 94 L 12/12/19 09:01 Weight - Most Recent: 108.862 kg I&O - Last 24 Hours: Intake & Output 12/11/19 12/12/19 12/12/19 22:59 06:59 14:59 Intake Total 550 600 Output Total 473 0 Balance 77 600 Lab Results Last 24 Hours: Laboratory Results - last 24 hr 12/12/19 12/12/19 12/12/19 Range/Units 06:20 06:20 06:20 WBC 6.96 (4.0-11.0) K/uL RBC 3.44 L (4.30-5.90) M/uL Hgb 9.7 L (12.0-16.0) g/dL Hct 31.9 L (36.0-46.0) % MCV 92.7 (80.0-98.0) fL MCH 28.2 (27.0-32.0) pg MCHC 30.4 L (31.0-37.0) g/dL RDW Std Deviation 51.0 (28.0-62.0) fl RDW Coeff of Amaris 15 (11.0-15.0) % Plt Count 338 (150-400) K/uL MPV 10.30 (7.40-12.00) fL Neut % (Auto) 67.8 (48.0-80.0) % Lymph % (Auto) 20.8 (16.0-40.0) % [place] % (Auto) 10.9 (0.0-15.0) % Eos % (Auto) 0.4 (0.0-7.0) % Baso % (Auto) 0.1 (0.0-1.5) % Neut # (Auto) 4.7 (1.4-5.7) K/uL Lymph # (Auto) 1.5 (0.6-2.4) K/uL [place] # (Auto) 0.8 (0.0-0.8) K/uL Eos # (Auto) 0.0 (0.0-0.7) K/uL Baso # (Auto) 0.0 (0.0-0.1) K/uL Nucleated RBC % 0.0 /100WBC Nucleated RBCs # 0 K/uL Sodium 147 H (136-145) mmol/L Potassium 3.0 L (3.5-5.1) mmol/L Chloride 109 H (98-107) mmol/L Carbon Dioxide 31.1 (21.0-32.0) mmol/L BUN 14 (7.0-18.0) mg/dL Creatinine 0.6 (0.6-1.0) mg/dL Est Cr Clr Drug Dosing 103.10 mL/min Estimated GFR (MDRD) > 60.0 ml/min Glucose 107 H (74-106) mg/dL Calcium 8.3 L (8.5-10.1) mg/dL Phosphorus 2.4 L (2.6-4.7) mg/dL Magnesium 2.0 (1.8-2.4) mg/dL Total Bilirubin 0.2 (0.2-1.0) mg/dL AST 14 L (15-37) IU/L ALT 14 (14-63) IU/L Alkaline Phosphatase 75 (46-116) U/L Total Protein 6.0 L (6.4-8.2) g/dL Albumin 2.6 L (3.4-5.0) g/dL Globulin 3.4 (2.6-4.0) g/dL Albumin/Globulin Ratio 0.8 L (0.9-1.6) Jus Results Last 24 Hours: Microbiology 12/10/19 09:30 Aerobic Blood Culture - Preliminary Blood - Venous - Lab Draw NO GROWTH AFTER 2 DAYS Anaerobic Blood Culture - Preliminary NO GROWTH AFTER 2 DAYS 12/10/19 09:15 Aerobic Blood Culture - Preliminary Blood - Venous NO GROWTH AFTER 2 DAYS Anaerobic Blood Culture - Preliminary NO GROWTH AFTER 2 DAYS Med Orders - Current: Current Medications Acetaminophen (Tylenol) 650 mg PO Q4H PRN PRN Reason: Pain (Mild 1-3)/fever Albuterol/Ipratropium (Combivent Respimat) 0 gm INH Q4H PRN PRN Reason: Dyspnea Benztropine Mesylate (Cogentin) 0.5 mg PO DAILY [facility] Last Admin: 12/12/19 08:57 Dose: 0.5 mg Documented by: Dexamethasone (Dexamethasone) 6 mg PO DAILY [facility] Last Admin: 12/12/19 08:55 Dose: 6 mg Documented by: Docusate Sodium (Colace) 100 mg PO BID [facility] Last Admin: 12/12/19 08:55 Dose: 100 mg Documented by: Enoxaparin Sodium (Lovenox) 40 mg SUBCUT Q12H [facility] Last Admin: 12/12/19 04:40 Dose: 40 mg Documented by: Escitalopram Oxalate (Lexapro) 20 mg PO QAM [facility] Last Admin: 12/12/19 08:55 Dose: 20 mg Documented by: Gemfibrozil (Lopid) 600 mg PO BIDAC [facility] Last Admin: 12/12/19 06:54 Dose: 600 mg Documented by: Ertapenem 1 gm/ Sodium (Chloride) 50 mls @ 100 mls/hr IV Q24H [facility] Last Admin: 12/12/19 09:00 Dose: 100 mls/hr Documented by: Remdesivir 100 mg/ Sodium (Chloride) 100 mls @ 100 mls/hr IV Q24H [facility] Stop: 12/14/19 12:59 Last Admin: 12/11/19 13:03 Dose: 100 mls/hr Documented by: Levothyroxine Sodium (Levothyroxine) 75 mcg PO ACBREAKFAST [facility] Last Admin: 12/12/19 06:54 Dose: 75 mcg Documented by: Pantoprazole Sodium (Protonix) 40 mg PO ACBREAKFAST [facility] Last Admin: 12/12/19 06:54 Dose: 40 mg Documented by: Clozapine 100 Mg Tab 1 each PO DAILY [facility] Last Admin: 12/12/19 09:08 Dose: 1 each Documented by: Clozapine 100 Mg Tab 2 each PO BEDTIME [facility] Last Admin: 12/11/19 20:50 Dose: 2 each Documented by: Dexlansoprazole [ (Dexilant] 60 Mg) 1 each PO DAILY [facility] Last Admin: 12/12/19 09:09 Dose: Not Given Documented by: Diclofenac Sodium (Gel) 1 each TOP QID PRN PRN Reason: Pain Lurasidone Hcl [ (Latuda] 80 Mg) 1 each PO DAILY@17 [facility] Last Admin: 12/11/19 17:36 Dose: 1 each Documented by: Polysaccharide Iron Complex (Ferrex 150) 150 mg PO BID [facility] Last Admin: 12/12/19 08:57 Dose: 150 mg Documented by: Sodium Chloride (Saline Flush) 10 ml FLUSH ASDIRECTED PRN PRN Reason: Keep Vein Open Last Admin: 12/10/19 10:15 Dose: 10 ml Documented by: Sodium Chloride (Saline Flush) 2.5 ml FLUSH ASDIRECTED PRN PRN Reason: Keep Vein Open Last Admin: 12/10/19 10:15 Dose: 2.5 ml Documented by: Venlafaxine HCl (Effexor Xr) 150 mg PO QAM [facility] Last Admin: 12/12/19 08:57 Dose: 150 mg Documented by: Discontinued Medications Aspirin (Halfprin) 81 mg PO DAILY [facility] Enoxaparin Sodium (Lovenox) 40 mg SUBCUT Q24H [facility] Last Admin: 12/10/19 19:36 Dose: Not Given Documented by: Enoxaparin Sodium (Lovenox) 40 mg SUBCUT Q24H [facility] Last Admin: 12/10/19 17:13 Dose: 40 mg Documented by: Piperacillin Sod/Tazobactam (Sod 4.5 gm/ Sodium Chloride) 100 mls @ 100 mls/hr IV ONETIME ONE Stop: 12/10/19 10:32 Last Admin: 12/10/19 10:14 Dose: 100 mls/hr Documented by: Sodium Chloride (Normal Saline) 1,917 mls @ 999 mls/hr IV NOW STA Stop: 12/10/19 11:31 Last Admin: 12/10/19 10:15 Dose: 999 mls/hr Documented by: Ceftriaxone Sodium/Dextrose 1 (gm/ Premix) 50 mls @ 100 mls/hr IV ONETIME ONE Stop: 12/10/19 11:33 Last Admin: 12/10/19 11:50 Dose: 100 mls/hr Documented by: Potassium Chloride 40 meq/ (Premix) 100 mls @ 25 mls/hr IV ONETIME ONE Stop: 12/10/19 16:20 Last Admin: 12/10/19 13:30 Dose: 25 mls/hr Documented by: Sodium Chloride (Normal Saline) 500 mls @ 75 mls/hr IV .Bolus ONE Stop: 12/10/19 19:49 Last Admin: 12/10/19 13:30 Dose: 75 mls/hr Documented by: Potassium Chloride 40 meq/ (Premix) 100 mls @ 25 mls/hr IV ONETIME ONE Stop: 12/10/19 18:07 Last Admin: 12/10/19 15:31 Dose: Not Given Documented by: Meropenem/Sodium Chloride 1 gm (/ Premix) 50 mls @ 100 mls/hr IV Q8H [facility] Last Admin: 12/10/19 19:37 Dose: Not Given Documented by: Lactated Ringer's (Ringers, Lactated) 1,000 mls @ 125 mls/hr IV ASDIRECTED [facility] Sodium Chloride (Normal Saline) 1,000 mls @ 125 mls/hr IV ASDIRECTED [facility] Last Admin: 12/10/19 17:14 Dose: 125 mls/hr Documented by: Meropenem/Sodium Chloride 1 gm (/ Premix) 50 mls @ 100 mls/hr IV Q8H [facility] Last Admin: 12/11/19 13:43 Dose: Not Given Documented by: Remdesivir 200 mg/ Sodium (Chloride) 250 mls @ 250 mls/hr IV ONETIME ONE Stop: 12/10/19 17:28 Last Admin: 12/10/19 17:35 Dose: 250 mls/hr Documented by: Remdesivir 100 mg/ Sodium (Chloride) 100 mls @ 100 mls/hr IV Q24H [facility] Lactated Ringer's (Ringers, Lactated) 1,000 mls @ 125 mls/hr IV ASDIRECTED [facility] Sodium Chloride (Normal Saline) 1,000 mls @ 125 mls/hr IV ONETIME ONE Stop: 12/11/19 01:44 Last Admin: 12/10/19 17:30 Dose: 125 mls/hr Documented by: Potassium Chloride 40 meq/ (Premix) 100 mls @ 25 mls/hr IV ONETIME ONE Stop: 12/10/19 23:09 Last Admin: 12/10/19 20:02 Dose: 25 mls/hr Documented by: Potassium Chloride (Potassium Chloride) 40 meq PO ONETIME ONE Stop: 12/10/19 12:07 Last Admin: 12/10/19 13:31 Dose: Not Given Documented by: Potassium Chloride (Klor-Con M20) 60 meq PO ONETIME ONE Stop: 12/12/19 08:16 Last Admin: 12/12/19 08:58 Dose: 60 meq Documented by: Sepsis Event Note - Evaluation Sepsis Screening Result: No Definite Risk - Focused Exam Vital Signs: Vital Signs Temp Pulse Resp BP Pulse Ox 12/12/19 09:01 96.8 F L 71 14 114/65 94 L 12/12/19 03:10 97.7 F 82 18 117/62 93 L - Problem List Review Problem List Initiated/Reviewed/Updated: Yes - Plan Plan:: Assessment/Plan: Continue plan as below UTI: 1g Ertapenem Q24HR, AM CBC Altered Mental Status: Unable to establish baseline. Patient does have a history of mental health disorder. Patients AMS may be a combination of PMH and UTI infection. Will treat patient UTI and reassess mental status. COVID-19 Infection: 100mg Days 2-5 (5 doses total), Dexamethasone 6mg PO , Combivent INH for dyspnea, Oxygen support (provide oxygen via NC to maintain O2 sats above 90%). Patient is on 3L O2, will attempt to wean to baseline which is 2L. Lovenox 40mg BID, 40mg PPI, Monitor CBC, CMP Patients LILLIAM Sasha Maloney spoken to over the phone and permission was given to use remdevisir. Informed of potential side effects, including liver damage. POA understands and agrees to using remdevisir. All questions answered and concerns addressed.
[2019-12-12] MEDS: REMDESIVIR (EUA) 100 MG in Sodium Chloride 0.9% 100 ML IV SCH (12:29)
[2019-12-12] MEDS: Lurasidone Hcl [Latuda] 80 MG PO SCH (16:40)
[2019-12-13] MEDS: Enoxaparin 40 MG/0.4 ML Syringe SUBCUT SCH ×2 (05:56→16:00)
[2019-12-13] MEDS: Gemfibrozil 600 MG Tab PO SCH ×2 (06:43→16:02)
[2019-12-13] MEDS: Levothyroxine 75 MCG Tab PO SCH (06:43)
[2019-12-13] MEDS: Pantoprazole 40 MG Tab.CR PO SCH (06:43)
[2019-12-13 07:16] LABS: BLOOD UREA NITROGEN,BUN 20 mg/dL (7.0-18.0); CARBON DIOXIDE,CO2 30.6 mmol/L (21.0-32.0); CHLORIDE,CL 106 mmol/L (98-107); GLUCOSE RANDOM 107 mg/dL (74-106); POTASSIUM,K 3.9 mmol/L (3.5-5.1); SODIUM,NA 143 mmol/L (136-145)
[2019-12-13] MEDS: Docusate Sodium 100 MG Cap PO SCH ×2 (08:23→20:30)
[2019-12-13] MEDS: Iron Polysaccharides Complex 150 MG Cap PO SCH ×2 (08:23→20:29)
[2019-12-13] MEDS: Venlafaxine 75 MG Cap.ER PO SCH (08:23)
[2019-12-13] MEDS: Dexamethasone 4 MG Tab PO SCH (08:23)
[2019-12-13] MEDS: Benztropine 1 MG Tab PO SCH (08:23)
[2019-12-13] MEDS: Escitalopram 10 MG Tab PO SCH (08:24)
[2019-12-13] MEDS: Ertapenem 1 GM in Sodium Chloride 0.9% 50 ML IV SCH (08:32)
[2019-12-13] MEDS: cloZAPine 100 MG Tab PO SCH ×2 (08:57→20:28)
[2019-12-13] MEDS: Dexlansoprazole [Dexilant] 60 MG PO SCH (08:58)
[2019-12-13] MEDS: REMDESIVIR (EUA) 100 MG in Sodium Chloride 0.9% 100 ML IV SCH (12:02)
--- NOTE | 2019-12-13 12:41 | PCM.PN ---
- General Info Date of Service: 12/13/19 - Review of Systems Systems Review Comment:: patient more awake and talkative today, denies any pain or shortness of breath. - Patient Data Vitals - Most Recent: Last Vital Signs Temp 36.8 C 12/13/19 08:00 Pulse 82 12/13/19 08:00 Resp 18 12/13/19 08:00 BP 110/65 12/13/19 08:00 Pulse Ox 94 L 12/13/19 08:00 Weight - Most Recent: 108.862 kg I&O - Last 24 Hours: Intake & Output 12/12/19 12/13/19 12/13/19 22:59 06:59 14:59 Intake Total 1030 900 Output Total 580 Balance 1030 320 Lab Results Last 24 Hours: Laboratory Results - last 24 hr 12/13/19 12/13/19 Range/Units 06:15 06:15 WBC 7.42 (4.0-11.0) K/uL RBC 3.55 L (4.30-5.90) M/uL Hgb 10.1 L (12.0-16.0) g/dL Hct 33.6 L (36.0-46.0) % MCV 94.6 (80.0-98.0) fL MCH 28.5 (27.0-32.0) pg MCHC 30.1 L (31.0-37.0) g/dL RDW Std Deviation 49.0 (28.0-62.0) fl RDW Coeff of Amaris 15 (11.0-15.0) % Plt Count 357 (150-400) K/uL MPV 10.30 (7.40-12.00) fL Add Manual Diff YES Neutrophils % (Manual) 52 (48.0-80.0) % Band Neutrophils % 4 % Lymphocytes % (Manual) 36 (16.0-40.0) % Monocytes % (Manual) 5 (0.0-15.0) % Eosinophils % (Manual) 2 (0.0-7.0) % Metamyelocytes % 1 % Absolute Seg Neuts 3.9 (1.4-5.7) Band Neutrophils # 0.3 Lymphocytes # (Manual) 2.7 H (0.6-2.4) Monocytes # (Manual) 0.4 (0.0-0.8) Eosinophils # (Manual) 0.1 (0.0-0.7) Absolute Metamyelocyte 0.1 Sodium 143 (136-145) mmol/L Potassium 3.9 (3.5-5.1) mmol/L Chloride 106 (98-107) mmol/L Carbon Dioxide 30.6 (21.0-32.0) mmol/L BUN 20 H (7.0-18.0) mg/dL Creatinine 0.7 (0.6-1.0) mg/dL Est Cr Clr Drug Dosing 88.37 mL/min Estimated GFR (MDRD) > 60.0 ml/min Glucose 107 H (74-106) mg/dL Calcium 8.3 L (8.5-10.1) mg/dL Total Bilirubin 0.2 (0.2-1.0) mg/dL AST 16 (15-37) IU/L ALT 16 (14-63) IU/L Alkaline Phosphatase 74 (46-116) U/L Total Protein 6.3 L (6.4-8.2) g/dL Albumin 2.7 L (3.4-5.0) g/dL Globulin 3.6 (2.6-4.0) g/dL Albumin/Globulin Ratio 0.8 L (0.9-1.6) Jus Results Last 24 Hours: Microbiology 12/10/19 09:30 Aerobic Blood Culture - Preliminary Blood - Venous - Lab Draw NO GROWTH AFTER 3 DAYS Anaerobic Blood Culture - Preliminary NO GROWTH AFTER 3 DAYS 12/10/19 09:15 Aerobic Blood Culture - Preliminary Blood - Venous NO GROWTH AFTER 3 DAYS Anaerobic Blood Culture - Preliminary NO GROWTH AFTER 3 DAYS Med Orders - Current: Current Medications Acetaminophen (Tylenol) 650 mg PO Q4H PRN PRN Reason: Pain (Mild 1-3)/fever Albuterol/Ipratropium (Combivent Respimat) 0 gm INH Q4H PRN PRN Reason: Dyspnea Benztropine Mesylate (Cogentin) 0.5 mg PO DAILY [facility] Last Admin: 12/13/19 08:23 Dose: 0.5 mg Documented by: Dexamethasone (Dexamethasone) 6 mg PO DAILY [facility] Last Admin: 12/13/19 08:23 Dose: 6 mg Documented by: Docusate Sodium (Colace) 100 mg PO BID [facility] Last Admin: 12/13/19 08:23 Dose: 100 mg Documented by: Enoxaparin Sodium (Lovenox) 40 mg SUBCUT Q12H [facility] Last Admin: 12/13/19 05:56 Dose: 40 mg Documented by: Escitalopram Oxalate (Lexapro) 20 mg PO QAM [facility] Last Admin: 12/13/19 08:24 Dose: 20 mg Documented by: Gemfibrozil (Lopid) 600 mg PO BIDAC [facility] Last Admin: 12/13/19 06:43 Dose: 600 mg Documented by: Ertapenem 1 gm/ Sodium (Chloride) 50 mls @ 100 mls/hr IV Q24H [facility] Last Admin: 12/13/19 08:32 Dose: 100 mls/hr Documented by: Remdesivir 100 mg/ Sodium (Chloride) 100 mls @ 100 mls/hr IV Q24H [facility] Stop: 12/14/19 12:59 Last Admin: 12/13/19 12:02 Dose: 100 mls/hr Documented by: Levothyroxine Sodium (Levothyroxine) 75 mcg PO ACBREAKFAST [facility] Last Admin: 12/13/19 06:43 Dose: 75 mcg Documented by: Pantoprazole Sodium (Protonix) 40 mg PO ACBREAKFAST [facility] Last Admin: 12/13/19 06:43 Dose: 40 mg Documented by: Clozapine 100 Mg Tab 1 each PO DAILY [facility] Last Admin: 12/13/19 08:57 Dose: 1 each Documented by: Clozapine 100 Mg Tab 2 each PO BEDTIME [facility] Last Admin: 12/12/19 20:47 Dose: 2 each Documented by: Dexlansoprazole [ (Dexilant] 60 Mg) 1 each PO DAILY [facility] Last Admin: 12/13/19 08:58 Dose: Not Given Documented by: Diclofenac Sodium (Gel) 1 each TOP QID PRN PRN Reason: Pain Lurasidone Hcl [ (Latuda] 80 Mg) 1 each PO DAILY@17 [facility] Last Admin: 12/12/19 16:40 Dose: 1 each Documented by: Polysaccharide Iron Complex (Ferrex 150) 150 mg PO BID [facility] Last Admin: 12/13/19 08:23 Dose: 150 mg Documented by: Sodium Chloride (Saline Flush) 10 ml FLUSH ASDIRECTED PRN PRN Reason: Keep Vein Open Last Admin: 12/10/19 10:15 Dose: 10 ml Documented by: Sodium Chloride (Saline Flush) 2.5 ml FLUSH ASDIRECTED PRN PRN Reason: Keep Vein Open Last Admin: 12/10/19 10:15 Dose: 2.5 ml Documented by: Venlafaxine HCl (Effexor Xr) 150 mg PO QAM [facility] Last Admin: 12/13/19 08:23 Dose: 150 mg Documented by: Discontinued Medications Aspirin (Halfprin) 81 mg PO DAILY [facility] Enoxaparin Sodium (Lovenox) 40 mg SUBCUT Q24H [facility] Last Admin: 12/10/19 19:36 Dose: Not Given Documented by: Enoxaparin Sodium (Lovenox) 40 mg SUBCUT Q24H [facility] Last Admin: 12/10/19 17:13 Dose: 40 mg Documented by: Piperacillin Sod/Tazobactam (Sod 4.5 gm/ Sodium Chloride) 100 mls @ 100 mls/hr IV ONETIME ONE Stop: 12/10/19 10:32 Last Admin: 12/10/19 10:14 Dose: 100 mls/hr Documented by: Sodium Chloride (Normal Saline) 1,917 mls @ 999 mls/hr IV NOW STA Stop: 12/10/19 11:31 Last Admin: 12/10/19 10:15 Dose: 999 mls/hr Documented by: Ceftriaxone Sodium/Dextrose 1 (gm/ Premix) 50 mls @ 100 mls/hr IV ONETIME ONE Stop: 12/10/19 11:33 Last Admin: 12/10/19 11:50 Dose: 100 mls/hr Documented by: Potassium Chloride 40 meq/ (Premix) 100 mls @ 25 mls/hr IV ONETIME ONE Stop: 12/10/19 16:20 Last Admin: 12/10/19 13:30 Dose: 25 mls/hr Documented by: Sodium Chloride (Normal Saline) 500 mls @ 75 mls/hr IV .Bolus ONE Stop: 12/10/19 19:49 Last Admin: 12/10/19 13:30 Dose: 75 mls/hr Documented by: Potassium Chloride 40 meq/ (Premix) 100 mls @ 25 mls/hr IV ONETIME ONE Stop: 12/10/19 18:07 Last Admin: 12/10/19 15:31 Dose: Not Given Documented by: Meropenem/Sodium Chloride 1 gm (/ Premix) 50 mls @ 100 mls/hr IV Q8H [facility] Last Admin: 12/10/19 19:37 Dose: Not Given Documented by: Lactated Ringer's (Ringers, Lactated) 1,000 mls @ 125 mls/hr IV ASDIRECTED OSCAR Sodium Chloride (Normal Saline) 1,000 mls @ 125 mls/hr IV ASDIRECTED [facility] Last Admin: 12/10/19 17:14 Dose: 125 mls/hr Documented by: Meropenem/Sodium Chloride 1 gm (/ Premix) 50 mls @ 100 mls/hr IV Q8H [facility] Last Admin: 12/11/19 13:43 Dose: Not Given Documented by: Remdesivir 200 mg/ Sodium (Chloride) 250 mls @ 250 mls/hr IV ONETIME ONE Stop: 12/10/19 17:28 Last Admin: 12/10/19 17:35 Dose: 250 mls/hr Documented by: Remdesivir 100 mg/ Sodium (Chloride) 100 mls @ 100 mls/hr IV Q24H [facility] Lactated Ringer's (Ringers, Lactated) 1,000 mls @ 125 mls/hr IV ASDIRECTED [facility] Sodium Chloride (Normal Saline) 1,000 mls @ 125 mls/hr IV ONETIME ONE Stop: 12/11/19 01:44 Last Admin: 12/10/19 17:30 Dose: 125 mls/hr Documented by: Potassium Chloride 40 meq/ (Premix) 100 mls @ 25 mls/hr IV ONETIME ONE Stop: 12/10/19 23:09 Last Admin: 12/10/19 20:02 Dose: 25 mls/hr Documented by: Potassium Chloride (Potassium Chloride) 40 meq PO ONETIME ONE Stop: 12/10/19 12:07 Last Admin: 12/10/19 13:31 Dose: Not Given Documented by: Potassium Chloride (Klor-Con M20) 60 meq PO ONETIME ONE Stop: 12/12/19 08:16 Last Admin: 12/12/19 08:58 Dose: 60 meq Documented by: - Exam General: Cooperative, No Acute Distress Neck: Supple Lungs: Clear to Auscultation, Normal Respiratory Effort Cardiovascular: Regular Rate, Regular Rhythm GI/Abdominal Exam: Soft, Non-Tender, No Distention Extremities: Non-Tender Skin: Warm, Dry, Intact Neurological: No New Focal Deficit Sepsis Event Note - Evaluation Sepsis Screening Result: No Definite Risk - Focused Exam Vital Signs: Vital Signs Temp Pulse Resp BP Pulse Ox 12/13/19 08:00 36.8 C 82 18 110/65 94 L 12/13/19 03:49 36.1 C 80 20 116/69 96 - Problem List Review Problem List Initiated/Reviewed/Updated: Yes - Plan Plan:: 59 yo female admitted with COVID pneumonia Covid Pneumonia: treating with dexamethason, Remdesivir, lovenoxn, and supplement oxygen UTI: on ertapenem, cultures pending.
[2019-12-13] MEDS: Lurasidone Hcl [Latuda] 80 MG PO SCH (16:04)
[2019-12-14] MEDS: Enoxaparin 40 MG/0.4 ML Syringe SUBCUT SCH ×2 (04:15→16:55)
[2019-12-14 06:37] LABS: BLOOD UREA NITROGEN,BUN 19 mg/dL (7.0-18.0); CARBON DIOXIDE,CO2 33.4 mmol/L (21.0-32.0); CHLORIDE,CL 106 mmol/L (98-107); GLUCOSE RANDOM 120 mg/dL (74-106); SODIUM,NA 145 mmol/L (136-145)
[2019-12-14] MEDS: Gemfibrozil 600 MG Tab PO SCH ×2 (06:40→16:56)
[2019-12-14] MEDS: Pantoprazole 40 MG Tab.CR PO SCH (06:40)
[2019-12-14] MEDS: Levothyroxine 75 MCG Tab PO SCH (06:40)
[2019-12-14] MEDS: Polyethylene Glycol 3350 Powder 17 GM Packet PO SCH (09:08)
[2019-12-14] MEDS: Venlafaxine 75 MG Cap.ER PO SCH (09:10)
[2019-12-14] MEDS: Docusate Sodium 100 MG Cap PO SCH ×2 (09:10→20:23)
[2019-12-14] MEDS: Iron Polysaccharides Complex 150 MG Cap PO SCH ×2 (09:11→20:23)
[2019-12-14] MEDS: Dexamethasone 4 MG Tab PO SCH (09:11)
[2019-12-14] MEDS: Benztropine 1 MG Tab PO SCH (09:11)
[2019-12-14] MEDS: Escitalopram 10 MG Tab PO SCH (09:12)
[2019-12-14] MEDS: Dexlansoprazole [Dexilant] 60 MG PO SCH (09:13)
[2019-12-14] MEDS: cloZAPine 100 MG Tab PO SCH ×2 (09:13→20:23)
[2019-12-14] MEDS: Ertapenem 1 GM in Sodium Chloride 0.9% 50 ML IV SCH (09:15)
--- NOTE | 2019-12-14 11:07 | PCM.PN ---
- General Info Date of Service: 12/14/19 Subjective Update: Patient states that she has a sore throat and some neck pain. Also states this morning that she would like some more food - Review of Systems General: Denies: Fever, Weakness HEENT: Reports: Sore Throat Pulmonary: Denies: Shortness of Breath, Cough Cardiovascular: Denies: Chest Pain Gastrointestinal: Denies: Abdominal Pain (Patient is alert this morning and able to communicate much better than previous days. ROS still diffcult to fully establish ) Neurological: Denies: Confusion, Headache - Patient Data Vitals - Most Recent: Last Vital Signs Temp 98 F 12/14/19 08:00 Pulse 81 12/14/19 08:00 Resp 18 12/14/19 08:00 BP 103/57 L 12/14/19 08:00 Pulse Ox 97 12/14/19 08:00 Weight - Most Recent: 240 lb I&O - Last 24 Hours: Intake & Output 12/13/19 12/14/19 12/14/19 22:59 06:59 14:59 Intake Total 860 670 Output Total 540 1218 Balance 320 -548 Lab Results Last 24 Hours: Laboratory Results - last 24 hr 12/14/19 12/14/19 Range/Units 06:00 06:00 WBC 6.86 (4.0-11.0) K/uL RBC 3.66 L (4.30-5.90) M/uL Hgb 10.3 L (12.0-16.0) g/dL Hct 34.7 L (36.0-46.0) % MCV 94.8 (80.0-98.0) fL MCH 28.1 (27.0-32.0) pg MCHC 29.7 L (31.0-37.0) g/dL RDW Std Deviation 49.4 (28.0-62.0) fl RDW Coeff of Amaris 15 (11.0-15.0) % Plt Count 345 (150-400) K/uL MPV 10.40 (7.40-12.00) fL Neut % (Auto) 60.9 (48.0-80.0) % Lymph % (Auto) 30.0 (16.0-40.0) % [place] % (Auto) 8.6 (0.0-15.0) % Eos % (Auto) 0.1 (0.0-7.0) % Baso % (Auto) 0.4 (0.0-1.5) % Neut # (Auto) 4.2 (1.4-5.7) K/uL Lymph # (Auto) 2.1 (0.6-2.4) K/uL [place] # (Auto) 0.6 (0.0-0.8) K/uL Eos # (Auto) 0.0 (0.0-0.7) K/uL Baso # (Auto) 0.0 (0.0-0.1) K/uL Add Manual Diff Sodium 145 (136-145) mmol/L Potassium 4.0 (3.5-5.1) mmol/L Chloride 106 (98-107) mmol/L Carbon Dioxide 33.4 H (21.0-32.0) mmol/L BUN 19 H (7.0-18.0) mg/dL Creatinine 0.7 (0.6-1.0) mg/dL Est Cr Clr Drug Dosing 88.37 mL/min Estimated GFR (MDRD) > 60.0 ml/min Glucose 120 H (74-106) mg/dL Calcium 8.9 (8.5-10.1) mg/dL Total Bilirubin 0.2 (0.2-1.0) mg/dL AST 21 (15-37) IU/L ALT 19 (14-63) IU/L Alkaline Phosphatase 74 (46-116) U/L Total Protein 6.2 L (6.4-8.2) g/dL Albumin 2.6 L (3.4-5.0) g/dL Globulin 3.6 (2.6-4.0) g/dL Albumin/Globulin Ratio 0.7 L (0.9-1.6) Jus Results Last 24 Hours: Microbiology 12/10/19 09:30 Aerobic Blood Culture - Preliminary Blood - Venous - Lab Draw NO GROWTH AFTER 4 DAYS Anaerobic Blood Culture - Preliminary NO GROWTH AFTER 4 DAYS 12/10/19 09:15 Aerobic Blood Culture - Preliminary Blood - Venous NO GROWTH AFTER 4 DAYS Anaerobic Blood Culture - Preliminary NO GROWTH AFTER 4 DAYS 12/10/19 09:20 Urine Culture - Final Urine, Quick Cath (In-Out) Escherichia Coli Proteus Mirabilis Med Orders - Current: Current Medications Acetaminophen (Tylenol) 650 mg PO Q4H PRN PRN Reason: Pain (Mild 1-3)/fever Albuterol/Ipratropium (Combivent Respimat) 0 gm INH Q4H PRN PRN Reason: Dyspnea Benztropine Mesylate (Cogentin) 0.5 mg PO DAILY [facility] Last Admin: 12/14/19 09:11 Dose: 0.5 mg Documented by: Dexamethasone (Dexamethasone) 6 mg PO DAILY [facility] Last Admin: 12/14/19 09:11 Dose: 6 mg Documented by: Docusate Sodium (Colace) 100 mg PO BID [facility] Last Admin: 12/14/19 09:10 Dose: 100 mg Documented by: Enoxaparin Sodium (Lovenox) 40 mg SUBCUT Q12H [facility] Last Admin: 12/14/19 04:15 Dose: 40 mg Documented by: Escitalopram Oxalate (Lexapro) 20 mg PO QAM [facility] Last Admin: 12/14/19 09:12 Dose: 20 mg Documented by: Gemfibrozil (Lopid) 600 mg PO BIDAC [facility] Last Admin: 12/14/19 06:40 Dose: 600 mg Documented by: Ertapenem 1 gm/ Sodium (Chloride) 50 mls @ 100 mls/hr IV Q24H [facility] Last Admin: 12/14/19 09:15 Dose: 100 mls/hr Documented by: Remdesivir 100 mg/ Sodium (Chloride) 100 mls @ 100 mls/hr IV Q24H [facility] Stop: 12/14/19 12:59 Last Admin: 12/13/19 12:02 Dose: 100 mls/hr Documented by: Levothyroxine Sodium (Levothyroxine) 75 mcg PO ACBREAKFAST [facility] Last Admin: 12/14/19 06:40 Dose: 75 mcg Documented by: Pantoprazole Sodium (Protonix) 40 mg PO ACBREAKFAST [facility] Last Admin: 12/14/19 06:40 Dose: 40 mg Documented by: Clozapine 100 Mg Tab 1 each PO DAILY [facility] Last Admin: 12/14/19 09:13 Dose: 1 each Documented by: Clozapine 100 Mg Tab 2 each PO BEDTIME [facility] Last Admin: 12/13/19 20:28 Dose: 2 each Documented by: Dexlansoprazole [ (Dexilant] 60 Mg) 1 each PO DAILY [facility] Last Admin: 12/14/19 09:13 Dose: Not Given Documented by: Diclofenac Sodium (Gel) 1 each TOP QID PRN PRN Reason: Pain Lurasidone Hcl [ (Latuda] 80 Mg) 1 each PO DAILY@17 [facility] Last Admin: 12/13/19 16:04 Dose: 1 each Documented by: Polyethylene Glycol (Miralax) 17 gm PO DAILY [facility] Last Admin: 12/14/19 09:08 Dose: 17 gm Documented by: Polysaccharide Iron Complex (Ferrex 150) 150 mg PO BID [facility] Last Admin: 12/14/19 09:11 Dose: 150 mg Documented by: Sodium Chloride (Saline Flush) 10 ml FLUSH ASDIRECTED PRN PRN Reason: Keep Vein Open Last Admin: 12/10/19 10:15 Dose: 10 ml Documented by: Sodium Chloride (Saline Flush) 2.5 ml FLUSH ASDIRECTED PRN PRN Reason: Keep Vein Open Last Admin: 12/10/19 10:15 Dose: 2.5 ml Documented by: Venlafaxine HCl (Effexor Xr) 150 mg PO QAM [facility] Last Admin: 12/14/19 09:10 Dose: 150 mg Documented by: Discontinued Medications Aspirin (Halfprin) 81 mg PO DAILY [facility] Enoxaparin Sodium (Lovenox) 40 mg SUBCUT Q24H [facility] Last Admin: 12/10/19 19:36 Dose: Not Given Documented by: Enoxaparin Sodium (Lovenox) 40 mg SUBCUT Q24H [facility] Last Admin: 12/10/19 17:13 Dose: 40 mg Documented by: Piperacillin Sod/Tazobactam (Sod 4.5 gm/ Sodium Chloride) 100 mls @ 100 mls/hr IV ONETIME ONE Stop: 12/10/19 10:32 Last Admin: 12/10/19 10:14 Dose: 100 mls/hr Documented by: Sodium Chloride (Normal Saline) 1,917 mls @ 999 mls/hr IV NOW STA Stop: 12/10/19 11:31 Last Admin: 12/10/19 10:15 Dose: 999 mls/hr Documented by: Ceftriaxone Sodium/Dextrose 1 (gm/ Premix) 50 mls @ 100 mls/hr IV ONETIME ONE Stop: 12/10/19 11:33 Last Admin: 12/10/19 11:50 Dose: 100 mls/hr Documented by: Potassium Chloride 40 meq/ (Premix) 100 mls @ 25 mls/hr IV ONETIME ONE Stop: 12/10/19 16:20 Last Admin: 12/10/19 13:30 Dose: 25 mls/hr Documented by: Sodium Chloride (Normal Saline) 500 mls @ 75 mls/hr IV .Bolus ONE Stop: 12/10/19 19:49 Last Admin: 12/10/19 13:30 Dose: 75 mls/hr Documented by: Potassium Chloride 40 meq/ (Premix) 100 mls @ 25 mls/hr IV ONETIME ONE Stop: 12/10/19 18:07 Last Admin: 12/10/19 15:31 Dose: Not Given Documented by: Meropenem/Sodium Chloride 1 gm (/ Premix) 50 mls @ 100 mls/hr IV Q8H [facility] Last Admin: 12/10/19 19:37 Dose: Not Given Documented by: Lactated Ringer's (Ringers, Lactated) 1,000 mls @ 125 mls/hr IV ASDIRECTED OSCAR Sodium Chloride (Normal Saline) 1,000 mls @ 125 mls/hr IV ASDIRECTED [facility] Last Admin: 12/10/19 17:14 Dose: 125 mls/hr Documented by: Meropenem/Sodium Chloride 1 gm (/ Premix) 50 mls @ 100 mls/hr IV Q8H [facility] Last Admin: 12/11/19 13:43 Dose: Not Given Documented by: Remdesivir 200 mg/ Sodium (Chloride) 250 mls @ 250 mls/hr IV ONETIME ONE Stop: 12/10/19 17:28 Last Admin: 12/10/19 17:35 Dose: 250 mls/hr Documented by: Remdesivir 100 mg/ Sodium (Chloride) 100 mls @ 100 mls/hr IV Q24H [facility] Lactated Ringer's (Ringers, Lactated) 1,000 mls @ 125 mls/hr IV ASDIRECTED [facility] Sodium Chloride (Normal Saline) 1,000 mls @ 125 mls/hr IV ONETIME ONE Stop: 12/11/19 01:44 Last Admin: 12/10/19 17:30 Dose: 125 mls/hr Documented by: Potassium Chloride 40 meq/ (Premix) 100 mls @ 25 mls/hr IV ONETIME ONE Stop: 12/10/19 23:09 Last Admin: 12/10/19 20:02 Dose: 25 mls/hr Documented by: Potassium Chloride (Potassium Chloride) 40 meq PO ONETIME ONE Stop: 12/10/19 12:07 Last Admin: 12/10/19 13:31 Dose: Not Given Documented by: Potassium Chloride (Klor-Con M20) 60 meq PO ONETIME ONE Stop: 12/12/19 08:16 Last Admin: 12/12/19 08:58 Dose: 60 meq Documented by: - Exam General: Alert, Cooperative, No Acute Distress Lungs: Clear to Auscultation, Normal Respiratory Effort Cardiovascular: Regular Rate, Regular Rhythm GI/Abdominal Exam: Soft, Non-Tender, No Distention Extremities: No Pedal Edema Skin: Warm, Dry Psy/Mental Status: Alert Sepsis Event Note - Evaluation Sepsis Screening Result: No Definite Risk - Focused Exam Vital Signs: Vital Signs Temp Pulse Resp BP Pulse Ox 12/14/19 08:00 98 F 81 18 103/57 L 97 12/14/19 03:21 96.7 F L 72 20 102/57 L 96 12/13/19 23:46 96.3 F L 76 20 115/57 L 96 - Problem List Review Problem List Initiated/Reviewed/Updated: Yes - My Orders Last 24 Hours: My Active Orders 12/14/19 09:00 polyethylene glycoL 3350 [MiraLAX] 17 gm PO DAILY - Plan Plan:: Assessment/Plan: UTI: 1g Ertapenem Q24HR, AM CBC. Patients UC was positive for ESBL. Discussed discharge plan for outpatient antibiotics possibly tomorrow. Will consider nitrofurantoin and cephalexin Altered Mental Status: Patients AMS has significantly improved since admission. Patient is responsive to questioning and communicating COVID-19 Infection: 100mg Days 2-5 (5 doses total), Dexamethasone 6mg PO , Combivent INH for dyspnea, Oxygen support (provide oxygen via NC to maintain O2 sats above 90%). Patient is on 3L O2, will attempt to wean to baseline which is 2L. Lovenox 40mg BID, 40mg PPI, Monitor CBC, CMP Patients POA Sashaliz Maloney spoken to over the phone and permission was given to use remdevisir. Informed of potential side effects, including liver damage. POA understands and agrees to using remdevisir. All questions answered and concerns addressed.
[2019-12-14] MEDS: REMDESIVIR (EUA) 100 MG in Sodium Chloride 0.9% 100 ML IV SCH (11:50)
[2019-12-14] MEDS: Lurasidone Hcl [Latuda] 80 MG PO SCH (16:56)
[2019-12-15] MEDS: Enoxaparin 40 MG/0.4 ML Syringe SUBCUT SCH (04:45)
[2019-12-15 06:00] LABS: BLOOD UREA NITROGEN,BUN 22 mg/dL (7.0-18.0); CARBON DIOXIDE,CO2 30.7 mmol/L (21.0-32.0); CHLORIDE,CL 106 mmol/L (98-107); GLUCOSE RANDOM 108 mg/dL (74-106); POTASSIUM,K 4.4 mmol/L (3.5-5.1); SODIUM,NA 142 mmol/L (136-145)
[2019-12-15] MEDS: Levothyroxine 75 MCG Tab PO SCH (06:44)
[2019-12-15] MEDS: Pantoprazole 40 MG Tab.CR PO SCH (06:44)
[2019-12-15] MEDS: Gemfibrozil 600 MG Tab PO SCH (06:44)
[2019-12-15] MEDS: Ertapenem 1 GM in Sodium Chloride 0.9% 50 ML IV SCH (10:14)
[2019-12-15] MEDS: Dexamethasone 4 MG Tab PO SCH (11:43)
[2019-12-15] MEDS: Polyethylene Glycol 3350 Powder 17 GM Packet PO SCH (11:43)
[2019-12-15] MEDS: Docusate Sodium 100 MG Cap PO SCH (11:44)
[2019-12-15] MEDS: Benztropine 1 MG Tab PO SCH (11:44)
[2019-12-15] MEDS: Iron Polysaccharides Complex 150 MG Cap PO SCH (11:44)
[2019-12-15] MEDS: Venlafaxine 75 MG Cap.ER PO SCH (11:45)
[2019-12-15] MEDS: Escitalopram 10 MG Tab PO SCH (11:45)
[2019-12-15] MEDS: cloZAPine 100 MG Tab PO SCH (11:46)
[2019-12-15 11:58] VITALS: BP 120/56; PULSE 78
[2019-12-15] MEDS: Dexlansoprazole [Dexilant] 60 MG PO SCH (12:08)
--- NOTE | 2019-12-15 19:04 | PCM.DCSUM1 ---
Discharge Summary - Hospital Course Free Text/Narrative:: 59 year old female admitted to the medical floor for UTI, altered mental status and hypokalemia. Patient has a significant mental history including depression and psychosis. Patient is a resident at the [facility] and on admission was noted to be lethargic. Patient had a positive COVID test from 11-28-2019. On admission it was difficult to obtain an ROS due to AMS. Patients UTI was noted to be positive for ESBL bacteria on UC. Patient was treated with Ertapenem. COVID was treated with Remdesivir, Dexamethasone, and oxygen support was provided. Patients mental status was significantly improved upon discharge. Patient was prescribed nitrofurantoin, cephalexin for UTI coverage and dexamethasone for continuation of COVID regimen for 5 days. - Discharge Data Discharge Date: 12/15/19 Discharge Disposition: DC/Tfer to [place] [id number] Condition: Stable - Referral to Home Health Primary Care Physician: Anila Dodge, DO - Discharge Plan *PRESCRIPTION DRUG MONITORING PROGRAM REVIEWED*: Not Applicable *COPY OF PRESCRIPTION DRUG MONITORING REPORT IN PATIENT RAYSA: Not Applicable Prescriptions/Med Rec: dexAMETHasone [Dexamethasone] 6 mg PO DAILY 5 Days #5 tablet cephALEXin [Keflex] 500 mg PO BID 5 Days #10 cap Nitrofurantoin Monohyd/M-Cryst [Macrobid 100 mg Capsule] 100 mg PO BID 5 Days #10 capsule Home Medications: Home Meds Calcium Carbonate/Vitamin D3 [Calcium 250+D] 2 tab PO BID 06/30/13 [History] Gemfibrozil 600 mg PO BIDAC 06/30/13 [History] Levothyroxine 75 mcg PO ACBREAKFAST 06/30/13 [History] Multivitamin [Multi-Vitamin Daily] 1 each PO DAILY 06/30/13 [History] Venlafaxine [Effexor XR] 150 mg PO QAM 06/30/13 [History] Iron Polysaccharide Complex [Poly-Iron] 150 mg PO BID 07/06/14 [History] Aspirin [Halfprin] 81 mg PO DAILY 07/08/15 [History] Dexlansoprazole [Dexilant] 60 mg PO DAILY 07/08/15 [History] Docusate Sodium [Colace] 100 mg PO BID 07/08/15 [History] Calcium Polycarbophil [Fiber Laxative] 625 mg PO BID 07/15/15 [History] Escitalopram [Lexapro] 20 mg PO QAM 11/04/17 [History] Diclofenac Sodium [Voltaren 1% Gel] 1 applic TOP QID PRN 06/09/19 [History] Benztropine [Cogentin] 0.5 mg PO DAILY 09/14/19 [History] LORazepam [Ativan] 1 mg PO DAILY PRN 09/14/19 [History] Lurasidone HCl [Latuda] 80 mg PO DAILY@17 09/14/19 [History] Magnesium Oxide 200 mg PO BID 09/14/19 [History] cloZAPine 100 mg PO DAILY 09/14/19 [History] cloZAPine 200 mg PO BEDTIME 09/14/19 [History] estradioL [Estrace 0.01% Vaginal Crm] 1 applic VAG ASDIRECTED 09/14/19 [History] Cyanocobalamin (Vitamin B-12) [Vitamin B-12] 1,000 mcg PO DAILY 09/20/19 [History] Albuterol [Proventil Neb Soln] 2.5 mg INH Q4H PRN 12/10/19 [History] Nitrofurantoin Monohyd/M-Cryst [Macrobid 100 mg Capsule] 100 mg PO BID 5 Days #10 capsule 12/15/19 [Rx] cephALEXin [Keflex] 500 mg PO BID 5 Days #10 cap 12/15/19 [Rx] dexAMETHasone [Dexamethasone] 6 mg PO DAILY 5 Days #5 tablet 12/15/19 [Rx] Patient Handouts: COVID-19 Frequently Asked Questions, COVID-19, Nitrofurantoin tablets or capsules, Urinary Tract Infection, Adult, [id number], COVID-19: How to Protect Yourself and Others - CDC, Cephalexin tablets or capsules, Coronavirus Information 06/15/19, Dexamethasone tablets Referrals: Anila Dodge DO [Primary Care Provider] - 12/17/19 9:45 am (Please arrive 15 minutes early with your identification, insurance cards and your own facemask .) - Discharge Summary/Plan Comment DC Time >30 min.: No - General Info Subjective Update: Patient was sleeping during examination. Did responsive to stimuli and voice. - Review of Systems General: Denies: Fever (ROS diffcult to obtain. Patients was sleeping) - Patient Data Vitals - Most Recent: Last Vital Signs Temp 97.4 F 12/15/19 11:57 Pulse 78 12/15/19 11:57 Resp 16 12/15/19 11:57 BP 120/56 L 12/15/19 11:57 Pulse Ox 95 12/15/19 11:57 Weight - Most Recent: 240 lb I&O - Last 24 hours: Intake & Output 12/15/19 12/15/19 12/15/19 06:59 14:59 22:59 Intake Total 480 Output Total 200 Balance 280 Lab Results - Last 24 hrs: Laboratory Results - last 24 hr 12/15/19 12/15/19 Range/Units 05:25 05:25 WBC 8.81 (4.0-11.0) K/uL RBC 3.38 L (4.30-5.90) M/uL Hgb 9.7 L (12.0-16.0) g/dL Hct 31.8 L (36.0-46.0) % MCV 94.1 (80.0-98.0) fL MCH 28.7 (27.0-32.0) pg MCHC 30.5 L (31.0-37.0) g/dL RDW Std Deviation 52.7 (28.0-62.0) fl RDW Coeff of Amaris 16 H (11.0-15.0) % Plt Count 362 (150-400) K/uL MPV 10.10 (7.40-12.00) fL Add Manual Diff YES Neutrophils % (Manual) 67 (48.0-80.0) % Lymphocytes % (Manual) 25 (16.0-40.0) % Monocytes % (Manual) 6 (0.0-15.0) % Metamyelocytes % 2 % Nucleated RBC % 0.3 /100WBC Absolute Seg Neuts 5.9 H (1.4-5.7) Lymphocytes # (Manual) 2.2 (0.6-2.4) Monocytes # (Manual) 0.5 (0.0-0.8) Absolute Metamyelocyte 0.2 Nucleated RBCs # 0 K/uL Sodium 142 (136-145) mmol/L Potassium 4.4 (3.5-5.1) mmol/L Chloride 106 (98-107) mmol/L Carbon Dioxide 30.7 (21.0-32.0) mmol/L BUN 22 H (7.0-18.0) mg/dL Creatinine 0.7 (0.6-1.0) mg/dL Est Cr Clr Drug Dosing 88.37 mL/min Estimated GFR (MDRD) > 60.0 ml/min Glucose 108 H (74-106) mg/dL Calcium 8.5 (8.5-10.1) mg/dL Total Bilirubin 0.2 (0.2-1.0) mg/dL AST 30 (15-37) IU/L ALT 27 (14-63) IU/L Alkaline Phosphatase 69 (46-116) U/L Total Protein 5.7 L (6.4-8.2) g/dL Albumin 2.5 L (3.4-5.0) g/dL Globulin 3.2 (2.6-4.0) g/dL Albumin/Globulin Ratio 0.8 L (0.9-1.6) MARY Results - Last 24 hrs: Microbiology 12/10/19 09:30 Aerobic Blood Culture - Final Blood - Venous - Lab Draw NO GROWTH AFTER 5 DAYS Anaerobic Blood Culture - Final NO GROWTH AFTER 5 DAYS 12/10/19 09:15 Aerobic Blood Culture - Final Blood - Venous NO GROWTH AFTER 5 DAYS Anaerobic Blood Culture - Final NO GROWTH AFTER 5 DAYS Med Orders - Current: Current Medications Discontinued Medications Acetaminophen (Tylenol) 650 mg PO Q4H PRN PRN Reason: Pain (Mild 1-3)/fever Albuterol/Ipratropium (Combivent Respimat) 0 gm INH Q4H PRN PRN Reason: Dyspnea Aspirin (Halfprin) 81 mg PO DAILY [facility] Benztropine Mesylate (Cogentin) 0.5 mg PO DAILY [facility] Last Admin: 12/15/19 11:44 Dose: 0.5 mg Documented by: Dexamethasone (Dexamethasone) 6 mg PO DAILY [facility] Last Admin: 12/15/19 11:43 Dose: 6 mg Documented by: Docusate Sodium (Colace) 100 mg PO BID [facility] Last Admin: 12/15/19 11:44 Dose: 100 mg Documented by: Enoxaparin Sodium (Lovenox) 40 mg SUBCUT Q24H [facility] Last Admin: 12/10/19 19:36 Dose: Not Given Documented by: Enoxaparin Sodium (Lovenox) 40 mg SUBCUT Q24H [facility] Last Admin: 12/10/19 17:13 Dose: 40 mg Documented by: Enoxaparin Sodium (Lovenox) 40 mg SUBCUT Q12H [facility] Last Admin: 12/15/19 04:45 Dose: 40 mg Documented by: Escitalopram Oxalate (Lexapro) 20 mg PO QAM [facility] Last Admin: 12/15/19 11:45 Dose: 20 mg Documented by: Gemfibrozil (Lopid) 600 mg PO BIDAC [facility] Last Admin: 12/15/19 06:44 Dose: 600 mg Documented by: Piperacillin Sod/Tazobactam (Sod 4.5 gm/ Sodium Chloride) 100 mls @ 100 mls/hr IV ONETIME ONE Stop: 12/10/19 10:32 Last Admin: 12/10/19 10:14 Dose: 100 mls/hr Documented by: Sodium Chloride (Normal Saline) 1,917 mls @ 999 mls/hr IV NOW STA Stop: 12/10/19 11:31 Last Admin: 12/10/19 10:15 Dose: 999 mls/hr Documented by: Ceftriaxone Sodium/Dextrose 1 (gm/ Premix) 50 mls @ 100 mls/hr IV ONETIME ONE Stop: 12/10/19 11:33 Last Admin: 12/10/19 11:50 Dose: 100 mls/hr Documented by: Potassium Chloride 40 meq/ (Premix) 100 mls @ 25 mls/hr IV ONETIME ONE Stop: 12/10/19 16:20 Last Admin: 12/10/19 13:30 Dose: 25 mls/hr Documented by: Sodium Chloride (Normal Saline) 500 mls @ 75 mls/hr IV .Bolus ONE Stop: 12/10/19 19:49 Last Admin: 12/10/19 13:30 Dose: 75 mls/hr Documented by: Potassium Chloride 40 meq/ (Premix) 100 mls @ 25 mls/hr IV ONETIME ONE Stop: 12/10/19 18:07 Last Admin: 12/10/19 15:31 Dose: Not Given Documented by: Meropenem/Sodium Chloride 1 gm (/ Premix) 50 mls @ 100 mls/hr IV Q8H [facility] Last Admin: 12/10/19 19:37 Dose: Not Given Documented by: Lactated Ringer's (Ringers, Lactated) 1,000 mls @ 125 mls/hr IV ASDIRECTED [facility] Sodium Chloride (Normal Saline) 1,000 mls @ 125 mls/hr IV ASDIRECTED [facility] Last Admin: 12/10/19 17:14 Dose: 125 mls/hr Documented by: Meropenem/Sodium Chloride 1 gm (/ Premix) 50 mls @ 100 mls/hr IV Q8H [facility] Last Admin: 12/11/19 13:43 Dose: Not Given Documented by: Remdesivir 200 mg/ Sodium (Chloride) 250 mls @ 250 mls/hr IV ONETIME ONE Stop: 12/10/19 17:28 Last Admin: 12/10/19 17:35 Dose: 250 mls/hr Documented by: Remdesivir 100 mg/ Sodium (Chloride) 100 mls @ 100 mls/hr IV Q24H [facility] Lactated Ringer's (Ringers, Lactated) 1,000 mls @ 125 mls/hr IV ASDIRECTED [facility] Sodium Chloride (Normal Saline) 1,000 mls @ 125 mls/hr IV ONETIME ONE Stop: 12/11/19 01:44 Last Admin: 12/10/19 17:30 Dose: 125 mls/hr Documented by: Potassium Chloride 40 meq/ (Premix) 100 mls @ 25 mls/hr IV ONETIME ONE Stop: 12/10/19 23:09 Last Admin: 12/10/19 20:02 Dose: 25 mls/hr Documented by: Ertapenem 1 gm/ Sodium (Chloride) 50 mls @ 100 mls/hr IV Q24H [facility] Last Admin: 12/15/19 10:14 Dose: 100 mls/hr Documented by: Remdesivir 100 mg/ Sodium (Chloride) 100 mls @ 100 mls/hr IV Q24H [facility] Stop: 12/14/19 12:59 Last Admin: 12/14/19 11:50 Dose: 100 mls/hr Documented by: Levothyroxine Sodium (Levothyroxine) 75 mcg PO ACBREAKFAST [facility] Last Admin: 12/15/19 06:44 Dose: 75 mcg Documented by: Pantoprazole Sodium (Protonix) 40 mg PO ACBREAKFAST [facility] Last Admin: 12/15/19 06:44 Dose: 40 mg Documented by: Clozapine 100 Mg Tab 1 each PO DAILY [facility] Last Admin: 12/15/19 11:46 Dose: 1 each Documented by: Clozapine 100 Mg Tab 2 each PO BEDTIME [facility] Last Admin: 12/14/19 20:23 Dose: 2 each Documented by: Dexlansoprazole [ (Dexilant] 60 Mg) 1 each PO DAILY [facility] Last Admin: 12/15/19 12:08 Dose: Not Given Documented by: Diclofenac Sodium (Gel) 1 each TOP QID PRN PRN Reason: Pain Lurasidone Hcl [ (Latuda] 80 Mg) 1 each PO DAILY@17 [facility] Last Admin: 12/14/19 16:56 Dose: 1 each Documented by: Polyethylene Glycol (Miralax) 17 gm PO DAILY [facility] Last Admin: 12/15/19 11:43 Dose: 17 gm Documented by: Polysaccharide Iron Complex (Ferrex 150) 150 mg PO BID [facility] Last Admin: 12/15/19 11:44 Dose: 150 mg Documented by: Potassium Chloride (Potassium Chloride) 40 meq PO ONETIME ONE Stop: 12/10/19 12:07 Last Admin: 12/10/19 13:31 Dose: Not Given Documented by: Potassium Chloride (Klor-Con M20) 60 meq PO ONETIME ONE Stop: 12/12/19 08:16 Last Admin: 12/12/19 08:58 Dose: 60 meq Documented by: Sodium Chloride (Saline Flush) 10 ml FLUSH ASDIRECTED PRN PRN Reason: Keep Vein Open Last Admin: 12/10/19 10:15 Dose: 10 ml Documented by: Sodium Chloride (Saline Flush) 2.5 ml FLUSH ASDIRECTED PRN PRN Reason: Keep Vein Open Last Admin: 12/10/19 10:15 Dose: 2.5 ml Documented by: Venlafaxine HCl (Effexor Xr) 150 mg PO QAM [facility] Last Admin: 12/15/19 11:45 Dose: 150 mg Documented by: - Exam General: Reports: Lethargic Lungs: Reports: Clear to Auscultation, Normal Respiratory Effort Cardiovascular: Reports: Regular Rate, Regular Rhythm GI/Abdominal Exam: Soft, No Distention Extremities: No Pedal Edema Skin: Reports: Warm, Dry
== END 2019-12-15 14:45 | DRG 177 ==
LOC: MW.ED 09:02 → MW.MS 14:02 → EEVIPCON 14:02
PROVIDERS: ADMIT Student in an Organized Health Care Education/Training Program; ATTEND Student in an Organized Health Care Education/Training Program
PROC: XW033E5 Introduction of Remdesivir Anti-infective into Peripheral Vein, Percutaneous Approach, New Technology Group 5 (ICD-10-PCS; principal; 2019-12-10)
PROC: XW033E5 Introduction of Remdesivir Anti-infective into Peripheral Vein, Percutaneous Approach, New Technology Group 5 (ICD-10-PCS; 2019-12-11)
PROC: XW033E5 Introduction of Remdesivir Anti-infective into Peripheral Vein, Percutaneous Approach, New Technology Group 5 (ICD-10-PCS; 2019-12-12)
PROC: XW033E5 Introduction of Remdesivir Anti-infective into Peripheral Vein, Percutaneous Approach, New Technology Group 5 (ICD-10-PCS; 2019-12-13)
PROC: XW033E5 Introduction of Remdesivir Anti-infective into Peripheral Vein, Percutaneous Approach, New Technology Group 5 (ICD-10-PCS; 2019-12-14)
DX: U07.1 COVID-19 (principal); J12.89 Other viral pneumonia; N39.0 Urinary tract infection, site not specified; E87.6 Hypokalemia; F32.9 Major depressive disorder, single episode, unspecified; B96.20 Unspecified Escherichia coli [E. coli] as the cause of diseases classified elsewhere; H91.90 Unspecified hearing loss, unspecified ear; H54.7 Unspecified visual loss; H50.10 Unspecified exotropia; K59.09 Other constipation; K21.9 Gastro-esophageal reflux disease without esophagitis; E03.9 Hypothyroidism, unspecified; E66.9 Obesity, unspecified; I83.90 Asymptomatic varicose veins of unspecified lower extremity; Z99.81 Dependence on supplemental oxygen; Z68.36 Body mass index [BMI] 36.0-36.9, adult; Z79.890 Hormone replacement therapy; Z79.899 Other long term (current) drug therapy; Z79.82 Long term (current) use of aspirin; Z88.8 Allergy status to other drugs, medicaments and biological substances
CPT/HCPCS: 36415; 36600; 71045; 80053; 81001; 82803; 83605; 83690; 84484; 85025; 85610; 87040 ×2; 87086; 87186 ×2; 93005; 96365; 96367; 99285; J0696; J2543; J3480; J7030 ×2; J7050; U0002; 80048; 83735; 84100; 87088; 93010; 99284; A9270-GY; J1335; J1650; J2185; J8540

== ENCOUNTER 2020-06-19 13:58 | Emergency (ER) | payer MEDICARE, MEDICAID ==
--- NOTE | 2020-06-19 14:29 | EDM.PDOC ---
ED HPI GENERAL MEDICAL PROBLEM - General Chief Complaint: Abdominal Pain Stated Complaint: abdominal pain Time Seen by Provider: 06/19/20 14:06 Source of Information: Reports: Patient History Limitations: Reports: No Limitations - History of Present Illness INITIAL COMMENTS - FREE TEXT/NARRATIVE: Patient is a 60-year-old female who presents today for diffuse abdominal pain. Patient states she has some cramping in her abdomen. Her caregiver states the patient has been vomiting every night for the past 2 days but does note tolerate p.o. in the daytime. She states patient is on a lot of medication makes her drowsy and is like her baseline. Patient is awake and answering questions appropriately. They deny any fevers. Denies any diarrhea as well. upper abdomen Pain Score (Numeric/FACES): 7 - Related Data Allergies Allergy/AdvReac Type Severity Reaction Status Date / Time divalproex sodium Allergy Lethargy Verified 06/19/20 14:14 [From [facility]] Home Meds: Home Meds Calcium Carbonate/Vitamin D3 [Calcium 250+D] 2 tab PO BID 06/30/13 [History] Gemfibrozil 600 mg PO BIDAC 06/30/13 [History] Levothyroxine 75 mcg PO ACBREAKFAST 06/30/13 [History] Multivitamin [Multi-Vitamin Daily] 1 each PO DAILY 06/30/13 [History] Venlafaxine [Effexor XR] 150 mg PO QAM 06/30/13 [History] Iron Polysaccharide Complex [Poly-Iron] 150 mg PO BID 07/06/14 [History] Aspirin [Halfprin] 81 mg PO DAILY 07/08/15 [History] Dexlansoprazole [Dexilant] 60 mg PO DAILY 07/08/15 [History] Docusate Sodium [Colace] 100 mg PO BID 07/08/15 [History] Calcium Polycarbophil [Fiber Laxative] 625 mg PO BID 07/15/15 [History] Escitalopram [Lexapro] 20 mg PO QAM 11/04/17 [History] Diclofenac Sodium [Voltaren 1% Gel] 1 applic TOP QID PRN 06/09/19 [History] Benztropine [Cogentin] 0.5 mg PO DAILY 09/14/19 [History] LORazepam [Ativan] 1 mg PO DAILY PRN 09/14/19 [History] Lurasidone [Latuda] 80 mg PO DAILY@17 09/14/19 [History] Magnesium Oxide 200 mg PO BID 09/14/19 [History] cloZAPine 100 mg PO DAILY 09/14/19 [History] cloZAPine 200 mg PO BEDTIME 09/14/19 [History] estradioL [Estrace 0.01% Vaginal Crm] 1 applic VAG ASDIRECTED 09/14/19 [History] Cyanocobalamin (Vitamin B-12) [Vitamin B-12] 1,000 mcg PO DAILY 09/20/19 [History] Albuterol [Proventil Neb Soln] 2.5 mg INH Q4H PRN 12/10/19 [History] Nitrofurantoin Monohyd/M-Cryst [Macrobid 100 mg Capsule] 100 mg PO BID 5 Days #10 capsule 12/15/19 [Rx] cephALEXin [Keflex] 500 mg PO BID 5 Days #10 cap 12/15/19 [Rx] dexAMETHasone [Dexamethasone] 6 mg PO DAILY 5 Days #5 tablet 12/15/19 [Rx] Past Medical History HEENT History: Reports: Hard of Hearing, Impaired Vision, Other (See Below) Other HEENT History: Bilateral exotropia Cardiovascular History: Reports: None Respiratory History: Reports: Other (See Below) Other Respiratory History: 2L O2 use at bedtime Gastrointestinal History: Reports: Chronic Constipation, GERD Genitourinary History: Reports: None [employer] History: Reports: Musculoskeletal History: Reports: Fracture Neurological History: Reports: None Psychiatric History: Reports: Depression, Psychosis, Other (See Below) Other Psychiatric History: Self Harm Endocrine/Metabolic History: Reports: Hypothyroidism, Obesity/BMI 30+ Hematologic History: Reports: None Immunologic History: Reports: None Oncologic (Cancer) History: Reports: None Dermatologic History: Reports: Other (See Below) Other Dermatologic History: varicose veins with edema - Infectious Disease History Infectious Disease History: Reports: Novel Coronavirus Other Infectious Disease History: Unable to verify any other illnesses. - Past Surgical History HEENT Surgical History: Reports: None Cardiovascular Surgical History: Reports: None Respiratory Surgical History: Reports: None GI Surgical History: Reports: None Female Surgical History: Reports: Section, Tubal Ligation Endocrine Surgical History: Reports: None Neurological Surgical History: Reports: None Musculoskeletal Surgical History: Reports: Other (See Below) Other Musculoskeletal Surgeries/Procedures:: bunion removal Dermatological Surgical History: Reports: None Social & Family History - Family History Family Medical History: Unobtainable - Caffeine Use Caffeine Use: Reports: None Caffeine Use Comment: unable to assess - Recreational Drug Use Recreational Drug Use: No - Living Situation & Occupation Living situation: Reports: Assisted Living, Other Occupation: Disabled ED ROS GENERAL - Review of Systems Review Of Systems: See Below Constitutional: Reports: No Symptoms HEENT: Reports: No Symptoms Respiratory: Reports: No Symptoms Cardiovascular: Reports: No Symptoms Endocrine: Reports: No Symptoms GI/Abdominal: Reports: Abdominal Pain, Vomiting : Reports: No Symptoms Musculoskeletal: Reports: No Symptoms Skin: Reports: No Symptoms Neurological: Reports: No Symptoms Psychiatric: Reports: No Symptoms Hematologic/Lymphatic: Reports: No Symptoms Immunologic: Reports: No Symptoms ED EXAM, GI/ABD - Physical Exam Exam: See Below Exam Limited By: Other General Appearance: Alert, WD/WN Respiratory/Chest: No Respiratory Distress, Lungs Clear Cardiovascular: Normal Peripheral Pulses, Regular Rate, Rhythm GI/Abdominal Exam: Normal Bowel Sounds, Soft, Non-Tender Extremities: Normal Inspection Neurological: Alert, Oriented Course - Vital Signs Last Recorded V/S: Last Vital Signs Temp 98.7 F 06/19/20 14:10 Pulse 78 06/19/20 16:24 Resp 18 06/19/20 16:24 BP 138/79 06/19/20 16:24 Pulse Ox 93 L 06/19/20 16:24 - Orders/Labs/Meds Labs: Laboratory Tests 06/19/20 06/19/20 06/19/20 Range/Units 14:55 14:55 15:18 WBC 6.86 (4.0-11.0) K/uL RBC 3.77 L (4.30-5.90) M/uL Hgb 11.7 L (12.0-16.0) g/dL Hct 36.7 (36.0-46.0) % MCV 97.3 (80.0-98.0) fL MCH 31.0 (27.0-32.0) pg MCHC 31.9 (31.0-37.0) g/dL RDW Std Deviation 47.4 (28.0-62.0) fl RDW Coeff of Amaris 13 (11.0-15.0) % Plt Count 233 (150-400) K/uL MPV 11.50 (7.40-12.00) fL Neut % (Auto) 59.1 (48.0-80.0) % Lymph % (Auto) 29.7 (16.0-40.0) % [place] % (Auto) 9.3 (0.0-15.0) % Eos % (Auto) 1.6 (0.0-7.0) % Baso % (Auto) 0.3 (0.0-1.5) % Neut # (Auto) 4.1 (1.4-5.7) K/uL Lymph # (Auto) 2.0 (0.6-2.4) K/uL [place] # (Auto) 0.6 (0.0-0.8) K/uL Eos # (Auto) 0.1 (0.0-0.7) K/uL Baso # (Auto) 0.0 (0.0-0.1) K/uL Nucleated RBC % 0.0 /100WBC Nucleated RBCs # 0 K/uL Sodium 144 (136-145) mmol/L Potassium 3.3 L (3.5-5.1) mmol/L Chloride 104 (98-107) mmol/L Carbon Dioxide 35.5 H (21.0-32.0) mmol/L BUN 18 (7.0-18.0) mg/dL Creatinine 0.8 (0.6-1.0) mg/dL Est Cr Clr Drug Dosing 76.38 mL/min Estimated GFR (MDRD) > 60.0 ml/min Glucose 105 (74-106) mg/dL Calcium 9.2 (8.5-10.1) mg/dL Phosphorus 3.5 (2.6-4.7) mg/dL Magnesium 2.0 (1.8-2.4) mg/dL Total Bilirubin 0.3 (0.2-1.0) mg/dL AST 12 L (15-37) IU/L ALT 18 (14-63) IU/L Alkaline Phosphatase 129 H (46-116) U/L Creatine Kinase 24 L (26-308) U/L Total Protein 7.5 (6.4-8.2) g/dL Albumin 3.5 (3.4-5.0) g/dL Globulin 4.0 (2.6-4.0) g/dL Albumin/Globulin Ratio 0.9 (0.9-1.6) Lipase 81 (73-393) U/L Urine Color YELLOW Urine Appearance CLOUDY Urine pH 6.0 (5.0-8.0) Ur Specific [place] 1.025 (1.001-1.035) Urine Protein >=300 H (NEGATIVE) mg/dL Urine Glucose (UA) NEGATIVE (NEGATIVE) mg/dL Urine Ketones TRACE H (NEGATIVE) mg/dL Urine Occult Blood TRACE-INTACT H (NEGATIVE) Urine Nitrite POSITIVE H (NEGATIVE) Urine Bilirubin NEGATIVE (NEGATIVE) Urine Urobilinogen 1.0 (<2.0) EU/dL Ur Leukocyte Esterase LARGE H (NEGATIVE) Urine RBC 0-2 (0-2/HPF) Urine WBC TO NUMEROUS TO COUNT H (0-5/HPF) Ur Epithelial Cells MODERATE (NONE-FEW) Amorphous Sediment MODERATE (NEGATIVE) Urine Bacteria 4+ H (NEGATIVE) Meds: Medications Discontinued Medications Generic Name Dose Route Start Last Admin Trade Name Freq PRN Reason Stop Dose Admin Iopamidol 100 ml 06/19/20 17:40 06/19/20 17:40 Iopamidol 755 Mg/Ml 500 Ml Multipack Bottle IVPUSH 06/19/20 17:41 100 ml ONETIME ONE Administration Nitrofurantoin Macrocrystals Confirm 06/19/20 20:50 Nitrofurantoin Monohydrate/Macrocrystalline 100 Mg Cap Administered 06/19/20 20:51 Dose 100 mg .ROUTE .STK-MED ONE Ondansetron HCl Confirm 06/19/20 20:51 Ondansetron 4 Mg Tab.Dis Administered 06/19/20 20:52 Dose 4 mg .ROUTE .STK-MED ONE Trimethoprim/Sulfamethoxazole 1 tab 06/19/20 15:55 06/19/20 16:23 Sulfamethoxazole/Trimethoprim 800-160 Mg Tab PO 06/19/20 15:56 1 tab ONETIME ONE Administration - Re-Assessments/Exams Free Text/Narrative Re-Assessment/Exam: 06/20/20 07:15 Patient has a UTI we spoke with the hospitalist on-call has admitted patient for the past. We discussed the best bet would be to place patient on Macrobid at this time for her UTI. Patient also does have sensitivity to Bactrim and she was given Bactrim. Patient was discharged last time on Macrobid and will continue that. Patient still complains of abdominal pain will obtain a CAT scan will be signed to oncoming attending. Departure - Departure Time of Disposition: 19:00 Disposition: Still A Patient 30 Condition: Good Clinical Impression: UTI (urinary tract infection) - Discharge Information *PRESCRIPTION DRUG MONITORING PROGRAM REVIEWED*: Not Applicable *COPY OF PRESCRIPTION DRUG MONITORING REPORT IN PATIENT RAYSA: Not Applicable Forms: ED Department Discharge Sepsis Event Note (ED) - Evaluation Sepsis Screening Result: No Definite Risk - Assessment/Plan Assessment:: Tim is a 60-year-old female who comes in today nausea vomiting and crampy abdominal pain. Patient also has some foul-smelling urine will send UA and reassess.
[2020-06-19 15:34] LABS: BLOOD UREA NITROGEN,BUN 18 mg/dL (7.0-18.0); CARBON DIOXIDE,CO2 35.5 mmol/L (21.0-32.0); CHLORIDE,CL 104 mmol/L (98-107); GLUCOSE RANDOM 105 mg/dL (74-106); LIPASE 81 U/L (73-393); POTASSIUM,K 3.3 mmol/L (3.5-5.1); SODIUM,NA 144 mmol/L (136-145)
[2020-06-19] MEDS ORDERED: Sulfamethoxazole/Trimethoprim 800-160 MG Tab PO ONE (15:55)
[2020-06-19] MEDS ORDERED: Iopamidol 755 MG/ML 500 ML Multipack Bottle IVPUSH ONE (17:40)
--- NOTE | 2020-06-19 18:25 | CT ---
INDICATION: Diffuse abdominal pain. TECHNIQUE: CT of the abdomen and pelvis with 100 cc Isovue 370 IV contrast. Coronal and sagittal reconstructions. COMPARISON: CT of the abdomen and pelvis 05/16/2017. The prior report is not available. FINDINGS: The liver is mildly enlarged measuring approximately 20 cm in length. Diffuse hepatic steatosis. Hepatic and portal veins are patent. Cholecystectomy. Mild dilation of the common bile duct is likely related to post cholecystectomy state. The spleen, pancreas, and adrenal glands are negative. Symmetric enhancement of the kidneys. The left kidney is mildly atrophic with lobulated contour. No hydronephrosis. No obstructing urinary calculi. New diffuse bladder wall thickening and mucosal hyperenhancement and perivesical fat stranding, compatible with an infectious or inflammatory process. Hysterectomy. Mild increase in size of a cystic lesion in the right adnexa measuring 1.3 cm today compared to 1.0 cm previously (series 201, image 146). No abnormality in the left adnexa. Few mildly dilated fluid-filled loops of small bowel in the upper abdomen without a discrete transition point. Findings could represent a mild ileus versus low-grade obstruction. There is intraluminal hyperdensity within a loop of small bowel in the right upper abdomen (series 201, image 57). This may represent ingested contents. Large amount of stool throughout the colon. Redundant sigmoid colon. Negative appendix. No intraperitoneal free air or fluid. Aortic vascular calcifications. No lymphadenopathy. Degenerative changes of the spine. The lung bases are clear. IMPRESSION: 1. Diffuse bladder wall thickening with mucosal hyperenhancement and perivesical fat stranding compatible with an infectious or inflammatory process. Correlate with urinalysis. 2. Few mildly dilated fluid-filled loops of small bowel in the upper abdomen without a discrete transition point. Findings could represent a mild ileus versus low-grade obstruction. 3. Large amount of stool throughout the colon. 4. Mild hepatomegaly with diffuse hepatic steatosis. Please note that all CT scans at this facility use dose modulation, iterative reconstruction, and/or weight-based dosing when appropriate to reduce radiation dose to as low as reasonably achievable. Dictated by Carissa Sloan MD @ Jun 19 2020 6:05PM Signed by Dr. Carissa Sloan @ Jun 19 2020 6:22PM
[2020-06-19] MEDS ORDERED: Nitrofurantoin Monohydrate/Macrocrystalline 100 MG Cap ONE (20:50)
[2020-06-19] MEDS ORDERED: Ondansetron 4 MG Tab.DIS ONE (20:51)
[2020-06-20 18:54] VITALS: BP 128/78; PULSE 74
== END 2020-06-19 20:57 | disposition home or self-care (01) ==
LOC: MW.ED 13:58
DX: N39.0 Urinary tract infection, site not specified (principal); R11.10 Vomiting, unspecified; K21.9 Gastro-esophageal reflux disease without esophagitis; E03.9 Hypothyroidism, unspecified; E66.9 Obesity, unspecified; Z68.36 Body mass index [BMI] 36.0-36.9, adult; Z86.16 Personal history of COVID-19; Z88.8 Allergy status to other drugs, medicaments and biological substances; Z79.82 Long term (current) use of aspirin; Z79.899 Other long term (current) drug therapy
CPT/HCPCS: 36415; 74177; 80053; 81001; 82550; 83690; 83735; 84100; 85025; 99284; A9270; Q9967

== ENCOUNTER 2020-06-21 12:27 | Emergency (ER) | payer MEDICARE, MEDICAID ==
--- NOTE | 2020-06-21 12:52 | EDM.PDOC ---
ED HPI GENERAL MEDICAL PROBLEM - General Chief Complaint: Abdominal Pain Stated Complaint: OBSTRUCTION Time Seen by Provider: 06/21/20 12:28 - Related Data Allergies Allergy/AdvReac Type Severity Reaction Status Date / Time divalproex sodium Allergy Lethargy Verified 06/19/20 14:14 [From Depakote] Home Meds: Home Meds Calcium Carbonate/Vitamin D3 [Calcium 250+D] 2 tab PO BID 06/30/13 [History] Gemfibrozil 600 mg PO BIDAC 06/30/13 [History] Levothyroxine 75 mcg PO ACBREAKFAST 06/30/13 [History] Multivitamin [Multi-Vitamin Daily] 1 each PO DAILY 06/30/13 [History] Venlafaxine [Effexor XR] 150 mg PO QAM 06/30/13 [History] Iron Polysaccharide Complex [Poly-Iron] 150 mg PO BID 07/06/14 [History] Aspirin [Halfprin] 81 mg PO DAILY 07/08/15 [History] Dexlansoprazole [Dexilant] 60 mg PO DAILY 07/08/15 [History] Docusate Sodium [Colace] 100 mg PO BID 07/08/15 [History] Calcium Polycarbophil [Fiber Laxative] 625 mg PO BID 07/15/15 [History] Escitalopram [Lexapro] 20 mg PO QAM 11/04/17 [History] Diclofenac Sodium [Voltaren 1% Gel] 1 applic TOP QID PRN 06/09/19 [History] Benztropine [Cogentin] 0.5 mg PO DAILY 09/14/19 [History] LORazepam [Ativan] 1 mg PO DAILY PRN 09/14/19 [History] Magnesium Oxide 200 mg PO BID 09/14/19 [History] cloZAPine 100 mg PO DAILY 09/14/19 [History] cloZAPine 200 mg PO BEDTIME 09/14/19 [History] estradioL [Estrace 0.01% Vaginal Crm] 1 applic VAG ASDIRECTED 09/14/19 [History] Cyanocobalamin (Vitamin B-12) [Vitamin B-12] 1,000 mcg PO DAILY 09/20/19 [History] Albuterol [Proventil Neb Soln] 2.5 mg INH Q4H PRN 12/10/19 [History] Nitrofurantoin Monohyd/M-Cryst [Macrobid 100 mg Capsule] 100 mg PO BID 5 Days #10 capsule 12/15/19 [Rx] Past Medical History HEENT History: Reports: Hard of Hearing, Impaired Vision, Other (See Below) Other HEENT History: Bilateral exotropia Cardiovascular History: Reports: None Respiratory History: Reports: Other (See Below) Other Respiratory History: 2L O2 use at bedtime Gastrointestinal History: Reports: Chronic Constipation, GERD Genitourinary History: Reports: None 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 - Past Surgical History HEENT Surgical History: Reports: None Cardiovascular Surgical History: Reports: None Respiratory Surgical History: Reports: None GI Surgical History: Reports: None Female Surgical History: Reports: Section, Tubal Ligation Endocrine Surgical History: Reports: None Neurological Surgical History: Reports: None Musculoskeletal Surgical History: Reports: Other (See Below) Other Musculoskeletal Surgeries/Procedures:: bunion removal Dermatological Surgical History: Reports: None Social & Family History - Family History Family Medical History: Unobtainable - Caffeine Use Caffeine Use: Reports: None Caffeine Use Comment: unable to assess - Living Situation & Occupation Living situation: Reports: Assisted Living, Other Occupation: Disabled Course - Orders/Labs/Meds Orders: Active Orders 24 hr Category Date Time Status CBC WITH AUTO DIFF [HEME] Stat Lab 06/21/20 12:45 Ordered COMPREHENSIVE METABOLIC PN,CMP [CHEM] Stat Lab 06/21/20 12:45 Ordered LACTATE WITH REFLEX [BG] Stat Lab 06/21/20 12:45 Ordered Departure - Discharge Information Referrals: Anila Dodge DO [Primary Care Provider] - - My Orders Last 24 Hours: My Active Orders 06/21/20 12:45 CBC WITH AUTO DIFF [HEME] Stat COMPREHENSIVE METABOLIC PN,CMP [CHEM] Stat LACTATE WITH REFLEX [BG] Stat - Assessment/Plan Last 24 Hours: My Active Orders 06/21/20 12:45 CBC WITH AUTO DIFF [HEME] Stat COMPREHENSIVE METABOLIC PN,CMP [CHEM] Stat LACTATE WITH REFLEX [BG] Stat
--- NOTE | 2020-06-21 13:02 | EDM.PDOC ---
ED HPI GENERAL MEDICAL PROBLEM - General Chief Complaint: Abdominal Pain Stated Complaint: OBSTRUCTION Time Seen by Provider: 06/21/20 12:28 Source of Information: Reports: Patient History Limitations: Reports: No Limitations - History of Present Illness INITIAL COMMENTS - FREE TEXT/NARRATIVE: Patient is a 60-year-old female who was called back to the ED at third of CT findings. Patient was seen in ED 2 days ago and the Internet [address] report to be sent. The report is in the next day and showed the patient had an ileus versus a mild SBO. Tell the patient if he was having any problems to come back to the ED. We spoke to the patient caregiver patient had a lunch has been tolerating PE had no vomiting she is to be better. The patient had a bowel movement past 2 days. We did note on the CAT scan the patient had a large amount of stool in the colon so she may be constipated as well. Patient otherwise denies any complaints of pain nausea vomiting fever chills. - Related Data Allergies Allergy/AdvReac Type Severity Reaction Status Date / Time divalproex sodium Allergy Lethargy Verified 06/19/20 14:14 [From [facility]] Home Meds: Home Meds Calcium Carbonate/Vitamin D3 [Calcium 250+D] 2 tab PO BID 06/30/13 [History] Gemfibrozil 600 mg PO ASDIRECTED 06/30/13 [History] Levothyroxine 75 mcg PO DAILY 06/30/13 [History] Multivitamin [Multi-Vitamin Daily] 1 each PO DAILY 06/30/13 [History] Venlafaxine [Effexor XR] 75 mg PO QAM 06/30/13 [History] Iron Polysaccharide Complex [Poly-Iron] 150 mg PO BID 07/06/14 [History] Aspirin [Halfprin] 81 mg PO DAILY 07/08/15 [History] Dexlansoprazole [Dexilant] 60 mg PO DAILY 07/08/15 [History] Docusate Sodium [Colace] 100 mg PO BID 07/08/15 [History] Calcium Polycarbophil [Fiber Laxative] 625 mg PO BID 07/15/15 [History] Escitalopram [Lexapro] 20 mg PO QAM 11/04/17 [History] Diclofenac Sodium [Voltaren 1% Gel] 1 applic TOP QID PRN 06/09/19 [History] Benztropine [Cogentin] 0.5 mg PO BID 09/14/19 [History] LORazepam [Ativan] 1 mg PO DAILY PRN 09/14/19 [History] Magnesium Oxide 200 mg PO BID 09/14/19 [History] cloZAPine 100 mg PO DAILY 09/14/19 [History] cloZAPine 200 mg PO BEDTIME 09/14/19 [History] estradioL [Estrace 0.01% Vaginal Crm] 1 applic VAG ASDIRECTED 09/14/19 [History] Cyanocobalamin (Vitamin B-12) [Vitamin B-12] 1,000 mcg PO DAILY 09/20/19 [History] Albuterol [Proventil Neb Soln] 2.5 mg INH Q4H PRN 12/10/19 [History] Nitrofurantoin Monohyd/M-Cryst [Macrobid 100 mg Capsule] 100 mg PO BID 5 Days #10 capsule 12/15/19 [Rx] Past Medical History HEENT History: Reports: Hard of Hearing, Impaired Vision, Other (See Below) Other HEENT History: Bilateral exotropia Cardiovascular History: Reports: None Respiratory History: Reports: Other (See Below) Other Respiratory History: 2L O2 use at bedtime Gastrointestinal History: Reports: Chronic Constipation, GERD Genitourinary History: Reports: None 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 - Past Surgical History HEENT Surgical History: Reports: None Cardiovascular Surgical History: Reports: None Respiratory Surgical History: Reports: None GI Surgical History: Reports: None Female Surgical History: Reports: Section, Tubal Ligation Endocrine Surgical History: Reports: None Neurological Surgical History: Reports: None Musculoskeletal Surgical History: Reports: Other (See Below) Other Musculoskeletal Surgeries/Procedures:: bunion removal Dermatological Surgical History: Reports: None Social & Family History - Family History Family Medical History: Unobtainable - Caffeine Use Caffeine Use: Reports: None Caffeine Use Comment: unable to assess - Living Situation & Occupation Living situation: Reports: Assisted Living, Other Occupation: Disabled ED ROS GENERAL - Review of Systems Review Of Systems: See Below Constitutional: Reports: No Symptoms HEENT: Reports: No Symptoms Respiratory: Reports: No Symptoms Cardiovascular: Reports: No Symptoms Endocrine: Reports: No Symptoms GI/Abdominal: Reports: No Symptoms : Reports: No Symptoms Musculoskeletal: Reports: No Symptoms Skin: Reports: No Symptoms Neurological: Reports: No Symptoms Psychiatric: Reports: No Symptoms Hematologic/Lymphatic: Reports: No Symptoms Immunologic: Reports: No Symptoms ED EXAM, GI/ABD - Physical Exam Exam: See Below Exam Limited By: No Limitations General Appearance: Alert, WD/WN, No Apparent Distress Eyes: Bilateral: Normal Appearance, EOMI Head: Atraumatic, Normocephalic Respiratory/Chest: No Respiratory Distress, Lungs Clear, Normal Breath Sounds Cardiovascular: Normal Peripheral Pulses, Regular Rate, Rhythm, No Gallop GI/Abdominal Exam: Normal Bowel Sounds, Soft, Non-Tender, No Organomegaly Extremities: Normal Inspection Neurological: Alert, Oriented Psychiatric: Normal Affect Course - Vital Signs Last Recorded V/S: Last Vital Signs Temp 96.3 F L 06/21/20 12:32 Pulse 72 06/21/20 15:00 Resp 18 06/21/20 15:00 BP 114/58 L 06/21/20 15:00 Pulse Ox 97 06/21/20 15:00 - Orders/Labs/Meds Labs: Laboratory Tests 06/21/20 06/21/20 06/21/20 Range/Units 12:51 12:51 12:51 WBC 5.59 (4.0-11.0) K/uL RBC 3.71 L (4.30-5.90) M/uL Hgb 11.3 L (12.0-16.0) g/dL Hct 36.3 (36.0-46.0) % MCV 97.8 (80.0-98.0) fL MCH 30.5 (27.0-32.0) pg MCHC 31.1 (31.0-37.0) g/dL RDW Std Deviation 48.2 (28.0-62.0) fl RDW Coeff of Amaris 14 (11.0-15.0) % Plt Count 239 (150-400) K/uL MPV 11.30 (7.40-12.00) fL Neut % (Auto) 57.1 (48.0-80.0) % Lymph % (Auto) 30.9 (16.0-40.0) % Vance % (Auto) 9.5 (0.0-15.0) % Eos % (Auto) 2.1 (0.0-7.0) % Baso % (Auto) 0.4 (0.0-1.5) % Neut # (Auto) 3.2 (1.4-5.7) K/uL Lymph # (Auto) 1.7 (0.6-2.4) K/uL Vance # (Auto) 0.5 (0.0-0.8) K/uL Eos # (Auto) 0.1 (0.0-0.7) K/uL Baso # (Auto) 0.0 (0.0-0.1) K/uL Nucleated RBC % 0.0 /100WBC Nucleated RBCs # 0 K/uL Lactate 0.9 (0.20-2.00) mmol/L Sodium 145 (136-145) mmol/L Potassium 4.0 (3.5-5.1) mmol/L Chloride 105 (98-107) mmol/L Carbon Dioxide 32.5 H (21.0-32.0) mmol/L BUN 14 (7.0-18.0) mg/dL Creatinine 0.9 (0.6-1.0) mg/dL Est Cr Clr Drug Dosing TNP Estimated GFR (MDRD) > 60.0 ml/min Glucose 119 H (74-106) mg/dL Calcium 9.0 (8.5-10.1) mg/dL Total Bilirubin 0.6 (0.2-1.0) mg/dL AST 13 L (15-37) IU/L ALT 17 (14-63) IU/L Alkaline Phosphatase 122 H (46-116) U/L Total Protein 7.2 (6.4-8.2) g/dL Albumin 3.5 (3.4-5.0) g/dL Globulin 3.7 (2.6-4.0) g/dL Albumin/Globulin Ratio 0.9 (0.9-1.6) - Re-Assessments/Exams Free Text/Narrative Re-Assessment/Exam: 06/21/20 13:54 Patient labs have been reviewed no white count patient again is tolerating p.o. here and looks well. Patient is caregiver concerned patient has not had a bowel movement and a CT scan did show some stool in the colon. We can attempt to give enema here and will still discharge patient home. Departure - Departure Time of Disposition: 19:00 Disposition: Home, Self-Care 01 Condition: Good Clinical Impression: General medical exam - Discharge Information *PRESCRIPTION DRUG MONITORING PROGRAM REVIEWED*: Not Applicable *COPY OF PRESCRIPTION DRUG MONITORING REPORT IN PATIENT RAYSA: Not Applicable Instructions: Medical Screening Exam Referrals: Anila Dodge DO [Primary Care Provider] - Forms: ED Department Discharge Additional Instructions: The following information is given to patients seen in the emergency department who are being discharged to home. This information is to outline your options for follow-up care. We provide all patients seen in our emergency department with a follow-up referral. The need for follow-up, as well as the timing and circumstances, are variable depending upon the specifics of your emergency department visit. If you don't have a primary care physician on staff, we will provide you with a referral. We always advise you to contact your personal physician following an emergency department visit to inform them of the circumstance of the visit and for follow-up with them and/or the need for any referrals to a consulting specialist. The emergency department will also refer you to a specialist when appropriate. This referral assures that you have the opportunity for follow-up care with a specialist. All of these measure are taken in an effort to provide you with optimal care, which includes your follow-up. Under all circumstances we always encourage you to contact your private physician who remains a resource for coordinating your care. When calling for follow-up care, please make the office aware that this follow-up is from your recent emergency room visit. If for any reason you are refused follow-up, please contact the [facility] Emergency Department at and asked to speak to the emergency department charge nurse. Please follow up with your primary care physician. If you do not have a primary care physician, see below: [facility] [address] [place] [address] [id number] [place] [address] Thank you for coming back in today. We get your CAT scan results that showed he may have had an ileus versus a small bowel. After examining you and draw more labs it does not appear that you have a small bowel obstruction. You are able to eat and drink we feel comfortable sending you home this may have been an ileus is where your bowels are not peristalsing and moving correctly. We will also gave you an enema here because you have a lot of stool in your colon on the last CAT scan due to possible constipation. If you go home and you have increased abdominal pain or difficulty eating or keeping food down please return to the ED immediately. - Assessment/Plan Plan: Patient is a 60-year-old female was called back after CT findings. Patient CAT scan showed possible mild ileus versus SBO. Patient's been tolerating p.o. claims no pain. Patient does not have any bowel movements however patient has constipation for some time now. We spoke to general surgery and they recommended get some basic labs and if labs are okay and patient has no pain is tolerating p.o. likely ileus and patient can be discharged home.
[2020-06-21 13:44] LABS: BLOOD UREA NITROGEN,BUN 14 mg/dL (7.0-18.0); CARBON DIOXIDE,CO2 32.5 mmol/L (21.0-32.0); CHLORIDE,CL 105 mmol/L (98-107); GLUCOSE RANDOM 119 mg/dL (74-106); SODIUM,NA 145 mmol/L (136-145)
[2020-06-21 15:26] VITALS: BP 114/58; PULSE 72
== END 2020-06-21 15:14 | disposition home or self-care (01) ==
LOC: MW.ED 12:27
DX: Z13.89 Encounter for screening for other disorder (principal); K21.9 Gastro-esophageal reflux disease without esophagitis; E03.9 Hypothyroidism, unspecified; E66.9 Obesity, unspecified; Z88.8 Allergy status to other drugs, medicaments and biological substances; Z79.82 Long term (current) use of aspirin; Z79.899 Other long term (current) drug therapy
CPT/HCPCS: 36415; 80053; 83605; 85025; 99283

== ENCOUNTER 2020-12-13 09:12 | Inpatient (IN) | payer MEDICARE, MEDICAID ==
[2020-12-13] MEDS ORDERED: Lactated Ringers 1,000 ML IV ONE (09:58)
--- NOTE | 2020-12-13 10:22 | EDM.PDOC ---
ED HPI GENERAL MEDICAL PROBLEM - General Chief Complaint: Respiratory Problem Stated Complaint: WONT EAT OR DRINK/COUGHING,FEVER,THROWING UP Time Seen by Provider: 12/13/20 09:48 - Related Data Allergies Allergy/AdvReac Type Severity Reaction Status Date / Time No Known Allergies Allergy Verified 12/13/20 09:48 Home Meds: Home Meds Calcium Carbonate/Vitamin D3 [Calcium 250+D] 2 tab PO BIDMEALS 06/30/13 [History] Gemfibrozil 600 mg PO ACBREAKFASTANDBED 06/30/13 [History] Levothyroxine 75 mcg PO ACBREAKFAST 06/30/13 [History] Multivitamin [Multi-Vitamin Daily] 1 each PO DAILY 06/30/13 [History] Iron Polysaccharide Complex [Poly-Iron] 150 mg PO BID 07/06/14 [History] Aspirin [Halfprin] 81 mg PO DAILY 07/08/15 [History] Dexlansoprazole [Dexilant] 60 mg PO BEDTIME 07/08/15 [History] Docusate Sodium [Colace] 100 mg PO BID 07/08/15 [History] Escitalopram [Lexapro] 20 mg PO QAM 11/04/17 [History] Diclofenac Sodium [Voltaren 1% Gel] 1 applic TOP QID PRN 06/09/19 [History] Benztropine [Cogentin] 0.5 mg PO BID 09/14/19 [History] LORazepam [Ativan] 1 mg PO DAILY PRN 09/14/19 [History] Magnesium Oxide 200 mg PO BID 09/14/19 [History] cloZAPine 50 mg PO DAILY 09/14/19 [History] cloZAPine 250 mg PO BEDTIME 09/14/19 [History] estradioL [Estrace 0.01% Vaginal Crm] 1 applic VAG MOTH@2100 09/14/19 [History] Cyanocobalamin (Vitamin B-12) [Vitamin B-12] 1,000 mcg PO DAILY 09/20/19 [History] Albuterol [Proventil Neb Soln] 2.5 mg INH Q4H PRN 12/10/19 [History] Ondansetron [Zofran ODT] 4 mg PO Q6H PRN 10/31/20 [History] Venlafaxine HCl [Venlafaxine ER] 75 mg PO DAILY 08/02/21 [History] calcium polycarbophiL [Fiber Tabs] 625 mg PO BID 10/31/20 [History] Past Medical History HEENT History: Reports: Hard of Hearing, Impaired Vision, Other (See Below) Other HEENT History: Bilateral exotropia Cardiovascular History: Reports: None, Other (See Below) Other Cardiovascular History: varicose veins wih edema Respiratory History: Reports: Other (See Below) Other Respiratory History: covid 19. 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 foot,5th metatarsal bone ulna fx Neurological History: Reports: None, Other (See Below) Other Neuro History: hx depakote toxicity Psychiatric History: Reports: Depression, Psychosis, Other (See Below) Other Psychiatric History: Self Harm Endocrine/Metabolic History: Reports: Hypothyroidism, Obesity/BMI 30+ Hematologic History: Reports: None Immunologic History: Reports: None Oncologic (Cancer) History: Reports: None Dermatologic History: Reports: Other (See Below) Other Dermatologic History: varicose veins with edema - Infectious Disease History Infectious Disease History: Reports: None Other Infectious Disease History: Unable to verify any other illnesses. - Past Surgical History Head Surgeries/Procedures: Reports: None HEENT Surgical History: Reports: None Cardiovascular Surgical History: Reports: None Respiratory Surgical History: Reports: None GI Surgical History: Reports: Cholecystectomy Female Surgical History: Reports: Section, Tubal Ligation Endocrine Surgical History: Reports: None Neurological Surgical History: Reports: None Musculoskeletal Surgical History: Reports: Other (See Below) Other Musculoskeletal Surgeries/Procedures:: bunion removal Oncologic Surgical History: Reports: None Dermatological Surgical History: Reports: None Social & Family History - Family History Family Medical History: Unobtainable - Tobacco Use Second Hand Smoke Exposure: No - Caffeine Use Caffeine Use: Reports: None Caffeine Use Comment: unable to assess - Recreational Drug Use Recreational Drug Use: No - Living Situation & Occupation Living situation: Reports: Assisted Living, Other Occupation: Disabled Course - Vital Signs Last Recorded V/S: Last Vital Signs Temp 36.2 C 12/13/20 09:45 Pulse 82 12/13/20 09:45 Resp 24 H 12/13/20 09:45 BP 119/71 12/13/20 09:45 Pulse Ox 94 L 12/13/20 09:45 - Orders/Labs/Meds Orders: Active Orders 24 hr Category Date Time Status Chest 1V Frontal [CR] Stat Exams 12/13/20 09:59 Ordered CBC WITH AUTO DIFF [HEME] Stat Lab 12/13/20 09:58 Ordered COMPREHENSIVE METABOLIC PN,CMP [CHEM] Stat Lab 12/13/20 09:58 Ordered CORONAVIRUS COVID-19 ANALILIA [MOLEC] Stat Lab 12/13/20 09:49 Ordered CULTURE BLOOD [BC] Stat Lab 12/13/20 09:59 Ordered CULTURE BLOOD [BC] Stat Lab 12/13/20 09:59 Ordered INR,PT,PROTHROMBIN TIME [COAG] Stat Lab 12/13/20 09:58 Ordered LACTATE SEPSIS W/ REFLEX [CHEM] Stat Lab 12/13/20 09:58 Ordered MAGNESIUM [CHEM] Stat Lab 12/13/20 09:58 Ordered TROPONIN I [CHEM] Stat Lab 12/13/20 09:58 Ordered UA W/MARY RFLX IF INDICATED [URIN] Stat Lab 12/13/20 09:58 Ordered Lactated Ringers [Ringers, Lactated] 1,000 ml Med 12/13/20 09:58 Active IV .BOLUS Blood Culture x2 Reflex Set [OM.PC] Stat Oth 12/13/20 09:58 Ordered Medication Orders Lactated Ringer's (Ringers, Lactated) 1,000 mls @ 999 mls/hr IV .BOLUS ONE Stop: 12/13/20 10:58 Meds: Medications Generic Name Dose Route Start Last Admin Trade Name Freq PRN Reason Stop Dose Admin Lactated Ringer's 1,000 mls @ 999 mls/hr 12/13/20 09:58 Ringers, Lactated IV 12/13/20 10:58 .BOLUS ONE Departure - Discharge Information Referrals: Monica Etienne NP [Primary Care Provider] - Sepsis Event Note (ED) - Evaluation Sepsis Screening Result: No Definite Risk - Focused Exam Vital Signs: Vital Signs Temp Pulse Resp BP Pulse Ox 12/13/20 09:45 36.2 C 82 24 H 119/71 94 L - My Orders Last 24 Hours: My Active Orders 12/13/20 09:49 CORONAVIRUS COVID-19 ANALILIA [MOLEC] Stat 12/13/20 09:58 CBC WITH AUTO DIFF [HEME] Stat COMPREHENSIVE METABOLIC PN,CMP [CHEM] Stat INR,PT,PROTHROMBIN TIME [COAG] Stat LACTATE SEPSIS W/ REFLEX [CHEM] Stat MAGNESIUM [CHEM] Stat TROPONIN I [CHEM] Stat UA W/MARY RFLX IF INDICATED [URIN] Stat Lactated Ringers [Ringers, Lactated] 1,000 ml IV .BOLUS Blood Culture x2 Reflex Set [OM.PC] Stat 12/13/20 09:59 Chest 1V Frontal [CR] Stat CULTURE BLOOD [BC] Stat CULTURE BLOOD [BC] Stat - Assessment/Plan Last 24 Hours: My Active Orders 12/13/20 09:49 CORONAVIRUS COVID-19 ANALILIA [MOLEC] Stat 12/13/20 09:58 CBC WITH AUTO DIFF [HEME] Stat COMPREHENSIVE METABOLIC PN,CMP [CHEM] Stat INR,PT,PROTHROMBIN TIME [COAG] Stat LACTATE SEPSIS W/ REFLEX [CHEM] Stat MAGNESIUM [CHEM] Stat TROPONIN I [CHEM] Stat UA W/MARY RFLX IF INDICATED [URIN] Stat Lactated Ringers [Ringers, Lactated] 1,000 ml IV .BOLUS Blood Culture x2 Reflex Set [OM.PC] Stat 12/13/20 09:59 Chest 1V Frontal [CR] Stat CULTURE BLOOD [BC] Stat CULTURE BLOOD [BC] Stat
--- NOTE | 2020-12-13 10:24 | PCM.EKG ---
#1 Interpretation EKG Date: 12/13/20 Time: 10:13 Rhythm: NSR Rate (Beats/Min): 79 [place]: LAD-Left [place] Deviation P-Wave: Present QRS: Normal ST-T: Normal QT: Normal Comparison: No Change (10/31/20) EKG Interpretation Comments: Sinus Rhythm
--- NOTE | 2020-12-13 10:25 | EDM.PDOC ---
ED HPI GENERAL MEDICAL PROBLEM - General Chief Complaint: Respiratory Problem Stated Complaint: WONT EAT OR DRINK/COUGHING,FEVER,THROWING UP Time Seen by Provider: 12/13/20 09:48 - History of Present Illness INITIAL COMMENTS - FREE TEXT/NARRATIVE: CHIEF COMPLAINT(S): Cough HISTORY OF PRESENT ILLNESS: This is a 60-year-old man with a past medical history of hypothyroidism, morbid obesity on home oxygen 3 L, major depression merlyn max is a patient of [facility] who comes to the emergency department with a chief complaint of cough. The patient's caregiver is not present with the patient. They state that the patient has been experiencing a cough and she appears weaker than normal. She states that she is able to ambulate on her own however she prefers to be pushed around in a walker. She states that for the last couple of days she has had intermittent fevers, cough and has some foul-smelling urine. They state that she has not had any increased oxygen requirements and they were concerned about the possibility of infection given that she has had a UTI in the past. They state that she has not complained of anything other than this. The patient is alert and oriented x2, drowsy but is able to answer questions. She currently denies all ROS. REVIEW OF SYSTEMS: Constitutional: Denies fever, chills. Eyes: Denies eye pain Ears, Nose, Mouth, & Throat: Denies earache Cardiovascular: Denies chest pain Respiratory: Denies shortness of breath Gastrointestinal: Denies Nausea, vomiting, diarrhea, hematochezia. Genitourinary: Denies hematuria Skin:Denies a rash MSK: Denies joint pain Neurological: Denies blurred vision Psychiatric: Denies depression PAST MEDICAL HISTORY: As per history of present illness and as reviewed below otherwise noncontributory. SURGICAL HISTORY: As per history of present illness and as reviewed below otherwise noncontributory. SOCIAL HISTORY: As per history of present illness and as reviewed below otherwise noncontributory. FAMILY HISTORY: As per history of present illness and as reviewed below otherwise noncontributory. EXAMINATION OF ORGAN SYSTEMS/BODY AREAS: Constitutional: Blood pressure was 119/71, heart rate 82, respiratory rate 24 with an oxygen saturation of 94% on 2 to 3 L nasal cannula. Temperature 36.2 General: Morbidly obese woman who is laying flat on the stretcher in no acute distress Psychiatric: Appropriate mood and affect. Eyes: No scleral icterus or conjunctival erythema ENMT: Moist mucous membranes. No pharyngeal erythema Cardiovascular: Regular, rate, and rhythm. No gallops, murmurs, or rubs. Bilateral upper extremity pulses symmetric and intact. No peripheral edema. No JVD. Respiratory: Lungs clear to auscultation bilaterally. No wheezes, rales, or rhonchi. Patient does not appear to be in acute respiratory distress Gastrointestinal: Soft, non-tender, non-distended. Normoactive bowel sounds Genitourinary: No suprapubic tenderness Musculoskeletal: Normal range of motion. Skin: No lesions or abrasions. Neurological: Alert, GCS 15 MEDICAL DECISION MAKING AND COURSE IN THE ED WITH INTERPRETATION/REVIEW OF DIAGNOSTIC STUDIES: This is a 60-year-old man with a past medical history of hypothyroidism, morbid obesity on home oxygen 3 L, major depression who is a patient of [facility] who comes to the emergency department with a concern over a urinary tract infection and cough. The patient's vital signs are around the patient's normal and is alert and oriented x4 and does not appear to be in acute distress. At this time obtain broad laboratory analysis including CBC, CMP, lactic acid, urinalysis, blood cultures, Covid, chest x-ray and EKG. At this time differential remains broad however patient is known to have recurrent urinary tract infections. Patient is not tachycardic and not hypotensive therefore we will hold off on fluid administration at this time. Laboratory: CBC reveals a normocytic anemia with hemoglobin 11.5 hematocrit of 36.1. INR is normal. CMP reveals hyponatremia at 3.4, hypokalemia at 91, metabolic alkalosis at 37.9, acute kidney injury with a BUN of 36 and a creatinine of 1.3. Hyperglycemia at 122, hypercalcemia at 10.2 and hypermagnese piedad 2.8. Troponin is negative. Urinalysis was positive for nitrate, leukocyte esterase with 4+ urinary bacteria. Covid is negative. The radiological images were viewed by myself along with reading the report from the radiologist. Chest x-ray does not reveal any acute cardiopulmonary process. There is elevated right hemidiaphragm which is relatively new. After labs at this time the patient does not meet septic criteria however will start the patient on ertapenem for the urinary tract infection given her resistant bacteria in the past. I did discuss admission with the caregiver at this time and they were amenable to this plan. I provided the patient with 1 L of lactated Ringer's bolus given the acute kidney injury. I spoke with hospitalist Dr. Miller who accepted the patient for admission. DISPOSITION: Patient mid to the hospital in stable condition CONDITION: Fair PROCEDURES: None FINAL IMPRESSION(S)/DIAGNOSES: 1. Acute kidney injury 2. Acute urinary tract infection Mehrdad Craig M.D. - Related Data Allergies Allergy/AdvReac Type Severity Reaction Status Date / Time No Known Allergies Allergy Verified 12/13/20 18:54 Home Meds: Home Meds Levothyroxine 75 mcg PO ACBREAKFAST 06/30/13 [History] Multivitamin [Multi-Vitamin Daily] 1 each PO DAILY 06/30/13 [History] Iron Polysaccharide Complex [Poly-Iron] 150 mg PO BID 07/06/14 [History] Dexlansoprazole [Dexilant] 60 mg PO BEDTIME 07/08/15 [History] Docusate Sodium [Colace] 100 mg PO BID 07/08/15 [History] Diclofenac Sodium [Voltaren 1% Gel] 1 applic TOP QID PRN 06/09/19 [History] Benztropine [Cogentin] 0.5 mg PO BID 09/14/19 [History] LORazepam [Ativan] 1 mg PO DAILY PRN 09/14/19 [History] Magnesium Oxide 200 mg PO BID 09/14/19 [History] cloZAPine 50 mg PO BEDTIME 09/14/19 [History] Cyanocobalamin (Vitamin B-12) [Vitamin B-12] 1,000 mcg PO DAILY 09/20/19 [History] Venlafaxine HCl [Venlafaxine ER] 75 mg PO DAILY 10/31/20 [History] Aspirin [Halfprin] 81 mg PO DAILY 12/13/20 [History] Calcium Carbonate/Vitamin D3 [Calcium 500 + Vit D 400] 1 tab PO DAILY 12/13/20 [History] Calcium Polycarbophil [Fiber Laxative] 625 mg PO DAILY 12/13/20 [History] Dexlansoprazole [Dexilant] 60 mg PO DAILY 12/13/20 [History] cloZAPine [Clozaril] 100 mg PO WITHBREAKFAST 12/13/20 [History] gemfibroziL [Gemfibrozil] 600 mg PO BID 12/13/20 [History] Past Medical History HEENT History: Reports: Hard of Hearing, Impaired Vision, Other (See Below) Other HEENT History: Bilateral exotropia Cardiovascular History: Reports: None, Other (See Below) Other Cardiovascular History: varicose veins wih edema Respiratory History: Reports: Other (See Below) Other Respiratory History: covid 19. on 24hrs 02 at 2liters/min per caregiver at bedside Gastrointestinal History: Reports: Chronic Constipation, GERD Genitourinary History: Reports: None [employer] History: Reports: Musculoskeletal History: Reports: Fracture, Other (See Below) Other Musculoskeletal History: fx left. foot,5th metatarsal bone ulna fx Neurological History: Reports: None, Other (See Below) Other Neuro History: hx depakote toxicity Psychiatric History: Reports: Depression, Psychosis, Other (See Below) Other Psychiatric History: Self Harm Endocrine/Metabolic History: Reports: Hypothyroidism, Obesity/BMI 30+ Hematologic History: Reports: None Immunologic History: Reports: None Oncologic (Cancer) History: Reports: None Dermatologic History: Reports: Other (See Below) Other Dermatologic History: varicose veins with edema - Infectious Disease History Infectious Disease History: Reports: None Other Infectious Disease History: Unable to verify any other illnesses. - Past Surgical History Head Surgeries/Procedures: Reports: None HEENT Surgical History: Reports: None Cardiovascular Surgical History: Reports: None Respiratory Surgical History: Reports: None GI Surgical History: Reports: Cholecystectomy Female Surgical History: Reports: Section, Tubal Ligation Endocrine Surgical History: Reports: None Neurological Surgical History: Reports: None Musculoskeletal Surgical History: Reports: Other (See Below) Other Musculoskeletal Surgeries/Procedures:: bunion removal Oncologic Surgical History: Reports: None Dermatological Surgical History: Reports: None Social & Family History - Family History Family Medical History: Unobtainable - Tobacco Use Second Hand Smoke Exposure: No - Caffeine Use Caffeine Use: Reports: None Caffeine Use Comment: unable to assess - Recreational Drug Use Recreational Drug Use: No - Living Situation & Occupation Living situation: Reports: Assisted Living, Other Occupation: Disabled ED ROS GENERAL - Review of Systems Review Of Systems: See Below ED EXAM, GENERAL - Physical Exam Exam: See Below Course - Vital Signs Last Recorded V/S: Last Vital Signs Temp 35.9 C L 12/13/20 16:07 Pulse 77 12/13/20 16:07 Resp 18 12/13/20 16:07 BP 120/71 12/13/20 16:07 Pulse Ox 97 12/13/20 16:23 - Orders/Labs/Meds Orders: Active Orders 24 hr Category Date Time Status CULTURE BLOOD [BC] Stat Lab 12/13/20 11:29 Results CULTURE BLOOD [BC] Stat Lab 12/13/20 12:05 Received CULTURE URINE [MREF] Stat Lab 12/13/20 12:50 Received Blood Culture x2 Reflex Set [OM.PC] Stat Oth 12/13/20 09:58 Ordered Medication Orders Acetaminophen (Acetaminophen 325 Mg Tab) 650 mg PO Q4H PRN PRN Reason: Pain (Mild 1-3)/fever Docusate Sodium (Docusate Sodium 100 Mg Cap) 100 mg PO BID PRN PRN Reason: Constipation Heparin Sodium (Porcine) (Heparin Sodium 5,000 Units/Ml Vial) 5,000 units SUBCUT Q12HR [facility] Lactated Ringer's (Ringers, Lactated) 1,000 mls @ 125 mls/hr IV Q8H [facility] Last Admin: 12/13/20 16:03 Dose: 125 mls/hr Documented by: FRANKLYN Ertapenem 1 gm/ Sodium (Chloride) 50 mls @ 100 mls/hr IV Q24H [facility] Pantoprazole Sodium 40 mg/ (Sodium Chloride) 10 mls @ 300 mls/hr IV Q24H [facility] Last Admin: 12/13/20 16:03 Dose: 300 mls/hr Documented by: FRANKLYN Ondansetron HCl (Ondansetron 4 Mg/2 Ml Sdv) 4 mg IVPUSH Q4H PRN PRN Reason: Nausea Sodium Chloride (Sodium Chloride 0.9% 2.5 Ml Syringe) 2.5 ml FLUSH ASDIRECTED PRN PRN Reason: Keep Vein Open Labs: Laboratory Tests 12/13/20 12/13/20 12/13/20 Range/Units 10:40 10:55 11:29 WBC 6.51 (4.0-11.0) K/uL RBC 3.85 L (4.30-5.90) M/uL Hgb 11.5 L (12.0-16.0) g/dL Hct 36.1 (36.0-46.0) % MCV 93.8 (80.0-98.0) fL MCH 29.9 (27.0-32.0) pg MCHC 31.9 (31.0-37.0) g/dL RDW Std Deviation 45.9 (28.0-62.0) fl RDW Coeff of Amaris 13 (11.0-15.0) % Plt Count 262 (150-400) K/uL MPV 11.10 (7.40-12.00) fL Neut % (Auto) 69.6 (48.0-80.0) % Lymph % (Auto) 16.0 (16.0-40.0) % [place] % (Auto) 12.7 (0.0-15.0) % Eos % (Auto) 1.4 (0.0-7.0) % Baso % (Auto) 0.3 (0.0-1.5) % Neut # (Auto) 4.5 (1.4-5.7) K/uL Lymph # (Auto) 1.0 (0.6-2.4) K/uL [place] # (Auto) 0.8 (0.0-0.8) K/uL Eos # (Auto) 0.1 (0.0-0.7) K/uL Baso # (Auto) 0.0 (0.0-0.1) K/uL Nucleated RBC % 0.0 /100WBC Nucleated RBCs # 0 K/uL INR 1.09 Sodium (136-145) mmol/L Potassium (3.5-5.1) mmol/L Chloride (98-107) mmol/L Carbon Dioxide (21.0-32.0) mmol/L BUN (7.0-18.0) mg/dL Creatinine (0.6-1.0) mg/dL Est Cr Clr Drug Dosing mL/min Estimated GFR (MDRD) ml/min Glucose (74-106) mg/dL Lactic Acid (0.4-2.0) mmol/L Calcium (8.5-10.1) mg/dL Magnesium (1.8-2.4) mg/dL Total Bilirubin (0.2-1.0) mg/dL AST (15-37) IU/L ALT (14-63) IU/L Alkaline Phosphatase (46-116) U/L Troponin I (0.000-0.056) ng/mL Total Protein (6.4-8.2) g/dL Albumin (3.4-5.0) g/dL Globulin (2.6-4.0) g/dL Albumin/Globulin Ratio (0.9-1.6) Urine Color Urine Appearance Urine pH (5.0-8.0) Ur Specific [place] (1.001-1.035) Urine Protein (NEGATIVE) mg/dL Urine Glucose (UA) (NEGATIVE) mg/dL Urine Ketones (NEGATIVE) mg/dL Urine Occult Blood (NEGATIVE) Urine Nitrite (NEGATIVE) Urine Bilirubin (NEGATIVE) Urine Urobilinogen (<2.0) EU/dL Ur Leukocyte Esterase (NEGATIVE) Urine RBC (0-2/HPF) Urine WBC (0-5/HPF) Ur Epithelial Cells (NONE-FEW) Urine Bacteria (NEGATIVE) Urine Mucus (NONE-MOD) SARS-CoV-2 RNA (ANALILIA) NEGATIVE (NEGATIVE) 12/13/20 12/13/20 12/13/20 Range/Units 11:29 11:29 12:50 WBC (4.0-11.0) K/uL RBC (4.30-5.90) M/uL Hgb (12.0-16.0) g/dL Hct (36.0-46.0) % MCV (80.0-98.0) fL MCH (27.0-32.0) pg MCHC (31.0-37.0) g/dL RDW Std Deviation (28.0-62.0) fl RDW Coeff of Amaris (11.0-15.0) % Plt Count (150-400) K/uL MPV (7.40-12.00) fL Neut % (Auto) (48.0-80.0) % Lymph % (Auto) (16.0-40.0) % [place] % (Auto) (0.0-15.0) % Eos % (Auto) (0.0-7.0) % Baso % (Auto) (0.0-1.5) % Neut # (Auto) (1.4-5.7) K/uL Lymph # (Auto) (0.6-2.4) K/uL [place] # (Auto) (0.0-0.8) K/uL Eos # (Auto) (0.0-0.7) K/uL Baso # (Auto) (0.0-0.1) K/uL Nucleated RBC % /100WBC Nucleated RBCs # K/uL INR Sodium 138 (136-145) mmol/L Potassium 3.4 L (3.5-5.1) mmol/L Chloride 91 L (98-107) mmol/L Carbon Dioxide 37.9 H (21.0-32.0) mmol/L BUN 36 H (7.0-18.0) mg/dL Creatinine 1.3 H (0.6-1.0) mg/dL Est Cr Clr Drug Dosing 47.00 mL/min Estimated GFR (MDRD) 41.9 ml/min Glucose 122 H (74-106) mg/dL Lactic Acid 0.8 (0.4-2.0) mmol/L Calcium 10.2 H (8.5-10.1) mg/dL Magnesium 2.8 H (1.8-2.4) mg/dL Total Bilirubin 0.2 (0.2-1.0) mg/dL AST 18 (15-37) IU/L ALT 16 (14-63) IU/L Alkaline Phosphatase 128 H (46-116) U/L Troponin I < 0.050 (0.000-0.056) ng/mL Total Protein 7.9 (6.4-8.2) g/dL Albumin 3.6 (3.4-5.0) g/dL Globulin 4.3 H (2.6-4.0) g/dL Albumin/Globulin Ratio 0.8 L (0.9-1.6) Urine Color YELLOW Urine Appearance CLOUDY Urine pH 6.0 (5.0-8.0) Ur Specific [place] 1.015 (1.001-1.035) Urine Protein TRACE H (NEGATIVE) mg/dL Urine Glucose (UA) NEGATIVE (NEGATIVE) mg/dL Urine Ketones TRACE H (NEGATIVE) mg/dL Urine Occult Blood SMALL H (NEGATIVE) Urine Nitrite POSITIVE H (NEGATIVE) Urine Bilirubin NEGATIVE (NEGATIVE) Urine Urobilinogen 0.2 (<2.0) EU/dL Ur Leukocyte Esterase LARGE H (NEGATIVE) Urine RBC 4-8 (0-2/HPF) Urine WBC TO NUMEROUS TO COUNT H (0-5/HPF) Ur Epithelial Cells MODERATE (NONE-FEW) Urine Bacteria 4+ H (NEGATIVE) Urine Mucus MODERATE (NONE-MOD) SARS-CoV-2 RNA (ANALILIA) (NEGATIVE) Meds: Medications Generic Name Dose Route Start Last Admin Trade Name Quita PRN Reason Stop Dose Admin Acetaminophen 650 mg 12/13/20 15:30 Acetaminophen 325 Mg Tab PO Q4H PRN Pain (Mild 1-3)/fever Docusate Sodium 100 mg 12/13/20 21:00 Docusate Sodium 100 Mg Cap PO BID PRN Constipation Heparin Sodium (Porcine) 5,000 units 12/13/20 21:00 Heparin Sodium 5,000 Units/Ml Vial SUBCUT Q12HR [facility] Lactated Ringer's 1,000 mls @ 125 mls/hr 12/13/20 15:30 12/13/20 16:03 Ringers, Lactated IV 125 mls/hr Q8H [facility] Administration Ertapenem 1 gm/ Sodium 50 mls @ 100 mls/hr 12/14/20 12:00 Chloride IV Q24H [facility] Pantoprazole Sodium 40 mg/ 10 mls @ 300 mls/hr 12/13/20 16:00 12/13/20 16:03 Sodium Chloride IV 300 mls/hr Q24H [facility] Administration Ondansetron HCl 4 mg 12/13/20 15:30 Ondansetron 4 Mg/2 Ml Sdv IVPUSH Q4H PRN Nausea Sodium Chloride 2.5 ml 12/13/20 15:18 Sodium Chloride 0.9% 2.5 Ml Syringe FLUSH ASDIRECTED PRN Keep Vein Open Discontinued Medications Generic Name Dose Route Start Last Admin Trade Name Q[place] PRN Reason Stop Dose Admin Lactated Ringer's 1,000 mls @ 999 mls/hr 12/13/20 09:58 12/13/20 10:43 Ringers, Lactated IV 12/13/20 10:58 999 mls/hr .BOLUS ONE Administration Lactated Ringer's 1,000 mls @ 125 mls/hr 12/13/20 13:30 Ringers, Lactated IV ASDIRECTED [facility] Ertapenem 1 gm/ Sodium 50 mls @ 100 mls/hr 12/13/20 13:45 12/13/20 14:15 Chloride IV 12/13/20 14:14 100 mls/hr ONETIME ONE Administration Departure - Departure Time of Disposition: 13:40 Disposition: Admitted As Inpatient 67 Condition: Fair Clinical Impression: RAUL (acute kidney injury) Urinary tract infection Qualifiers: Urinary tract infection type: site unspecified Hematuria presence: without hematuria Qualified Code(s): N39.0 - Urinary tract infection, site not specified - Discharge Information Sepsis Event Note (ED) - Evaluation Sepsis Screening Result: No Definite Risk - Focused Exam Vital Signs: Vital Signs Temp Pulse Resp BP Pulse Ox 12/13/20 13:00 74 24 H 113/50 L 92 L 12/13/20 12:00 75 24 H 118/50 L 94 L 12/13/20 11:00 84 24 H 92 L 12/13/20 10:00 79 24 H 119/71 94 L 12/13/20 09:45 36.2 C 82 24 H 119/71 94 L - My Orders Last 24 Hours: My Active Orders 12/13/20 09:58 Blood Culture x2 Reflex Set [OM.PC] Stat 12/13/20 11:29 CULTURE BLOOD [BC] Stat 12/13/20 12:05 CULTURE BLOOD [BC] Stat 12/13/20 12:50 CULTURE URINE [MREF] Stat - Assessment/Plan Last 24 Hours: My Active Orders 12/13/20 09:58 Blood Culture x2 Reflex Set [OM.PC] Stat 12/13/20 11:29 CULTURE BLOOD [BC] Stat 12/13/20 12:05 CULTURE BLOOD [BC] Stat 12/13/20 12:50 CULTURE URINE [MREF] Stat
--- NOTE | 2020-12-13 11:44 | CR ---
INDICATION: Shortness of breath. COMPARISON: Portable AP chest November 03, 2020; CT chest with intravenous contrast October 31, 2020. TECHNIQUE: Portable AP chest. FINDINGS: Low lung volumes secondary to poor inspiration. Elevated right hemidiaphragm. No acute pneumonic infiltrates or CHF . No pneumothorax or pleural effusion. IMPRESSION: 1. Elevated right hemidiaphragm; relatively new when compared to November 03, 2020. 2. Low lung volumes secondary to poor inspiration. 3. No acute pathology. Dictated by Shayna Calhoun MD @ 12/13/2020 11:44:11 AM (Electronically Signed)
[2020-12-13 12:19] LABS: BLOOD UREA NITROGEN,BUN 36 mg/dL (7.0-18.0); CARBON DIOXIDE,CO2 37.9 mmol/L (21.0-32.0); CHLORIDE,CL 91 mmol/L (98-107); GLUCOSE RANDOM 122 mg/dL (74-106); POTASSIUM,K 3.4 mmol/L (3.5-5.1); SODIUM,NA 138 mmol/L (136-145)
[2020-12-13] MEDS ORDERED: Ertapenem 1 GM in Sodium Chloride 0.9% 50 ML IV ONE ×2 (13:15→13:45)
[2020-12-13] MEDS ORDERED: Lactated Ringers 1,000 ML IV SCH (13:30)
[2020-12-13] MEDS ORDERED: Sodium Chloride 0.9% 2.5 ML Syringe FLUSH PRN (15:18)
[2020-12-13] MEDS ORDERED: Acetaminophen 325 MG Tab PO PRN (15:30)
[2020-12-13] MEDS ORDERED: Pantoprazole 40 MG Vial IV SCH (15:30)
[2020-12-13] MEDS ORDERED: Ondansetron 4 MG/2 ML SDV IVPUSH PRN (15:30)
[2020-12-13] MEDS ORDERED: Pantoprazole 40 MG in Sodium Chloride 0.9% 10 ML IV SCH (16:00)
[2020-12-13] MEDS: Lactated Ringers 1,000 ML IV SCH (16:03)
--- NOTE | 2020-12-13 17:23 | PCM.HP.2 ---
H&P History of Present Illness - General Date of Service: 12/13/20 Admit Problem/Dx: Admission Diagnosis/Problem Admission Diagnosis/Problem Acute kidney injury Source of Information: Patient - History of Present Illness Initial Comments - Free Text/Narative: This 60-year-old female with past medical history of hypothyroidism, morbid obesity major depression with psychotic features who lives at the [facility], as well as intermittent need of oxygen at bedtime presented to the ER today with not feeling well including fever and nausea and vomiting along with abdominal pain. Patient is poor historian but per ER records and caregiver from [facility] in the ER history was obtained. Patient reports she had lower abdominal pain earlier but now is feeling fine and requesting to have something to drink. She denies any flank pain or chest pain. She denies any shortness of breath or any current nausea and vomiting. In the ER lab work reveals no leukocytosis hemoglobin 11.5 platelet count 262,000. Potassium 3.4 chloride 91 bicarb 37.9 BUN 36 creatinine 1.3 which is elevated from baseline. Glucose 122 lactic acid 0.8. Calcium 10.2. Magnesium 2.8 alk phos elevated at 128 troponin negative UA show significant UTI positive nitrites large leukocyte esterase too numerous to count WBCs +4 bacteria. Covid swab was negative. Chest x-ray in the ER reveals no acute cardiopulmonary process. Patient has history of ESBL E. coli in her urine as well as Proteus and most recently Citrobacter freundii. She was recently treated with levofloxacin in the beginning of October for urinary tract infection. Patient will be admitted inpatient for acute complicated UTI. - Related Data Allergies/Adverse Reactions: Allergies Allergy/AdvReac Type Severity Reaction Status Date / Time No Known Allergies Allergy Verified 12/13/20 09:48 Home Medications: Home Meds Calcium Carbonate/Vitamin D3 [Calcium 250+D] 2 tab PO BIDMEALS 06/30/13 [History] Gemfibrozil 600 mg PO ACBREAKFASTANDBED 06/30/13 [History] Levothyroxine 75 mcg PO ACBREAKFAST 06/30/13 [History] Multivitamin [Multi-Vitamin Daily] 1 each PO DAILY 06/30/13 [History] Iron Polysaccharide Complex [Poly-Iron] 150 mg PO BID 07/06/14 [History] Aspirin [Halfprin] 81 mg PO DAILY 07/08/15 [History] Dexlansoprazole [Dexilant] 60 mg PO BEDTIME 07/08/15 [History] Docusate Sodium [Colace] 100 mg PO BID 07/08/15 [History] Escitalopram [Lexapro] 20 mg PO QAM 11/04/17 [History] Diclofenac Sodium [Voltaren 1% Gel] 1 applic TOP QID PRN 06/09/19 [History] Benztropine [Cogentin] 0.5 mg PO BID 09/14/19 [History] LORazepam [Ativan] 1 mg PO DAILY PRN 09/14/19 [History] Magnesium Oxide 200 mg PO BID 09/14/19 [History] cloZAPine 50 mg PO DAILY 09/14/19 [History] cloZAPine 250 mg PO BEDTIME 09/14/19 [History] estradioL [Estrace 0.01% Vaginal Crm] 1 applic VAG MOTH@2100 09/14/19 [History] Cyanocobalamin (Vitamin B-12) [Vitamin B-12] 1,000 mcg PO DAILY 09/20/19 [History] Albuterol [Proventil Neb Soln] 2.5 mg INH Q4H PRN 12/10/19 [History] Ondansetron [Zofran ODT] 4 mg PO Q6H PRN 10/31/20 [History] Venlafaxine HCl [Venlafaxine ER] 75 mg PO DAILY 10/31/20 [History] calcium polycarbophiL [Fiber Tabs] 625 mg PO BID 10/31/20 [History] Past Medical History HEENT History: Reports: Hard of Hearing, Impaired Vision, Other (See Below) Other HEENT History: Bilateral exotropia Cardiovascular History: Reports: None, Other (See Below) Other Cardiovascular History: varicose veins wih edema Respiratory History: Reports: Other (See Below) Other Respiratory History: covid 19. on 24hrs 02 at 2liters/min per caregiver at bedside Gastrointestinal History: Reports: Chronic Constipation, GERD Genitourinary History: Reports: None GEOSPATIAL INFORMATION TECHNOLOGIST History: Reports: Musculoskeletal History: Reports: Fracture, Other (See Below) Other Musculoskeletal History: fx left. foot,5th metatarsal bone ulna fx Neurological History: Reports: None, Other (See Below) Other Neuro History: hx depakote toxicity Psychiatric History: Reports: Depression, Psychosis, Other (See Below) Other Psychiatric History: Self Harm Endocrine/Metabolic History: Reports: Hypothyroidism, Obesity/BMI 30+ Hematologic History: Reports: None Immunologic History: Reports: None Oncologic (Cancer) History: Reports: None Dermatologic History: Reports: Other (See Below) Other Dermatologic History: varicose veins with edema - Infectious Disease History Infectious Disease History: Reports: None Other Infectious Disease History: Unable to verify any other illnesses. - Past Surgical History Head Surgeries/Procedures: Reports: None HEENT Surgical History: Reports: None Cardiovascular Surgical History: Reports: None Respiratory Surgical History: Reports: None GI Surgical History: Reports: Cholecystectomy Female Surgical History: Reports: Section, Tubal Ligation Endocrine Surgical History: Reports: None Neurological Surgical History: Reports: None Musculoskeletal Surgical History: Reports: Other (See Below) Other Musculoskeletal Surgeries/Procedures:: bunion removal Oncologic Surgical History: Reports: None Dermatological Surgical History: Reports: None Social & Family History - Family History Family Medical History: Unobtainable - Tobacco Use Second Hand Smoke Exposure: No - Caffeine Use Caffeine Use: Reports: None Caffeine Use Comment: unable to assess - Recreational Drug Use Recreational Drug Use: No - Living Situation & Occupation Living situation: Reports: Assisted Living, Other Occupation: Disabled H&P Review of Systems - Review of Systems: Review Of Systems: See Below General: Reports: Malaise, Weakness. Denies: Fever HEENT: Reports: No Symptoms Pulmonary: Reports: No Symptoms. Denies: Shortness of Breath Cardiovascular: Reports: No Symptoms. Denies: Chest Pain Gastrointestinal: Reports: Abdominal Pain (No longer having abdominal pain). Denies: Diarrhea, Nausea, Vomiting Genitourinary: Reports: Dysuria. Denies: Flank Pain Musculoskeletal: Reports: No Symptoms. Denies: Neck Pain Skin: Reports: No Symptoms Neurological: Reports: No Symptoms Hematologic/Lymphatic: Reports: No Symptoms Immunologic: Reports: No Symptoms Exam - Exam Exam: See Below - Vital Signs Vital Signs: Last Vital Signs Temp 96.6 F L 12/13/20 16:07 Pulse 77 12/13/20 16:07 Resp 18 12/13/20 16:07 BP 120/71 12/13/20 16:07 Pulse Ox 97 12/13/20 16:23 Weight: 107.048 kg - Exam General: Alert, Oriented (Per baseline), Cooperative HEENT: Conjunctiva Clear, Nares Patent, Posterior Pharynx Clear Lungs: Clear to Auscultation, Normal Respiratory Effort Cardiovascular: Regular Rate, Regular Rhythm GI/Abdominal Exam: Normal Bowel Sounds, Soft, Non-Tender, No Distention, No Mass Extremities: Normal Inspection, Normal Range of Motion, Non-Tender, No Pedal Edema Neuro Extensive - Mental Status: Alert, Oriented x3 Neuro Extensive - Motor, Sensory, Reflexes: CN II-XII Intact, Normal Gait, Normal Reflexes Psychiatric: Alert, Normal Affect, Normal Mood - Patient Data Lab Results Last 24 hrs: Laboratory Results - last 24 hr 12/13/20 12/13/20 12/13/20 Range/Units 10:40 10:55 11:29 WBC 6.51 (4.0-11.0) K/uL RBC 3.85 L (4.30-5.90) M/uL Hgb 11.5 L (12.0-16.0) g/dL Hct 36.1 (36.0-46.0) % MCV 93.8 (80.0-98.0) fL MCH 29.9 (27.0-32.0) pg MCHC 31.9 (31.0-37.0) g/dL RDW Std Deviation 45.9 (28.0-62.0) fl RDW Coeff of Amaris 13 (11.0-15.0) % Plt Count 262 (150-400) K/uL MPV 11.10 (7.40-12.00) fL Neut % (Auto) 69.6 (48.0-80.0) % Lymph % (Auto) 16.0 (16.0-40.0) % Ida % (Auto) 12.7 (0.0-15.0) % Eos % (Auto) 1.4 (0.0-7.0) % Baso % (Auto) 0.3 (0.0-1.5) % Neut # (Auto) 4.5 (1.4-5.7) K/uL Lymph # (Auto) 1.0 (0.6-2.4) K/uL Ida # (Auto) 0.8 (0.0-0.8) K/uL Eos # (Auto) 0.1 (0.0-0.7) K/uL Baso # (Auto) 0.0 (0.0-0.1) K/uL Nucleated RBC % 0.0 /100WBC Nucleated RBCs # 0 K/uL INR 1.09 Sodium (136-145) mmol/L Potassium (3.5-5.1) mmol/L Chloride (98-107) mmol/L Carbon Dioxide (21.0-32.0) mmol/L BUN (7.0-18.0) mg/dL Creatinine (0.6-1.0) mg/dL Est Cr Clr Drug Dosing mL/min Estimated GFR (MDRD) ml/min Glucose (74-106) mg/dL Lactic Acid (0.4-2.0) mmol/L Calcium (8.5-10.1) mg/dL Magnesium (1.8-2.4) mg/dL Total Bilirubin (0.2-1.0) mg/dL AST (15-37) IU/L ALT (14-63) IU/L Alkaline Phosphatase (46-116) U/L Troponin I (0.000-0.056) ng/mL Total Protein (6.4-8.2) g/dL Albumin (3.4-5.0) g/dL Globulin (2.6-4.0) g/dL Albumin/Globulin Ratio (0.9-1.6) Urine Color Urine Appearance Urine pH (5.0-8.0) Ur Specific Sublette (1.001-1.035) Urine Protein (NEGATIVE) mg/dL Urine Glucose (UA) (NEGATIVE) mg/dL Urine Ketones (NEGATIVE) mg/dL Urine Occult Blood (NEGATIVE) Urine Nitrite (NEGATIVE) Urine Bilirubin (NEGATIVE) Urine Urobilinogen (<2.0) EU/dL Ur Leukocyte Esterase (NEGATIVE) Urine RBC (0-2/HPF) Urine WBC (0-5/HPF) Ur Epithelial Cells (NONE-FEW) Urine Bacteria (NEGATIVE) Urine Mucus (NONE-MOD) SARS-CoV-2 RNA (ANALILIA) NEGATIVE (NEGATIVE) 12/13/20 12/13/20 12/13/20 Range/Units 11:29 11:29 12:50 WBC (4.0-11.0) K/uL RBC (4.30-5.90) M/uL Hgb (12.0-16.0) g/dL Hct (36.0-46.0) % MCV (80.0-98.0) fL MCH (27.0-32.0) pg MCHC (31.0-37.0) g/dL RDW Std Deviation (28.0-62.0) fl RDW Coeff of Amaris (11.0-15.0) % Plt Count (150-400) K/uL MPV (7.40-12.00) fL Neut % (Auto) (48.0-80.0) % Lymph % (Auto) (16.0-40.0) % Ida % (Auto) (0.0-15.0) % Eos % (Auto) (0.0-7.0) % Baso % (Auto) (0.0-1.5) % Neut # (Auto) (1.4-5.7) K/uL Lymph # (Auto) (0.6-2.4) K/uL Ida # (Auto) (0.0-0.8) K/uL Eos # (Auto) (0.0-0.7) K/uL Baso # (Auto) (0.0-0.1) K/uL Nucleated RBC % /100WBC Nucleated RBCs # K/uL INR Sodium 138 (136-145) mmol/L Potassium 3.4 L (3.5-5.1) mmol/L Chloride 91 L (98-107) mmol/L Carbon Dioxide 37.9 H (21.0-32.0) mmol/L BUN 36 H (7.0-18.0) mg/dL Creatinine 1.3 H (0.6-1.0) mg/dL Est Cr Clr Drug Dosing 47.00 mL/min Estimated GFR (MDRD) 41.9 ml/min Glucose 122 H (74-106) mg/dL Lactic Acid 0.8 (0.4-2.0) mmol/L Calcium 10.2 H (8.5-10.1) mg/dL Magnesium 2.8 H (1.8-2.4) mg/dL Total Bilirubin 0.2 (0.2-1.0) mg/dL AST 18 (15-37) IU/L ALT 16 (14-63) IU/L Alkaline Phosphatase 128 H (46-116) U/L Troponin I < 0.050 (0.000-0.056) ng/mL Total Protein 7.9 (6.4-8.2) g/dL Albumin 3.6 (3.4-5.0) g/dL Globulin 4.3 H (2.6-4.0) g/dL Albumin/Globulin Ratio 0.8 L (0.9-1.6) Urine Color YELLOW Urine Appearance CLOUDY Urine pH 6.0 (5.0-8.0) Ur Specific Sublette 1.015 (1.001-1.035) Urine Protein TRACE H (NEGATIVE) mg/dL Urine Glucose (UA) NEGATIVE (NEGATIVE) mg/dL Urine Ketones TRACE H (NEGATIVE) mg/dL Urine Occult Blood SMALL H (NEGATIVE) Urine Nitrite POSITIVE H (NEGATIVE) Urine Bilirubin NEGATIVE (NEGATIVE) Urine Urobilinogen 0.2 (<2.0) EU/dL Ur Leukocyte Esterase LARGE H (NEGATIVE) Urine RBC 4-8 (0-2/HPF) Urine WBC TO NUMEROUS TO COUNT H (0-5/HPF) Ur Epithelial Cells MODERATE (NONE-FEW) Urine Bacteria 4+ H (NEGATIVE) Urine Mucus MODERATE (NONE-MOD) SARS-CoV-2 RNA (ANALILIA) (NEGATIVE) Result Diagrams: 12/13/20 10:55 12/13/20 11:29 Jus Results Last 24 hrs: Microbiology 12/13/20 11:29 Anaerobic Blood Culture - Final Blood - Venous Sepsis Event Note - Evaluation Sepsis Screening Result: No Definite Risk - Focused Exam Vital Signs: Vital Signs Temp Pulse Resp BP Pulse Ox Pulse Ox 12/13/20 16:23 97 12/13/20 16:07 96.6 F L 77 18 120/71 97 12/13/20 15:30 74 24 H 100/52 L 97 12/13/20 14:00 74 24 H 87/39 L 95 12/13/20 13:00 74 24 H 113/50 L 92 L 12/13/20 12:00 75 24 H 118/50 L 94 L 12/13/20 11:00 84 24 H 92 L 12/13/20 10:00 79 24 H 119/71 94 L 12/13/20 09:45 97.2 F 82 24 H 119/71 94 L - Problem List (1) RAUL (acute kidney injury) SNOMED Code(s): 50537878, 75168816 ICD Code: N17.9 - ACUTE KIDNEY FAILURE, UNSPECIFIED Status: Acute Current Visit: No (2) ESBL (extended spectrum beta-lactamase) producing bacteria infection SNOMED Code(s): 059999669 ICD Code: A49.9 - BACTERIAL INFECTION, UNSPECIFIED; Z16.12 - EXTENDED SPECTRUM BETA LACTAMASE (ESBL) RESISTANCE Status: Acute Current Visit: No (3) Hypokalemia SNOMED Code(s): 39023068 ICD Code: E87.6 - HYPOKALEMIA Status: Acute Current Visit: No (4) Oxygen dependent SNOMED Code(s): 985488511430 ICD Code: Z99.81 - DEPENDENCE ON SUPPLEMENTAL OXYGEN Status: Acute Current Visit: No (5) Urinary tract infection SNOMED Code(s): 52405122 ICD Code: N39.0 - URINARY TRACT INFECTION, SITE NOT SPECIFIED Status: Acute Current Visit: No Qualifiers: Urinary tract infection type: site unspecified Hematuria presence: without hematuria Qualified Code(s): N39.0 - Urinary tract infection, site not s pecified (6) Bipolar disorder SNOMED Code(s): 28859866 ICD Code: F31.9 - BIPOLAR DISORDER, UNSPECIFIED Status: Chronic Priority: High Current Visit: No (7) GERD (gastroesophageal reflux disease) SNOMED Code(s): 382257156 ICD Code: K21.9 - GASTRO-ESOPHAGEAL REFLUX DISEASE WITHOUT ESOPHAGITIS Status: Chronic Current Visit: No Qualifiers: Esophagitis presence: esophagitis presence not specified Qualified Code(s): K21.9 - Gastro-esophageal reflux disease without esophagitis (8) History of mental disorder SNOMED Code(s): 100907060 ICD Code: Z86.59 - PERSONAL HISTORY OF OTHER MENTAL AND BEHAVIORAL DISORDERS Status: Chronic Current Visit: No (9) Hypothyroidism SNOMED Code(s): 76583228 ICD Code: E03.9 - HYPOTHYROIDISM, UNSPECIFIED Status: Chronic Current Visit: No Qualifiers: Hypothyroidism type: unspecified Qualified Code(s): E03.9 - Hypothyroidism, unspecified (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) SNOMED Code(s): 56352951 ICD Code: F70 - MILD INTELLECTUAL DISABILITIES Status: Chronic Priority: Medium Current Visit: No (11) RAMESH (obstructive sleep apnea) SNOMED Code(s): 69896940 ICD Code: G47.33 - OBSTRUCTIVE SLEEP APNEA (ADULT) (PEDIATRIC) Status: Chronic Current Visit: No Problem List Initiated/Reviewed/Updated: Yes Orders Last 24hrs: Active Orders 24 hr Category Date Time Status Admission Status [Patient Status] [ADT] Stat ADT 12/13/20 13:40 Active Intake and Output [RC] QSHIFT Care 12/13/20 15:19 Active Oxygen Therapy [RC] PRN Care 12/13/20 15:19 Active Up With Assistance [RC] ASDIRECTED Care 12/13/20 15:18 Active VTE/DVT Education [RC] PER UNIT ROUTINE Care 12/13/20 15:19 Active Vital Signs [RC] Q4H Care 12/13/20 15:19 Active Regular Diet [DIET] Diet 12/13/20 Dinner Active BASIC METABOLIC PANEL,BMP [CHEM] AM Lab 12/14/20 05:11 Ordered CBC WITH AUTO DIFF [HEME] AM Lab 12/14/20 05:11 Ordered CULTURE BLOOD [BC] Stat Lab 12/13/20 11:29 Results CULTURE BLOOD [BC] Stat Lab 12/13/20 12:05 Received CULTURE URINE [MREF] Stat Lab 12/13/20 12:50 Received MAGNESIUM [CHEM] AM Lab 12/14/20 05:11 Ordered Acetaminophen [TylenoL] Med 12/13/20 15:30 Active 650 mg PO Q4H PRN Docusate Sodium [Colace] Med 12/13/20 21:00 Active 100 mg PO BID PRN Ertapenem [INVanz] 1 gm Med 12/14/20 12:00 Active Sodium Chloride 0.9% [Normal Saline] 50 ml IV Q24H Heparin Sodium Med 12/13/20 21:00 Active 5,000 units SUBCUT Q12HR Lactated Ringers [Ringers, Lactated] 1,000 ml Med 12/13/20 13:30 Active IV ASDIRECTED Lactated Ringers [Ringers, Lactated] 1,000 ml Med 12/13/20 15:30 Active IV Q8H Ondansetron [Zofran] Med 12/13/20 15:30 Active 4 mg IVPUSH Q4H PRN Pantoprazole [ProTONIX IV] 40 mg Med 12/13/20 16:00 Active Sodium Chloride 0.9% [Normal Saline] 10 ml IV Q24H Sodium Chloride 0.9% [Saline Flush] Med 12/13/20 15:18 Active 2.5 ml FLUSH ASDIRECTED PRN Blood Culture x2 Reflex Set [OM.PC] Stat Oth 12/13/20 09:58 Ordered Isolation [COMM] Routine Oth 12/13/20 15:20 Active Saline Lock Insert [OM.PC] Routine Oth 12/13/20 15:18 Ordered Resuscitation Status Routine Resus Stat 12/13/20 15:18 Ordered Medication Orders Acetaminophen (Acetaminophen 325 Mg Tab) 650 mg PO Q4H PRN PRN Reason: Pain (Mild 1-3)/fever Docusate Sodium (Docusate Sodium 100 Mg Cap) 100 mg PO BID PRN PRN Reason: Constipation Heparin Sodium (Porcine) (Heparin Sodium 5,000 Units/Ml Vial) 5,000 units SUBCUT Q12HR OSCAR Lactated Ringer's (Ringers, Lactated) 1,000 mls @ 125 mls/hr IV ASDIRECTED OSCAR Lactated Ringer's (Ringers, Lactated) 1,000 mls @ 125 mls/hr IV Q8H PENDING SALE TO [facility] Last Admin: 12/13/20 16:03 Dose: 125 mls/hr Documented by: FRANKLYN Ertapenem 1 gm/ Sodium (Chloride) 50 mls @ 100 mls/hr IV Q24H OSCAR Pantoprazole Sodium 40 mg/ (Sodium Chloride) 10 mls @ 300 mls/hr IV Q24H PENDING SALE TO [facility] Last Admin: 12/13/20 16:03 Dose: 300 mls/hr Documented by: FRANKLYN Ondansetron HCl (Ondansetron 4 Mg/2 Ml Sdv) 4 mg IVPUSH Q4H PRN PRN Reason: Nausea Sodium Chloride (Sodium Chloride 0.9% 2.5 Ml Syringe) 2.5 ml FLUSH ASDIRECTED PRN PRN Reason: Keep Vein Open Assessment/Plan Comment:: This 60-year-old female admitted with UTI history ESBL E. coli 1. UTI, history ESBL E. coli -Continue ertapenem 1 g IV daily -Blood cultures urine cultures pending -Continue IV fluids due to history of nausea and vomiting -Patient denies abdominal pain now consider UTI tomorrow if pain returns or lab work worsens 2. RAUL -Could be secondary to dehydration and nausea and vomiting -Avoid nephrotoxic medications -Repeat lab work in a.m. 3. Depression/bipolar/hypothyroidism -Continue home medications VTE prophylaxis: Heparin CODE STATUS: Full code Dispo: 2 to 3 days pending culture reports
[2020-12-13] MEDS ORDERED: Docusate Sodium 100 MG Cap PO PRN (21:00)
[2020-12-13] MEDS: Heparin Sodium 5,000 Units/ML Vial SUBCUT SCH (21:18)
[2020-12-14] MEDS: Lactated Ringers 1,000 ML IV SCH ×2 (00:13→08:49)
[2020-12-14 07:17] LABS: CARBON DIOXIDE,CO2 36.2 mmol/L (21.0-32.0); POTASSIUM,K 2.7 mmol/L (3.5-5.1)
--- NOTE | 2020-12-14 08:10 | PCM.PN ---
- General Info Date of Service: 12/14/20 Admission Dx/Problem (Free Text): Admission Diagnosis/Problem Admission Diagnosis/Problem Acute kidney injury Subjective Update: Patient sleepy this morning does wake up but not very talkative. Denies any pain. Eating and drinking well per nursing. Denies any chest pain or shortness of breath. No other concerns at this time. - Review of Systems General: Denies: Weakness HEENT: Reports: No Symptoms. Denies: Headaches, Sore Throat, Visual Changes Pulmonary: Reports: No Symptoms. Denies: Shortness of Breath Cardiovascular: Reports: No Symptoms. Denies: Chest Pain Gastrointestinal: Reports: No Symptoms. Denies: Abdominal Pain, Nausea, Vomiting Genitourinary: Reports: No Symptoms. Denies: Dysuria, Frequency Musculoskeletal: Reports: No Symptoms Skin: Reports: No Symptoms Neurological: Reports: No Symptoms Psychiatric: Reports: No Symptoms - Patient Data Vitals - Most Recent: Last Vital Signs Temp 97.2 F 12/14/20 05:00 Pulse 74 12/14/20 05:00 Resp 18 12/14/20 05:00 BP 118/65 12/14/20 05:00 Pulse Ox 93 L 12/14/20 05:00 Weight - Most Recent: 106 kg Lab Results Last 24 Hours: Laboratory Results - last 24 hr 12/13/20 12/13/20 12/13/20 Range/Units 10:40 10:55 11:29 WBC 6.51 (4.0-11.0) K/uL RBC 3.85 L (4.30-5.90) M/uL Hgb 11.5 L (12.0-16.0) g/dL Hct 36.1 (36.0-46.0) % MCV 93.8 (80.0-98.0) fL MCH 29.9 (27.0-32.0) pg MCHC 31.9 (31.0-37.0) g/dL RDW Std Deviation 45.9 (28.0-62.0) fl RDW Coeff of Amaris 13 (11.0-15.0) % Plt Count 262 (150-400) K/uL MPV 11.10 (7.40-12.00) fL Neut % (Auto) 69.6 (48.0-80.0) % Lymph % (Auto) 16.0 (16.0-40.0) % Randolph % (Auto) 12.7 (0.0-15.0) % Eos % (Auto) 1.4 (0.0-7.0) % Baso % (Auto) 0.3 (0.0-1.5) % Neut # (Auto) 4.5 (1.4-5.7) K/uL Lymph # (Auto) 1.0 (0.6-2.4) K/uL Randolph # (Auto) 0.8 (0.0-0.8) K/uL Eos # (Auto) 0.1 (0.0-0.7) K/uL Baso # (Auto) 0.0 (0.0-0.1) K/uL Nucleated RBC % 0.0 /100WBC Nucleated RBCs # 0 K/uL INR 1.09 Sodium (136-145) mmol/L Potassium (3.5-5.1) mmol/L Chloride (98-107) mmol/L Carbon Dioxide (21.0-32.0) mmol/L BUN (7.0-18.0) mg/dL Creatinine (0.6-1.0) mg/dL Est Cr Clr Drug Dosing mL/min Estimated GFR (MDRD) ml/min Glucose (74-106) mg/dL Lactic Acid (0.4-2.0) mmol/L Calcium (8.5-10.1) mg/dL Magnesium (1.8-2.4) mg/dL Total Bilirubin (0.2-1.0) mg/dL AST (15-37) IU/L ALT (14-63) IU/L Alkaline Phosphatase (46-116) U/L Troponin I (0.000-0.056) ng/mL Total Protein (6.4-8.2) g/dL Albumin (3.4-5.0) g/dL Globulin (2.6-4.0) g/dL Albumin/Globulin Ratio (0.9-1.6) Urine Color Urine Appearance Urine pH (5.0-8.0) Ur Specific Eugene (1.001-1.035) Urine Protein (NEGATIVE) mg/dL Urine Glucose (UA) (NEGATIVE) mg/dL Urine Ketones (NEGATIVE) mg/dL Urine Occult Blood (NEGATIVE) Urine Nitrite (NEGATIVE) Urine Bilirubin (NEGATIVE) Urine Urobilinogen (<2.0) EU/dL Ur Leukocyte Esterase (NEGATIVE) Urine RBC (0-2/HPF) Urine WBC (0-5/HPF) Ur Epithelial Cells (NONE-FEW) Urine Bacteria (NEGATIVE) Urine Mucus (NONE-MOD) SARS-CoV-2 RNA (ANALILIA) NEGATIVE (NEGATIVE) 12/13/20 12/13/20 12/13/20 Range/Units 11:29 11:29 12:50 WBC (4.0-11.0) K/uL RBC (4.30-5.90) M/uL Hgb (12.0-16.0) g/dL Hct (36.0-46.0) % MCV (80.0-98.0) fL MCH (27.0-32.0) pg MCHC (31.0-37.0) g/dL RDW Std Deviation (28.0-62.0) fl RDW Coeff of Amaris (11.0-15.0) % Plt Count (150-400) K/uL MPV (7.40-12.00) fL Neut % (Auto) (48.0-80.0) % Lymph % (Auto) (16.0-40.0) % Randolph % (Auto) (0.0-15.0) % Eos % (Auto) (0.0-7.0) % Baso % (Auto) (0.0-1.5) % Neut # (Auto) (1.4-5.7) K/uL Lymph # (Auto) (0.6-2.4) K/uL Randolph # (Auto) (0.0-0.8) K/uL Eos # (Auto) (0.0-0.7) K/uL Baso # (Auto) (0.0-0.1) K/uL Nucleated RBC % /100WBC Nucleated RBCs # K/uL INR Sodium 138 (136-145) mmol/L Potassium 3.4 L (3.5-5.1) mmol/L Chloride 91 L (98-107) mmol/L Carbon Dioxide 37.9 H (21.0-32.0) mmol/L BUN 36 H (7.0-18.0) mg/dL Creatinine 1.3 H (0.6-1.0) mg/dL Est Cr Clr Drug Dosing 47.00 mL/min Estimated GFR (MDRD) 41.9 ml/min Glucose 122 H (74-106) mg/dL Lactic Acid 0.8 (0.4-2.0) mmol/L Calcium 10.2 H (8.5-10.1) mg/dL Magnesium 2.8 H (1.8-2.4) mg/dL Total Bilirubin 0.2 (0.2-1.0) mg/dL AST 18 (15-37) IU/L ALT 16 (14-63) IU/L Alkaline Phosphatase 128 H (46-116) U/L Troponin I < 0.050 (0.000-0.056) ng/mL Total Protein 7.9 (6.4-8.2) g/dL Albumin 3.6 (3.4-5.0) g/dL Globulin 4.3 H (2.6-4.0) g/dL Albumin/Globulin Ratio 0.8 L (0.9-1.6) Urine Color YELLOW Urine Appearance CLOUDY Urine pH 6.0 (5.0-8.0) Ur Specific Eugene 1.015 (1.001-1.035) Urine Protein TRACE H (NEGATIVE) mg/dL Urine Glucose (UA) NEGATIVE (NEGATIVE) mg/dL Urine Ketones TRACE H (NEGATIVE) mg/dL Urine Occult Blood SMALL H (NEGATIVE) Urine Nitrite POSITIVE H (NEGATIVE) Urine Bilirubin NEGATIVE (NEGATIVE) Urine Urobilinogen 0.2 (<2.0) EU/dL Ur Leukocyte Esterase LARGE H (NEGATIVE) Urine RBC 4-8 (0-2/HPF) Urine WBC TO NUMEROUS TO COUNT H (0-5/HPF) Ur Epithelial Cells MODERATE (NONE-FEW) Urine Bacteria 4+ H (NEGATIVE) Urine Mucus MODERATE (NONE-MOD) SARS-CoV-2 RNA (ANALILIA) (NEGATIVE) 12/14/20 12/14/20 Range/Units 05:30 05:30 WBC 6.70 (4.0-11.0) K/uL RBC 3.51 L (4.30-5.90) M/uL Hgb 10.3 L (12.0-16.0) g/dL Hct 33.3 L (36.0-46.0) % MCV 94.9 (80.0-98.0) fL MCH 29.3 (27.0-32.0) pg MCHC 30.9 L (31.0-37.0) g/dL RDW Std Deviation 46.1 (28.0-62.0) fl RDW Coeff of Amaris 13 (11.0-15.0) % Plt Count 258 (150-400) K/uL MPV 11.10 (7.40-12.00) fL Neut % (Auto) 68.3 (48.0-80.0) % Lymph % (Auto) 18.7 (16.0-40.0) % Randolph % (Auto) 11.9 (0.0-15.0) % Eos % (Auto) 1.0 (0.0-7.0) % Baso % (Auto) 0.1 (0.0-1.5) % Neut # (Auto) 4.6 (1.4-5.7) K/uL Lymph # (Auto) 1.3 (0.6-2.4) K/uL Randolph # (Auto) 0.8 (0.0-0.8) K/uL Eos # (Auto) 0.1 (0.0-0.7) K/uL Baso # (Auto) 0.0 (0.0-0.1) K/uL Nucleated RBC % 0.0 /100WBC Nucleated RBCs # 0 K/uL INR Sodium 143 (136-145) mmol/L Potassium 2.7 L (3.5-5.1) mmol/L Chloride 98 (98-107) mmol/L Carbon Dioxide 36.2 H (21.0-32.0) mmol/L BUN 25 H (7.0-18.0) mg/dL Creatinine 1.0 (0.6-1.0) mg/dL Est Cr Clr Drug Dosing 61.10 mL/min Estimated GFR (MDRD) 56.7 ml/min Glucose 113 H (74-106) mg/dL Lactic Acid (0.4-2.0) mmol/L Calcium 8.8 (8.5-10.1) mg/dL Magnesium 2.2 (1.8-2.4) mg/dL Total Bilirubin (0.2-1.0) mg/dL AST (15-37) IU/L ALT (14-63) IU/L Alkaline Phosphatase (46-116) U/L Troponin I (0.000-0.056) ng/mL Total Protein (6.4-8.2) g/dL Albumin (3.4-5.0) g/dL Globulin (2.6-4.0) g/dL Albumin/Globulin Ratio (0.9-1.6) Urine Color Urine Appearance Urine pH (5.0-8.0) Ur Specific Eugene (1.001-1.035) Urine Protein (NEGATIVE) mg/dL Urine Glucose (UA) (NEGATIVE) mg/dL Urine Ketones (NEGATIVE) mg/dL Urine Occult Blood (NEGATIVE) Urine Nitrite (NEGATIVE) Urine Bilirubin (NEGATIVE) Urine Urobilinogen (<2.0) EU/dL Ur Leukocyte Esterase (NEGATIVE) Urine RBC (0-2/HPF) Urine WBC (0-5/HPF) Ur Epithelial Cells (NONE-FEW) Urine Bacteria (NEGATIVE) Urine Mucus (NONE-MOD) SARS-CoV-2 RNA (ANALILIA) (NEGATIVE) Jus Results Last 24 Hours: Microbiology 12/13/20 11:29 Anaerobic Blood Culture - Final Blood - Venous Med Orders - Current: Current Medications Acetaminophen (Acetaminophen 325 Mg Tab) 650 mg PO Q4H PRN PRN Reason: Pain (Mild 1-3)/fever Docusate Sodium (Docusate Sodium 100 Mg Cap) 100 mg PO BID PRN PRN Reason: Constipation Heparin Sodium (Porcine) (Heparin Sodium 5,000 Units/Ml Vial) 5,000 units SUBCUT Q12HR [facility] Last Admin: 12/13/20 21:18 Dose: 5,000 units Documented by: Ertapenem 1 gm/ Sodium (Chloride) 50 mls @ 100 mls/hr IV Q24H [facility] Pantoprazole Sodium 40 mg/ (Sodium Chloride) 10 mls @ 300 mls/hr IV Q24H [facility] Last Admin: 12/13/20 16:03 Dose: 300 mls/hr Documented by: Potassium Chloride/Sodium Chloride (Normal Saline With 40 Meq Kcl) 1,000 mls @ 125 mls/hr IV ONETIME ONE Stop: 12/14/20 16:08 Ondansetron HCl (Ondansetron 4 Mg/2 Ml Sdv) 4 mg IVPUSH Q4H PRN PRN Reason: Nausea Potassium Chloride (Potassium Chloride 20 Meq Tab.Er) 40 meq PO BID@0900,1200 [facility] Stop: 12/14/20 12:01 Sodium Chloride (Sodium Chloride 0.9% 2.5 Ml Syringe) 2.5 ml FLUSH ASDIRECTED P RN PRN Reason: Keep Vein Open Discontinued Medications Lactated Ringer's (Ringers, Lactated) 1,000 mls @ 999 mls/hr IV .BOLUS ONE Stop: 12/13/20 10:58 Last Admin: 12/13/20 10:43 Dose: 999 mls/hr Documented by: Lactated Ringer's (Ringers, Lactated) 1,000 mls @ 125 mls/hr IV ASDIRECTED [facility] Ertapenem 1 gm/ Sodium (Chloride) 50 mls @ 100 mls/hr IV ONETIME ONE Stop: 12/13/20 14:14 Last Admin: 12/13/20 14:15 Dose: 100 mls/hr Documented by: Lactated Ringer's (Ringers, Lactated) 1,000 mls @ 125 mls/hr IV Q8H [facility] Last Admin: 12/14/20 00:13 Dose: 125 mls/hr Documented by: - Exam Quality Assessment: Supplemental Oxygen (2 L), DVT Prophylaxis General: Alert, Oriented, Cooperative, No Acute Distress Lungs: Clear to Auscultation, Normal Respiratory Effort Cardiovascular: Regular Rate, Regular Rhythm GI/Abdominal Exam: Normal Bowel Sounds, Soft, Non-Tender, No Distention Extremities: Normal Inspection, Normal Range of Motion, Non-Tender, No Pedal Edema Neurological: No New Focal Deficit Psy/Mental Status: Alert, Normal Affect, Normal Mood - Patient Data Lab Results Last 24 hrs: Laboratory Results - last 24 hr 12/13/20 12/13/20 12/13/20 Range/Units 10:40 10:55 11:29 WBC 6.51 (4.0-11.0) K/uL RBC 3.85 L (4.30-5.90) M/uL Hgb 11.5 L (12.0-16.0) g/dL Hct 36.1 (36.0-46.0) % MCV 93.8 (80.0-98.0) fL MCH 29.9 (27.0-32.0) pg MCHC 31.9 (31.0-37.0) g/dL RDW Std Deviation 45.9 (28.0-62.0) fl RDW Coeff of Amaris 13 (11.0-15.0) % Plt Count 262 (150-400) K/uL MPV 11.10 (7.40-12.00) fL Neut % (Auto) 69.6 (48.0-80.0) % Lymph % (Auto) 16.0 (16.0-40.0) % Randolph % (Auto) 12.7 (0.0-15.0) % Eos % (Auto) 1.4 (0.0-7.0) % Baso % (Auto) 0.3 (0.0-1.5) % Neut # (Auto) 4.5 (1.4-5.7) K/uL Lymph # (Auto) 1.0 (0.6-2.4) K/uL Randolph # (Auto) 0.8 (0.0-0.8) K/uL Eos # (Auto) 0.1 (0.0-0.7) K/uL Baso # (Auto) 0.0 (0.0-0.1) K/uL Nucleated RBC % 0.0 /100WBC Nucleated RBCs # 0 K/uL INR 1.09 Sodium (136-145) mmol/L Potassium (3.5-5.1) mmol/L Chloride (98-107) mmol/L Carbon Dioxide (21.0-32.0) mmol/L BUN (7.0-18.0) mg/dL Creatinine (0.6-1.0) mg/dL Est Cr Clr Drug Dosing mL/min Estimated GFR (MDRD) ml/min Glucose (74-106) mg/dL Lactic Acid (0.4-2.0) mmol/L Calcium (8.5-10.1) mg/dL Magnesium (1.8-2.4) mg/dL Total Bilirubin (0.2-1.0) mg/dL AST (15-37) IU/L ALT (14-63) IU/L Alkaline Phosphatase (46-116) U/L Troponin I (0.000-0.056) ng/mL Total Protein (6.4-8.2) g/dL Albumin (3.4-5.0) g/dL Globulin (2.6-4.0) g/dL Albumin/Globulin Ratio (0.9-1.6) Urine Color Urine Appearance Urine pH (5.0-8.0) Ur Specific Eugene (1.001-1.035) Urine Protein (NEGATIVE) mg/dL Urine Glucose (UA) (NEGATIVE) mg/dL Urine Ketones (NEGATIVE) mg/dL Urine Occult Blood (NEGATIVE) Urine Nitrite (NEGATIVE) Urine Bilirubin (NEGATIVE) Urine Urobilinogen (<2.0) EU/dL Ur Leukocyte Esterase (NEGATIVE) Urine RBC (0-2/HPF) Urine WBC (0-5/HPF) Ur Epithelial Cells (NONE-FEW) Urine Bacteria (NEGATIVE) Urine Mucus (NONE-MOD) SARS-CoV-2 RNA (ANALILIA) NEGATIVE (NEGATIVE) 12/13/20 12/13/20 12/13/20 Range/Units 11:29 11:29 12:50 WBC (4.0-11.0) K/uL RBC (4.30-5.90) M/uL Hgb (12.0-16.0) g/dL Hct (36.0-46.0) % MCV (80.0-98.0) fL MCH (27.0-32.0) pg MCHC (31.0-37.0) g/dL RDW Std Deviation (28.0-62.0) fl RDW Coeff of Amaris (11.0-15.0) % Plt Count (150-400) K/uL MPV (7.40-12.00) fL Neut % (Auto) (48.0-80.0) % Lymph % (Auto) (16.0-40.0) % Randolph % (Auto) (0.0-15.0) % Eos % (Auto) (0.0-7.0) % Baso % (Auto) (0.0-1.5) % Neut # (Auto) (1.4-5.7) K/uL Lymph # (Auto) (0.6-2.4) K/uL Randolph # (Auto) (0.0-0.8) K/uL Eos # (Auto) (0.0-0.7) K/uL Baso # (Auto) (0.0-0.1) K/uL Nucleated RBC % /100WBC Nucleated RBCs # K/uL INR Sodium 138 (136-145) mmol/L Potassium 3.4 L (3.5-5.1) mmol/L Chloride 91 L (98-107) mmol/L Carbon Dioxide 37.9 H (21.0-32.0) mmol/L BUN 36 H (7.0-18.0) mg/dL Creatinine 1.3 H (0.6-1.0) mg/dL Est Cr Clr Drug Dosing 47.00 mL/min Estimated GFR (MDRD) 41.9 ml/min Glucose 122 H (74-106) mg/dL Lactic Acid 0.8 (0.4-2.0) mmol/L Calcium 10.2 H (8.5-10.1) mg/dL Magnesium 2.8 H (1.8-2.4) mg/dL Total Bilirubin 0.2 (0.2-1.0) mg/dL AST 18 (15-37) IU/L ALT 16 (14-63) IU/L Alkaline Phosphatase 128 H (46-116) U/L Troponin I < 0.050 (0.000-0.056) ng/mL Total Protein 7.9 (6.4-8.2) g/dL Albumin 3.6 (3.4-5.0) g/dL Globulin 4.3 H (2.6-4.0) g/dL Albumin/Globulin Ratio 0.8 L (0.9-1.6) Urine Color YELLOW Urine Appearance CLOUDY Urine pH 6.0 (5.0-8.0) Ur Specific Eugene 1.015 (1.001-1.035) Urine Protein TRACE H (NEGATIVE) mg/dL Urine Glucose (UA) NEGATIVE (NEGATIVE) mg/dL Urine Ketones TRACE H (NEGATIVE) mg/dL Urine Occult Blood SMALL H (NEGATIVE) Urine Nitrite POSITIVE H (NEGATIVE) Urine Bilirubin NEGATIVE (NEGATIVE) Urine Urobilinogen 0.2 (<2.0) EU/dL Ur Leukocyte Esterase LARGE H (NEGATIVE) Urine RBC 4-8 (0-2/HPF) Urine WBC TO NUMEROUS TO COUNT H (0-5/HPF) Ur Epithelial Cells MODERATE (NONE-FEW) Urine Bacteria 4+ H (NEGATIVE) Urine Mucus MODERATE (NONE-MOD) SARS-CoV-2 RNA (ANALILIA) (NEGATIVE) 12/14/20 12/14/20 Range/Units 05:30 05:30 WBC 6.70 (4.0-11.0) K/uL RBC 3.51 L (4.30-5.90) M/uL Hgb 10.3 L (12.0-16.0) g/dL Hct 33.3 L (36.0-46.0) % MCV 94.9 (80.0-98.0) fL MCH 29.3 (27.0-32.0) pg MCHC 30.9 L (31.0-37.0) g/dL RDW Std Deviation 46.1 (28.0-62.0) fl RDW Coeff of Amaris 13 (11.0-15.0) % Plt Count 258 (150-400) K/uL MPV 11.10 (7.40-12.00) fL Neut % (Auto) 68.3 (48.0-80.0) % Lymph % (Auto) 18.7 (16.0-40.0) % Randolph % (Auto) 11.9 (0.0-15.0) % Eos % (Auto) 1.0 (0.0-7.0) % Baso % (Auto) 0.1 (0.0-1.5) % Neut # (Auto) 4.6 (1.4-5.7) K/uL Lymph # (Auto) 1.3 (0.6-2.4) K/uL Randolph # (Auto) 0.8 (0.0-0.8) K/uL Eos # (Auto) 0.1 (0.0-0.7) K/uL Baso # (Auto) 0.0 (0.0-0.1) K/uL Nucleated RBC % 0.0 /100WBC Nucleated RBCs # 0 K/uL INR Sodium 143 (136-145) mmol/L Potassium 2.7 L (3.5-5.1) mmol/L Chloride 98 (98-107) mmol/L Carbon Dioxide 36.2 H (21.0-32.0) mmol/L BUN 25 H (7.0-18.0) mg/dL Creatinine 1.0 (0.6-1.0) mg/dL Est Cr Clr Drug Dosing 61.10 mL/min Estimated GFR (MDRD) 56.7 ml/min Glucose 113 H (74-106) mg/dL Lactic Acid (0.4-2.0) mmol/L Calcium 8.8 (8.5-10.1) mg/dL Magnesium 2.2 (1.8-2.4) mg/dL Total Bilirubin (0.2-1.0) mg/dL AST (15-37) IU/L ALT (14-63) IU/L Alkaline Phosphatase (46-116) U/L Troponin I (0.000-0.056) ng/mL Total Protein (6.4-8.2) g/dL Albumin (3.4-5.0) g/dL Globulin (2.6-4.0) g/dL Albumin/Globulin Ratio (0.9-1.6) Urine Color Urine Appearance Urine pH (5.0-8.0) Ur Specific Eugene (1.001-1.035) Urine Protein (NEGATIVE) mg/dL Urine Glucose (UA) (NEGATIVE) mg/dL Urine Ketones (NEGATIVE) mg/dL Urine Occult Blood (NEGATIVE) Urine Nitrite (NEGATIVE) Urine Bilirubin (NEGATIVE) Urine Urobilinogen (<2.0) EU/dL Ur Leukocyte Esterase (NEGATIVE) Urine RBC (0-2/HPF) Urine WBC (0-5/HPF) Ur Epithelial Cells (NONE-FEW) Urine Bacteria (NEGATIVE) Urine Mucus (NONE-MOD) SARS-CoV-2 RNA (ANALILIA) (NEGATIVE) Result Diagrams: 12/14/20 05:30 12/14/20 05:30 Jus Results Last 24 hrs: Microbiology 12/13/20 11:29 Anaerobic Blood Culture - Final Blood - Venous Sepsis Event Note - Evaluation Sepsis Screening Result: No Definite Risk - Focused Exam Vital Signs: Vital Signs Temp Pulse Resp BP Pulse Ox 12/14/20 05:00 97.2 F 74 18 118/65 93 L 12/14/20 00:16 97.4 F 75 18 136/65 93 L 12/13/20 21:17 97.4 F 77 18 134/77 93 L - Problem List & Annotations (1) RAUL (acute kidney injury) SNOMED Code(s): 28334703, 31765379 Code(s): N17.9 - ACUTE KIDNEY FAILURE, UNSPECIFIED Status: Acute Current Visit: Yes (2) ESBL (extended spectrum beta-lactamase) producing bacteria infection SNOMED Code(s): 047532309 Code(s): A49.9 - BACTERIAL INFECTION, UNSPECIFIED; Z16.12 - EXTENDED SPECTRUM BETA LACTAMASE (ESBL) RESISTANCE Status: Acute Current Visit: No (3) Hypokalemia SNOMED Code(s): 06867970 Code(s): E87.6 - HYPOKALEMIA Status: Acute Current Visit: No (4) Oxygen dependent SNOMED Code(s): 370360481340 Code(s): Z99.81 - DEPENDENCE ON SUPPLEMENTAL OXYGEN Status: Acute Current Visit: No (5) Urinary tract infection SNOMED Code(s): 18841599 Code(s): N39.0 - URINARY TRACT INFECTION, SITE NOT SPECIFIED Status: Acute Current Visit: Yes Qualifiers: Urinary tract infection type: site unspecified Hematuria presence: without hematuria Qualified Code(s): N39.0 - Urinary tract infection, site not specified (6) Bipolar disorder SNOMED Code(s): 37758515 Code(s): F31.9 - BIPOLAR DISORDER, UNSPECIFIED Status: Chronic Priority: High Current Visit: No (7) GERD (gastroesophageal reflux disease) SNOMED Code(s): 606649920 Code(s): K21.9 - GASTRO-ESOPHAGEAL REFLUX DISEASE WITHOUT ESOPHAGITIS Status: Chronic Current Visit: No Qualifiers: Esophagitis presence: esophagitis presence not specified Qualified Code(s): K21.9 - Gastro-esophageal reflux disease without esophagitis (8) History of mental disorder SNOMED Code(s): 694895966 Code(s): Z86.59 - PERSONAL HISTORY OF OTHER MENTAL AND BEHAVIORAL DISORDERS Status: Chronic Current Visit: No (9) Hypothyroidism SNOMED Code(s): 66146149 Code(s): E03.9 - HYPOTHYROIDISM, UNSPECIFIED Status: Chronic Current Visit: No Qualifiers: Hypothyroidism type: unspecified Qualified Code(s): E03.9 - Hypothyroidism, unspecified (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) SNOMED Code(s): 24164683 Code(s): F70 - MILD INTELLECTUAL DISABILITIES Status: Chronic Priority: Medium Current Visit: No (11) RAMESH (obstructive sleep apnea) SNOMED Code(s): 14497766 Code(s): G47.33 - OBSTRUCTIVE SLEEP APNEA (ADULT) (PEDIATRIC) Status: Chronic Current Visit: No - Problem List Review Problem List Initiated/Reviewed/Updated: Yes - My Orders Last 24 Hours: My Active Orders 12/13/20 15:18 Up With Assistance [RC] ASDIRECTED Sodium Chloride 0.9% [Saline Flush] 2.5 ml FLUSH ASDIRECTED PRN Saline Lock Insert [OM.PC] Routine Resuscitation Status Routine 12/13/20 15:19 Intake and Output [RC] QSHIFT Oxygen Therapy [RC] PRN VTE/DVT Education [RC] PER UNIT ROUTINE Vital Signs [RC] Q4H 12/13/20 15:20 Isolation [COMM] Routine 12/13/20 15:30 Acetaminophen [TylenoL] 650 mg PO Q4H PRN Ondansetron [Zofran] 4 mg IVPUSH Q4H PRN 12/13/20 Dinner Regular Diet [DIET] Pantoprazole [ProTONIX IV] 40 mg Sodium Chloride 0.9% [Normal Saline] 10 ml IV Q24H 12/13/20 17:26 Communication Order [RC] PRN 12/13/20 21:00 Docusate Sodium [Colace] 100 mg PO BID PRN Heparin Sodium 5,000 units SUBCUT Q12HR 12/14/20 08:09 Sodium Chloride 0.9% with KCl [Normal Saline with 40 mEq KCl] 1,000 ml IV ONETIME 12/14/20 09:00 Potassium Chloride [Klor-Con M20] 40 meq PO BID@0900,1200 12/14/20 12:00 Ertapenem [INVanz] 1 gm Sodium Chloride 0.9% [Normal Saline] 50 ml IV Q24H - Plan Plan:: This 60-year-old female admitted with UTI history ESBL E. coli 1. UTI, history ESBL E. coli -Continue ertapenem 1 g IV daily -Blood cultures negative x1 day, urine cultures pending -Continue IV fluids due to history of nausea and vomiting -Patient denies abdominal pain now consider UTI tomorrow if pain returns or lab work worsens 2. RAUL -Improving -Avoid nephrotoxic medications -Repeat lab work in a.m. 3. Hypokalemia -We will give 1 L normal saline with 40 KCl we will also give 40 KCl p.o. x2 today - recheck in a.m. 4. Depression/bipolar/hypothyroidism -Continue home medications VTE prophylaxis: Heparin CODE STATUS: Full code Dispo: 2 to 3 days pending culture reports
[2020-12-14] MEDS ORDERED: Sodium Chloride 0.9% with KCl 1,000 ML IV ONE (08:15)
[2020-12-14] MEDS ORDERED: LORazepam 1 MG Tab PO PRN (08:22)
[2020-12-14] MEDS ORDERED: DEXLANSOPRAZOLE 60 MG PO SCH (09:00)
[2020-12-14] MEDS: Venlafaxine 75 MG Cap.ER PO SCH (10:06)
[2020-12-14] MEDS: Docusate Sodium 100 MG Cap PO SCH ×2 (10:06→22:47)
[2020-12-14] MEDS: Potassium Chloride 20 MEQ Tab.ER PO SCH ×2 (10:06→12:32)
[2020-12-14] MEDS: Benztropine 1 MG Tab PO SCH ×2 (10:06→22:46)
[2020-12-14] MEDS: Levothyroxine 75 MCG Tab PO SCH (10:06)
[2020-12-14] MEDS: Gemfibrozil 600 MG Tab PO SCH ×2 (10:07→22:46)
[2020-12-14] MEDS: Aspirin 81 MG Tab.EC PO SCH (10:07)
[2020-12-14] MEDS: Heparin Sodium 5,000 Units/ML Vial SUBCUT SCH ×2 (10:08→22:47)
[2020-12-14] MEDS ORDERED: cloZAPine 100 MG Tab PO SCH (10:45)
[2020-12-14] MEDS: cloZAPine 100 MG Tab PO SCH (11:42)
[2020-12-14] MEDS: Iron Polysaccharides Complex 150 MG Cap PO SCH ×2 (12:32→22:47)
[2020-12-14] MEDS: Pantoprazole 40 MG Tab.CR PO SCH ×2 (12:32→22:46)
[2020-12-14] MEDS: Ertapenem 1 GM in Sodium Chloride 0.9% 50 ML IV SCH (12:33)
[2020-12-14] MEDS ORDERED: DEXLANSOPRAZOLE 30 MG PO SCH (21:00)
[2020-12-14] MEDS: Patient's Own Medication 1 Each PO SCH (22:47)
[2020-12-15 06:34] LABS: BLOOD UREA NITROGEN,BUN 14 mg/dL (7.0-18.0); CARBON DIOXIDE,CO2 33.2 mmol/L (21.0-32.0); CHLORIDE,CL 103 mmol/L (98-107); GLUCOSE RANDOM 119 mg/dL (74-106); POTASSIUM,K 3.5 mmol/L (3.5-5.1); SODIUM,NA 141 mmol/L (136-145)
[2020-12-15] MEDS: Levothyroxine 75 MCG Tab PO SCH (06:55)
[2020-12-15] MEDS: Heparin Sodium 5,000 Units/ML Vial SUBCUT SCH ×2 (10:01→20:49)
[2020-12-15] MEDS: Aspirin 81 MG Tab.EC PO SCH (10:07)
[2020-12-15] MEDS: Gemfibrozil 600 MG Tab PO SCH ×2 (10:08→20:47)
[2020-12-15] MEDS: Docusate Sodium 100 MG Cap PO SCH ×2 (10:08→20:47)
[2020-12-15] MEDS: Iron Polysaccharides Complex 150 MG Cap PO SCH ×2 (10:09→20:46)
[2020-12-15] MEDS: Venlafaxine 75 MG Cap.ER PO SCH (10:09)
[2020-12-15] MEDS: Benztropine 1 MG Tab PO SCH ×2 (10:09→23:05)
[2020-12-15] MEDS: cloZAPine 100 MG Tab PO SCH (10:11)
[2020-12-15] MEDS: Pantoprazole 40 MG Tab.CR PO SCH ×2 (10:11→20:46)
--- NOTE | 2020-12-15 11:11 | PCM.PN ---
- General Info Date of Service: 12/15/20 Admission Dx/Problem (Free Text): Admission Diagnosis/Problem Admission Diagnosis/Problem Acute kidney injury Subjective Update: Patient very severe this morning. ezzai - how to arabia reports she is quite hard to wake up in the morning but does eventually wake up and is alert and oriented. Continue to monitor - Review of Systems HEENT: Reports: No Symptoms. Denies: Headaches, Visual Changes Pulmonary: Reports: No Symptoms. Denies: Shortness of Breath Cardiovascular: Reports: No Symptoms. Denies: Chest Pain Gastrointestinal: Reports: No Symptoms. Denies: Abdominal Pain, Nausea, Vomiting Genitourinary: Reports: No Symptoms Musculoskeletal: Reports: No Symptoms Skin: Reports: No Symptoms Neurological: Reports: No Symptoms Psychiatric: Reports: No Symptoms - Patient Data Vitals - Most Recent: Last Vital Signs Temp 95.0 F L 12/15/20 07:48 Pulse 73 12/15/20 07:48 Resp 20 12/15/20 07:48 BP 105/57 L 12/15/20 07:48 Pulse Ox 95 12/15/20 07:48 Weight - Most Recent: 106 kg I&O - Last 24 Hours: Intake & Output 12/14/20 12/15/20 12/15/20 22:59 06:59 14:59 Intake Total 940 300 Balance 940 300 Lab Results Last 24 Hours: Laboratory Results - last 24 hr 12/15/20 12/15/20 Range/Units 04:50 04:50 WBC 5.19 (4.0-11.0) K/uL RBC 3.22 L (4.30-5.90) M/uL Hgb 9.4 L (12.0-16.0) g/dL Hct 30.7 L (36.0-46.0) % MCV 95.3 (80.0-98.0) fL MCH 29.2 (27.0-32.0) pg MCHC 30.6 L (31.0-37.0) g/dL RDW Std Deviation 46.7 (28.0-62.0) fl RDW Coeff of Amaris 13 (11.0-15.0) % Plt Count 230 (150-400) K/uL MPV 11.20 (7.40-12.00) fL Neut % (Auto) 51.1 (48.0-80.0) % Lymph % (Auto) 28.5 (16.0-40.0) % [place] % (Auto) 17.3 H (0.0-15.0) % Eos % (Auto) 2.7 (0.0-7.0) % Baso % (Auto) 0.4 (0.0-1.5) % Neut # (Auto) 2.7 (1.4-5.7) K/uL Lymph # (Auto) 1.5 (0.6-2.4) K/uL [place] # (Auto) 0.9 H (0.0-0.8) K/uL Eos # (Auto) 0.1 (0.0-0.7) K/uL Baso # (Auto) 0.0 (0.0-0.1) K/uL Nucleated RBC % 0.0 /100WBC Nucleated RBCs # 0 K/uL Sodium 141 (136-145) mmol/L Potassium 3.5 (3.5-5.1) mmol/L Chloride 103 (98-107) mmol/L Carbon Dioxide 33.2 H (21.0-32.0) mmol/L BUN 14 (7.0-18.0) mg/dL Creatinine 0.8 (0.6-1.0) mg/dL Est Cr Clr Drug Dosing 76.38 mL/min Estimated GFR (MDRD) > 60.0 ml/min Glucose 119 H (74-106) mg/dL Calcium 8.2 L (8.5-10.1) mg/dL Magnesium 2.0 (1.8-2.4) mg/dL Jus Results Last 24 Hours: Microbiology 12/13/20 12:50 Urine Culture - Preliminary Urine Escherichia Coli 12/13/20 12:05 Aerobic Blood Culture - Preliminary Blood - Venous - Lab Draw NO GROWTH AFTER 1 DAY Anaerobic Blood Culture - Preliminary NO GROWTH AFTER 1 DAY 12/13/20 11:29 Aerobic Blood Culture - Preliminary Blood - Venous NO GROWTH AFTER 1 DAY Anaerobic Blood Culture - Final Med Orders - Current: Current Medications Acetaminophen (Acetaminophen 325 Mg Tab) 650 mg PO Q4H PRN PRN Reason: Pain (Mild 1-3)/fever Aspirin (Aspirin 81 Mg Tab.Ec) 81 mg PO DAILY [facility] Last Admin: 12/15/20 10:07 Dose: 81 mg Documented by: Benztropine Mesylate (Benztropine 1 Mg Tab) 0.5 mg PO BID [facility] Last Admin: 12/15/20 10:09 Dose: 0.5 mg Documented by: Docusate Sodium (Docusate Sodium 100 Mg Cap) 100 mg PO BID [facility] Last Admin: 12/15/20 10:08 Dose: 100 mg Documented by: Gemfibrozil (Gemfibrozil 600 Mg Tab) 600 mg PO BID [facility] Last Admin: 12/15/20 10:08 Dose: 600 mg Documented by: Heparin Sodium (Porcine) (Heparin Sodium 5,000 Units/Ml Vial) 5,000 units SUBCUT Q12HR [facility] Last Admin: 12/15/20 10:01 Dose: 5,000 units Documented by: Ertapenem 1 gm/ Sodium (Chloride) 50 mls @ 100 mls/hr IV Q24H [facility] Last Admin: 12/14/20 12:33 Dose: 100 mls/hr Documented by: Levothyroxine Sodium (Levothyroxine 75 Mcg Tab) 75 mcg PO ACBREAKFAST [facility] Last Admin: 12/15/20 06:55 Dose: 75 mcg Documented by: Lorazepam (Lorazepam 1 Mg Tab) 1 mg PO DAILY PRN PRN Reason: aggression Ondansetron HCl (Ondansetron 4 Mg/2 Ml Sdv) 4 mg IVPUSH Q4H PRN PRN Reason: Nausea Pantoprazole Sodium (Pantoprazole 40 Mg Tab.Cr) 40 mg PO BID [facility] Last Admin: 12/15/20 10:11 Dose: 40 mg Documented by: Patient Own Medication (Patient's Own Medication 1 Each) 2.5 each PO BEDTIME [facility] Last Admin: 12/14/20 22:47 Dose: 2.5 each Documented by: Clozapine 100 Mg Tab 0.5 each PO DAILY [facility] Last Admin: 12/15/20 10:11 Dose: 0.5 each Documented by: Polysaccharide Iron Complex (Iron Polysaccharides Complex 150 Mg Cap) 150 mg PO BID [facility] Last Admin: 12/15/20 10:09 Dose: 150 mg Documented by: Sodium Chloride (Sodium Chloride 0.9% 2.5 Ml Syringe) 2.5 ml FLUSH ASDIRECTED PRN PRN Reason: Keep Vein Open Venlafaxine HCl (Venlafaxine 75 Mg Cap.Er) 75 mg PO DAILY [facility] Last Admin: 12/15/20 10:09 Dose: 75 mg Documented by: Discontinued Medications Clozapine (Clozapine 100 Mg Tab) 50 mg PO DAILY [facility] Lactated Ringer's (Ringers, Lactated) 1,000 mls @ 999 mls/hr IV .BOLUS ONE Stop: 12/13/20 10:58 Last Admin: 12/13/20 10:43 Dose: 999 mls/hr Documented by: Lactated Ringer's (Ringers, Lactated) 1,000 mls @ 125 mls/hr IV ASDIRECTED [facility] Ertapenem 1 gm/ Sodium (Chloride) 50 mls @ 100 mls/hr IV ONETIME ONE Stop: 12/13/20 14:14 Last Admin: 12/13/20 14:15 Dose: 100 mls/hr Documented by: Lactated Ringer's (Ringers, Lactated) 1,000 mls @ 125 mls/hr IV Q8H [facility] Last Admin: 12/14/20 08:49 Dose: Not Given Documented by: Pantoprazole Sodium 40 mg/ (Sodium Chloride) 10 mls @ 300 mls/hr IV Q24H [facility] Last Admin: 12/13/20 16:03 Dose: 300 mls/hr Documented by: Potassium Chloride/Sodium Chloride (Normal Saline With 40 Meq Kcl) 1,000 mls @ 125 mls/hr IV ONETIME ONE Stop: 12/14/20 16:14 Last Admin: 12/14/20 08:30 Dose: 125 mls/hr Documented by: Potassium Chloride (Potassium Chloride 20 Meq Tab.Er) 40 meq PO BID@0900,1200 [facility] Stop: 12/14/20 12:01 Last Admin: 12/14/20 12:32 Dose: 40 meq Documented by: - Exam Quality Assessment: Supplemental Oxygen, DVT Prophylaxis General: Alert, Oriented, Cooperative, No Acute Distress Lungs: Clear to Auscultation, Normal Respiratory Effort Cardiovascular: Regular Rate, Regular Rhythm GI/Abdominal Exam: Normal Bowel Sounds, Soft, Non-Tender Back Exam: Normal Inspection, Full Range of Motion Extremities: Normal Inspection, Normal Range of Motion, Non-Tender, No Pedal Edema Neurological: No New Focal Deficit Psy/Mental Status: Alert, Normal Affect, Normal Mood - Patient Data Lab Results Last 24 hrs: Laboratory Results - last 24 hr 12/15/20 12/15/20 Range/Units 04:50 04:50 WBC 5.19 (4.0-11.0) K/uL RBC 3.22 L (4.30-5.90) M/uL Hgb 9.4 L (12.0-16.0) g/dL Hct 30.7 L (36.0-46.0) % MCV 95.3 (80.0-98.0) fL MCH 29.2 (27.0-32.0) pg MCHC 30.6 L (31.0-37.0) g/dL RDW Std Deviation 46.7 (28.0-62.0) fl RDW Coeff of Amaris 13 (11.0-15.0) % Plt Count 230 (150-400) K/uL MPV 11.20 (7.40-12.00) fL Neut % (Auto) 51.1 (48.0-80.0) % Lymph % (Auto) 28.5 (16.0-40.0) % [place] % (Auto) 17.3 H (0.0-15.0) % Eos % (Auto) 2.7 (0.0-7.0) % Baso % (Auto) 0.4 (0.0-1.5) % Neut # (Auto) 2.7 (1.4-5.7) K/uL Lymph # (Auto) 1.5 (0.6-2.4) K/uL [place] # (Auto) 0.9 H (0.0-0.8) K/uL Eos # (Auto) 0.1 (0.0-0.7) K/uL Baso # (Auto) 0.0 (0.0-0.1) K/uL Nucleated RBC % 0.0 /100WBC Nucleated RBCs # 0 K/uL Sodium 141 (136-145) mmol/L Potassium 3.5 (3.5-5.1) mmol/L Chloride 103 (98-107) mmol/L Carbon Dioxide 33.2 H (21.0-32.0) mmol/L BUN 14 (7.0-18.0) mg/dL Creatinine 0.8 (0.6-1.0) mg/dL Est Cr Clr Drug Dosing 76.38 mL/min Estimated GFR (MDRD) > 60.0 ml/min Glucose 119 H (74-106) mg/dL Calcium 8.2 L (8.5-10.1) mg/dL Magnesium 2.0 (1.8-2.4) mg/dL Result Diagrams: 12/15/20 04:50 12/15/20 04:50 Jus Results Last 24 hrs: Microbiology 12/13/20 12:50 Urine Culture - Preliminary Urine Escherichia Coli 12/13/20 12:05 Aerobic Blood Culture - Preliminary Blood - Venous - Lab Draw NO GROWTH AFTER 1 DAY Anaerobic Blood Culture - Preliminary NO GROWTH AFTER 1 DAY 12/13/20 11:29 Aerobic Blood Culture - Preliminary Blood - Venous NO GROWTH AFTER 1 DAY Anaerobic Blood Culture - Final Sepsis Event Note - Evaluation Sepsis Screening Result: No Definite Risk - Focused Exam Vital Signs: Vital Signs Temp Pulse Resp BP BP Pulse Ox 12/15/20 07:48 95.0 F L 73 20 105/57 L 95 12/15/20 03:16 97.3 F 73 18 123/58 L 97 12/15/20 00:00 96.3 F L 96 20 143/73 H 95 - Problem List & Annotations (1) RAUL (acute kidney injury) SNOMED Code(s): 92019458, 47147230 Code(s): N17.9 - ACUTE KIDNEY FAILURE, UNSPECIFIED Status: Acute Current Visit: Yes (2) ESBL (extended spectrum beta-lactamase) producing bacteria infection SNOMED Code(s): 223918286 Code(s): A49.9 - BACTERIAL INFECTION, UNSPECIFIED; Z16.12 - EXTENDED SPECTRUM BETA LACTAMASE (ESBL) RESISTANCE Status: Acute Current Visit: No (3) Hypokalemia SNOMED Code(s): 70111983 Code(s): E87.6 - HYPOKALEMIA Status: Acute Current Visit: No (4) Oxygen dependent SNOMED Code(s): 008011987725 Code(s): Z99.81 - DEPENDENCE ON SUPPLEMENTAL OXYGEN Status: Acute Current Visit: No (5) Urinary tract infection SNOMED Code(s): 13551713 Code(s): N39.0 - URINARY TRACT INFECTION, SITE NOT SPECIFIED Status: Acute Current Visit: Yes Qualifiers: Urinary tract infection type: site unspecified Hematuria presence: without hematuria Qualified Code(s): N39.0 - Urinary tract infection, site not specified (6) Bipolar disorder SNOMED Code(s): 13752237 Code(s): F31.9 - BIPOLAR DISORDER, UNSPECIFIED Status: Chronic Priority: High Current Visit: No (7) GERD (gastroesophageal reflux disease) SNOMED Code(s): 698856644 Code(s): K21.9 - GASTRO-ESOPHAGEAL REFLUX DISEASE WITHOUT ESOPHAGITIS Status: Chronic Current Visit: No Qualifiers: Esophagitis presence: esophagitis presence not specified Qualified Code(s): K21.9 - Gastro-esophageal reflux disease without esophagitis (8) History of mental disorder SNOMED Code(s): 240023367 Code(s): Z86.59 - PERSONAL HISTORY OF OTHER MENTAL AND BEHAVIORAL DISORDERS Status: Chronic Current Visit: No (9) Hypothyroidism SNOMED Code(s): 69821512 Code(s): E03.9 - HYPOTHYROIDISM, UNSPECIFIED Status: Chronic Current Visit: No Qualifiers: Hypothyroidism type: unspecified Qualified Code(s): E03.9 - Hypothyroidism, unspecified (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) SNOMED Code(s): 99208995 Code(s): F70 - MILD INTELLECTUAL DISABILITIES Status: Chronic Priority: Medium Current Visit: No (11) RAMESH (obstructive sleep apnea) SNOMED Code(s): 18730476 Code(s): G47.33 - OBSTRUCTIVE SLEEP APNEA (ADULT) (PEDIATRIC) Status: Chronic Current Visit: No - Problem List Review Problem List Initiated/Reviewed/Updated: Yes - My Orders Last 24 Hours: My Active Orders 12/14/20 10:45 Patient's Own Medication [Ptom] 0.5 each PO DAILY 12/14/20 12:00 Ertapenem [INVanz] 1 gm Sodium Chloride 0.9% [Normal Saline] 50 ml IV Q24H Iron Polysaccharides Complex [Ferrex 150] 150 mg PO BID 12/14/20 21:00 Patient's Own Medication [Ptom] 2.5 each PO BEDTIME 12/16/20 05:11 CBC WITH AUTO DIFF [HEME] AM MAGNESIUM [CHEM] AM 12/17/20 05:11 CBC WITH AUTO DIFF [HEME] AM MAGNESIUM [CHEM] AM - Plan Plan:: This 60-year-old female admitted with UTI history ESBL E. coli 1. UTI, history ESBL E. coli -Continue ertapenem 1 g IV daily -Urine culture returns E. coli pending JUS -Blood cultures negative x2 day 2. RAUL -Improving -Avoid nephrotoxic medications -Repeat lab work in a.m. 3. Hypokalemia -Resolved 4. Depression/bipolar/hypothyroidism -Continue home medications VTE prophylaxis: Heparin CODE STATUS: Full code Dispo: 2 to 3 days pending culture reports
[2020-12-15] MEDS: Ertapenem 1 GM in Sodium Chloride 0.9% 50 ML IV SCH (12:19)
[2020-12-15] MEDS: Patient's Own Medication 1 Each PO SCH (23:06)
[2020-12-16] MEDS: Levothyroxine 75 MCG Tab PO SCH (06:48)
[2020-12-16 06:50] LABS: BLOOD UREA NITROGEN,BUN 15 mg/dL (7.0-18.0); CARBON DIOXIDE,CO2 33.6 mmol/L (21.0-32.0); CHLORIDE,CL 105 mmol/L (98-107); GLUCOSE RANDOM 123 mg/dL (74-106); POTASSIUM,K 3.6 mmol/L (3.5-5.1); SODIUM,NA 143 mmol/L (136-145)
[2020-12-16] MEDS: Venlafaxine 75 MG Cap.ER PO SCH (08:52)
[2020-12-16] MEDS: Gemfibrozil 600 MG Tab PO SCH (08:52)
[2020-12-16] MEDS: Pantoprazole 40 MG Tab.CR PO SCH (08:52)
[2020-12-16] MEDS: Aspirin 81 MG Tab.EC PO SCH (08:52)
[2020-12-16] MEDS: Iron Polysaccharides Complex 150 MG Cap PO SCH (08:52)
[2020-12-16] MEDS: Benztropine 1 MG Tab PO SCH (08:53)
[2020-12-16] MEDS: Docusate Sodium 100 MG Cap PO SCH (08:53)
[2020-12-16] MEDS: Heparin Sodium 5,000 Units/ML Vial SUBCUT SCH (08:54)
[2020-12-16] MEDS: cloZAPine 100 MG Tab PO SCH (09:00)
--- NOTE | 2020-12-16 11:24 | PCM.DCSUM1 ---
Discharge Summary - Hospital Course Brief History: This 60-year-old female with past medical history of hypothyroidism, morbid obesity major depression with psychotic features who lives at the [facility], as well as intermittent need of oxygen at bedtime presented to the ER today with not feeling well including fever and nausea and vomiting along with abdominal pain. Patient is poor historian but per ER records and caregiver from [facility] in the ER history was obtained. Patient reports she had lower abdominal pain earlier but now is feeling fine and requesting to have something to drink. She denies any flank pain or chest pain. She denies any shortness of breath or any current nausea and vomiting. In the ER lab work reveals no leukocytosis hemoglobin 11.5 platelet count 262,000. Potassium 3.4 chloride 91 bicarb 37.9 BUN 36 creatinine 1.3 which is elevated from baseline. Glucose 122 lactic acid 0.8. Calcium 10.2. Magnesium 2.8 alk phos elevated at 128 troponin negative UA show significant UTI positive nitrites large leukocyte esterase too numerous to count WBCs +4 bacteria. Covid swab was negative. Chest x-ray in the ER reveals no acute cardiopulmonary process. Patient has history of ESBL E. coli in her urine as well as Proteus and most recently Citrobacter freundii. She was recently treated with levofloxacin in the beginning of October for urinary tract infection. Patient will be admitted inpatient for acute complicated UTI. - Discharge Data Discharge Date: 12/16/20 Discharge Disposition: DC/Tfer to [place] [address] Condition: Good - Referral to Home Health Primary Care Physician: Monica Etienne NP - Discharge Diagnosis/Problem(s) (1) RAUL (acute kidney injury) SNOMED Code(s): 00783578, 01700075 ICD Code: N17.9 - ACUTE KIDNEY FAILURE, UNSPECIFIED Status: Acute Current Visit: Yes (2) ESBL (extended spectrum beta-lactamase) producing bacteria infection SNOMED Code(s): 609513010 ICD Code: A49.9 - BACTERIAL INFECTION, UNSPECIFIED; Z16.12 - EXTENDED SPECTRUM BETA LACTAMASE (ESBL) RESISTANCE Status: Acute Current Visit: No (3) Hypokalemia SNOMED Code(s): 75825109 ICD Code: E87.6 - HYPOKALEMIA Status: Acute Current Visit: No (4) Oxygen dependent SNOMED Code(s): 410720303941 ICD Code: Z99.81 - DEPENDENCE ON SUPPLEMENTAL OXYGEN Status: Acute Current Visit: No (5) Urinary tract infection SNOMED Code(s): 57733453 ICD Code: N39.0 - URINARY TRACT INFECTION, SITE NOT SPECIFIED Status: Acute Current Visit: Yes Qualifiers: Urinary tract infection type: site unspecified Hematuria presence: without hematuria Qualified Code(s): N39.0 - Urinary tract infection, site not specified (6) Bipolar disorder SNOMED Code(s): 70607780 ICD Code: F31.9 - BIPOLAR DISORDER, UNSPECIFIED Status: Chronic Priority: High Current Visit: No (7) GERD (gastroesophageal reflux disease) SNOMED Code(s): 502731067 ICD Code: K21.9 - GASTRO-ESOPHAGEAL REFLUX DISEASE WITHOUT ESOPHAGITIS Status: Chronic Current Visit: No Qualifiers: Esophagitis presence: esophagitis presence not specified Qualified Code(s): K21.9 - Gastro-esophageal reflux disease without esophagitis (8) History of mental disorder SNOMED Code(s): 503377834 ICD Code: Z86.59 - PERSONAL HISTORY OF OTHER MENTAL AND BEHAVIORAL DISORDERS Status: Chronic Current Visit: No (9) Hypothyroidism SNOMED Code(s): 54647086 ICD Code: E03.9 - HYPOTHYROIDISM, UNSPECIFIED Status: Chronic Current Visit: No Qualifiers: Hypothyroidism type: unspecified Qualified Code(s): E03.9 - Hypothyroidism, unspecified (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 coli Nausea vomiting resolved RAUL resolved Other PMH History mental disorder Hypothyroidism RAMESH Oxygen dependent History ESBL E. coli UTIs Bipolar disorder GERD Eli was admitted secondary to nausea vomiting and fevers noted at home she was found to have UTI. With her history of recurrent ESBL E. coli infections she was admitted to be treated with IV Carbapenem's. She was started on ertapenem 1 g IV daily. Blood cultures returned negative. She was continued on IV fluids x1 day to RAUL which resolved. Patient has been eating and drinking well has been alert and oriented and taking all of her medications appropriately. Blood cultures remain negative. UTI found to be secondary to ESBL E. coli. She has had 3 full days of IV ertapenem she discharged home today on nitrofurantoin 100 mg twice daily for 2 more days to complete 5-day course. Patient will return to [facility] on all previous medications. She will follow-up with PCP in 7 to 10 days. Return to the ER clinic if concerns should arise. - Patient Instructions Diet: Usual Diet as Tolerated Activity: As Tolerated, No Strenuous Activities, Rest and Relax Today Showering/Bathing: May Shower Notify Provider of: Fever, Increased Pain, Swelling and Redness, Drainage, Nausea and/or Vomiting - Discharge Plan *PRESCRIPTION DRUG MONITORING PROGRAM REVIEWED*: Not Applicable *COPY OF PRESCRIPTION DRUG MONITORING REPORT IN PATIENT RAYSA: Not Applicable Prescriptions/Med Rec: nitrofurantoin macrocrystaL [Nitrofurantoin] 100 mg PO BID #4 capsule Home Medications: Home Meds Levothyroxine 75 mcg PO ACBREAKFAST 06/30/13 [History] Multivitamin [Multi-Vitamin Daily] 1 each PO DAILY 06/30/13 [History] Iron Polysaccharide Complex [Poly-Iron] 150 mg PO BID 07/06/14 [History] Dexlansoprazole [Dexilant] 60 mg PO BEDTIME 07/08/15 [History] Docusate Sodium [Colace] 100 mg PO BID 07/08/15 [History] Diclofenac Sodium [Voltaren 1% Gel] 1 applic TOP QID PRN 06/09/19 [History] Benztropine [Cogentin] 0.5 mg PO BID 09/14/19 [History] LORazepam [Ativan] 1 mg PO DAILY PRN 09/14/19 [History] Magnesium Oxide 200 mg PO BID 09/14/19 [History] cloZAPine 250 mg PO BEDTIME 09/14/19 [History] Cyanocobalamin (Vitamin B-12) [Vitamin B-12] 1,000 mcg PO DAILY 09/20/19 [History] Venlafaxine HCl [Venlafaxine ER] 75 mg PO DAILY 10/31/20 [History] Aspirin [Halfprin] 81 mg PO DAILY 12/13/20 [History] Calcium Carbonate/Vitamin D3 [Calcium 500 + Vit D 400] 500 tab PO BID 12/13/20 [History] Calcium Polycarbophil [Fiber Laxative] 625 mg PO BID 12/13/20 [History] cloZAPine [Clozaril] 50 mg PO WITHBREAKFAST 12/13/20 [History] gemfibroziL [Gemfibrozil] 600 mg PO BID 12/13/20 [History] Escitalopram [Lexapro] 20 mg PO DAILY 12/14/20 [History] Ondansetron [Zofran ODT] 4 mg PO Q6H PRN MDD F 12/14/20 [History] estradioL [Estrace 0.01% Vaginal Crm] 1 applic VAG MOTH 12/14/20 [History] nitrofurantoin macrocrystaL [Nitrofurantoin] 100 mg PO BID #4 capsule 12/16/20 [Rx] Oxygen Therapy Mode: Nasal Cannula Oxygen Flow Rate (L/min): 2 Patient Handouts: Acute Kidney Injury, Adult, Nitrofurantoin tablets or capsules, Urinary Tract Infection, Adult Referrals: Anila Dodge DO [Ordering Only Provider] - 12/22/20 12:45 pm - Discharge Summary/Plan Comment DC Time >30 min.: No Total # of Minutes for Discharge Time: 25 - Patient Data Vitals - Most Recent: Last Vital Signs Temp 97.5 F 12/16/20 07:41 Pulse 75 12/16/20 07:41 Resp 20 12/16/20 07:41 BP 106/64 12/16/20 07:41 Pulse Ox 95 12/16/20 07:41 Weight - Most Recent: 106 kg I&O - Last 24 hours: Intake & Output 12/15/20 12/16/20 12/16/20 22:59 06:59 14:59 Intake Total 1076 310 Output Total 0 Balance 1076 310 Lab Results - Last 24 hrs: Laboratory Results - last 24 hr 12/16/20 12/16/20 Range/Units 05:10 05:10 WBC 4.63 (4.0-11.0) K/uL RBC 3.25 L (4.30-5.90) M/uL Hgb 9.7 L (12.0-16.0) g/dL Hct 30.9 L (36.0-46.0) % MCV 95.1 (80.0-98.0) fL MCH 29.8 (27.0-32.0) pg MCHC 31.4 (31.0-37.0) g/dL RDW Std Deviation 46.2 (28.0-62.0) fl RDW Coeff of Amaris 13 (11.0-15.0) % Plt Count 236 (150-400) K/uL MPV 11.00 (7.40-12.00) fL Neut % (Auto) 45.4 L (48.0-80.0) % Lymph % (Auto) 34.8 (16.0-40.0) % [place] % (Auto) 13.8 (0.0-15.0) % Eos % (Auto) 5.4 (0.0-7.0) % Baso % (Auto) 0.6 (0.0-1.5) % Neut # (Auto) 2.1 (1.4-5.7) K/uL Lymph # (Auto) 1.6 (0.6-2.4) K/uL [place] # (Auto) 0.6 (0.0-0.8) K/uL Eos # (Auto) 0.3 (0.0-0.7) K/uL Baso # (Auto) 0.0 (0.0-0.1) K/uL Nucleated RBC % 0.0 /100WBC Nucleated RBCs # 0 K/uL Sodium 143 (136-145) mmol/L Potassium 3.6 (3.5-5.1) mmol/L Chloride 105 (98-107) mmol/L Carbon Dioxide 33.6 H (21.0-32.0) mmol/L BUN 15 (7.0-18.0) mg/dL Creatinine 0.8 (0.6-1.0) mg/dL Est Cr Clr Drug Dosing 76.38 mL/min Estimated GFR (MDRD) > 60.0 ml/min Glucose 123 H (74-106) mg/dL Calcium 9.1 (8.5-10.1) mg/dL Magnesium 1.9 (1.8-2.4) mg/dL MARY Results - Last 24 hrs: Microbiology 12/13/20 12:05 Aerobic Blood Culture - Preliminary Blood - Venous - Lab Draw NO GROWTH AFTER 2 DAYS Anaerobic Blood Culture - Preliminary NO GROWTH AFTER 2 DAYS 12/13/20 11:29 Aerobic Blood Culture - Preliminary Blood - Venous NO GROWTH AFTER 2 DAYS Anaerobic Blood Culture - Final 12/13/20 12:50 Urine Culture - Preliminary Urine Escherichia Coli Med Orders - Current: Current Medications Acetaminophen (Acetaminophen 325 Mg Tab) 650 mg PO Q4H PRN PRN Reason: Pain (Mild 1-3)/fever Aspirin (Aspirin 81 Mg Tab.Ec) 81 mg PO DAILY [facility] Last Admin: 12/16/20 08:52 Dose: 81 mg Documented by: Benztropine Mesylate (Benztropine 1 Mg Tab) 0.5 mg PO BID [facility] Last Admin: 12/16/20 08:53 Dose: 0.5 mg Documented by: Docusate Sodium (Docusate Sodium 100 Mg Cap) 100 mg PO BID [facility] Last Admin: 12/16/20 08:53 Dose: 100 mg Documented by: Gemfibrozil (Gemfibrozil 600 Mg Tab) 600 mg PO BID [facility] Last Admin: 12/16/20 08:52 Dose: 600 mg Documented by: Heparin Sodium (Porcine) (Heparin Sodium 5,000 Units/Ml Vial) 5,000 units SUBCUT Q12HR [facility] Last Admin: 12/16/20 08:54 Dose: 5,000 units Documented by: Ertapenem 1 gm/ Sodium (Chloride) 50 mls @ 100 mls/hr IV Q24H [facility] Last Admin: 12/15/20 12:19 Dose: 100 mls/hr Documented by: Levothyroxine Sodium (Levothyroxine 75 Mcg Tab) 75 mcg PO ACBREAKFAST [facility] Last Admin: 12/16/20 06:48 Dose: 75 mcg Documented by: Lorazepam (Lorazepam 1 Mg Tab) 1 mg PO DAILY PRN PRN Reason: aggression Ondansetron HCl (Ondansetron 4 Mg/2 Ml Sdv) 4 mg IVPUSH Q4H PRN PRN Reason: Nausea Pantoprazole Sodium (Pantoprazole 40 Mg Tab.Cr) 40 mg PO BID [facility] Last Admin: 12/16/20 08:52 Dose: 40 mg Documented by: Patient Own Medication (Patient's Own Medication 1 Each) 2.5 each PO BEDTIME [facility] Last Admin: 12/15/20 23:06 Dose: 2.5 each Documented by: Clozapine 100 Mg Tab 0.5 each PO DAILY [facility] Last Admin: 12/16/20 09:00 Dose: 0.5 each Documented by: Polysaccharide Iron Complex (Iron Polysaccharides Complex 150 Mg Cap) 150 mg PO BID [facility] Last Admin: 12/16/20 08:52 Dose: 150 mg Documented by: Sodium Chloride (Sodium Chloride 0.9% 2.5 Ml Syringe) 2.5 ml FLUSH ASDIRECTED PRN PRN Reason: Keep Vein Open Venlafaxine HCl (Venlafaxine 75 Mg Cap.Er) 75 mg PO DAILY [facility] Last Admin: 12/16/20 08:52 Dose: 75 mg Documented by: Discontinued Medications Clozapine (Clozapine 100 Mg Tab) 50 mg PO DAILY [facility] Lactated Ringer's (Ringers, Lactated) 1,000 mls @ 999 mls/hr IV .BOLUS ONE Stop: 12/13/20 10:58 Last Admin: 12/13/20 10:43 Dose: 999 mls/hr Documented by: Lactated Ringer's (Ringers, Lactated) 1,000 mls @ 125 mls/hr IV ASDIRECTED [facility] Ertapenem 1 gm/ Sodium (Chloride) 50 mls @ 100 mls/hr IV ONETIME ONE Stop: 12/13/20 14:14 Last Admin: 12/13/20 14:15 Dose: 100 mls/hr Documented by: Lactated Ringer's (Ringers, Lactated) 1,000 mls @ 125 mls/hr IV Q8H [facility] Last Admin: 12/14/20 08:49 Dose: Not Given Documented by: Pantoprazole Sodium 40 mg/ (Sodium Chloride) 10 mls @ 300 mls/hr IV Q24H [facility] Last Admin: 12/13/20 16:03 Dose: 300 mls/hr Documented by: Potassium Chloride/Sodium Chloride (Normal Saline With 40 Meq Kcl) 1,000 mls @ 125 mls/hr IV ONETIME ONE Stop: 12/14/20 16:14 Last Admin: 12/14/20 08:30 Dose: 125 mls/hr Documented by: Potassium Chloride (Potassium Chloride 20 Meq Tab.Er) 40 meq PO BID@0900,1200 [facility] Stop: 12/14/20 12:01 Last Admin: 12/14/20 12:32 Dose: 40 meq Documented by:
[2020-12-16 11:27] VITALS: BP 99/51; PULSE 72
[2020-12-16] MEDS: Ertapenem 1 GM in Sodium Chloride 0.9% 50 ML IV SCH (12:00)
== END 2020-12-16 14:10 | DRG 683 ==
LOC: MW.ED 09:12 → MW.MS 13:40
PROVIDERS: ADMIT Student in an Organized Health Care Education/Training Program; ATTEND Student in an Organized Health Care Education/Training Program
DX: N17.9 Acute kidney failure, unspecified (principal); N39.0 Urinary tract infection, site not specified; Z16.12 Extended spectrum beta lactamase (ESBL) resistance; Z20.822 Contact with and (suspected) exposure to COVID-19; E87.6 Hypokalemia; F31.9 Bipolar disorder, unspecified; K21.9 Gastro-esophageal reflux disease without esophagitis; F32.9 Major depressive disorder, single episode, unspecified; F29 Unspecified psychosis not due to a substance or known physiological condition; E03.9 Hypothyroidism, unspecified; E66.01 Morbid (severe) obesity due to excess calories; F70 Mild intellectual disabilities; G47.33 Obstructive sleep apnea (adult) (pediatric); B96.20 Unspecified Escherichia coli [E. coli] as the cause of diseases classified elsewhere; H91.90 Unspecified hearing loss, unspecified ear; H54.7 Unspecified visual loss; H50.10 Unspecified exotropia; I83.90 Asymptomatic varicose veins of unspecified lower extremity; K59.09 Other constipation; E66.9 Obesity, unspecified; Z98.51 Tubal ligation status; Z79.890 Hormone replacement therapy; Z99.81 Dependence on supplemental oxygen; Z86.59 Personal history of other mental and behavioral disorders; Z86.16 Personal history of COVID-19; Z79.899 Other long term (current) drug therapy; Z79.82 Long term (current) use of aspirin; Z90.49 Acquired absence of other specified parts of digestive tract; Z68.35 Body mass index [BMI] 35.0-35.9, adult
CPT/HCPCS: 36415; 71045; 80053; 81001; 83605; 83735; 84484; 85025; 85610; 87040 ×2; 87086; 87088; 87186; 93005; 99285; J7120; U0002; 80048; A9270-GY; C9113; J1335; J1644; J3480

== ENCOUNTER 2021-01-30 11:11 | Emergency (ER) | payer MEDICARE, MEDICAID ==
[2021-01-30] MEDS ORDERED: Sodium Chloride 0.9% 2.5 ML Syringe FLUSH PRN (11:16)
[2021-01-30] MEDS ORDERED: Sodium Chloride 0.9% 10 ML Syringe FLUSH PRN (11:16)
[2021-01-30] MEDS ORDERED: Sodium Chloride 0.9% 1,000 ML IV ONE (11:18)
--- NOTE | 2021-01-30 11:25 | EDM.PDOC ---
ED HPI GENERAL MEDICAL PROBLEM - General Chief Complaint: Neurological Problem Stated Complaint: SEIZURE Time Seen by Provider: 01/30/21 11:15 Source of Information: Reports: Patient History Limitations: Reports: No Limitations - History of Present Illness INITIAL COMMENTS - FREE TEXT/NARRATIVE: HISTORY AND PHYSICAL: History of present illness: Patient is a 60-year-old female who is a resident at the [facility], [place] who presents to the emergency room via EMS after seizure-like activity. Currently the patient was using the bathroom and it was noted she started to hav e seizure-like activity, was assisted down to the ground. Seizure-like activity occurred for approximately 1 minute. Patient does typically use oxygen at home. Upon arrival she had a nasal trumpet in her right nare. She is alert, answering questions. States she is unaware of what happened, she is just "sore". No previous history of seizures. Patient denies any fever, chills, headache, change in vision, chest pain, back pain, shortness of breath or cough. Denies any abdominal pain, nausea, vomiting, diarrhea, constipation or dysuria. Has not noted any blood in urine or stool. Patient has been eating and drinking appropriately. No recent travel or sick contacts. Review of systems: As per history of present illness and below otherwise all systems reviewed and negative. Past medical history: As per history of present illness and as reviewed below otherwise noncontributory. Surgical history: As per history of present illness and as reviewed below otherwise noncontributory. Social history: See social history for further information Family history: As per history of present illness and as reviewed below otherwise noncontributory. Physical exam: General: Well developed and well nourished. Alert and at baseline. Nontoxic in appearance and in no acute distress. Vital signs are stable and have been reviewed by me. Nursing notes were reviewed. HEENT: Atraumatic, normocephalic, pupils equal and reactive bilaterally, negative for conjunctival pallor or scleral icterus, mucous membranes moist, TMs normal bilaterally, throat clear, neck supple, nontender, trachea midline. No d rooling or trismus noted. No meningeal signs. No hot potato voice noted. Lungs: Clear to auscultation bilaterally. No wheezes, rales, or rhonchi. Chest nontender. Normal work of breathing, no accessory muscles used. Heart: S1S2, regular rate and rhythm without overt murmur, gallops, or rubs. No JVD. No peripheral edema Abdomen: Soft, nondistended, nontender. Normoactive bowel sounds. Negative for masses or costovertebral tenderness. Skin: Intact, warm, dry. No lesions or rashes noted. Hematologic: No petechiae or purpra. Mucosa appropriate color and normal nail bed color and refill. Extremities: Atraumatic, moves all extremities per self without difficulty or deficits, negative for cords or calf pain. Neurovascular unremarkable. Neuro: Awake, alert, oriented. Cranial nerves II through XII unremarkable. Cerebellum unremarkable. Motor and sensory unremarkable throughout. Exam nonfocal. Psychiatric: Mood and affect are appropriate. Normal thought process. Answering questions appropriately. Please note that the patient was seen and evaluated during the 2019 SARS-CoV-2 novel coronavirus pandemic period. Community viral transmission is ongoing at time of this encounter and the emergency department is operating under pandemic response procedures. Medical Decision Making: Patient is a 60 year old female who presents to the ED with c/o seizure like activity, last approximately 1 minute. Upon arrival the patient is alert and answering questions appropriately. She states her body is sore. I do note in her previous chart she has had Depakote toxicity, likely due to being on this medication for bipolar. She states she has no previous history of seizure disorder. Patient was assisted to the ground, she did not fall or have any injury resulting from the seizure activity. Physical exam is unremarkable. Nasal trumpet was removed, this had been previously placed by EMS. We will do a head CT, basic lab work and continue to monitor. Mild derangements in lab results. No acute or concerning findings. Normal lactate. Chest x-ray shows no acute pulmonary or cardiac abnormalities. Stable elevation right hemidiaphragm. Head CT is unremarkable. VSS. I have talked with the patient about today's findings, in addition to providing specific details for plan of care. Reassessment at the time of disposition demonstrates that the patient is in no acute distress. The patient is stable for discharge, counseling was provided and we discussed in great detail signs and symptoms that would prompt them to return to the Emergency Department. Medication, follow up and supportive care measures were reviewed and discussed. Voices understanding and is agreeable to plan of care. Denies any further questions or concerns at this time. Diagnostics: CBC, CMP, Mg, UA, Lactate, Head CT, EKG, CXR Therapeutics: NS @ 125 Prescription: None Impression: Seizure activity Plan: 1. You were evaluated today on an emergent basis. Your lab work is within normal limits. The head CT shows no acute or concerning findings. 2. You can alternate Tylenol and ibuprofen as needed for pain and fever management. 3. We encourage you to follow up with Dr Flores (neurologist) for re-evalu ation and further care/management. She will reassess and discussed medication/treatment options, if warranted for new onset seizure. 4. If your symptoms should worsen, new symptoms develop or any of the signs and symptoms we discussed should arise please return to the emergency room or call 911 (if needed). Definitive disposition and diagnosis as appropriate pending reevaluation and review of above. - Related Data Allergies Allergy/AdvReac Type Severity Reaction Status Date / Time No Known Allergies Allergy Verified 12/13/20 18:54 Home Meds: Home Meds Levothyroxine 75 mcg PO ACBREAKFAST 06/30/13 [History] Multivitamin [Multi-Vitamin Daily] 1 each PO DAILY 06/30/13 [History] Iron Polysaccharide Complex [Poly-Iron] 150 mg PO BID 07/06/14 [History] Dexlansoprazole [Dexilant] 60 mg PO BEDTIME 07/08/15 [History] Docusate Sodium [Colace] 100 mg PO BID 07/08/15 [History] Diclofenac Sodium [Voltaren 1% Gel] 1 applic TOP QID PRN 06/09/19 [History] Benztropine [Cogentin] 0.5 mg PO BID 09/14/19 [History] LORazepam [Ativan] 1 mg PO DAILY PRN 09/14/19 [History] Magnesium Oxide 200 mg PO BID 09/14/19 [History] cloZAPine 250 mg PO BEDTIME 09/14/19 [History] Cyanocobalamin (Vitamin B-12) [Vitamin B-12] 1,000 mcg PO DAILY 09/20/19 [History] Venlafaxine HCl [Venlafaxine ER] 75 mg PO DAILY 10/31/20 [History] Aspirin [Halfprin] 81 mg PO DAILY 12/13/20 [History] Calcium Carbonate/Vitamin D3 [Calcium 500 + Vit D 400] 500 tab PO BID 12/13/20 [History] Calcium Polycarbophil [Fiber Laxative] 625 mg PO BID 12/13/20 [History] cloZAPine [Clozaril] 50 mg PO WITHBREAKFAST 12/13/20 [History] gemfibroziL [Gemfibrozil] 600 mg PO BID 12/13/20 [History] Escitalopram [Lexapro] 20 mg PO DAILY 12/14/20 [History] Ondansetron [Zofran ODT] 4 mg PO Q6H PRN MDD F 12/14/20 [History] estradioL [Estrace 0.01% Vaginal Crm] 1 applic VAG MOTH 12/14/20 [History] nitrofurantoin macrocrystaL [Nitrofurantoin] 100 mg PO BID #4 capsule 12/16/20 [Rx] Past Medical History HEENT History: Reports: Hard of Hearing, Impaired Vision, Other (See Below) Other HEENT History: Bilateral exotropia Cardiovascular History: Reports: None, Other (See Below) Other Cardiovascular History: varicose veins wih edema Respiratory History: Reports: Other (See Below) Other Respiratory History: covid 19. 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 foot,5th metatarsal bone ulna fx Neurological History: Reports: None, Other (See Below) Other Neuro History: hx depakote toxicity Psychiatric History: Reports: Depression, Psychosis, Other (See Below) Other Psychiatric History: Self Harm Endocrine/Metabolic History: Reports: Hypothyroidism, Obesity/BMI 30+ Hematologic History: Reports: None Immunologic History: Reports: None Oncologic (Cancer) History: Reports: None Dermatologic History: Reports: Other (See Below) Other Dermatologic History: varicose veins with edema - Infectious Disease History Infectious Disease History: Reports: None Other Infectious Disease History: Unable to verify any other illnesses. - Past Surgical History Head Surgeries/Procedures: Reports: None HEENT Surgical History: Reports: None Cardiovascular Surgical History: Reports: None Respiratory Surgical History: Reports: None GI Surgical History: Reports: Cholecystectomy Female Surgical History: Reports: Section, Tubal Ligation Endocrine Surgical History: Reports: None Neurological Surgical History: Reports: None Musculoskeletal Surgical History: Reports: Other (See Below) Other Musculoskeletal Surgeries/Procedures:: bunion removal Oncologic Surgical History: Reports: None Dermatological Surgical History: Reports: None Social & Family History - Family History Family Medical History: Unobtainable - Caffeine Use Caffeine Use: Reports: None Caffeine Use Comment: unable to assess - Living Situation & Occupation Living situation: Reports: Assisted Living, Other Occupation: Disabled ED ROS GENERAL - Review of Systems Review Of Systems: Comprehensive ROS is negative, except as noted in HPI. ED EXAM, NEURO - Physical Exam Exam: See Below (See dictation) Course - Vital Signs Last Recorded V/S: Last Vital Signs Temp 96.7 F L 01/30/21 11:13 Pulse 89 01/30/21 11:13 Resp 18 01/30/21 11:13 BP 137/47 L 01/30/21 11:13 Pulse Ox 92 L 01/30/21 11:13 - Orders/Labs/Meds Orders: Active Orders 24 hr Category Date Time Status Blood Glucose Check, Bedside [RC] ONETIME Care 01/30/21 11:33 Active Sodium Chloride 0.9% [Normal Saline] 1,000 ml Med 01/30/21 11:18 Active IV STAT Sodium Chloride 0.9% [Saline Flush] Med 01/30/21 11:16 Active 10 ml FLUSH ASDIRECTED PRN Sodium Chloride 0.9% [Saline Flush] Med 01/30/21 11:16 Active 2.5 ml FLUSH ASDIRECTED PRN Saline Lock Insert [OM.PC] Stat Oth 01/30/21 11:16 Ordered Medication Orders Sodium Chloride (Normal Saline) 1,000 mls @ 125 mls/hr IV STAT ONE Stop: 01/30/21 19:17 Last Admin: 01/30/21 11:43 Dose: 125 mls/hr Documented by: MARY Sodium Chloride (Sodium Chloride 0.9% 10 Ml Syringe) 10 ml FLUSH ASDIRECTED PRN PRN Reason: Keep Vein Open Last Admin: 01/30/21 11:44 Dose: 10 ml Documented by: MARY Sodium Chloride (Sodium Chloride 0.9% 2.5 Ml Syringe) 2.5 ml FLUSH ASDIRECTED PRN PRN Reason: Keep Vein Open Last Admin: 01/30/21 11:43 Dose: 2.5 ml Documented by: MARY Labs: Laboratory Tests 01/30/21 01/30/21 01/30/21 Range/Units 11:30 11:37 11:37 WBC 5.87 (4.0-11.0) K/uL RBC 3.72 L (4.30-5.90) M/uL Hgb 11.1 L (12.0-16.0) g/dL Hct 35.7 L (36.0-46.0) % MCV 96.0 (80.0-98.0) fL MCH 29.8 (27.0-32.0) pg MCHC 31.1 (31.0-37.0) g/dL RDW Std Deviation 49.7 (28.0-62.0) fl RDW Coeff of Amaris 14 (11.0-15.0) % Plt Count 184 (150-400) K/uL MPV 11.30 (7.40-12.00) fL Neut % (Auto) 61.4 (48.0-80.0) % Lymph % (Auto) 30.3 (16.0-40.0) % Sol[place] % (Auto) 6.6 (0.0-15.0) % Eos % (Auto) 1.4 (0.0-7.0) % Baso % (Auto) 0.3 (0.0-1.5) % Neut # (Auto) 3.6 (1.4-5.7) K/uL Lymph # (Auto) 1.8 (0.6-2.4) K/uL Sol[place] # (Auto) 0.4 (0.0-0.8) K/uL Eos # (Auto) 0.1 (0.0-0.7) K/uL Baso # (Auto) 0.0 (0.0-0.1) K/uL Nucleated RBC % 0.0 /100WBC Nucleated RBCs # 0 K/uL Sodium 140 (136-145) mmol/L Potassium 3.9 (3.5-5.1) mmol/L Chloride 101 (98-107) mmol/L Carbon Dioxide 34.2 H (21.0-32.0) mmol/L BUN 19 H (7.0-18.0) mg/dL Creatinine 0.7 (0.6-1.0) mg/dL Est Cr Clr Drug Dosing TNP Estimated GFR (MDRD) > 60.0 ml/min Glucose 139 H (74-106) mg/dL POC Glucose (70-99) mg/dL Lactic Acid (0.4-2.0) mmol/L Calcium 9.1 (8.5-10.1) mg/dL Magnesium (1.8-2.4) mg/dL Total Bilirubin 0.2 (0.2-1.0) mg/dL AST 11 L (15-37) IU/L ALT 16 (14-63) IU/L Alkaline Phosphatase 116 (46-116) U/L Creatine Kinase (26-308) U/L Total Protein 7.3 (6.4-8.2) g/dL Albumin 3.3 L (3.4-5.0) g/dL Globulin 4.0 (2.6-4.0) g/dL Albumin/Globulin Ratio 0.8 L (0.9-1.6) Urine Color Urine Appearance Urine pH (5.0-8.0) Ur Specific [place] (1.001-1.035) Urine Protein (NEGATIVE) mg/dL Urine Glucose (UA) (NEGATIVE) mg/dL Urine Ketones (NEGATIVE) mg/dL Urine Occult Blood (NEGATIVE) Urine Nitrite (NEGATIVE) Urine Bilirubin (NEGATIVE) Urine Urobilinogen (<2.0) EU/dL Ur Leukocyte Esterase (NEGATIVE) SARS-CoV-2 RNA (ANALILIA) NEGATIVE (NEGATIVE) 01/30/21 01/30/21 01/30/21 Range/Units 11:37 11:37 11:37 WBC (4.0-11.0) K/uL RBC (4.30-5.90) M/uL Hgb (12.0-16.0) g/dL Hct (36.0-46.0) % MCV (80.0-98.0) fL MCH (27.0-32.0) pg MCHC (31.0-37.0) g/dL RDW Std Deviation (28.0-62.0) fl RDW Coeff of Amaris (11.0-15.0) % Plt Count (150-400) K/uL MPV (7.40-12.00) fL Neut % (Auto) (48.0-80.0) % Lymph % (Auto) (16.0-40.0) % Sol[place] % (Auto) (0.0-15.0) % Eos % (Auto) (0.0-7.0) % Baso % (Auto) (0.0-1.5) % Neut # (Auto) (1.4-5.7) K/uL Lymph # (Auto) (0.6-2.4) K/uL Solano # (Auto) (0.0-0.8) K/uL Eos # (Auto) (0.0-0.7) K/uL Baso # (Auto) (0.0-0.1) K/uL Nucleated RBC % /100WBC Nucleated RBCs # K/uL Sodium (136-145) mmol/L Potassium (3.5-5.1) mmol/L Chloride (98-107) mmol/L Carbon Dioxide (21.0-32.0) mmol/L BUN (7.0-18.0) mg/dL Creatinine (0.6-1.0) mg/dL Est Cr Clr Drug Dosing Estimated GFR (MDRD) ml/min Glucose (74-106) mg/dL POC Glucose (70-99) mg/dL Lactic Acid 1.7 (0.4-2.0) mmol/L Calcium (8.5-10.1) mg/dL Magnesium 1.5 L (1.8-2.4) mg/dL Total Bilirubin (0.2-1.0) mg/dL AST (15-37) IU/L ALT (14-63) IU/L Alkaline Phosphatase (46-116) U/L Creatine Kinase 41 (26-308) U/L Total Protein (6.4-8.2) g/dL Albumin (3.4-5.0) g/dL Globulin (2.6-4.0) g/dL Albumin/Globulin Ratio (0.9-1.6) Urine Color Urine Appearance Urine pH (5.0-8.0) Ur Specific [place] (1.001-1.035) Urine Protein (NEGATIVE) mg/dL Urine Glucose (UA) (NEGATIVE) mg/dL Urine Ketones (NEGATIVE) mg/dL Urine Occult Blood (NEGATIVE) Urine Nitrite (NEGATIVE) Urine Bilirubin (NEGATIVE) Urine Urobilinogen (<2.0) EU/dL Ur Leukocyte Esterase (NEGATIVE) SARS-CoV-2 RNA (ANALILIA) (NEGATIVE) 01/30/21 01/30/21 Range/Units 11:47 13:45 WBC (4.0-11.0) K/uL RBC (4.30-5.90) M/uL Hgb (12.0-16.0) g/dL Hct (36.0-46.0) % MCV (80.0-98.0) fL MCH (27.0-32.0) pg MCHC (31.0-37.0) g/dL RDW Std Deviation (28.0-62.0) fl RDW Coeff of Amaris (11.0-15.0) % Plt Count (150-400) K/uL MPV (7.40-12.00) fL Neut % (Auto) (48.0-80.0) % Lymph % (Auto) (16.0-40.0) % Solano % (Auto) (0.0-15.0) % Eos % (Auto) (0.0-7.0) % Baso % (Auto) (0.0-1.5) % Neut # (Auto) (1.4-5.7) K/uL Lymph # (Auto) (0.6-2.4) K/uL Solano # (Auto) (0.0-0.8) K/uL Eos # (Auto) (0.0-0.7) K/uL Baso # (Auto) (0.0-0.1) K/uL Nucleated RBC % /100WBC Nucleated RBCs # K/uL Sodium (136-145) mmol/L Potassium (3.5-5.1) mmol/L Chloride (98-107) mmol/L Carbon Dioxide (21.0-32.0) mmol/L BUN (7.0-18.0) mg/dL Creatinine (0.6-1.0) mg/dL Est Cr Clr Drug Dosing Estimated GFR (MDRD) ml/min Glucose (74-106) mg/dL POC Glucose 124 H (70-99) mg/dL Lactic Acid (0.4-2.0) mmol/L Calcium (8.5-10.1) mg/dL Magnesium (1.8-2.4) mg/dL Total Bilirubin (0.2-1.0) mg/dL AST (15-37) IU/L ALT (14-63) IU/L Alkaline Phosphatase (46-116) U/L Creatine Kinase (26-308) U/L Total Protein (6.4-8.2) g/dL Albumin (3.4-5.0) g/dL Globulin (2.6-4.0) g/dL Albumin/Globulin Ratio (0.9-1.6) Urine Color YELLOW Urine Appearance CLEAR Urine pH 6.0 (5.0-8.0) Ur Specific [place] 1.020 (1.001-1.035) Urine Protein NEGATIVE (NEGATIVE) mg/dL Urine Glucose (UA) NEGATIVE (NEGATIVE) mg/dL Urine Ketones NEGATIVE (NEGATIVE) mg/dL Urine Occult Blood NEGATIVE (NEGATIVE) Urine Nitrite NEGATIVE (NEGATIVE) Urine Bilirubin NEGATIVE (NEGATIVE) Urine Urobilinogen 0.2 (<2.0) EU/dL Ur Leukocyte Esterase NEGATIVE (NEGATIVE) SARS-CoV-2 RNA (ANALILIA) (NEGATIVE) Meds: Medications Generic Name Dose Route Start Last Admin Trade Name Freq PRN Reason Stop Dose Admin Sodium Chloride 1,000 mls @ 125 mls/hr 01/30/21 11:18 01/30/21 11:43 Normal Saline IV 01/30/21 19:17 125 mls/hr STAT ONE Administration Sodium Chloride 10 ml 01/30/21 11:16 01/30/21 11:44 Sodium Chloride 0.9% 10 Ml Syringe FLUSH 10 ml ASDIRECTED PRN Administration Keep Vein Open Sodium Chloride 2.5 ml 01/30/21 11:16 01/30/21 11:43 Sodium Chloride 0.9% 2.5 Ml Syringe FLUSH 2.5 ml ASDIRECTED PRN Administration Keep Vein Open Departure - Departure Time of Disposition: 14:14 Disposition: Home, Self-Care 01 Clinical Impression: Seizure-like activity - Discharge Information Instructions: Seizure, Adult, [id number] Referrals: Anila Dodge DO [Primary Care Provider] - Forms: ED Department Discharge Additional Instructions: The following information is given to patients seen in the emergency department who are being discharged to home. This information is to outline your options for follow-up care. We provide all patients seen in our emergency department with a follow-up referral. The need for follow-up, as well as the timing and circumstances, are variable depending upon the specifics of your emergency department visit. If you don't have a primary care physician on staff, we will provide you with a referral. We always advise you to contact your personal physician following an emergency department visit to inform them of the circumstance of the visit and for follow-up with them and/or the need for any referrals to a consulting specialist. The emergency department will also refer you to a specialist when appropriate. This referral assures that you have the opportunity for follow-up care with a specialist. All of these measure are taken in an effort to provide you with optimal care, which includes your follow-up. Under all circumstances we always encourage you to contact your private physician who remains a resource for coordinating your care. When calling for follow-up care, please make the office aware that this follow-up is from your recent emergency room visit. If for any reason you are refused follow-up, please contact the [facility] Emergency Department at and asked to speak to the emergency department charge nurse. [facility] [address] [place] [id number] [place] [address] Thank you for choosing the [facility] emergency department in [place] for your medical needs today. It was a pleasure caring for you. Today you were seen in the emergency department for seizure activity. 1. You were evaluated today on an emergent basis. Your lab work is within normal limits. The head CT shows no acute or concerning findings. 2. You can alternate Tylenol and ibuprofen as needed for pain and fever management. 3. We encourage you to follow up with Dr Flores (neurologist) for re- evaluation and further care/management. She will reassess and discussed medication/treatment options, if warranted for new onset seizure. 4. If your symptoms should worsen, new symptoms develop or any of the signs and symptoms we discussed should arise please return to the emergency room or call [phone] (if needed). Sepsis Event Note (ED) - Evaluation Sepsis Screening Result: No Definite Risk - Focused Exam Vital Signs: Vital Signs Temp Pulse Resp BP Pulse Ox 01/30/21 11:13 96.7 F L 89 18 137/47 L 92 L - My Orders Last 24 Hours: My Active Orders 01/30/21 11:16 Sodium Chloride 0.9% [Saline Flush] 10 ml FLUSH ASDIRECTED PRN Sodium Chloride 0.9% [Saline Flush] 2.5 ml FLUSH ASDIRECTED PRN Saline Lock Insert [OM.PC] Stat 01/30/21 11:18 Sodium Chloride 0.9% [Normal Saline] 1,000 ml IV STAT 01/30/21 11:33 Blood Glucose Check, Bedside [RC] ONETIME - Assessment/Plan Last 24 Hours: My Active Orders 01/30/21 11:16 Sodium Chloride 0.9% [Saline Flush] 10 ml FLUSH ASDIRECTED PRN Sodium Chloride 0.9% [Saline Flush] 2.5 ml FLUSH ASDIRECTED PRN Saline Lock Insert [OM.PC] Stat 01/30/21 11:18 Sodium Chloride 0.9% [Normal Saline] 1,000 ml IV STAT 01/30/21 11:33 Blood Glucose Check, Bedside [RC] ONETIME
--- NOTE | 2021-01-30 11:50 | PCM.EKG ---
#1 Interpretation EKG Date: 01/30/21 Time: 11:49 EKG Interpretation Comments: Sinus rhythm rate of 87 findings of LVH but no acute ischemia otherwise unremarkable QTC 454
--- NOTE | 2021-01-30 11:50 | CR ---
INDICATION: Seizure activity TECHNIQUE: Chest 1 view. COMPARISON: 12/13/2020 FINDINGS: Cardiovascular and mediastinum: Heart size and vasculature are normal in caliber and appearance. Mediastinum is within normal limits. Lungs and pleural space: Stable elevation right hemidiaphragm lungs are clear. No sign of infiltrate or mass. No sign of pleural effusion. No pneumothorax. Bones and soft tissues: No significant findings. IMPRESSION: No acute pulmonary or cardiac abnormalities. Stable elevation right hemidiaphragm. Dictated by Travis Horn MD @ 01/30/2021 11:48:42 AM (Electronically Signed)
[2021-01-30 12:37] LABS: BLOOD UREA NITROGEN,BUN 19 mg/dL (7.0-18.0); CARBON DIOXIDE,CO2 34.2 mmol/L (21.0-32.0); CHLORIDE,CL 101 mmol/L (98-107); GLUCOSE RANDOM 139 mg/dL (74-106); POTASSIUM,K 3.9 mmol/L (3.5-5.1); SODIUM,NA 140 mmol/L (136-145)
--- NOTE | 2021-01-30 12:49 | CT ---
INDICATION: Seizure activity TECHNIQUE: CT head without contrast. COMPARISON: None FINDINGS: CSF spaces: Within normal limits for age. Brain parenchyma: The serna-white differentiation is normal. No sign of mass, hemorrhage, or midline shift. Skull base and calvarium: The visualized paranasal sinuses and mastoid air cells demonstrate no acute or significant findings. The visualized orbits are grossly unremarkable. No skull fractures. IMPRESSION: Unremarkable noncontrast head CT. Please note that all CT scans at this facility use dose modulation, iterative reconstruction, and/or weight-based dosing when appropriate to reduce radiation dose to as low as reasonably achievable. Dictated by Trvais Horn MD @ 01/30/2021 12:47:37 PM (Electronically Signed)
[2021-01-30 14:29] VITALS: BP 135/80; PULSE 82
== END 2021-01-30 14:29 | disposition home or self-care (01) ==
LOC: MW.ED 11:11
DX: R25.9 Unspecified abnormal involuntary movements (principal); K21.9 Gastro-esophageal reflux disease without esophagitis; E03.9 Hypothyroidism, unspecified; E66.9 Obesity, unspecified; Z20.822 Contact with and (suspected) exposure to COVID-19
CPT/HCPCS: 36415; 70450; 71045; 80053; 81003; 82550; 82947; 83605; 83735; 85025; 99285; J7030; U0002

== ENCOUNTER 2021-03-08 09:20 | Emergency (ER) | payer MEDICARE, MEDICAID ==
--- NOTE | 2021-03-08 09:50 | EDM.PDOC ---
ED HPI GENERAL MEDICAL PROBLEM - General Chief Complaint: Abdominal Pain Stated Complaint: EMS Time Seen by Provider: 03/08/21 09:33 Source of Information: Reports: Patient History Limitations: Reports: No Limitations - History of Present Illness INITIAL COMMENTS - FREE TEXT/NARRATIVE: Patient is a 60-year-old female Hoen exam was difficult to get information from EMS reports the patient posses UTIs abdominal pain. Patient's been seen before in the past for seizure-like activities aliases/small bowel obstructions. I have seen the patient before and she seems to be kind of at her baseline but more slightly confused not really answering questions has to be prompted a few times before she clearly responds. She does not have any neurological deficits on exam she denies any headache vision changes purportedly sometimes abdominal pain unclear if she currently has abdominal pain. Abdomen Pain Score (Numeric/FACES): 6 - Related Data Allergies Allergy/AdvReac Type Severity Reaction Status Date / Time No Known Allergies Allergy Verified 03/08/21 09:34 Home Meds: Home Meds Levothyroxine 75 mcg PO ACBREAKFAST 06/30/13 [History] Multivitamin [Multi-Vitamin Daily] 1 each PO DAILY 06/30/13 [History] Iron Polysaccharide Complex [Poly-Iron] 150 mg PO BID 07/06/14 [History] Dexlansoprazole [Dexilant] 60 mg PO BEDTIME 07/08/15 [History] Docusate Sodium [Colace] 100 mg PO BID 07/08/15 [History] Diclofenac Sodium [Voltaren 1% Gel] 1 applic TOP QID PRN 06/09/19 [History] Benztropine [Cogentin] 0.5 mg PO BID 09/14/19 [History] LORazepam [Ativan] 1 mg PO DAILY PRN 09/14/19 [History] Magnesium Oxide 200 mg PO BID 09/14/19 [History] cloZAPine 250 mg PO BEDTIME 09/14/19 [History] Cyanocobalamin (Vitamin B-12) [Vitamin B-12] 1,000 mcg PO DAILY 09/20/19 [History] Venlafaxine HCl [Venlafaxine ER] 75 mg PO DAILY 10/31/20 [History] Aspirin [Halfprin] 81 mg PO DAILY 12/13/20 [History] Calcium Carbonate/Vitamin D3 [Calcium 500 + Vit D 400] 500 tab PO BID 12/13/20 [History] Calcium Polycarbophil [Fiber Laxative] 625 mg PO BID 12/13/20 [History] cloZAPine [Clozaril] 50 mg PO WITHBREAKFAST 12/13/20 [History] gemfibroziL [Gemfibrozil] 600 mg PO BID 12/13/20 [History] Escitalopram [Lexapro] 20 mg PO DAILY 12/14/20 [History] Ondansetron [Zofran ODT] 4 mg PO Q6H PRN MDD F 12/14/20 [History] estradioL [Estrace 0.01% Vaginal Crm] 1 applic VAG MOTH 12/14/20 [History] nitrofurantoin macrocrystaL [Nitrofurantoin] 100 mg PO BID #4 capsule 12/16/20 [Rx] Sulfamethoxazole/Trimethoprim [Bactrim Ds Tablet] 1 each PO BID 5 Days #10 tablet 03/08/21 [Rx] Past Medical History HEENT History: Reports: Hard of Hearing, Impaired Vision, Other (See Below) Other HEENT History: Bilateral exotropia Cardiovascular History: Reports: None, Other (See Below) Other Cardiovascular History: varicose veins wih edema Respiratory History: Reports: Other (See Below) Other Respiratory History: covid 19. 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 foot,5th metatarsal bone ulna fx Neurological History: Reports: None, Other (See Below) Other Neuro History: hx depakote toxicity Psychiatric History: Reports: Depression, Psychosis, Other (See Below) Other Psychiatric History: Self Harm Endocrine/Metabolic History: Reports: Hypothyroidism, Obesity/BMI 30+ Hematologic History: Reports: None Immunologic History: Reports: None Oncologic (Cancer) History: Reports: None Dermatologic History: Reports: Other (See Below) Other Dermatologic History: varicose veins with edema - Infectious Disease History Infectious Disease History: Reports: None Other Infectious Disease History: Unable to verify any other illnesses. - Past Surgical History Head Surgeries/Procedures: Reports: None HEENT Surgical History: Reports: None Cardiovascular Surgical History: Reports: None Respiratory Surgical History: Reports: None GI Surgical History: Reports: Cholecystectomy Female Surgical History: Reports: Section, Tubal Ligation Endocrine Surgical History: Reports: None Neurological Surgical History: Reports: None Musculoskeletal Surgical History: Reports: Other (See Below) Other Musculoskeletal Surgeries/Procedures:: bunion removal Oncologic Surgical History: Reports: None Dermatological Surgical History: Reports: None Social & Family History - Family History Family Medical History: Unobtainable - Tobacco Use Second Hand Smoke Exposure: No - Caffeine Use Caffeine Use: Reports: None Caffeine Use Comment: unable to assess - Recreational Drug Use Recreational Drug Use: No - Living Situation & Occupation Living situation: Reports: Assisted Living, Other Occupation: Disabled ED ROS GENERAL - Review of Systems Review Of Systems: See Below Constitutional: Reports: No Symptoms HEENT: Reports: No Symptoms Respiratory: Reports: No Symptoms Cardiovascular: Reports: No Symptoms Endocrine: Reports: No Symptoms GI/Abdominal: Reports: Abdominal Pain : Reports: No Symptoms Musculoskeletal: Reports: No Symptoms Skin: Reports: No Symptoms Neurological: Reports: No Symptoms Psychiatric: Reports: No Symptoms Hematologic/Lymphatic: Reports: No Symptoms Immunologic: Reports: No Symptoms ED EXAM, GI/ABD - Physical Exam Exam: See Below Exam Limited By: No Limitations General Appearance: Alert, WD/WN, No Apparent Distress Eyes: Bilateral: EOMI Respiratory/Chest: No Respiratory Distress, Lungs Clear, Normal Breath Sounds Cardiovascular: Normal Peripheral Pulses GI/Abdominal Exam: Normal Bowel Sounds, Soft, Non-Tender Extremities: Normal Inspection Neurological: Alert (Answering some questions but has to be asked a few times for she responds), Oriented (Place and location not to date) Course - Vital Signs Last Recorded V/S: Last Vital Signs Temp 98.2 F 03/08/21 09:31 Pulse 75 03/08/21 09:31 Resp 20 03/08/21 09:31 BP 126/71 03/08/21 09:31 Pulse Ox 94 L 03/08/21 09:31 - Orders/Labs/Meds Labs: Laboratory Tests 03/08/21 03/08/21 03/08/21 Range/Units 09:58 09:58 10:00 WBC 5.90 (4.0-11.0) K/uL RBC 3.95 L (4.30-5.90) M/uL Hgb 11.7 L (12.0-16.0) g/dL Hct 37.6 (36.0-46.0) % MCV 95.2 (80.0-98.0) fL MCH 29.6 (27.0-32.0) pg MCHC 31.1 (31.0-37.0) g/dL RDW Std Deviation 48.6 (28.0-62.0) fl RDW Coeff of [place] 14 (11.0-15.0) % Plt Count 297 (150-400) K/uL MPV 10.30 (7.40-12.00) fL Neut % (Auto) 67.5 (48.0-80.0) % Lymph % (Auto) 24.6 (16.0-40.0) % [place] % (Auto) 6.6 (0.0-15.0) % Eos % (Auto) 1.0 (0.0-7.0) % Baso % (Auto) 0.3 (0.0-1.5) % Neut # (Auto) 4.0 (1.4-5.7) K/uL Lymph # (Auto) 1.5 (0.6-2.4) K/uL [place] # (Auto) 0.4 (0.0-0.8) K/uL Eos # (Auto) 0.1 (0.0-0.7) K/uL Baso # (Auto) 0.0 (0.0-0.1) K/uL Nucleated RBC % 0.0 /100WBC Nucleated RBCs # 0 K/uL Sodium 142 (136-145) mmol/L Potassium 3.7 (3.5-5.1) mmol/L Chloride 99 (98-107) mmol/L Carbon Dioxide 36.0 H (21.0-32.0) mmol/L BUN 13 (7.0-18.0) mg/dL Creatinine 0.7 (0.6-1.0) mg/dL Est Cr Clr Drug Dosing 84.15 mL/min Estimated GFR (MDRD) > 60.0 ml/min Glucose 103 (74-106) mg/dL Calcium 9.6 (8.5-10.1) mg/dL Phosphorus 3.1 (2.6-4.7) mg/dL Magnesium 2.0 (1.8-2.4) mg/dL Total Bilirubin 0.2 (0.2-1.0) mg/dL AST 12 L (15-37) IU/L ALT 20 (14-63) IU/L Alkaline Phosphatase 113 (46-116) U/L Total Protein 7.6 (6.4-8.2) g/dL Albumin 3.2 L (3.4-5.0) g/dL Globulin 4.4 H (2.6-4.0) g/dL Albumin/Globulin Ratio 0.7 L (0.9-1.6) Lipase 65 L (73-393) U/L Urine Color YELLOW Urine Appearance CLOUDY Urine pH 5.5 (5.0-8.0) Ur Specific [place] 1.015 (1.001-1.035) Urine Protein NEGATIVE (NEGATIVE) mg/dL Urine Glucose (UA) NEGATIVE (NEGATIVE) mg/dL Urine Ketones NEGATIVE (NEGATIVE) mg/dL Urine Occult Blood TRACE-INTACT H (NEGATIVE) Urine Nitrite POSITIVE H (NEGATIVE) Urine Bilirubin NEGATIVE (NEGATIVE) Urine Urobilinogen 0.2 (<2.0) EU/dL Ur Leukocyte Esterase LARGE H (NEGATIVE) Urine RBC 0-2 (0-2/HPF) Urine WBC 40-50 (0-5/HPF) Ur Epithelial Cells OCCASIONAL (NONE-FEW) Urine Bacteria 4+ H (NEGATIVE) Urine Opiates Screen (NEGATIVE) Ur Oxycodone Screen (NEGATIVE) Urine Methadone Screen (NEGATIVE) Ur Barbiturates Screen (NEGATIVE) Ur Phencyclidine Scrn (NEGATIVE) Ur Amphetamine Screen (NEGATIVE) U Methamphetamines Scrn (NEGATIVE) U Benzodiazepines Scrn (NEGATIVE) U Cocaine Metab Screen (NEGATIVE) U Marijuana (THC) Screen (NEGATIVE) Ethyl Alcohol < 3.0 mg/dL 03/08/21 Range/Units 10:00 WBC (4.0-11.0) K/uL RBC (4.30-5.90) M/uL Hgb (12.0-16.0) g/dL Hct (36.0-46.0) % MCV (80.0-98.0) fL MCH (27.0-32.0) pg MCHC (31.0-37.0) g/dL RDW Std Deviation (28.0-62.0) fl RDW Coeff of Amaris (11.0-15.0) % Plt Count (150-400) K/uL MPV (7.40-12.00) fL Neut % (Auto) (48.0-80.0) % Lymph % (Auto) (16.0-40.0) % [place] % (Auto) (0.0-15.0) % Eos % (Auto) (0.0-7.0) % Baso % (Auto) (0.0-1.5) % Neut # (Auto) (1.4-5.7) K/uL Lymph # (Auto) (0.6-2.4) K/uL [place] # (Auto) (0.0-0.8) K/uL Eos # (Auto) (0.0-0.7) K/uL Baso # (Auto) (0.0-0.1) K/uL Nucleated RBC % /100WBC Nucleated RBCs # K/uL Sodium (136-145) mmol/L Potassium (3.5-5.1) mmol/L Chloride (98-107) mmol/L Carbon Dioxide (21.0-32.0) mmol/L BUN (7.0-18.0) mg/dL Creatinine (0.6-1.0) mg/dL Est Cr Clr Drug Dosing mL/min Estimated GFR (MDRD) ml/min Glucose (74-106) mg/dL Calcium (8.5-10.1) mg/dL Phosphorus (2.6-4.7) mg/dL Magnesium (1.8-2.4) mg/dL Total Bilirubin (0.2-1.0) mg/dL AST (15-37) IU/L ALT (14-63) IU/L Alkaline Phosphatase (46-116) U/L Total Protein (6.4-8.2) g/dL Albumin (3.4-5.0) g/dL Globulin (2.6-4.0) g/dL Albumin/Globulin Ratio (0.9-1.6) Lipase (73-393) U/L Urine Color Urine Appearance Urine pH (5.0-8.0) Ur Specific [place] (1.001-1.035) Urine Protein (NEGATIVE) mg/dL Urine Glucose (UA) (NEGATIVE) mg/dL Urine Ketones (NEGATIVE) mg/dL Urine Occult Blood (NEGATIVE) Urine Nitrite (NEGATIVE) Urine Bilirubin (NEGATIVE) Urine Urobilinogen (<2.0) EU/dL Ur Leukocyte Esterase (NEGATIVE) Urine RBC (0-2/HPF) Urine WBC (0-5/HPF) Ur Epithelial Cells (NONE-FEW) Urine Bacteria (NEGATIVE) Urine Opiates Screen NEGATIVE (NEGATIVE) Ur Oxycodone Screen NEGATIVE (NEGATIVE) Urine Methadone Screen NEGATIVE (NEGATIVE) Ur Barbiturates Screen NEGATIVE (NEGATIVE) Ur Phencyclidine Scrn NEGATIVE (NEGATIVE) Ur Amphetamine Screen NEGATIVE (NEGATIVE) U Methamphetamines Scrn NEGATIVE (NEGATIVE) U Benzodiazepines Scrn NEGATIVE (NEGATIVE) U Cocaine Metab Screen NEGATIVE (NEGATIVE) U Marijuana (THC) Screen NEGATIVE (NEGATIVE) Ethyl Alcohol mg/dL Meds: Medications Discontinued Medications Generic Name Dose Route Start Last Admin Trade Name Freq PRN Reason Stop Dose Admin Ceftriaxone Sodium/Dextrose 1 50 mls @ 100 mls/hr 03/08/21 11:16 03/08/21 11:35 gm/ Premix IV 03/08/21 11:45 100 mls/hr ONETIME ONE Administration Iopamidol 100 ml 03/08/21 11:18 03/08/21 11:18 Iopamidol 755 Mg/Ml 500 Ml Multipack Bottle IVPUSH 03/08/21 11:19 100 ml ONETIME STA Administration Departure - Departure Time of Disposition: 13:01 Disposition: Home, Self-Care 01 Condition: Good Clinical Impression: UTI (urinary tract infection) Qualifiers: Urinary tract infection type: site unspecified Hematuria presence: without hematuria Qualified Code(s): N39.0 - Urinary tract infection, site not specified - Discharge Information *PRESCRIPTION DRUG MONITORING PROGRAM REVIEWED*: Not Applicable *COPY OF PRESCRIPTION DRUG MONITORING REPORT IN PATIENT RAYSA: Not Applicable Instructions: Urinary Tract Infection, Adult, [id number] Forms: ED Department Discharge Additional Instructions: You were seen today and you are found to have a urinary tract infection we also did a CAT scan of your head and also your abdomen did not show any concerning findings we recommend you continue take antibiotics prescribed to you we will send off a culture if it needs to be changed we will change antibiotics once the culture returns if you have any other concerning signs or symptoms please feel free to return to the ED otherwise follow-up with your primary care physician. The following information is given to patients seen in the emergency department who are being discharged to home. This information is to outline your options for follow-up care. We provide all patients seen in our emergency department with a follow-up referral. The need for follow-up, as well as the timing and circumstances, are variable depending upon the specifics of your emergency department visit. If you don't have a primary care physician on staff, we will provide you with a referral. We always advise you to contact your personal physician following an emergency department visit to inform them of the circumstance of the visit and for follow-up with them and/or the need for any referrals to a consulting specialist. The emergency department will also refer you to a specialist when appropriate. This referral assures that you have the opportunity for follow-up care with a specialist. All of these measure are taken in an effort to provide you with optimal care, which includes your follow-up. Under all circumstances we always encourage you to contact your private physician who remains a resource for coordinating your care. When calling for follow-up care, please make the office aware that this follow-up is from your recent emergency room visit. If for any reason you are refused follow-up, please contact the [facility] Emergency Department at and asked to speak to the emergency department charge nurse. Please follow up with your primary care physician. If you do not have a primary care physician, see below: [facility] [address] [place] [id number] [facility] [address] [place] [id number] Sepsis Event Note (ED) - Evaluation Sepsis Screening Result: No Definite Risk - Focused Exam Vital Signs: Vital Signs Temp Pulse Resp BP Pulse Ox 03/08/21 09:31 98.2 F 75 20 126/71 94 L - Assessment/Plan Plan: Patient is a 60-year-old female brought in for possible abdominal pain and UTI. Patient seems to be slightly confused on exam we will obtain CT head and abdomen pelvis UA and reassess.
[2021-03-08 10:30] LABS: BLOOD UREA NITROGEN,BUN 13 mg/dL (7.0-18.0); CHLORIDE,CL 99 mmol/L (98-107); GLUCOSE RANDOM 103 mg/dL (74-106); LIPASE 65 U/L (73-393); POTASSIUM,K 3.7 mmol/L (3.5-5.1); SODIUM,NA 142 mmol/L (136-145)
[2021-03-08] MEDS ORDERED: cefTRIAXone 1 GM in Premix Bag 1 BAG IV ONE (11:16)
[2021-03-08] MEDS ORDERED: Iopamidol 755 MG/ML 500 ML Multipack Bottle IVPUSH STA (11:18)
--- NOTE | 2021-03-08 12:03 | CT ---
INDICATION: Altered mental status TECHNIQUE: Head CT without contrast. COMPARISON: January 31, 2020 FINDINGS: CSF spaces: Within normal limits for age. Brain parenchyma: There are nonspecific low attenuation white matter changes consistent with chronic microvascular disease. No sign of mass, hemorrhage, or midline shift. Skull base and calvarium: The visualized paranasal sinuses and mastoid air cells demonstrate no acute or significant findings. The visualized orbits are grossly unremarkable. No skull fractures. There is intracranial atherosclerosis. IMPRESSION: 1. No acute findings. 2. Nonspecific white matter disease, typical of chronic microvascular disease. Please note that all CT scans at this facility use dose modulation, iterative reconstruction, and/or weight-based dosing when appropriate to reduce radiation dose to as low as reasonably achievable. Dictated by Giovanna Peters MD @ 03/08/2021 12:02:17 PM (Electronically Signed)
--- NOTE | 2021-03-08 12:53 | CT ---
INDICATION: Diffuse abdominal pain TECHNIQUE: CT abdomen and pelvis with 100 cc Isovue 370 IV contrast. COMPARISON: October 31, 2020 FINDINGS: Lower chest: Unremarkable. Liver: Unremarkable. Spleen: Unremarkable. Pancreas: Unremarkable. Gallbladder and bile ducts: S/p cholecystectomy. Adrenal glands: Unremarkable. Kidneys: Scarring on the left kidney. GI tract: Large amount of stool in the colon. Appendix is normal. Vascular structures: Unremarkable. Lymph nodes: Unremarkable. Miscellaneous: Unremarkable. No free air or significant free fluid. Pelvic Organs: Status post hysterectomy. Bones: Unremarkable for age. IMPRESSION: No acute intra-abdominal inflammatory process. Large amount of feces in the colon. Left renal scarring. Status post cholecystectomy and hysterectomy. Please note that all CT scans at this facility use dose modulation, iterative reconstruction, and/or weight-based dosing when appropriate to reduce radiation dose to as low as reasonably achievable. Dictated by Giovanna Peters MD @ 03/08/2021 12:52:30 PM (Electronically Signed)
[2021-03-08 15:36] VITALS: BP 126/78; PULSE 87
== END 2021-03-08 13:30 | disposition home or self-care (01) ==
LOC: MW.ED 09:20
DX: N39.0 Urinary tract infection, site not specified (principal); E03.9 Hypothyroidism, unspecified; K21.9 Gastro-esophageal reflux disease without esophagitis; E66.9 Obesity, unspecified; Z68.36 Body mass index [BMI] 36.0-36.9, adult; Z79.82 Long term (current) use of aspirin; Z79.899 Other long term (current) drug therapy
CPT/HCPCS: 36415; 70450; 74177; 80053; 80305; 80307; 81001; 83690; 83735; 84100; 85025; 96365; 99285; J0696; Q9967

== ENCOUNTER 2021-04-16 13:56 | Emergency (ER) | payer MEDICARE, MEDICAID ==
[2021-04-16] MEDS ORDERED: Sodium Chloride 0.9% 1,000 ML IV ONE (14:27)
[2021-04-16] MEDS ORDERED: Sodium Chloride 0.9% 10 ML Syringe FLUSH PRN (14:27)
[2021-04-16] MEDS ORDERED: Sodium Chloride 0.9% 2.5 ML Syringe FLUSH PRN (14:27)
[2021-04-16 16:05] LABS: CORONAVIRUS COVID-19 NAA NEGATIVE (NEGATIVE); INFLUENZA A NAA NEGATIVE (NEGATIVE); INFLUENZA B NAA NEGATIVE (NEGATIVE)
[2021-04-16 16:12] LABS: BLOOD UREA NITROGEN,BUN 22 mg/dL (7.0-18.0); CARBON DIOXIDE,CO2 30.5 mmol/L (21.0-32.0); CHLORIDE,CL 100 mmol/L (98-107); GLUCOSE RANDOM 131 mg/dL (74-106); SODIUM,NA 141 mmol/L (136-145)
[2021-04-16] MEDS ORDERED: Sulfamethoxazole/Trimethoprim 800-160 MG Tab PO ONE (16:14)
[2021-04-16 18:05] VITALS: BP 102/67; PULSE 90
== END 2021-04-16 18:07 ==
LOC: MW.ED 13:56
DX: N39.0 Urinary tract infection, site not specified (principal); E03.9 Hypothyroidism, unspecified; E66.01 Morbid (severe) obesity due to excess calories; Z79.899 Other long term (current) drug therapy; Z20.822 Contact with and (suspected) exposure to COVID-19; Z68.35 Body mass index [BMI] 35.0-35.9, adult
CPT/HCPCS: 0240U; 36415; 70450; 71045; 80053; 81001; 85025; 93005; 99284; A9270; J7030

== ENCOUNTER 2021-05-28 09:19 | Emergency (ER) | payer MEDICARE, MEDICAID ==
[2021-05-28] MEDS ORDERED: Sodium Chloride 0.9% 2.5 ML Syringe FLUSH PRN (09:36)
[2021-05-28] MEDS ORDERED: Sodium Chloride 0.9% 10 ML Syringe FLUSH PRN (09:36)
[2021-05-28] MEDS ORDERED: Albuterol/Ipratropium 3.0-0.5 MG/3 ML Neb Soln NEB ONE (09:37)
[2021-05-28] MEDS ORDERED: Lactated Ringers 1,000 ML IV ONE (09:46)
[2021-05-28] MEDS ORDERED: Sodium Chloride 0.9% 1,000 ML IV ONE (09:50)
[2021-05-28] MEDS ORDERED: Cefepime 2 GM in Sodium Chloride 0.9% 50 ML IV ONE (10:12)
[2021-05-28] MEDS ORDERED: VANCOmycin 2 GM/400 ML 2 GM in Premix Bag 1 BAG IV ONE (10:30)
[2021-05-28 10:39] LABS: BLOOD UREA NITROGEN,BUN 14 mg/dL (7.0-18.0); CARBON DIOXIDE,CO2 35.6 mmol/L (21.0-32.0); CHLORIDE,CL 98 mmol/L (98-107); GLUCOSE RANDOM 142 mg/dL (74-106); POTASSIUM,K 3.6 mmol/L (3.5-5.1); SODIUM,NA 141 mmol/L (136-145)
[2021-05-28 11:03] LABS: CORONAVIRUS COVID-19 NAA NEGATIVE (NEGATIVE); INFLUENZA A NAA NEGATIVE (NEGATIVE); INFLUENZA B NAA NEGATIVE (NEGATIVE)
[2021-05-28] MEDS ORDERED: Etomidate 2 MG/ML 20 ML SDV IVPUSH ONE ×2 (13:30→14:14)
[2021-05-28] MEDS ORDERED: fentaNYL/Normal Saline 2,500 MCG in Premix Bag 1 BAG IV PRN (13:30)
[2021-05-28] MEDS ORDERED: Rocuronium 50 MG/5 ML Vial IVPUSH ONE (14:17)
[2021-05-28] MEDS ORDERED: Midazolam 1 MG/ML 2 ML SDV IVPUSH ONE ×2 (14:17→15:28)
[2021-05-28] MEDS ORDERED: Midazolam 5 MG/ML SDV ONE (15:29)
[2021-05-28] MEDS ORDERED: Midazolam 50 MG in Sodium Chloride 0.9% 40 ML IV SCH (15:30)
[2021-05-28 16:30] VITALS: BP 105/65; PULSE 62
[2021-05-28] MEDS ORDERED: Iopamidol 755 MG/ML 500 ML Multipack Bottle IVPUSH ONE (19:11)
== END 2021-05-28 16:15 ==
LOC: MW.ED 09:19
DX: J96.22 Acute and chronic respiratory failure with hypercapnia (principal); J18.9 Pneumonia, unspecified organism; E66.9 Obesity, unspecified; E03.9 Hypothyroidism, unspecified; Z68.35 Body mass index [BMI] 35.0-35.9, adult; Z79.82 Long term (current) use of aspirin; Z90.49 Acquired absence of other specified parts of digestive tract; Z20.822 Contact with and (suspected) exposure to COVID-19; Z79.899 Other long term (current) drug therapy
CPT/HCPCS: 0240U; 31500; 36415; 36600; 71045; 71275; 80053; 81001; 82803; 83605; 83880; 84484; 85025; 87040; 87077; 87154; 87186; 93005; 96365; 96366; 96367; 99285; J0330; J0692; J2250; J3370; J3490; J7030; Q9967; J7620-GY

== ENCOUNTER 2021-06-08 10:45 | Emergency (ER) | payer MEDICARE, MEDICAID ==
[2021-06-08] MEDS ORDERED: Sodium Chloride 0.9% 2.5 ML Syringe FLUSH PRN (11:15)
[2021-06-08] MEDS ORDERED: Sodium Chloride 0.9% 10 ML Syringe FLUSH PRN (11:15)
[2021-06-08 12:20] LABS: BLOOD UREA NITROGEN,BUN 17 mg/dL (7.0-18.0); CARBON DIOXIDE,CO2 36.5 mmol/L (21.0-32.0); CHLORIDE,CL 102 mmol/L (98-107); GLUCOSE RANDOM 118 mg/dL (74-106); LIPASE 41 U/L (73-393); POTASSIUM,K 4.1 mmol/L (3.5-5.1); SODIUM,NA 143 mmol/L (136-145)
[2021-06-08 13:04] LABS: CORONAVIRUS COVID-19 NAA NEGATIVE (NEGATIVE); INFLUENZA A NAA NEGATIVE (NEGATIVE); INFLUENZA B NAA NEGATIVE (NEGATIVE)
[2021-06-08] MEDS ORDERED: Iopamidol 755 MG/ML 500 ML Multipack Bottle IVPUSH STA (14:31)
[2021-06-08 16:39] VITALS: BP 117/69; PULSE 82
== END 2021-06-08 16:27 | disposition home or self-care (01) ==
LOC: MW.ED 10:45
DX: M62.838 Other muscle spasm (principal); J18.9 Pneumonia, unspecified organism; R91.8 Other nonspecific abnormal finding of lung field; Z99.81 Dependence on supplemental oxygen; E03.9 Hypothyroidism, unspecified; K21.9 Gastro-esophageal reflux disease without esophagitis; F32.A Depression, unspecified; E66.9 Obesity, unspecified; Z68.37 Body mass index [BMI] 37.0-37.9, adult; Z20.822 Contact with and (suspected) exposure to COVID-19
CPT/HCPCS: 0240U; 36415; 70450; 71045; 71275; 80053; 81003; 83605; 83690; 84484; 85025; 93005; 99285; Q9967; 93010

== ENCOUNTER 2021-06-19 16:18 | Emergency (ER) | payer MEDICARE, MEDICAID ==
[2021-06-19] MEDS ORDERED: Sodium Chloride 0.9% 2.5 ML Syringe FLUSH PRN (16:39)
[2021-06-19] MEDS ORDERED: Sodium Chloride 0.9% 1,000 ML IV ONE ×3 (16:39→17:49)
[2021-06-19] MEDS ORDERED: Sodium Chloride 0.9% 10 ML Syringe FLUSH PRN (16:39)
[2021-06-19] MEDS ORDERED: Piperacillin/Tazobactam 4.5 GM in Sodium Chloride 0.9% 100 ML IV ONE (16:42)
[2021-06-19 16:49] VITALS: BP 101/72; PULSE 64
[2021-06-19] MEDS ORDERED: propofoL 100 ML ONE (17:07)
[2021-06-19] MEDS ORDERED: VANCOmycin 1.75 GM/350 ML 1.75 GM in Premix Bag 1 BAG IV ONE (17:15)
[2021-06-19] MEDS ORDERED: propofoL 100 ML IV SCH ×2 (17:15→17:45)
[2021-06-19 17:26] LABS: BLOOD UREA NITROGEN,BUN 24 mg/dL (7.0-18.0); CARBON DIOXIDE,CO2 31.7 mmol/L (21.0-32.0); CHLORIDE,CL 101 mmol/L (98-107); GLUCOSE RANDOM 121 mg/dL (74-106); LIPASE 57 U/L (73-393); POTASSIUM,K 4.3 mmol/L (3.5-5.1); SODIUM,NA 142 mmol/L (136-145)
[2021-06-19] MEDS ORDERED: Succinylcholine 200 MG/10 ML MDV IV STA (17:35)
[2021-06-19] MEDS ORDERED: Etomidate 2 MG/ML 20 ML SDV IVPUSH ONE (17:35)
[2021-06-19] MEDS ORDERED: Sodium Chloride 0.9% 250 ML IV SCH (18:00)
[2021-06-19] MEDS ORDERED: Iopamidol 755 MG/ML 500 ML Multipack Bottle IVPUSH STA (18:56)
== END 2021-06-19 21:00 ==
LOC: MW.ED 16:18
DX: A41.9 Sepsis, unspecified organism (principal); J96.01 Acute respiratory failure with hypoxia; J18.9 Pneumonia, unspecified organism; K21.9 Gastro-esophageal reflux disease without esophagitis; K56.609 Unspecified intestinal obstruction, unspecified as to partial versus complete obstruction; E03.9 Hypothyroidism, unspecified; E66.9 Obesity, unspecified; Z68.42 Body mass index [BMI] 45.0-49.9, adult; Z20.822 Contact with and (suspected) exposure to COVID-19; Z79.82 Long term (current) use of aspirin; Z79.899 Other long term (current) drug therapy
CPT/HCPCS: 31500; 36415; 36556; 36600; 43752; 51702; 70450; 71045; 71275; 80053; 80307; 81001; 82803; 83605; 83690; 83880; 84439; 84443; 84484; 85025; 85610; 85730; 87040; 87077; 87154; 87186; 93005; 96365; 96367; 99291; J0330; J2704; J3370; J3490; J7030; Q9967; U0002